=== PATIENT | female | born 1950 | race Caucasian/White ===

== ENCOUNTER 2018-03-04 08:08 | Day surgery (SDC) | payer OTHER ==
[2018-03-04] MEDS ORDERED: Ringers Lactate 1,000 ML IV ONE (09:13)
[2018-03-04] MEDS ORDERED: PROPOFOL 200 MG/20 ML VIAL IV ONE (09:44)
[2018-03-04] MEDS ORDERED: LIDOCAINE 1% MPF 5 ML VIAL ONE (09:44)
--- NOTE | 2018-03-04 11:41 | ENDO RPT ---
[address], [address] EGD PROCEDURE REPORT EXAM DATE: 03/04/2018 PATIENT NAME: Sunni Tripathi MR#: [id number] BIRTHDATE: 1950 ATTENDING: Raúl Wharton Dr STATUS: outpatient LEGAL RESEARCHER: Malini Vieyra, Monae Obrien RN, and Celia Sánchez RN INDICATIONS: The patient is a 67 yr old Female here for an EGD due to right upper quadrant abdominal pain, mid epigastric abdominal pain, nausea and vomiting, bloating, belching, dyspepsia, and GERD PROCEDURE PERFORMED: EGD with biopsy MEDICATIONS: Per Anesthesia. TOPICAL ANESTHETIC: none CONSENT: The patient understands the risks and benefits of the procedure and understands that these risks include, but are not limited to: sedation, allergic reaction, infection, perforation and/or bleeding. Alternative means of evaluation and treatment include, among others: physical exam, x-rays, and/or surgical intervention. The patient elects to proceed with this endoscopic procedure. DESCRIPTION OF PROCEDURE: During intra-op preparation period all mechanical medical equipment was checked for proper function. Hand hygiene and appropriate measures for infection prevention was taken. Procedure, possible complications, and alternatives including but not limited to the possibility of bleeding, perforation, tear, infection, sepsis, need for surgery, need for blood transfusion, and anesthesia related complications were explained to the patient. After the risks, benefits and alternatives of the procedure were thoroughly explained, Informed consent was verified, confirmed and timeout was successfully executed by the treatment team. The patient was placed in the left lateral position. The patient was anesthetized with topical anesthesia. Through the anesthetized oropharyngeal area, the scope was passed without any difficulty. The EG-[id number] ([id number]) endoscope was introduced through the mouth and advanced to the second portion of the duodenum. Retroflexed views revealed a small hiatal hernia. The gastroscope was then slowly withdrawn and removed. LA Class A esophagitis was found in the lower esophagus. A small hiatal hernia was found Mild gastritis was found in the antrum. Multiple biopsies were obtained and sent to pathology. Mild duodenitis was found in the bulb and descending duodenum. ADVERSE EVENTS: There were no complications. IMPRESSIONS: 1. LA class A esophagitis in the lower esophagus 2. Small hiatal hernia 3. Mild gastritis in the antrum, s/p biopsies 4. Mild duodenitis in the bulb and descending duodenum RECOMMENDATIONS: 1. await biopsy results 2. acid suppression therapy REPEAT EXAM: Raúl Wharton Dr eSigned: Raúl Wharton Dr 03/04/2018 10:06 AM cc: Darrell Andrade CPT CODES: ICD9 CODES: PATIENT NAME: Sunni Tripathi MR#: [id number]
--- NOTE | 2018-03-04 12:16 | RAD REPORT ---
EXAM DESCRIPTION: CTAbdomen Pelvis W Contrast - 03/04/2018 12:02 pm CLINICAL HISTORY: Abdominal pain. RT UPPER AND LEFT UPPER ABD PAIN STATUS [facility] COMPARISON: Abdomen Pelvis W Contrast dated 10/02/2016; Abdomen Pelvis W Contrast dated 07/11/2016 ; CT ABD PELVIS W CONTRAST dated 03/30/2014; CT ABD PELVIS W CONTRAST dated 03/26/2012 TECHNIQUE: Biphasic CT imaging of the abdomen and pelvis was performed with 100 ml non-ionic IV cont rast. All CT scans are performed using dose optimization technique as appropriate and may include automated exposure control or mA/KV adjustment according to patient size. FINDINGS: The lung bases are clear. The liver demonstrates fatty infiltration. There is nodularity along the left lobe the anterior brian n. Cholecystectomy clips. The spleen, pancreas, adrenal glands and kidneys are within normal limits. No bowel obstruction, free air, free fluid or abscess. Sigmoid diverticulosis without diverticulitis. Appendectomy. No evidence of significant lymphadenopathy. No suspicious bony findings. IMPRESSION: Fatty liver is seen with nodularity along the anterior margin of the left lobe of the li lachelle suspicious for early cirrhosis. Sigmoid diverticulosis without diverticulitis.
== END 2018-03-04 12:45 | disposition home or self-care (01) ==
LOC: OR 08:08
PROVIDERS: ATTEND Internal Medicine Gastroenterology
PROC: 0DB68ZX Excision of Stomach, Via Natural or Artificial Opening Endoscopic, Diagnostic (ICD-10-PCS; principal; 2018-03-04 10:45)
DX: K29.50 Unspecified chronic gastritis without bleeding (principal); K21.0 Gastro-esophageal reflux disease with esophagitis; K29.80 Duodenitis without bleeding; K44.9 Diaphragmatic hernia without obstruction or gangrene; E11.9 Type 2 diabetes mellitus without complications; J44.9 Chronic obstructive pulmonary disease, unspecified; G35 Multiple sclerosis; Z88.4 Allergy status to anesthetic agent; Z88.6 Allergy status to analgesic agent; Z87.891 Personal history of nicotine dependence; Z86.73 Personal history of transient ischemic attack (TIA), and cerebral infarction without residual deficits; Z90.710 Acquired absence of both cervix and uterus
CPT/HCPCS: 36415; 43239; 74177; 82565; 88305; 88312; J2704; Q9967

== ENCOUNTER 2018-05-06 06:30 | Day surgery (SDC) | payer OTHER ==
[2018-05-06] MEDS ORDERED: Ringers Lactate 1,000 ML IV ONE (07:12)
[2018-05-06] MEDS ORDERED: LIDOCAINE 1% MPF 5 ML VIAL ONE (09:31)
[2018-05-06] MEDS ORDERED: PROPOFOL 200 MG/20 ML VIAL IV ONE ×2 (09:31→09:32)
--- NOTE | 2018-05-06 16:02 | ENDO RPT ---
[address], [address] COLONOSCOPY PROCEDURE REPORT EXAM DATE: 05/06/2018 PATIENT NAME: Sunni Tripathi MR #: [id number] BIRTHDATE: 1950 ATTENDING: Raúl Wharton Dr STATUS: outpatient TOOL TENDER: Donna Benitez RN and Malini Rogers [facility] INDICATIONS: The patient is a 67 yr old Female here for a colonoscopy due to personal history of colon polyps PROCEDURE PERFORMED: Colonoscopy with snare polypectomy, Colonoscopy for control of bleeding, and Colon w/ endoclip MEDICATIONS: Per Anesthesia. ESTIMATED BLOOD LOSS: None CONSENT: The patient understands the risks and benefits of the procedure and understands that these risks include, but are not limited to: sedation, allergic reaction, infection, perforation and/or bleeding. Alternative means of evaluation and treatment include, among others: physical exam, x-rays, and/or surgical intervention. The patient elects to proceed with this endoscopic procedure. DESCRIPTION OF PROCEDURE: During intra-op preparation period all mechanical medical equipment was checked for proper function. Hand hygiene and appropriate measures for infection prevention was taken. Procedure, possible complications, alternatives including, but not limited to possibility of bleeding, perforation, tear, infection, sepsis, need for surgery, need for blood transfusion, were explained to the patient. After the risks, benefits and alternatives of the procedure were thoroughly explained, Informed consent was verified, confirmed and timeout was successfully executed by the treatment team. The patient was placed in the left lateral position. A digital rectal exam was performed and revealed external hemorrhoids. After appropriate level of anesthesia, the scope was passed. The EC-[id number] ([id number]) endoscope was introduced through the anus and advanced to the terminal ileum which was intubated for a short distance. The quality of the prep was fair. The instrument was then slowly withdrawn as the colon was fully examined. Scope withdrawal time was 9 minutes. COLON FINDINGS: A smooth flat polyp measuring 2.2 cm in size was found in the ascending colon. A polypectomy was performed using snare cautery and with a cold snare. The resection was complete, the polyp tissue was completely retrieved and sent to histology. Bleeding at the site was controlled using hemoclips. One (1) placement was made. Mild diverticulosis was noted in the sigmoid colon. No bleeding was noted from the diverticulosis. Moderate sized internal and external hemorrhoids were found. Retroflexed views revealed medium hemorrhoids. The scope was then completely withdrawn from the patient and the procedure terminated. ADVERSE EVENTS: There were no complications. IMPRESSIONS: 1. Flat polyp measuring 2.2 X 0.9 cm in size was found in the ascending colon; polypectomy was performed in a piecemeal fashion using snare cautery and with a cold snare; bleeding at the site was controlled using hemoclips 2. Mild diverticulosis was noted in the sigmoid colon 3. Moderate sized internal and external hemorrhoids 4. Intubation to terminal ileum 5. Personal history of colon polyps RECOMMENDATIONS: 1. await biopsy results 2. avoid NSAIDS for 2 weeks RECALL: Return in 3 month(s) for Colonoscopy. Raúl Wharton Dr eSigned: Raúl Wharton Dr 05/06/2018 10:18 AM cc: Darrell Andrade CPT CODES: ICD9 CODES: 1. 455.5 External hemorrhoids with other complication 2. 211.3 Benign neoplasm of colon PATIENT NAME: Sunni Tripathi MR#: [id number]
== END 2018-05-06 10:29 | disposition home or self-care (01) ==
LOC: OR 06:30
PROVIDERS: ATTEND Internal Medicine Gastroenterology
PROC: 0DBK8ZX Excision of Ascending Colon, Via Natural or Artificial Opening Endoscopic, Diagnostic (ICD-10-PCS; principal; 2018-05-06 09:30)
DX: Z12.11 Encounter for screening for malignant neoplasm of colon (principal); D12.2 Benign neoplasm of ascending colon; K57.30 Diverticulosis of large intestine without perforation or abscess without bleeding; K64.4 Residual hemorrhoidal skin tags; K64.8 Other hemorrhoids; E07.9 Disorder of thyroid, unspecified; E11.9 Type 2 diabetes mellitus without complications; J44.9 Chronic obstructive pulmonary disease, unspecified; K21.9 Gastro-esophageal reflux disease without esophagitis; K76.0 Fatty (change of) liver, not elsewhere classified; Z79.51 Long term (current) use of inhaled steroids; Z79.899 Other long term (current) drug therapy; Z86.73 Personal history of transient ischemic attack (TIA), and cerebral infarction without residual deficits
CPT/HCPCS: 45385; 88305; J2704 ×2

== ENCOUNTER 2018-11-04 06:49 | Day surgery (SDC) | payer OTHER ==
[2018-11-04] MEDS ORDERED: Ringers Lactate 1,000 ML IV ONE (07:16)
[2018-11-04] MEDS ORDERED: LIDOCAINE 1% MPF 5 ML VIAL ONE (08:23)
[2018-11-04] MEDS ORDERED: PROPOFOL 200 MG/20 ML VIAL IV ONE (08:23)
[2018-11-04] MEDS ORDERED: NS 0.9% VIAL 10 ML ONE (09:00)
[2018-11-04] MEDS ORDERED: Phenylephrine HCl 10 MG/ML 1 ML VIAL ONE (09:00)
--- NOTE | 2018-11-04 09:00 | ENDO RPT ---
[address], [address] COLONOSCOPY PROCEDURE REPORT EXAM DATE: 11/04/2018 PATIENT NAME: Sunni Tripathi MR #: [id number] BIRTHDATE: 1950 ATTENDING: Raúl Wharton Dr STATUS: outpatient RESTAURANT GREETER: Luis Rossi RN, Malini Vieyra, and Angela Newby RN INDICATIONS: The patient is a 67 yr old Female here for a colonoscopy due to personal history of colon polyps and abdominal pain PROCEDURE PERFORMED: Colonoscopy with snare polypectomy MEDICATIONS: Per Anesthesia. ESTIMATED BLOOD LOSS: None CONSENT: The patient understands the risks and benefits of the procedure and understands that these risks include, but are not limited to: sedation, allergic reaction, infection, perforation and/or bleeding. Alternative means of evaluation and treatment include, among others: physical exam, x-rays, and/or surgical intervention. The patient elects to proceed with this endoscopic procedure. DESCRIPTION OF PROCEDURE: During intra-op preparation period all mechanical medical equipment was checked for proper function. Hand hygiene and appropriate measures for infection prevention was taken. Procedure, possible complications, alternatives including, but not limited to possibility of bleeding, perforation, tear, infection, sepsis, need for surgery, need for blood transfusion, were explained to the patient. After the risks, benefits and alternatives of the procedure were thoroughly explained, Informed consent was verified, confirmed and timeout was successfully executed by the treatment team. The patient was placed in the left lateral position. A digital rectal exam was performed and revealed external hemorrhoids. After appropriate level of anesthesia, the scope was passed. The EC-[id number] ([id number]) endoscope was introduced through the anus and advanced to the terminal ileum which was intubated for a short distance. The quality of the prep was fair. The instrument was then slowly withdrawn as the colon was fully examined. Scope withdrawal time was 8 minutes. COLON FINDINGS: A smooth flat polyp measuring 4 mm in size was found in the ascending colon. A polypectomy was performed with a cold snare. Mild diverticulosis was noted in the descending colon and sigmoid colon. No bleeding was noted from the diverticulosis. Small internal and external hemorrhoids were found. Retroflexed views revealed small hemorrhoids. The scope was then completely withdrawn from the patient and the procedure terminated. ADVERSE EVENTS: There were no complications. IMPRESSIONS: 1. 4 mm flat polyp in the distal ascending colon; polypectomy was performed with a cold snare 2. Mild diverticulosis in the descending colon < sigmoid colon 3. Small internal and external hemorrhoids 4. Intubation to terminal ileum RECOMMENDATIONS: 1. await biopsy results 2. avoid NSAIDS for 2 weeks RECALL: Return in 3-5 year(s) for Colonoscopy. Raúl Wharton Dr eSigned: Raúl Wharton Dr 11/04/2018 9:00 AM cc: Darrell Andrade CPT CODES: ICD9 CODES: PATIENT NAME: Sunni Tripathi MR#: [id number]
[2018-11-04 11:09] VITALS: TEMP 97
[2018-11-04 11:10] VITALS: BP 112/59; O2SAT 95
== END 2018-11-04 09:25 | disposition home or self-care (01) ==
LOC: OR 06:49
PROVIDERS: ATTEND Internal Medicine Gastroenterology
PROC: 0DBK8ZX Excision of Ascending Colon, Via Natural or Artificial Opening Endoscopic, Diagnostic (ICD-10-PCS; principal; 2018-11-04 08:45)
DX: D12.2 Benign neoplasm of ascending colon (principal); K57.30 Diverticulosis of large intestine without perforation or abscess without bleeding; K64.8 Other hemorrhoids; K64.4 Residual hemorrhoidal skin tags; K27.9 Peptic ulcer, site unspecified, unspecified as acute or chronic, without hemorrhage or perforation; E11.9 Type 2 diabetes mellitus without complications; I10 Essential (primary) hypertension; J44.9 Chronic obstructive pulmonary disease, unspecified; G35 Multiple sclerosis; K21.9 Gastro-esophageal reflux disease without esophagitis; Z86.010 Personal history of colon polyps; Z86.73 Personal history of transient ischemic attack (TIA), and cerebral infarction without residual deficits; Z88.6 Allergy status to analgesic agent
CPT/HCPCS: 88305; 45385; J2704; J2370

== ENCOUNTER 2020-11-14 15:49 | Observation (INO) | payer OTHER ==
[2020-11-14 16:45] LABS: Absolute Lymphocytes (CBC) 0.7 K/uL (0.7-4.9); Basophils % 0.4 % (0-1.3); Hematocrit 34.9 % (36.0-45.0); Lymphocytes % 10.4 % (15.3-44.8); MPV 8.4 fL (7.6-11.3); RBC Red Blood Cell Count 3.41 M/uL (3.86-4.86)
[2020-11-14 16:51] LABS: Protime INR 1.15
[2020-11-14] MEDS ORDERED: CEFTRIAXONE 1 GM/NS 50 ML 1 GM/50 ML BAG IV ONE (17:00)
[2020-11-14 17:11] LABS: ALT/SGPT 22 U/L (12-78); AST/SGOT 16 U/L (15-37); Albumin 3.9 g/dL (3.4-5.0); Alkaline Phosphatase 79 U/L (45-117); BUN Blood Urea Nitrogen 19 mg/dL (7-18); Bicarbonate 29 mmol/L (21-32); Bilirubin Direct 0.3 mg/dL (0-0.2); Bilirubin Total 0.8 mg/dL (0.2-1.0); Glucose Level 118 mg/dL (74-106); Magnesium 2.1 mg/dL (1.8-2.4); NT PRO-BNP 324 pg/mL (<125); Potassium 3.8 mmol/L (3.5-5.1); Protein, Total 7.8 g/dL (6.4-8.2); Sodium Level 136 mmol/L (136-145); Troponin (Emerg Dept Use Only) < 0.02 ng/mL (0.0-0.045)
--- NOTE | 2020-11-14 17:22 | RAD REPORT ---
EXAM DESCRIPTION: RAD - Chest Single View - 11/14/2020 5:10 pm CLINICAL HISTORY: chest pain, fever Chest pain. COMPARISON: Chest Single View dated 04/16/2016; Chest Single View dated 05/20/2015; CHEST PA AND LAT 2 VIEW dated 08/05/2013; CHEST SINGLE VIEW dated 01/15/2013 FINDINGS: Portable technique limits examination quality. Mild bilateral pulmonary opacities are present, greater on the right. Right-sided opacity probably re presents a developing pneumonia. The heart is normal in size. No displaced fractures. IMPRESSION: Developing right-sided pneumonia.
[2020-11-14] MEDS ORDERED: NA CHLORIDE 0.9% 1,000 ML ONE (17:54)
--- NOTE | 2020-11-14 18:07 | EDPHYS ---
Physician Documentation [facility] Name: Sunni Tripathi Age: 69 yrs Sex: Female : 1950 Arrival Date: 11/14/2020 Time: 15:50 Bed 25 Private MD: Darrell Andrade T ED Physician Geovani Tolbert HPI: 11/14 16:11 This 69 yrs old Female presents to ER via Wheelchair with complaints of Chest jmm Pain. 16:11 The patient has shortness of breath at rest. Onset: The symptoms/episode began/occurred jmm gradually, 2 day(s) ago. Duration: The symptoms are continuous, and are steadily getting worse. The patient's shortness of breath is aggravated by nothing, is alleviated by nothing. Associated signs and symptoms: Pertinent positives: chest pain, non-productive cough, fever. It is unknown whether or not the patient has had similar symptoms in the past. This is a 69-year-old female with history of multiple myeloma that presents emerged part with complaints of right-sided chest pain beginning today. Patient has had a cough with low-grade fever for the past 2 days. Tested negative for coronavirus letter at home test. Patient complains of increasing shortness of breath as well. Patient is currently taking oral chemotherapy. Historical: - Allergies: 15:57 anesthesia gases; aa5 - PMHx: 15:57 Cataracts; chronic back pain; Multiple Sclerosis; Rheumatoid Arthritis; spinal aa5 meningitis (age 25 from bee sting); Atrial fibrillation; Hypothyroidism; Multiple Myeloma; Chemotherapy; - PSHx: 15:57 Stem cell transplant; aa5 - Immunization history:: Client reports receiving the 2nd dose of the Covid vaccine. - Social history:: Smoking status: Patient denies any tobacco usage or history of. ROS: 16:11 Constitutional: Positive for fever. jmm 16:11 Respiratory: Positive for cough. 16:11 All other systems are negative. Exam: 16:11 Constitutional: This is a well developed, well nourished patient who is awake, alert, jmm and in no acute distress. Head/Face: atraumatic. Eyes: EOMI, no conjunctival erythema appreciated ENT: Moist Mucus Membranes Neck: Trachea midline, Supple Chest/axilla: Normal chest wall appearance and motion. Cardiovascular: Regular rate and rhythm. No edema appreciated 16:11 Back: Normal ROM Skin: General appearance color normal MS/ Extremity: Moves all extremities, no obvious deformities appreciated, no edema noted to the lower extremities Neuro: Awake and alert, normal gait Psych: Behavior is normal, Mood is normal, Patient is cooperative and pleasant 16:11 Respiratory: the patient does not display signs of respiratory distress, Respirations: Breath sounds: decreased breath sounds, that are moderate, are heard in the right middle lobe and right lower lobe. Vital Signs: 16:00 BP 137 / 69; Pulse 104; Resp 18 S; Temp 101.0(O); Pulse Ox 94% on R/A; Weight 80.74 kg aa5 (R); Height 5 ft. 7 in. (170.18 cm) (R); 19:13 BP 118 / 63; Pulse 78; Resp 20; Temp 100; Pulse Ox 100% ; aj2 16:00 Body Mass Index 27.88 (80.74 kg, 170.18 cm) aa5 MDM: 16:04 Patient medically screened. [facility] 18:06 Data reviewed: vital signs, nurses notes. Counseling: I had a detailed discussion with john the patient and/or guardian regarding: the historical points, exam findings, and any diagnostic results supporting the discharge/admit diagnosis, lab results, the need for further work-up and treatment in the hospital. ED course: I discussed the patient with Colt Bauman whom accepted the patient to Dr. Knapp service. . 11/14 16:07 Order name: Basic Metabolic Panel; Complete Time: 17:11 [facility] 11/14 16:07 Order name: CBC with Diff; Complete Time: 16:50 [facility] 11/14 16:07 Order name: LFT's; Complete Time: 17:11 [facility] 11/14 16:07 Order name: Magnesium; Complete Time: 17:11 [facility] 11/14 16:07 Order name: NT PRO-BNP; Complete Time: 17:11 [facility] 11/14 16:07 Order name: PT-INR; Complete Time: 16:57 [facility] 11/14 16:07 Order name: Troponin (emerg Dept Use Only); Complete Time: 17:11 [facility] 11/14 16:07 Order name: XRAY Chest (1 view); Complete Time: 17:27 [facility] 11/14 16:07 Order name: Procalcitonin; Complete Time: 17:36 [facility] 11/14 16:07 Order name: Lactate; Complete Time: 17:09 [facility] 11/14 16:07 Order name: Blood Culture Adult (2) [facility] 11/14 16:08 Order name: Flu [facility] 11/14 19:22 Order name: COVID-19/FLU A+B; Complete Time: 19:28 [facility] 11/14 16:07 Order name: EKG; Complete Time: 16:09 [facility] 11/14 16:07 Order name: Cardiac monitoring; Complete Time: 17:28 [facility] 11/14 16:07 Order name: EKG - Nurse/Tech; Complete Time: 17:49 [facility] 11/14 16:07 Order name: IV Saline Lock; Complete Time: 16:28 [facility] 11/14 16:07 Order name: Labs collected and sent; Complete Time: 16:28 [facility] 11/14 16:07 Order name: O2 Per Protocol; Complete Time: 16:49 [facility] 11/14 16:07 Order name: O2 Sat Monitoring; Complete Time: 16:49 [facility] 11/14 16:08 Order name: Urine Dipstick-Ancillary (obtain specimen) [facility] Administered Medications: 17:28 Drug: Rocephin (cefTRIAXone) 1 grams Route: IV; Rate: calculated rate; Site: left hand; aj2 Disposition: 11/15 05:54 Co-signature as Attending Physician, Geovani Tolbert MD I agree with the assessment and pablo plan of care. Disposition Summary: 11/14/20 18:07 Hospitalization Ordered Hospitalization Status: Observation [facility] Provider: Rodger Knapp [facility] Condition: Stable [facility] Problem: new [facility] Symptoms: are unchanged [facility] Bed/Room Type: Standard [facility] Room Assignment: 219(11/14/20 20:02) Diagnosis - Pneumonia [facility] Forms: - Medication Reconciliation Form [facility] - SBAR form [facility] Signatures: Dispatcher [employer] EDMS Sumaya Caballero RN RN mw Anderson, Corey, MD MD cha Mickail, Joel, PA PA jmm Calderon, Audri RN RN [facility] aj2 Corrections: (The following items were deleted from the chart) 11/14 18:41 16:09 CORONAVIRUS+MR.LAB.BRZ ordered. EDMS EDMS 20:02 18:07 [facility]
--- NOTE | 2020-11-14 18:07 | ER ---
Nurse's Notes [facility] Name: Sunni Tripathi Age: 69 yrs Sex: Female : 1950 Arrival Date: 11/14/2020 Time: 15:50 Bed 25 Private MD: Darrell Andrade T Diagnosis: Pneumonia Presentation: 11/14 16:00 Chief complaint: Patient states: "I've been having right sided chest pain over the aa5 weekend and Dr. Andrade sent me here to be checked for Pneumonia". Pt also reports fever up to 101.8* F at home, pt reports cough. Coronavirus screen: fever. Ebola Screen: Patient denies exposure to infectious person. Initial Sepsis Screen: Does the patient meet any 2 criteria? Temp <36.0*C (96.8*F)) or > 38.3*C (100.9*F). HR > 90 bpm. Does the patient have a suspected source of infection? Yes:. Risk Assessment: Do you want to hurt yourself or someone else? Patient reports no desire to harm self or others. Onset of symptoms was October 2020. 16:00 Method Of Arrival: Wheelchair aa5 16:00 Acuity: SIM 2 aa5 Triage Assessment: 20:23 General: Appears in no apparent distress. uncomfortable, slender. Pain: Pain does not dc2 radiate. Pain currently is 5 out of 10 on a pain scale. 20:24 General: Behavior is calm, cooperative. dc2 Historical: - Allergies: 15:57 anesthesia gases; aa5 - PMHx: 15:57 Cataracts; chronic back pain; Multiple Sclerosis; Rheumatoid Arthritis; spinal aa5 meningitis (age 25 from bee sting); Atrial fibrillation; Hypothyroidism; Multiple Myeloma; Chemotherapy; - PSHx: 15:57 Stem cell transplant; aa5 - Immunization history:: Client reports receiving the 2nd dose of the Covid vaccine. - Social history:: Smoking status: Patient denies any tobacco usage or history of. Screenin:13 Abuse screen: Denies threats or abuse. Denies injuries from another. Nutritional aj2 screening: No deficits noted. Tuberculosis screening: No symptoms or risk factors identified. Fall Risk None identified. Assessment: 19:13 Pain: Denies pain. Cardiovascular: Rhythm is sinus rhythm. aj2 Vital Signs: 16:00 BP 137 / 69; Pulse 104; Resp 18 S; Temp 101.0(O); Pulse Ox 94% on R/A; Weight 80.74 kg aa5 (R); Height 5 ft. 7 in. (170.18 cm) (R); 19:13 BP 118 / 63; Pulse 78; Resp 20; Temp 100; Pulse Ox 100% ; aj2 16:00 Body Mass Index 27.88 (80.74 kg, 170.18 cm) [facility] ED Course: 15:50 Patient arrived in ED. as 15:50 Darrell Andrade MD is Private Physician. as 15:55 [facility] Harvey [facility] jm 15:55 Geovani Tolbert MD is Attending Physician. [facility] 15:57 Arm band placed on. aa5 16:01 Triage completed. aa5 16:15 Suman Galvez is Primary Nurse. aj2 16:26 Initial lab(s) drawn, by nv, sent to lab. First set of blood cultures drawn. Inserted em1 saline lock: 20 gauge in left wrist, using aseptic technique. Blood collected. 16:49 Blood Culture Adult (2) Sent. aj2 16:49 Lactate Sent. aj2 16:49 Procalcitonin Sent. aj2 16:49 Basic Metabolic Panel Sent. aj2 16:49 CBC with Diff Sent. aj2 16:49 LFT's Sent. aj2 16:49 Magnesium Sent. aj2 16:49 NT PRO-BNP Sent. aj2 16:49 PT-INR Sent. aj2 17:10 XRAY Chest (1 view) In Process Unspecified. EDMS 17:12 Flu Sent. aj2 18:07 Rodger Knapp DO is Hospitalizing Provider. [facility] 19:13 No apparent distress. Resting quietly. aj2 19:13 Patient has correct armband on for positive identification. monitoring manager on. Pulse aj2 ox on. NIBP on. 19:13 No provider procedures requiring assistance completed. IV is patent, is intact. Patient aj2 maintains SpO2 saturation greater than 95% on room air. 20:30 Report given to CHANI Brand - accepting floor nurse. Notified primary nurse of that dc2 patient has not eaten, daughter has taken dentures home and can only eat a soft diet. 20:32 Patient admitted, IV remains in place. intact, No redness/swelling at site. dc2 Administered Medications: 17:28 Drug: Rocephin (cefTRIAXone) 1 grams Route: IV; Rate: calculated rate; Site: left hand; [facility] Outcome: 18:07 Decision to Hospitalize by Provider. john 20:32 Admitted to Med/surg accompanied by tech, via stretcher, room 219, Report called to dc2 CHANI Brand 20:32 Condition: stable 20:34 Patient left the ED. dc2 Signatures: Dispatcher [employer] EDMS Michelet Harvey PA PA jmm Martinez, Amelia as Martinez, Eric em1 Britt Campa, RN RN [facility] aj2 Rosario Omalley RN RN dc2 Corrections: (The following items were deleted from the chart) 18:41 17:12 CORONAVIRUS+ drawn and sent. [facility] EDMS
[2020-11-14 19:21] LABS: SARS-COV-2 RT PCR NEGATIVE (NEGATIVE)
--- NOTE | 2020-11-14 19:52 | P.HP ---
Certification for Inpatient Patient admitted to: Inpatient With expected LOS: >2 Midnights Patient will require the following post-hospital care: None Practitioner: I am a practitioner with admitting privileges, knowledge of patient current condition, hospital course, and medical plan of care. Services: Services provided to patient in accordance with Admission requirements found in Title 42 Section 412.3 of the Code of Federal Regulations Patient History Date of Service: 11/14/20 Primary Care Provider: Dr. Andrade Reason for admission: Pneumonia History of Present Illness: 69-year-old female with history of multiple sclerosis, rheumatoid arthritis, atrial fibrillation, multiple myeloma presents emergency [facility] for shortness of breath, fever. Patient reports not feeling well over the course last 1 week developed fever to 101.8 and was advised by her primary care doctor to come to the emergency department for evaluation. Patient was evaluated in the emergency room and labs are significant for white blood cell count 6.8 hemoglobin 9.9 hematocrit 34.9 MCV 102.3 platelets 119 procalcitonin 0.16 Covid/flu negative chest x-ray demonstrates developing right pneumonia. Patient on daily oral chemotherapy status post stem cell transplant for multimyeloma ED progress to admit for further evaluation and management. Allergies morphine Allergy (Verified 03/04/18 09:16) Shortness of breath ether Adverse Reaction (Verified 11/04/18 07:33) Anaphylaxis Home Medications: Budesonide/Formoterol Fumarate [Symbicort 160-4.5 Mcg Inhaler] 2 puff PO BID 05/20/15 Dimethyl Fumarate [Tecfidera] 1 cap PO BID 05/20/15 Gabapentin 1 tab PO TID 05/20/15 Levothyroxine Sodium [Synthroid] 1 tab PO DAILY 05/20/15 Tiotropium [place] [Spiriva] 1 puff PO DAILY 05/20/15 clonazePAM [Clonazepam] 1 tab PO BID PRN 03/04/18 Hydrocodone Bit/Acetaminophen [Hydrocodon-Acetaminophn 10-325] 1 each PO 05/06/18 Omeprazole 20 mg PO DAILY 05/06/18 carvediloL [Coreg] 25 mg PO DAILY 05/06/18 - Past Medical/Surgical History Diabetic: No -: MS -: Rheumatoid Arthritis -: spinal meningitis -: Multiple myeloma status post stem cell transplant on chemo -: Atrial fibrillation not on chronic anticoagulation -: 3 major spine surgeries (steel plates in neck area) -: complete hysterectomy -: cholecystectomy -: appendectomy -: Autologous stem cell transplant Psychosocial/ Personal History: Retired, lives alone - Family History Mother -: Diabetes, Stroke, Other (see notes) Notes: MS Father -: Heart disease, Diabetes, Cancer - Social History Smoking Status: Former smoker Alcohol use: Yes CD- Drugs: No Caffeine use: Yes Place of Residence: Home Review of Systems 10-point ROS is otherwise unremarkable General: Fever, Chills, Weakness, Malaise Respiratory: Cough, Shortness of Breath Physical Examination - Physical Exam General: Alert, In no apparent distress, Oriented x3 HEENT: Atraumatic, PERRLA, Mucous membr. moist/pink, EOMI, Sclerae nonicteric Neck: Supple, 2+ carotid pulse no bruit, No LAD, Without JVD or thyroid abnormality Respiratory: Clear to auscultation bilaterally, Normal air movement Cardiovascular: Regular rate/rhythm, Normal S1 S2 Gastrointestinal: Normal bowel sounds, No tenderness Musculoskeletal: No tenderness Integumentary: No rashes Neurological: Normal speech, Normal strength at 5/5 x4 extr, Normal tone, Normal affect - Studies Laboratory Data (last 24 hrs) 11/14/20 16:26: PT 13.3 H, INR 1.15 11/14/20 16:26: WBC 6.80, Hgb 11.9 L, Hct 34.9 L, Plt Count 119 L 11/14/20 16:26: Sodium 136, Potassium 3.8, BUN 19 H, Creatinine 0.85, Glucose 118 H, Magnesium 2.1, Total Bilirubin 0.8, AST 16, ALT 22, Alkaline Phosphatase 79 Assessment and Plan - Plan Assessment: Dyspnea, fever secondary to right-sided pneumoniaimmune compromised History of multimyeloma status post stem cell transplanton oral chemotherapy Multiple sclerosis Atrial fibrillation not on chronic anticoagulation therapy Plan: Dyspnea, fever secondary to right-sided pneumoniaimmune compromised: Blood and sputum cultures obtained, will continue with IV antibiotics Rocephin/to the max, no oxygen requirement at this time continue with incentive spirometry. Despite clinical improvement over the course next 24 to 48 hours. History of multimyeloma status post stem cell transplanton oral chemotherapy: Continue medications, monitor daily labs Multiple sclerosis: Continue home meds Atrial fibrillation not on chronic anticoagulation therapy: Patient's Eliquis was discontinued last year, will obtain review of other medications, restart as appropriate. DVT PPX: Lovenox Code status: DNR Discharge Plan: Home Plan to discharge in: 48 Hours - Advance Directives Does patient have a Living Will: Yes Does patient have a Durable POA for Healthcare: Yes - Code Status/Comfort Care Code Status Assessed: Yes (DNR) Critical Care: No Time Spent Managing Pts Care (In Minutes): 55
[2020-11-14] MEDS ORDERED: ONDANSETRON 4 MG/2 ML VIAL IV PRN (20:24)
[2020-11-14] MEDS ORDERED: BENZONATATE 100 MG CAP PO PRN (20:24)
[2020-11-14] MEDS ORDERED: HYDROCODONE/APAP 10/325 TAB PO PRN (20:24)
[2020-11-14 21:21] VITALS: BMI 27.6
[2020-11-14] MEDS: OXYCODONE HCL 5 MG TAB PO SCH (22:05)
[2020-11-14 22:22] LABS: Urine Appearance CLEAR (Clear); Urine Bilirubin NEGATIVE (Negative); Urine Blood 3+ (Negative); Urine Color YELLOW (Yellow); Urine Glucose NEGATIVE (Negative); Urine Protein 2+ (Negative); Urine pH 6.5 (5.0-7.0)
[2020-11-14 22:28] LABS: Urine Microscopic Reflex ORDER UMIC
[2020-11-15 00:12] LABS: Urine Bacteria <20 /HPF (<20); Urine Urothelial Cells <5 /HPF (NONE SEEN)
[2020-11-15] MEDS ORDERED: IBUPROFEN 600 MG TAB PO ONE (01:53)
[2020-11-15] MEDS: OXYCODONE HCL 5 MG TAB PO SCH (04:52)
[2020-11-15 05:13] VITALS: O2SAT 97
[2020-11-15 05:25] LABS: Absolute Lymphocytes (CBC) 0.4 K/uL (0.7-4.9); Basophils % 0.2 % (0-1.3); Hematocrit 28.9 % (36.0-45.0); MPV 7.8 fL (7.6-11.3); RBC Red Blood Cell Count 2.85 M/uL (3.86-4.86)
[2020-11-15 05:59] LABS: Albumin 3.4 g/dL (3.4-5.0); Bilirubin Total 0.7 mg/dL (0.2-1.0); Potassium 3.3 mmol/L (3.5-5.1); Protein, Total 6.9 g/dL (6.4-8.2); Thyroid Stimulating Hormone 1.52 uIU/mL (0.360-3.740)
--- NOTE | 2020-11-15 06:11 | P.PN ---
Subjective Date of Service: 11/15/20 Primary Care Provider: Dr. Andrade Chief Complaint: Pneumonia Subjective: Improving, Doing well Physical Examination - Vital Signs Temperature: 97.6 F Blood Pressure: 115/59 Pulse: 88 Respirations: 19 Pulse Ox (%): 96 - Studies Laboratory Data (last 24 hrs) 11/14/20 16:26: PT 13.3 H, INR 1.15 11/14/20 16:26: WBC 6.80, Hgb 11.9 L, Hct 34.9 L, Plt Count 119 L 11/14/20 16:26: Sodium 136, Potassium 3.8, BUN 19 H, Creatinine 0.85, Glucose 118 H, Magnesium 2.1, Total Bilirubin 0.8, AST 16, ALT 22, Alkaline Phosphatase 79 Assessment & Plan Discharge Plan: Home Plan to discharge in: 24 Hours Physician Review Additional Text: COVID: negative CXR: COMPARISON: Chest Single View dated 04/16/2016; Chest Single View dated 05/20/2015; CHEST PA AND LAT 2 VIEW dated 08/05/2013; CHEST SINGLE VIEW dated 01/15/2013 FINDINGS: Portable technique limits examination quality. Mild bilateral pulmonary opacities are present, greater on the right. Right- sided opacity probably represents a developing pneumonia. The heart is normal in size. No displaced fractures. IMPRESSION: Developing right-sided pneumonia. Physical exam: General: Alert, In no apparent distress, Oriented x3 HEENT: Atraumatic, PERRLA, Mucous membr. moist/pink, EOMI, Sclerae nonicteric Neck: Supple, 2+ carotid pulse no bruit, No LAD, Without JVD or thyroid abnormality Respiratory: Clear to auscultation bilaterally, Normal air movement patient on room air. Cardiovascular: Regular rate/rhythm, Normal S1 S2 Gastrointestinal: Normal bowel sounds, No tenderness Musculoskeletal: No tenderness Integumentary: No rashes Neurological: Normal speech, Normal strength at 5/5 x4 extr, Normal tone, Normal affect Impression: Dyspnea, fever secondary to right-sided pneumoniaimmune compromised History of multimyeloma status post stem cell transplanton oral chemotherapy Multiple sclerosis Atrial fibrillation not on chronic anticoagulation therapy Plan: Dyspnea, fever secondary to right-sided pneumoniaimmune compromised: Patient doing well at this time. Patient on room air. Blood cultures obtained. Patient desires to go home. Patient doing well at this time. We will plan for discharge today. History of multimyeloma status post stem cell transplanton oral chemotherapy: Continue medications, monitor daily labs Multiple sclerosis: Continue home meds Atrial fibrillation not on chronic anticoagulation therapy: Patient's Eliquis was discontinued last year, will obtain review of other medications, restart as appropriate. DVT PPX: Lovenox Code status: DNR Discharge Plan: Home Time Spent Managing Pts Care (In Minutes): 55
[2020-11-15] MEDS ORDERED: POTASSIUM CL SA 10 MEQ TAB PO ONE (07:30)
[2020-11-15 08:44] LABS: Blood Morphology Comment NOT SEEN (NOT SEEN); Platelet Estimate DECR
[2020-11-15] MEDS ORDERED: ENOXAPARIN 40 MG/0.4 ML SQ SCH (09:00)
[2020-11-15] MEDS ORDERED: AZITHROMYCIN IV 500 MG in NA CHLORIDE 0.9% 250 ML IVPB SCH (09:00)
[2020-11-15] MEDS ORDERED: CEFTRIAXONE 1 GM/NS 50 ML 1 GM/50 ML BAG IV SCH (09:00)
[2020-11-15] MEDS ORDERED: NA CHLORIDE 0.9% 250 ML ONE (09:22)
--- NOTE | 2020-11-15 10:53 | P.DS ---
Admission Date: 11/14/20 Discharge Date: 11/15/20 Primary Care Provider: Dr. Andrade Discharge Condition: GOOD Reason for Admission: Pneumonia Consultations: none Procedures: COVID: negative CXR: COMPARISON: Chest Single View dated 04/16/2016; Chest Single View dated 05/20/2015; CHEST PA AND LAT 2 VIEW dated 08/05/2013; CHEST SINGLE VIEW dated 01/15/2013 FINDINGS: Portable technique limits examination quality. Mild bilateral pulmonary opacities are present, greater on the right. Right- sided opacity probably represents a developing pneumonia. The heart is normal in size. No displaced fractures. IMPRESSION: Developing right-sided pneumonia. Medical Problem List: Dyspnea, fever secondary to right-sided pneumoniaimmune compromised History of multimyeloma status post stem cell transplanton oral chemotherapy Multiple sclerosis Hypertension Chronic pain Hypothyroidism GERD Brief History of Present Illness: 69-year-old female with history of multiple sclerosis, rheumatoid arthritis, atrial fibrillation, multiple myeloma presents to the ER with shortness of breath and fever. She has not been feeling well over the past week. Her primary care doctor sent her to the ER for further evaluation. Patient found to have pneumonia. Patient admitted for observation. Hospital Course: Patient presented with dyspnea, fever secondary to right-sided pneumonia. Patient was admitted for observation. White count was normal. Procalcitonin was slightly elevated. Patient given IV fluid and antibiotic therapy. Patient has improved. Patient desires to go home. Patient on room air. At discharge patient will continue with Augmentin 500 mg 1 pill twice daily for 7 days and Zithromax 250 mg 1 pill daily for the next 4 days. Patient encouraged to use incentive spirometer. Recommend follow-up with PCP within 1 week to follow-up his hospitalization. Recommend to recheck chest x-ray in 2 to 4 weeks to monitor resolution. Patient with history of multiple myeloma with prior stem cell transplant on chemotherapy, multiple sclerosis, hypertension, hypothyroidism, and chronic pain. At discharge she will continue with her current medications. Medications include baclofen 10 mg 1 pill twice daily hold with increase sedation, calcium supplementation daily, Coreg CR 20 mg daily, gabapentin 200 mg 1 pill twice daily, Revlimid 5 mg 1 pill daily, levothyroxine 50 mcg daily, Claritin 10 mg daily, multivitamin 1 pill daily, Nuedexta 1 pill daily, oxycodone 5 mg 4 times a day as needed for pain, Protonix 40 mg daily, Topamax 50 mg at bedtime, and Valtrex 500 mg daily. Patient will follow up with her specialist as directed. Vital Signs/Physical Exam: Temp Pulse Resp BP Pulse Ox 97.6 F 88 19 115/59 L 96 11/15/20 10:52 11/15/20 10:52 11/15/20 10:52 11/15/20 10:52 11/15/20 10:52 General: Alert, In no apparent distress, Oriented x3, Cooperative HEENT: Atraumatic Neck: Supple Respiratory: Clear to auscultation bilaterally, Normal air movement Cardiovascular: Normal pulses, Regular rate/rhythm Gastrointestinal: Normal bowel sounds Musculoskeletal: No erythema, No tenderness, No warmth Integumentary: No tenderness/swelling Neurological: Normal speech, Normal strength at 5/5 x4 extr, Normal tone Laboratory Data at Discharge: WBC 5.90 K/uL (4.3-10.9) 11/15/20 04:55 Hgb 10.3 g/dL (12.0-15.0) L 11/15/20 04:55 Hct 28.9 % (36.0-45.0) L D 11/15/20 04:55 Plt Count 98 K/uL (152-406) L 11/15/20 04:55 PT 13.3 SECONDS (9.5-12.5) H 11/14/20 16:26 INR 1.15 11/14/20 16:26 Sodium 137 mmol/L (136-145) 11/15/20 04:55 Potassium 3.3 mmol/L (3.5-5.1) L 11/15/20 04:55 BUN 15 mg/dL (7-18) 11/15/20 04:55 Creatinine 0.69 mg/dL (0.55-1.3) 11/15/20 04:55 Glucose 136 mg/dL (74-106) H 11/15/20 04:55 Magnesium 2.1 mg/dL (1.8-2.4) 11/14/20 16:26 Total Bilirubin 0.7 mg/dL (0.2-1.0) 11/15/20 04:55 AST 20 U/L (15-37) 11/15/20 04:55 ALT 24 U/L (12-78) 11/15/20 04:55 Alkaline Phosphatase 72 U/L (45-117) 11/15/20 04:55 Home Medications: Albuterol Inhaler [Ventolin Inhaler*] 2 puff IH Q6HP PRN 11/14/20 Baclofen 10 mg PO BID 11/14/20 Carvedilol Phosphate [Coreg Cr] 20 mg PO DAILY 11/14/20 Dimethyl Fumarate 240 mg PO BID 11/14/20 Ergocalciferol (Vitamin D2) [Vitamin D2] 50,000 unit PO EVERY 7TH DAY 11/14/20 Gabapentin 600 mg PO BID 11/14/20 Lenalidomide [Revlimid] 5 mg PO DAILY 11/14/20 Levothyroxine [Synthroid*] 0.05 mg PO DAILY 11/14/20 Oxycodone HCl 5 mg PO QID 11/14/20 Pantoprazole [Protonix Tab*] 40 mg PO DAILY 11/14/20 Topiramate 50 mg PO BEDTIME 11/14/20 Valacyclovir [Valtrex*] 500 mg PO DAILY 11/14/20 Amox/Clavulanate [Augmentin 500-125 mg Tab] 500 mg PO BID #14 tab 11/15/20 Azithromycin Tab [Zithromax*] 250 mg PO DAILY #4 tab 11/15/20 Calcium Carbonate/Vitamin D3 [Calcium 600-Vit D3 400 Caplet] 1 tab PO DAILY 0 11/15/20 Carboxymethyl/Gly/Poly80/Pf [Refresh Optive Clay-3 Drops] 1 gtt EACH EYE DAILY 11/15/20 Loratadine [Claritin*] 10 mg PO DAILYPRN PRN 11/15/20 Multivitamin 1 tab PO DAILY 11/15/20 Nuedexta 1 cap PO DAILY 11/15/20 New Medications: Amox/Clavulanate [Augmentin 500-125 mg Tab] 500 mg PO BID #14 tab Azithromycin Tab [Zithromax*] 250 mg PO DAILY #4 tab Physician Discharge Instructions: Patient presented with dyspnea, fever secondary to right-sided pneumonia. Patient was admitted for observation. White count was normal. Procalcitonin was slightly elevated. Patient given IV fluid and antibiotic therapy. Patient has improved. Patient desires to go home. Patient on room air. At discharge patient will continue with Augmentin 500 mg 1 pill twice daily for 7 days and Zithromax 250 mg 1 pill daily for the next 4 days. Patient encouraged to use incentive spirometer. Recommend follow-up with PCP within 1 week to follow-up his hospitalization. Recommend to recheck chest x-ray in 2 to 4 weeks to monitor resolution. Patient with history of multiple myeloma with prior stem cell transplant on chemotherapy, multiple sclerosis, hypertension, hypothyroidism, and chronic pain. At discharge she will continue with her current medications. Medications include baclofen 10 mg 1 pill twice daily hold with increase sedation, calcium supplementation daily, Coreg CR 20 mg daily, gabapentin 200 mg 1 pill twice daily, Revlimid 5 mg 1 pill daily, levothyroxine 50 mcg daily, Claritin 10 mg daily, multivitamin 1 pill daily, Nuedexta 1 pill daily, oxycodone 5 mg 4 times a day as needed for pain, Protonix 40 mg daily, Topamax 50 mg at bedtime, and Valtrex 500 mg daily. Patient will follow up with her specialist as directed. Diet: AHA Activity: Ad morenita Followup: Darrell Andrade MD [Primary Care Provider] - Time spent managing pt's care (in minutes): 55
[2020-11-15 13:00] VITALS: BP 102/57; TEMP 98.4
--- NOTE | 2020-11-15 16:42 | EKG ---
Test Date: 2020-11-14 Test Time: 17:27:46 Clinical Application Consultant: ROSA MEASUREMENT RESULTS: Intervals: Rate: 101 WA: 206 QRSD: 80 QT: 314 QTc: 407 Dresher: P: 69 WA: 206 QRS: 71 T: 72 INTERPRETIVE STATEMENTS: Sinus tachycardia Nonspecific T wave abnormality Abnormal ECG Compared to ECG 01/27/2018 15:56:34 T-wave abnormality now present Electronically Signed On 11-15-20 16:39:06 CDT by Frederic Santiago
== END 2020-11-15 13:00 | disposition home or self-care (01) ==
LOC: ER 15:49 → ERHOLD 19:43 → INTOOBSV 19:43 → 2ND 20:22
PROVIDERS: ADMIT Family Medicine; ATTEND Family Medicine
DX: J18.9 Pneumonia, unspecified organism (principal); I48.91 Unspecified atrial fibrillation; I10 Essential (primary) hypertension; G35 Multiple sclerosis; E03.9 Hypothyroidism, unspecified; G89.29 Other chronic pain; K21.9 Gastro-esophageal reflux disease without esophagitis; M06.9 Rheumatoid arthritis, unspecified; D84.81 Immunodeficiency due to conditions classified elsewhere; Z85.79 Personal history of other malignant neoplasms of lymphoid, hematopoietic and related tissues; Z94.84 Stem cells transplant status; Z79.899 Other long term (current) drug therapy; Z66 Do not resuscitate; Z88.6 Allergy status to analgesic agent; Z88.8 Allergy status to other drugs, medicaments and biological substances; Z86.61 Personal history of infections of the central nervous system; Z87.891 Personal history of nicotine dependence; Z90.49 Acquired absence of other specified parts of digestive tract; Z90.710 Acquired absence of both cervix and uterus; Z20.822 Contact with and (suspected) exposure to COVID-19; Z82.49 Family history of ischemic heart disease and other diseases of the circulatory system; Z82.3 Family history of stroke; Z83.3 Family history of diabetes mellitus; Z80.9 Family history of malignant neoplasm, unspecified
CPT/HCPCS: 93005; 87040 ×2; 87088; 85025 ×2; 87086; 80048; 36415; 83735; 85610; 80076; 83605; 84443; 84484; 84439; 80053; 84145 ×2; 83880; 0240U; 71045; 94010; 96374; 99285; J1650; J7050; J7030; J0696 ×2; 81003; 81015; J0456

== ENCOUNTER 2021-05-31 07:46 | Day surgery (SDC) | payer OTHER ==
[2021-05-31] MEDS ORDERED: Ringers Lactate 1,000 ML IV ONE (08:10)
[2021-05-31 08:37] VITALS: O2SAT 100
[2021-05-31] MEDS ORDERED: LIDOCAINE 1% MPF 5 ML VIAL ONE (09:45)
[2021-05-31] MEDS ORDERED: propofoL 200 MG/20 ML VIAL IV ONE ×2 (09:45→10:24)
[2021-05-31] MEDS ORDERED: FENTANYL CITR 100 MCG/2 ML ONE (10:28)
--- NOTE | 2021-05-31 10:28 | ENDO RPT ---
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 TOPICAL ANESTHETIC: none CONSENT: The patient understands the risks and benefits of the procedure and understands that these risks include, but are not limited to: sedation, allergic reaction, infection, perforation and/or bleeding. Alternative means of evaluation and treatment include, among others: physical exam, x-rays, and/or surgical intervention. The patient elects to proceed with this endoscopic procedure. DESCRIPTION OF PROCEDURE: During intra-op preparation period all mechanical medical equipment was checked for proper function. Hand hygiene and appropriate measures for infection prevention was taken. After the risks, benefits and alternatives of the procedure were thoroughly explained, Informed consent was verified, confirmed and timeout was successfully executed by the treatment team. The patient was anesthetized with topical anesthesia and the Pentax EG-[id number] ([id number]) endoscope was introduced through the mouth and advanced to the second portion of the duodenum. The instrument was slowly withdrawn as the mucosa was fully examined. A small hiatal hernia was found Mild gastritis was found in the antrum. Multiple biopsies were obtained and sent to pathology. Dilation was performed at lower esophagus. DILATOR: SIZE(S): RESISTANCE: HEME: APPEARANCE: Dilator: Savary over guidewire Size(s): 14, 15 mm Resistance: minimal Heme: none Appearance: satisfactory Retroflexed views revealed a small hiatal hernia. ADVERSE EVENTS: There were no complications. IMPRESSIONS: 1. Non-obstructive dysphagia, s/p 14/15 mm Savary dilations subsequent biopsies to rule out eosinophilic esophagitis 2. Small hiatal hernia 3. Mild gastritis in the antrum, s/p biopsies RECOMMENDATIONS: 1. await biopsy results 2. acid suppression therapy 3. anti-reflux regimen REPEAT EXAM: Raúl Wharton Dr eSigned: Raúl Wharton Dr 05/31/2021 10:28 AM cc: Darrell Andrade CPT CODES: ICD9 CODES: PATIENT NAME: Sunni Tripathi MR#: [id number]
--- NOTE | 2021-05-31 11:05 | ENDO RPT ---
[address], [address] COLONOSCOPY PROCEDURE REPORT EXAM DATE: 05/31/2021 PATIENT NAME: Sunni Tripathi MR #: [id number] BIRTHDATE: 1950 ATTENDING: Raúl Wharton Dr STATUS: outpatient CORE FINISHER: Iraida Kim RN INDICATIONS: The patient is a 70 yr old Female here for a colonoscopy due to RLQ/LLQ abdominal pain and personal history of colon polyps PROCEDURE PERFORMED: Colonoscopy with snare polypectomy MEDICATIONS: Per Anesthesia. ESTIMATED BLOOD LOSS: None CONSENT: The patient understands the risks and benefits of the procedure and understands that these risks include, but are not limited to: sedation, allergic reaction, infection, perforation and/or bleeding. Alternative means of evaluation and treatment include, among others: physical exam, x-rays, and/or surgical intervention. The patient elects to proceed with this endoscopic procedure. DESCRIPTION OF PROCEDURE: During intra-op preparation period all mechanical medical equipment was checked for proper function. Hand hygiene and appropriate measures for infection prevention was taken. Procedure, possible complications, alternatives including, but not limited to possibility of bleeding, perforation, tear, infection, sepsis, need for surgery, need for blood transfusion, were explained to the patient. After the risks, benefits and alternatives of the procedure were thoroughly explained, Informed consent was verified, confirmed and timeout was successfully executed by the treatment team. The patient was placed in the left lateral position. A digital rectal exam was performed and revealed no abnormalities of the rectum. After appropriate level of anesthesia, the scope was passed. The EG-[id number] ([id number]) and [id number] ([id number]) endoscope was introduced through the anus and advanced to the terminal ileum which was intubated for a short distance. The quality of the prep was good. The instrument was then slowly withdrawn as the colon was fully examined. Scope withdrawal time was 8 minutes. COLON FINDINGS: A smooth sessile polyp measuring 6 mm in size was found in the descending colon. A polypectomy was performed with a cold snare. The resection was complete, the polyp tissue was completely retrieved and sent to histology. A polypectomy was performed with a cold snare. Mild diverticulosis was noted throughout the entire examined colon. No bleeding was noted from the diverticulosis. Retroflexed views revealed small hemorrhoids. The scope was then completely withdrawn from the patient and the procedure terminated. ADVERSE EVENTS: There were no complications. IMPRESSIONS: 1. 6 mm sessile polyp in the descending colon; polypectomy was performed with a cold snare; polypectomy was performed with a cold snare 2. Mild diverticulosis throughout the entire examined colon 3. Internal hemorrhoids 4. Intubation to terminal ileum RECOMMENDATIONS: 1. await biopsy results 2. avoid NSAIDS for 2 weeks RECALL: Return in 3 year(s) for Colonoscopy. Raúl Wharton Dr eSigned: Raúl Wharton Dr 05/31/2021 11:04 AM cc: Darrell Andrade CPT CODES: ICD9 CODES: 211.3 Benign neoplasm of colon PATIENT NAME: Sunni Tripathi MR#: [id number]
[2021-05-31 11:41] VITALS: BP 118/61; TEMP 97.9
== END 2021-05-31 11:35 | disposition home or self-care (01) ==
LOC: OR 07:46
PROVIDERS: ATTEND Internal Medicine Gastroenterology
PROC: 0DBM8ZX Excision of Descending Colon, Via Natural or Artificial Opening Endoscopic, Diagnostic (ICD-10-PCS; 2021-05-31)
PROC: 0D738ZZ Dilation of Lower Esophagus, Via Natural or Artificial Opening Endoscopic (ICD-10-PCS; principal; 2021-05-31 09:00)
PROC: 0DB68ZX Excision of Stomach, Via Natural or Artificial Opening Endoscopic, Diagnostic (ICD-10-PCS; 2021-05-31 09:00)
DX: R10.13 Epigastric pain (principal); R13.10 Dysphagia, unspecified; K21.9 Gastro-esophageal reflux disease without esophagitis; R10.32 Left lower quadrant pain; R10.31 Right lower quadrant pain; J44.9 Chronic obstructive pulmonary disease, unspecified; E11.9 Type 2 diabetes mellitus without complications; K64.8 Other hemorrhoids; K57.30 Diverticulosis of large intestine without perforation or abscess without bleeding; K29.50 Unspecified chronic gastritis without bleeding; Z86.010 Personal history of colon polyps; Z20.822 Contact with and (suspected) exposure to COVID-19
CPT/HCPCS: 43248; 43239; 88312; 88305; 45385; U0003; J2704 ×2; J3010; J7120

== ENCOUNTER 2022-04-17 12:09 | Inpatient (IN) | payer OTHER ==
--- OUTSIDE RECORDS SUMMARY | 2022-04-20 09:21 | XMS REPORT | Clinical Summary ---
:1950 Author Organization [facility] MD [facility] Address [address] [place] [address] Care Team Providers Name Role Phone Grover Fernandes MD Unavailable David Forbes MD Primary Care Provider Norberto Gregory MD Primary Care Provider Darrell Andrade MD Unavailable Allergies Active Allergy Reactions Severity Noted Date Comments Ether Other (See Comments) Medium 10/27/2015 Pt stat es she cannot have any gas anesthesia at all. States they were unabl e to wake her up for 4 days a fter her last surgery that sh e received gas anesthesia. States they wer e unable to wake her up for 4 days after her last surger y that she received gas an esthesia. Gammagard Other (See Comments) High 04/03/2022 Chest p ain and SOB Morphine Other (See Comments) 08/29/2017 Puts he r in an MS episode Puts her in an MS episode But takes Lucernemines codone without any issues Medications Medication Sig Dispensed Refills Start Date End Date Status albuterol Inhale 2 puffs 0 Activ e (VENTOLIN by mouth every HFA,PROAIR HFA) 90 6 (six) hours mcg/puff inhaler as needed for wheezing or shortness of breath. carvedilol (COREG TK 1 C PO QAM 0 05/04/2019 Active CR) 20 mg 24 hr capsule TECFIDERA 240 mg Take 1 capsule 0 05/05/2019 Active cpDR by mouth twice daily. topiramate TK 1 T PO HS 0 04/30/2019 Activ e (TOPAMAX) 50 mg tablet tiotropium-olodate Inhale 2 puffs 0 Active roL 2.5-2.5 by mouth daily mcg/actuation mist as needed. gabapentin Take 2 tablets 120 tablet 0 05/11/2020 Ac tive (NEURONTIN) 600 mg (1,200 mg) by tabletIndications: mouth every 12 Pain in left hip (twelve) hours. polyethylene Take 17 g by 0 05/11/2020 Act jasmin glycol (MIRALAX) mouth daily as 17 g needed packetIndications: (constipation) Pain in left hip . senna-docusate Take 1-2 0 05/11/2020 Acti ve (SENOKOT-S) 8.6 tablets by mg-50 mg mouth 2 (two) tabletIndications: times a day as Pain in left hip needed for constipation. pantoprazole Take 1 tablet 90 tablet 3 08/24/2020 Ac tive (Protonix) 40 mg (40 mg) by EC mouth daily tabletIndications: with Plasma cell breakfast. neoplasm diclofenac sodium Apply 4 g 100 g 0 06/07/2021 A ctive (Voltaren) 1 % topically to gelIndications: affected Multiple myeloma, area(s) 4 Trochanteric (four) times a bursitis of left day. hip, Multiple sclerosis benzonatate Take 1 capsule 0 Act jasmin (TESSALON) 100 mg (100 mg) by capsuleIndications mouth every 8 : cough (eight) hours as needed for cough. levothyroxine TAKE 1 TABLET 0 03/12/2022 A ctive (SYNTHROID, BY MOUTH EVERY LEVOTHROID) 150 MORNING mcg tablet potassium chloride Take 1 tablet 0 03/29/2022 Active (K-DUR,KLOR-CON M) (10 mEq) by 10 mEq tablet mouth daily. enoxaparin Inject 0.4 mL 1 each 0 04/20/2022 05/05/19 Acti ve (LOVENOX) 40 (40 mg) under 23 mg/0.4 mL the skin daily prefilled for 14 days. syringeIndications : Fracture of proximal end of femur <Left side; Closed; Initial> methocarbamol Take 1 tablet 1 tablet 0 04/19/2022 A ctive (ROBAXIN) 500 mg (500 mg) by tabletIndications: mouth every 8 Fracture of (eight) hours. proximal end of femur <Left side; Closed; Initial> oxyCODONE Take 1 tablet 1 tablet 0 04/19/2022 Activ e (ROXICODONE) 5 mg (5 mg) by immediate release mouth every 6 tabletIndications: (six) hours as Fracture of needed for proximal end of moderate pain. femur <Left side; Closed; Initial> tamsulosin Take 1 capsule 1 capsule 0 04/20/2022 05/05/19 Act jasmin (FLOMAX) 0.4 mg 24 (0.4 mg) by 23 hr mouth daily capsuleIndications for 14 days. : Fracture of proximal end of femur <Left side; Closed; Initial> CHOLECALCIFEROL, Take 50,000 0 06/08/19 D iscontinued VITAMIN D3, ORAL Units by mouth 22 (Not Applicable) once a week. valACYclovir Take 1 tablet 90 tablet 3 07/05/2019 02/20/19 Di scontinued (Valtrex) 500 mg (500 mg) by 23 tabletIndications: mouth daily. Plasma cell neoplasm levothyroxine Take 1 tablet 0 04/06/19 Di scontinued (SYNTHROID, (125 mcg) by 23 LEVOTHROID) 125 mouth daily. mcg tablet baclofen TAKE 1 60 tablet 2 07/11/2020 04/04/19 Discontin ued (LIORESAL) 10 mg TABLET(10 MG) 23 tabletIndications: BY MOUTH EVERY Pain in left hip 12 HOURS lenalidomide Take 1 capsule 28 capsule 0 04/18/2021 06/15/19 Discontinued (REVLIMID) capsule (5 mg) by 22 ( Not Applicable) 5 mgIndications: mouth daily. Plasma cell Days 1 to 21 neoplasm of each 28- day cycle. lenalidomide Take 1 capsule 21 capsule 0 05/16/2021 06/15/19 Discontinued (REVLIMID) capsule (5 mg) by 22 ( Not Applicable) 5 mgIndications: mouth daily. Plasma cell Days 1 to 21 neoplasm of each 28- day cycle. lenalidomide Take 1 capsule 21 capsule 0 06/13/2021 08/11/19 Discontinued (REVLIMID) capsule (5 mg) by 22 ( Therapy 5 mgIndications: mouth daily. completed) Plasma cell Days 1 to 21 neoplasm of each 28- day cycle. lenalidomide Take 1 capsule 21 capsule 0 07/25/2021 01/02/20 Discontinued (REVLIMID) capsule (5 mg) by 22 5 mgIndications: mouth daily. Plasma cell Days 1 to 21 neoplasm of each 28- day cycle. lenalidomide Take 1 capsule 21 capsule 0 09/12/2021 11/09/19 Discontinued (REVLIMID) capsule (5 mg) by 22 ( Duplicate 5 mgIndications: mouth daily. order) Plasma cell Days 1 to 21 neoplasm of each 28- day cycle. lenalidomide Take 1 capsule 21 capsule 0 10/10/2021 11/09/19 Discontinued (REVLIMID) capsule (5 mg) by 22 ( Duplicate 5 mgIndications: mouth daily. order) Plasma cell Days 1 to 21 neoplasm of each 28- day cycle. lenalidomide Take 1 capsule 21 capsule 0 11/07/2021 11/09/19 Discontinued (REVLIMID) capsule (5 mg) by 22 ( Duplicate 5 mgIndications: mouth daily. order) Plasma cell Days 1 to 21 neoplasm of each 28- day cycle. lenalidomide Take 1 capsule 21 capsule 0 11/21/2021 12/13/19 (REVLIMID) capsule (2.5 mg) by 22 2.5 mgIndications: mouth daily Plasma cell for 21 days. neoplasm Days 1 to 21 of each 28- day cycle. azithromycin Take 1 tablet 0 04/04/19 Dis continued (ZITHROMAX) 250 mg (250 mg) by 23 tabletIndications: mouth. pneumococcal pneumonia oxyCODONE-acetamin 1 tablet every 0 02/14/202204/20 Discontinued ophen (PERCOCET) 8 (eight) 23 (St op Taking at 7.5-325 mg per hours as Disch arge) tablet needed (pain). amoxicillin-clavul Take 1 tablet 20 tablet 0 02/20/2022 Discontinued anate (Augmentin) (875 mg) by 23 (Therapy 875 mg-125 mg per mouth twice completed) tabletIndications: daily. Pneumonia, not otherwise specified HYDROmorphone 0.25 mL (0.5 0.5 mL 0 04/03/2022 04/04/19 Di scontinued (DILAUDID) 2 mg/mL mg) by IV push 23 injectionIndicatio route every 2 ns: Chest pain, (two) minutes not otherwise as needed specified (chest pain) for up to 2 days. Active Problems Patient Care Coordination Note Formatting of this note might be differe nt from the original. The following people are approved to obt ain medical information about the patient via phone: Contact #1: Name: Shalini Montes (Daughter) Contact #2: Name: Phone Number: Contact #3: Name: Phone Number: Contact #4: Name: Phone Number: Pt is handicapped and needs assistance i n using the restroom, please allow daughter to go with patient. 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 Hypertension Peripheral nerve disease Neoplasm related pain (acute) (chronic) Encounters Date Type Specialty Care Team Description Anesthesia Event Abiola, MD Eboni Lomas Shea N, MARINATOR Surgery Andrei, LEFT HEMIARTHRO PLASTY OF 3 MD David HIP, PARTIAL Hospital Encounter Uro/Ortho/GI Andrei, Multiple myeloma; 3 - MD David Fracture of pro ximal end of femur <Left side; Closed; Initial>; Pain in left hi p 3 Travel 3 Hospital Encounter Infusion Services Bethany Henderson iple myeloma (Primary 3 Shelli Gore, Dx) Varghese Joshua V, RN Clinical Support Radha Donaldson, Suspected C OVID-19 (Primary Dx); 3 MELINA Mcguire Multiple myeloma; Torres, Fracture of pro ximal end of femur <Left side; Closed; Initial>; Luiza Gay, RN Pain in left hip Hospital Encounter Lab [place], Multiple myeloma; 3 MELINA Mcguire Pain in left hi p; Fracture of pro ximal end of femur <Left side; Closed; Initial> Travel 3 Anesthesia Event Anesthesiology Cadence Berry 3 JIMMIE Dickey Documentation Internal Medicine Terrence Arce, 3 Orders Only Lymphoma and [place], Multiple myelom a (Primary 3 Myeloma Shelli L, Dx) CHIP CRUSHER OPERATOR Ancillary Radiology Betty Reddy, Encounter for other 3 Procedure CHIP CRUSHER OPERATOR preprocedural e xamination POEM Appointments Anesthesiology Armando Forbes for other 3 MD David preprocedural e xamination (Primary Dx) Consult Internal Medicine [place], Encounter for preprocedural cardiovascular examination (Primary Dx); 3 MELINA Mcguire Hypertension; Terrence Arce, Hypothyroidism, not otherwise specified; Chronic obstruc tive pulmonary disease, not otherwise specified; Multiple sclero sis; Thrombocytopeni a, not otherwise specified; Multiple myelom a; Pain in left hi p; Fracture of pro ximal end of femur <Left side; Closed; Initial> Travel 3 Travel 3 Emergency Emergency Medicine Márquez, Multiple myeloma (Primary Dx); 3 - Alin Strong MD Chest pain, not otherwise specified; Norberto Gregory, Other infusion reaction; 3 MD Honeycutt sclero sis; Hypogammaglobul inemia Infusion Infusion Services [place], Hypogammag lobulinemia (Primary Dx); 3 MELINA Mendez Multiple myeloma; Macho Pacheco III Chest pain, no t otherwise specified; P, RN Pain in left hi p; Shortness of br eath; Headache, not o therwise specified Follow-Up Lymphoma and Norberto Gregory, Multiple myelo ma (Primary Dx); 3 Myeloma Subacute cough; [place], Plasma cell mal plasm Shelli L, CHIP CRUSHER OPERATOR Hospital Encounter Cardiology [place], Multiple myeloma; 3 Francy A, PA Pain in left hi p; Fracture of pro ximal end of femur <Left side; Closed; Initial> Hospital Encounter Lab [place], Subacute cough 3 MELINA Mendez Hospital Encounter Lab [place], Subacute cough 3 MELINA Mendez Orders Only Radiology [place], 3 MD Kacey Orders Only Anesthesiology Mark Chakraborty, Chest pain, not otherwise 3 MD specified (Prim yesenia Dx) Documentation Anesthesiology Mark Chakraborty, Cardiac Arr est (Code 3 blue/IV gammagl obulin reaction/Severe back pain with chest pres sure/Awake tachycardia, st able BP, SpO2 in oxygen 100%, complaining of occipital headache./Aspir in, nitrate and oxy gen given. Pain 11/27 dila udid 0.5mg x2 given IV./Am bulance to [facility]) Telephone Naila, Cindy Salazar RN Orders Only Orthopaedics [place], Multiple myelom a (Primary Dx); 3 Francy A, PA Pain in left hi p; Fracture of pro ximal end of femur <Left side; Closed; Initial> Travel 3 Orders Only Lymphoma and [place], 3 Myeloma Betty Gore RN Orders Only Orthopaedics [place], Multiple myelom a (Primary Dx); 3 Francy A, PA Pain in left hi p; Fracture of pro ximal end of femur <Left side; Closed; Initial> Prep for Surgery Orthopaedics [place], Multiple my eloma (Primary Dx); 3 Francy A, PA Fracture of pro ximal end of femur <Left side; Closed; Initial>; Pain in left hi p Follow-Up Orthopaedics Andrei, Multiple myelom a; 3 MD David Pain in left hi p; Fracture of pro ximal end of femur <Left side; Closed; Initial> Ancillary Radiology Andrei, Multiple myelom a; 3 Procedure MD David Pain in left hi p; Fracture of pro ximal end of femur <Left side; Closed; Initial> Ancillary Radiology Andrei, Multiple myelom a; 3 Procedure MD David Pain in left hi p; Fracture of pro ximal end of femur <Left side; Closed; Initial> Travel 3 Telephone Orthopaedics [place], 3 MELINA Mcguire Orders Only Lymphoma and Norberto Gregory, 3 Myeloma Ancillary Radiology [place], Subacute cough 3 Procedure MELINA Mendez Follow-Up Lymphoma and Norberto Gregory, Plasma cell ne oplasm (Primary Dx); 3 Myeloma MD Subacute cough; Exposure to cor onavirus infection; Pneumonia, not otherwise specified; Hypogammaglobul inemia; Multiple myelom a Hospital Encounter Lab [place], Plasma ce ll neoplasm 3 Shelli L, CHIP CRUSHER OPERATOR Hospital Encounter Lab [place], Plasma ce ll neoplasm 3 Shelli L, CHIP CRUSHER OPERATOR Travel 3 Hospital Encounter Radiology [place], Multiple myeloma; 2 MAGALY Cunningham Fracture of pro ximal end of femur <Left side; Closed; Initial> Travel 2 Follow-Up Orthopaedics Andrei, Fracture of pro ximal end of femur <Left side; Closed; Initial> (Primary Dx); 2 MD David Multiple myelom a; Pain in left hi p Ancillary Radiology [place], Multiple myelom a; 2 Procedure Francy A, PA Pain in left hi p Office Visit Lymphoma Norberto Gregory, Pain in left h ip (Primary Dx); 2 Plasma cell neoplasm; Britney Trujillo Anemia due to antineoplastic chemotherapy; C, MEMBER CERTIFICATION MANAGER Neoplasm relate d pain (acute) (chronic) Ancillary Radiology [place], Multiple myelom a; 2 Procedure Francy A, PA Pain in left hi p Hospital Encounter Infusion Services Norberto Gregory, Cory sma cell neoplasm 2 Hospital Encounter Lab Norberto Gregory, Plasma c ell neoplasm 2 Documentation Lymphoma and [place], 2 Myeloma Betty Gore RN Orders Only Lymphoma and [place], Plasma cell mal plasm 2 Myeloma Shelli L, (Primary Dx) CHIP CRUSHER OPERATOR Travel 2 Orders Only Lymphoma and [place], 2 [place] Betty Gore RN Ancillary Radiology Britney Trujillo Plasma cell ne oplasm 2 Procedure C, MEMBER CERTIFICATION MANAGER Office Visit Lymphoma Norberto Gregory, Plasma cell ne oplasm (Primary Dx); 2 Anemia due to antineoplastic chemotherap y; Britney Trujillo Secondary thro mbocytopenia; C, MEMBER CERTIFICATION MANAGER Cough, not othe rwise specified Hospital Encounter Lab Norberto Gregory, Plasma c ell neoplasm 2 Hospital Encounter Lab Norberto Gregory, Plasma c ell neoplasm 2 Orders Only Lymphoma and [place], Plasma cell mal plasm 2 Myeloma Betty Gore RN (Primary Dx) Travel 2 Orders Only Lymphoma and [place], 2 Myeloma Shelli Gore CHIP CRUSHER OPERATOR Orders Only Lymphoma and [place], 2 [place] Betty Gore RN Orders Only Orthopaedics [place], Multiple myelom a (Primary Dx); 2 MELINA Mcguire Pain in left hi p Office Visit Lymphoma and Norberto Gregory, Plasma cell ne oplasm 2 [place] Hospital Encounter Infusion Services Norberto Gregory, Cory sma cell neoplasm 2 Documentation Lymphoma and [place], 2 [place] Betty Gore RN Orders Only Lymphoma and [place], 2 My[place] Shelli Gore CHIP CRUSHER OPERATOR Orders Only Lymphoma and [place], Plasma cell mal plasm 2 My[place] Betty Gore RN (Primary Dx) Travel 2 Orders Only Lymphoma and [place], 2 [place] Betty Gore RN Ancillary Radiology Andrei, Multiple myelom a 2 Procedure MD David Travel 2 Office Visit Lymphoma and Norberto Gregory, Plasma cell ne oplasm 2 My[place] Shelli Swartz APN Hospital Encounter Infusion Services Andrei, Hypo gammaglobulinemia (Primary Dx); 2 MD David Multiple myeloma Frieda Medrano RN Hospital Encounter Lab Norberto Gregory, Plasma c ell neoplasm 2 Hospital Encounter Lab Norberto Gregory, Plasma c ell neoplasm 2 Documentation Lymphoma and [place], 2 [place] Betty Gore RN Orders Only Lymphoma and [place], Plasma cell mal plasm 2 [place] Betty Gore, RN (Primary Dx) Travel 2 Hospital Encounter [place] 2 g, Vanessa Goodrich MD Orders Only Lymphoma and [place], 2 [place] Betty Gore, RN Telephone Orthopaedics Andrei, 2 MD David Telephone Lymphoma and [place], 2 [place] Betty Gore, RN Orders Only Lymphoma and [place], Plasma cell mal plasm 2 My[place] Betty Gore, RN (Primary Dx) Orders Only Lymphoma and Beatris Beatty 2 Myeloma C, CHIP CRUSHER OPERATOR Ancillary Radiology [place], Multiple myelom a; 2 Procedure Francy A, PA Pain in left hi p Office Visit Lymphoma and Norberto Gregory, Multiple myelo ma (Primary Dx); 2 Myeloma Plasma cell mal plasm; Chest pain, not otherwise specified; Hypogammaglobul inemia Orders Only Lymphoma and Norberto Gregory, Plasma cell ne oplasm 2 Myeloma (Primary Dx) Documentation Lymphoma and [place], 2 [place] Betty Gore, RN Orders Only Lymphoma and [place], 2 [place] Betty Gore, RN Travel 2 Orders Only Orthopaedics [place], Multiple myelom a (Primary Dx); 2 Francy A, PA Pain in left hi p Office Visit Lymphoma and Norberto Gregory, Plasma cell ne oplasm 2 [place] Hospital Encounter Lab Norberto Gregory, Plasma c ell neoplasm 2 Documentation Lymphoma and [place], 2 [place] Betty Gore, RN Documentation Lymphoma and [place], 2 [place] Betty Gore, RN Orders Only Lymphoma and [place], Plasma cell mal plasm 2 [place] Betty L, RN (Primary Dx) Travel 2 Orders Only Lymphoma and [place], Plasma cell mal plasm 2 [place] Betty L, RN (Primary Dx) Orders Only Lymphoma and Glo, Jazmine 2 Myeloma MD Yolande Orders Only Lymphoma and [place], 2 [place] Betty Gore, RN Orders Only Lymphoma and [place], 2 My[place] MELINA Mendez Orders Only Lymphoma and [place], 2 [place] Betty Bao, RN Telephone Lymphoma and [place], 2 [place] Betty Gore, RN Orders Only Lymphoma and [place], 2 [place] Betty L, RN Infusion Infusion Services [place], Plasma stone l neoplasm 2 MELINA Mills (Primary Dx) Ivan Clemons III, RN Office Visit Lymphoma and Norberto Gregory, Plasma cell ne oplasm 2 [place] Vanessa Nieto PA Orders Only Lymphoma and [place], 2 [place] Betty Gore, RN Documentation Lymphoma and [place], 2 [place] Betty L, RN Travel 2 Orders Only Lymphoma and [place], Plasma cell mal plasm 2 My[place] MELINA Mendez (Primary Dx) Orders Only Lymphoma and Norberto Gregory, 2 [place] Orders Only Lymphoma and [place], 2 [place] Betty Gore, RN Office Visit Lymphoma and [place], Plasma cell mal plasm 2 My[place] MELINA [place] (Primary Dx) Hospital Encounter Lab Norberto Gregory Plasma c ell neoplasm 2 Hospital Encounter Infusion Services Norberto Gregory, Cory sma cell neoplasm 2 Documentation Lymphoma and [place], 2 [place] Betty Gore, RN Orders Only Lymphoma and Norberto Gregory, Plasma cell ne oplasm 2 Myel[place] (Primary Dx) Orders Only Lymphoma and [place], 2 [place] Betty Gore, RN Travel 2 Refill Lymphoma and [place], Plasma cell mal plasm 2 [place] Shelli L, CHIP CRUSHER OPERATOR Refill Lymphoma and [place], Plasma cell mal plasm 2 [place] Shelli L, CHIP CRUSHER OPERATOR Orders Only Lymphoma and [place], 2 Myeloma CHANI Adame Orders Only Lymphoma and [place], 2 [place] Betty Gore, RN Ancillary Radiology RoMauricio figueroa Pain in left h ip 2 Procedure S, PA Ancillary Radiology Norberto Gregory, Plasma cell ne oplasm 2 Procedure Hospital Encounter Infusion Services Norberto Gregory, Cory sma cell neoplasm 2 Office Visit Lymphoma and Norberto Gregory, Plasma cell ne oplasm 2 [place] Hospital Encounter Lab Norberto Gregory, Plasma c ell neoplasm 2 Documentation Lymphoma and [place], 2 [place] Betty Gore, RN Travel 2 Orders Only Lymphoma and [place], 2 [place] Betty Gore, RN Orders Only Lymphoma and [place], 2 [place] Betty L, RN Office Visit Orthopaedics Andrei, Trochanteric bu rsitis of left hip (Primary Dx); 2 MD David Multiple myelom a; Closed fracture of left pubis <Delayed; Subsequent>; Pain in left hi p Ancillary Radiology [place], 2 Procedure MAGALY Cunningham Ancillary Radiology [place], Trochanteric bu rsitis of left hip; 2 Procedure MAGALY Cunningham Closed fracture of left pubis <Delayed; Subsequent> Travel 2 Orders Only Lymphoma and [place], 2 [place] Betty Gore, RN Office Visit Lymphoma and Norberto Gregory, Plasma cell ne oplasm 2 My[place] (Primary Dx) Hospital Encounter Lab Norberto Gregory, Plasma c ell neoplasm 2 Travel 2 Documentation Lymphoma and [place], 2 [place] Betty L, RN Orders Only Lymphoma and [place], 2 [place] Betty Gore RN Orders Only Lymphoma and Marquez, Malinda 2 Myel[place] BHARGAV Scherer Orders Only Lymphoma and [place], Plasma cell mal plasm 2 [place] Betty Gore RN (Primary Dx) Infusion Infusion Services [place], Plasma stone l neoplasm 2 MELINA Bedoya (Primary Dx) Raymundo Christopher RN Documentation Lymphoma and [place], 2 [place] Betty Gore RN Orders Only Lymphoma and [place], 2 [place] MELINA Bedoya Orders Only Lymphoma and [place], 2 [place] MELINA Bedoya Orders Only Lymphoma and Norberto Gregory, 2 [place] Travel 2 Orders Only Lymphoma and Norberto Gregory, 2 [place] Office Visit Lymphoma and [place], Plasma cell mal plasm 2 My[place] MELINA Bedoya (Primary Dx) Hospital Encounter Lab Norberto Gregory Plasma c ell neoplasm 2 Orders Only Lymphoma and [place], Plasma cell mal plasm 2 [place] Betty Gore RN (Primary Dx) Documentation Lymphoma and [place], 2 [place] Betty Gore RN Travel 2 Orders Only Lymphoma and [place], Plasma cell mal plasm 2 [place] Betty Gore RN (Primary Dx) Office Visit Lymphoma and Norberto Gregory, Plasma cell ne oplasm 2 [place] (Primary Dx) Joann John PA Hospital Encounter Bone Marrow Norberto Gregory, Multiple myeloma 2 Chani Barrera PA Hospital Encounter Lab Norberto Gregory, Plasma c ell neoplasm 2 Ancillary Radiology [place], Multiple myelom a 2 Procedure Shelli Gore CHIP CRUSHER OPERATOR Documentation Lymphoma and [place], 2 [place] Betty Gore RN Documentation Lymphoma and [place], 2 [place] Betty Gore RN Orders Only Lymphoma and Norberto Gregory, 2 [place] Orders Only Lymphoma and [place], 2 [place] Betty Gore RN Travel 2 Orders Only Lymphoma and [place], 2 [place] Joann A, PA Office Visit Orthopaedics Andrei, Closed fracture of left pubis <Delayed; Subsequent> (Primary Dx); 2 MD David Multiple myelom a; Plasma cell mal plasm; Trochanteric bu rsitis of left hip; Multiple sclero sis Ancillary Radiology [place], Multiple myelom a; 2 Procedure Francy A, PA Plasma cell mal plasm Ancillary Radiology [place], Multiple myelom a; 2 Procedure Francy A, PA Plasma cell mal plasm Orders Only Lymphoma and [place], Multiple myelom a (Primary 2 [place] Betty Gore, RN Dx) Documentation Physical Therapy Manohar Cruz, 2 PT Travel 2 Orders Only Lymphoma and [place], 2 [place] Betty Gore RN Office Visit Lymphoma and Norberto Gregory, Multiple myelo ma (Primary Dx); 2 My[place] Plasma cell mal plasm Hospital Encounter Infusion Services Norberto Gregory, Cory sma cell neoplasm 2 Hospital Encounter Lab Norberto Gregory, Plasma c ell neoplasm 2 Documentation Lymphoma and [place], 2 [place] Betty Gore RN Orders Only Lymphoma and [place], 2 [place] Betty Gore RN Travel 2 Telephone Lymphoma Nady[place], 2 CHANI Deng Orders Only Lymphoma and [place], Plasma cell mal plasm 2 [place] Betty Gore RN (Primary Dx) after 04/20/2021 Immunizations Name Administration Dates Next Due Pfizer SARS-CoV-2 Vaccination 12/13/2021, 01/19/2021, 05/15, (Purple Cap) 04/23/2020 Influenza Quadrivalent High Dose 12/13/2021 Surgical History Surgery Date Site/Laterality Comments APPENDECTOMY 1966 appendix removal BACK SURGERY 3 steel plate in spine in neck area BRAIN SURGERY Spinal miningeious 1971 2 spinal taps for brain HYSTERECTOMY complete removal Medical History Medical History Date Comments Irregular heart beat 2016 pt reports that she was told that she had an "irregula r heart beat" with rapid heart honey t that would "drop really fast". pt denies dx such as afib. pt is on carvedilol Multiple sclerosis 1994 has been stable. has had 2 flares - last about 9 yrs a go. 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 pt reports that she has never used on daily basis and o nly uses these as needed - us ually triggered by ragwed and chemicals. last used in 11/2021 Pneumonia had twice Dependence on supplemental pt denies sle ep apnea (did have oxygen sleep study 4 yrs ag o). however, she was noted to hav e low oxygen and HR drops when sh e is sleeping. she was p rescribed 2 L of O2 when she sleep s (has been using this for the p ast 4 yrs) Gastric reflux Gastric ulcer also hyiniaherriania Hypothyroidism Herpes zoster Sep. 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 pt was randomized to Re vlimid monotherapy arm (cur rently 2.5 mg / days due to cy topenias). 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 Barr COD at 60 Skin cancer Paternal Grandfather Mr. Barr noise remov ed grandmothers fat her Hypertension Neg Hx VTE Neg Hx Relation Name Status Comments Brother Garfield Tripathi Maternal Aunt Marcus Tripathi Garrett Maternal Grandmother Mother Paternal Grandfather Mr. Barr Social History Tobacco Use Types Packs/Day Years Used Date Smoking Tobacco: Former Cigarettes 1 0 07/19 - 09/14/1994 Smokeless Tobacco: Never Tobacco Cessation: Counseling Given: Not Answered Alcohol Use Standard Drinks/Week Comments Not Currently 1 (1 standard drink = 0.6 oz pure only 1 glass on special holidays alcohol) Lan, New Years Sex Assigned at Date Recorded Not on file Job Start Date Occupation Industry Not on file Not on file Not on file COVID-19 Exposure Response Date Recorded In the last 10 days, have you been in contact with No / Unsu re 04/09/2022 4:40 PM COMMODITY INDUSTRY ANALYST someone who was confirmed or suspected to have Coronavirus/COVID-19? Obstetrics History Last Filed Vital Signs Vital Sign Reading Time Taken Comments Blood Pressure 104/65 04/20/2022 7:16 AM COMMODITY INDUSTRY ANALYST Pulse 94 04/20/2022 7:16 AM COMMODITY INDUSTRY ANALYST Temperature 36.8 C (98.2 F) 04/20/2022 7:16 AM COMMODITY INDUSTRY ANALYST Respiratory Rate 19 04/20/2022 7:16 AM COMMODITY INDUSTRY ANALYST Oxygen Saturation 93% 04/20/2022 7:16 AM COMMODITY INDUSTRY ANALYST Inhaled Oxygen Concentration - - Weight 84 kg (185 lb 3 oz) 04/20/2022 3:52 AM COMMODITY INDUSTRY ANALYST Height 170.2 cm (5' 7.01") 04/13/2022 7:25 PM COMMODITY INDUSTRY ANALYST Body Mass Index 29 04/13/2022 7:25 PM COMMODITY INDUSTRY ANALYST Plan of Treatment Date Type Specialty Care Team Description 04/24/2022 Appointment Lab [facility] [address] [place], [place] [address] (Wo rk) 04/24/2022 Appointment Lab [facility] [address] [place], [place] [address] (Wo rk) 04/24/2022 Follow-Up Lymphoma and Myeloma Norberto Gregory MD [address] [place], [place] [address] (Wo rk) Health Maintenance Due Date Last Done Comments COVID-19 Vaccination (5 - Booster 02/07/2022 12/13/2021, , for Pfizer series) 05/15/2020, Additional histor y exists Medical Devices Implanted Type Area Property Disposal Manager Device Shelf Model / Identifier Expiration Serial / Date Lot Fabiana Unv Distal Cment Spacer 13mm Implant Left: Hip FABIANA ELLI 04/28/2023 [id number] / Implanted: Qty: 1 on 04/09/2022 by David Forbes MD at [facility] / [id number] Restrictor 22mm - [id number] Metalware Left: Hip [employer] 07/07/2026 [id number] / Implanted: Qty: 1 on 04/09/2022 by David Forbes MD at [facility] / [id number] Metal N/A: Neck Procedures Procedure Name Priority Date/Time Associated Comments Diagnosis MANUAL DIFFERENTIAL STAT 04/13/2022 2:46 Resul ts for AM COMMODITY INDUSTRY ANALYST this procedure are in the results section. Results CBC STAT 04/13/2022 2:46 Results for AM COMMODITY INDUSTRY ANALYST this procedure are in the results section. COMPLETE BLOOD COUNT W/ STAT 04/13/2022 2:46 DIFFERENTIAL AM COMMODITY INDUSTRY ANALYST BLOODCULTURE STAT 04/13/2022 2:46 Results for AM COMMODITY INDUSTRY ANALYST this procedure are in the results section. XR CHEST 1 VW PORTABLE Routine 04/13/2022 2:27 Re sults for AM COMMODITY INDUSTRY ANALYST this procedure are in the results section. URINALYSIS MICROSCOPIC Routine 04/13/2022 2:11 Re sults for EXAM AM COMMODITY INDUSTRY ANALYST this procedure are in the results section. URINALYSIS WITH Routine 04/13/2022 2:11 Results f or MICROSCOPIC IF AM COMMODITY INDUSTRY ANALYST this procedur e INDICATED are in the results section. URINE CULTURE Routine 04/13/2022 2:11 Results for AM COMMODITY INDUSTRY ANALYST this procedure are in the results section. ANION GAP AM 04/12/2022 3:15 Results for AM COMMODITY INDUSTRY ANALYST this procedure are in the results section. MANUAL DIFFERENTIAL AM 04/12/2022 3:15 Resul ts for AM COMMODITY INDUSTRY ANALYST this procedure are in the results section. Results CBC AM 04/12/2022 3:15 Results for AM COMMODITY INDUSTRY ANALYST this procedure are in the results section. .GLOMERULAR FILTRATION AM 04/12/2022 3:15 Re sults for RATE AM COMMODITY INDUSTRY ANALYST this procedure are in the results section. SERUM CREATININE AM 04/12/2022 3:15 Results for AM COMMODITY INDUSTRY ANALYST this procedure are in the results section. COMPLETE BLOOD COUNT W/ AM 04/12/2022 3:15 DIFFERENTIAL AM COMMODITY INDUSTRY ANALYST CALCIUM IONIZED, VENOUS AM 04/12/2022 3:15 R esults for AM COMMODITY INDUSTRY ANALYST this procedure are in the results section. MAGNESIUM LEVEL AM 04/12/2022 3:15 Results f or AM COMMODITY INDUSTRY ANALYST this procedure are in the results section. GLUCOSE, RANDOM AM 04/12/2022 3:15 Results f or AM COMMODITY INDUSTRY ANALYST this procedure are in the results section. SERUM CREATININE AM 04/12/2022 3:15 AM COMMODITY INDUSTRY ANALYST BLOOD UREA NITROGEN AM 04/12/2022 3:15 Resul ts for AM COMMODITY INDUSTRY ANALYST this procedure are in the results section. CARBON DIOXIDE LEVEL AM 04/12/2022 3:15 Resu lts for AM COMMODITY INDUSTRY ANALYST this procedure are in the results section. CHLORIDE LEVEL AM 04/12/2022 3:15 Results fo r AM COMMODITY INDUSTRY ANALYST this procedure are in the results section. POTASSIUM LEVEL AM 04/12/2022 3:15 Results f or AM COMMODITY INDUSTRY ANALYST this procedure are in the results section. SODIUM LEVEL AM 04/12/2022 3:15 Results for AM COMMODITY INDUSTRY ANALYST this procedure are in the results section. ANION GAP AM 04/11/2022 2:29 Results for AM COMMODITY INDUSTRY ANALYST this procedure are in the results section. MANUAL DIFFERENTIAL AM 04/11/2022 2:29 Resul ts for AM COMMODITY INDUSTRY ANALYST this procedure are in the results section. Results CBC AM 04/11/2022 2:29 Results for AM COMMODITY INDUSTRY ANALYST this procedure are in the results section. .GLOMERULAR FILTRATION AM 04/11/2022 2:29 Re sults for RATE AM COMMODITY INDUSTRY ANALYST this procedure are in the results section. SERUM CREATININE AM 04/11/2022 2:29 Results for AM COMMODITY INDUSTRY ANALYST this procedure are in the results section. COMPLETE BLOOD COUNT W/ AM 04/11/2022 2:29 DIFFERENTIAL AM COMMODITY INDUSTRY ANALYST CALCIUM IONIZED, VENOUS AM 04/11/2022 2:29 R esults for AM COMMODITY INDUSTRY ANALYST this procedure are in the results section. MAGNESIUM LEVEL AM 04/11/2022 2:29 Results f or AM COMMODITY INDUSTRY ANALYST this procedure are in the results section. GLUCOSE, RANDOM AM 04/11/2022 2:29 Results f or AM COMMODITY INDUSTRY ANALYST this procedure are in the results section. SERUM CREATININE AM 04/11/2022 2:29 AM COMMODITY INDUSTRY ANALYST BLOOD UREA NITROGEN AM 04/11/2022 2:29 Resul ts for AM COMMODITY INDUSTRY ANALYST this procedure are in the results section. CARBON DIOXIDE LEVEL AM 04/11/2022 2:29 Resu lts for AM COMMODITY INDUSTRY ANALYST this procedure are in the results section. CHLORIDE LEVEL AM 04/11/2022 2:29 Results fo r AM COMMODITY INDUSTRY ANALYST this procedure are in the results section. POTASSIUM LEVEL AM 04/11/2022 2:29 Results f or AM COMMODITY INDUSTRY ANALYST this procedure are in the results section. SODIUM LEVEL AM 04/11/2022 2:29 Results for AM COMMODITY INDUSTRY ANALYST this procedure are in the results section. TRANSFUSE RED BLOOD Routine 04/10/2022 3:56 CELLS PM COMMODITY INDUSTRY ANALYST TRANSFUSE RED BLOOD Routine 04/10/2022 12:00 CELLS PM COMMODITY INDUSTRY ANALYST PRBC PRODUCT READY FOR Routine 04/10/2022 7:16 Re sults for SENIOR DIRECTOR FINANCE AM COMMODITY INDUSTRY ANALYST this procedure are in the results section. PREPARE RBC Routine 04/10/2022 7:16 Results for AM COMMODITY INDUSTRY ANALYST this procedure are in the results section. ANION GAP AM 04/10/2022 1:16 Results for AM COMMODITY INDUSTRY ANALYST this procedure are in the results section. .GLOMERULAR FILTRATION AM 04/10/2022 1:16 Re sults for RATE AM COMMODITY INDUSTRY ANALYST this procedure are in the results section. SERUM CREATININE AM 04/10/2022 1:16 Results for AM COMMODITY INDUSTRY ANALYST this procedure are in the results section. MANUAL DIFFERENTIAL Routine 04/10/2022 1:16 Resul ts for AM COMMODITY INDUSTRY ANALYST this procedure are in the results section. Results CBC Routine 04/10/2022 1:16 Results for AM COMMODITY INDUSTRY ANALYST this procedure are in the results section. COMPLETE BLOOD COUNT W/ Routine 04/10/2022 1:16 DIFFERENTIAL AM COMMODITY INDUSTRY ANALYST CALCIUM IONIZED, VENOUS AM 04/10/2022 1:16 R esults for AM COMMODITY INDUSTRY ANALYST this procedure are in the results section. MAGNESIUM LEVEL AM 04/10/2022 1:16 Results f or AM COMMODITY INDUSTRY ANALYST this procedure are in the results section. GLUCOSE, RANDOM AM 04/10/2022 1:16 Results f or AM COMMODITY INDUSTRY ANALYST this procedure are in the results section. SERUM CREATININE AM 04/10/2022 1:16 AM COMMODITY INDUSTRY ANALYST BLOOD UREA NITROGEN AM 04/10/2022 1:16 Resul ts for AM COMMODITY INDUSTRY ANALYST this procedure are in the results section. CARBON DIOXIDE LEVEL AM 04/10/2022 1:16 Resu lts for AM COMMODITY INDUSTRY ANALYST this procedure are in the results section. CHLORIDE LEVEL AM 04/10/2022 1:16 Results fo r AM COMMODITY INDUSTRY ANALYST this procedure are in the results section. POTASSIUM LEVEL AM 04/10/2022 1:16 Results f or AM COMMODITY INDUSTRY ANALYST this procedure are in the results section. SODIUM LEVEL AM 04/10/2022 1:16 Results for AM COMMODITY INDUSTRY ANALYST this procedure are in the results section. Results CBC AM 04/10/2022 1:11 Results for AM COMMODITY INDUSTRY ANALYST this procedure are in the results section. COMPLETE BLOOD COUNT W/ AM 04/10/2022 1:11 DIFFERENTIAL AM COMMODITY INDUSTRY ANALYST TRANSFUSE PLATELETS Routine 04/09/2022 9:21 PM COMMODITY INDUSTRY ANALYST PLT PRODUCT READY FOR Routine 04/09/2022 5:09 Res ults for SENIOR DIRECTOR FINANCE PM COMMODITY INDUSTRY ANALYST this procedure are in the results section. PREPARE PLATELETS Routine 04/09/2022 5:09 Results for PM COMMODITY INDUSTRY ANALYST this procedure are in the results section. XR PELVIS 1 OR 2 VW Routine 04/09/2022 1:06 Resul ts for PM COMMODITY INDUSTRY ANALYST this procedure are in the results section. MANUAL DIFFERENTIAL Routine 04/09/2022 12:24 Resu lts for PM COMMODITY INDUSTRY ANALYST this procedure are in the results section. Results CBC Routine 04/09/2022 12:24 Results for PM COMMODITY INDUSTRY ANALYST this procedure are in the results section. COMPLETE BLOOD COUNT W/ Routine 04/09/2022 12:24 DIFFERENTIAL PM COMMODITY INDUSTRY ANALYST PATHOLOGY SURGICAL Routine 04/09/2022 10:25 Multiple mye elle Results for INTERPRETATION AM COMMODITY INDUSTRY ANALYST Fracture of this procedur e proximal end of are in the femur <Left side; results Closed; Initial> section. Pain in left hip OR ARTERIAL BLOOD GAS STAT 04/09/2022 10:03 Re sults for PLUS AM COMMODITY INDUSTRY ANALYST this procedure are in the results section. MANUAL DIFFERENTIAL STAT 04/09/2022 7:45 Resul ts for AM COMMODITY INDUSTRY ANALYST this procedure are in the results section. Results CBC STAT 04/09/2022 7:45 Results for AM COMMODITY INDUSTRY ANALYST this procedure are in the results section. COMPLETE BLOOD COUNT W/ Routine 04/09/2022 7:45 DIFFERENTIAL AM COMMODITY INDUSTRY ANALYST TMP CROSSMATCH Routine 04/09/2022 6:06 Results fo r INTERPRETATION AM COMMODITY INDUSTRY ANALYST this procedur e are in the results section. TMP INTERPRETATION Routine 04/09/2022 6:06 Result s for ANTIBODY SCREEN AM COMMODITY INDUSTRY ANALYST this procedu re NEGATIVE are in the results section. CLOT EXPIRATION DATE Routine 04/09/2022 6:06 Resu lts for AM COMMODITY INDUSTRY ANALYST this procedure are in the results section. MANUAL DIFFERENTIAL STAT 04/09/2022 6:06 Resul ts for AM COMMODITY INDUSTRY ANALYST this procedure are in the results section. Results CBC STAT 04/09/2022 6:06 Results for AM COMMODITY INDUSTRY ANALYST this procedure are in the results section. ANTIBODY SCREEN Routine 04/09/2022 6:06 Results f or AM COMMODITY INDUSTRY ANALYST this procedure are in the results section. ABORH Routine 04/09/2022 6:06 Results for AM COMMODITY INDUSTRY ANALYST this procedure are in the results section. TYPE AND SCREEN Routine 04/09/2022 6:06 AM COMMODITY INDUSTRY ANALYST COMPLETE BLOOD COUNT W/ STAT 04/09/2022 6:06 DIFFERENTIAL AM COMMODITY INDUSTRY ANALYST TMP CROSSMATCH Routine 04/08/2022 10:16 Results f or INTERPRETATION AM COMMODITY INDUSTRY ANALYST this procedur e are in the results section. CLOT EXPIRATION DATE Routine 04/08/2022 10:16 Res ults for AM COMMODITY INDUSTRY ANALYST this procedure are in the results section. TMP INTERPRETATION Routine 04/08/2022 10:16 Resul ts for ANTIBODY SCREEN AM COMMODITY INDUSTRY ANALYST this procedu re NEGATIVE are in the results section. ANTIBODY SCREEN Routine 04/08/2022 10:16 Multiple myelom a Results for AM COMMODITY INDUSTRY ANALYST Pain in left hip this procedure Fracture of are in the proximal end of results femur <Left side; section. Closed; Initial> ABORH Routine 04/08/2022 10:16 Multiple myelom a Results for AM COMMODITY INDUSTRY ANALYST Pain in left hip this procedure Fracture of are in the proximal end of results femur <Left side; section. Closed; Initial> TYPE AND SCREEN Routine 04/08/2022 10:16 Multiple myelom a AM COMMODITY INDUSTRY ANALYST Pain in left hip Fracture of proximal end of femur <Left side; Closed; Initial> COVID-19 (SARS-COV-2) Routine 04/08/2022 9:48 Suspected COVID- 19 Results for PCR-ASYMPTOMATIC MC AM COMMODITY INDUSTRY ANALYST this pro cedure are in the results section. XR SPINE CERVICAL Routine 04/05/2022 11:41 Encounter for other Results for COMPLETE 4 OR 5 VW AM COMMODITY INDUSTRY ANALYST preprocedural this pro cedure examination are in the results section. CALCIUM LEVEL TOTAL AM 04/04/2022 2:42 Resul ts for AM COMMODITY INDUSTRY ANALYST this procedure are in the results section. .GLOMERULAR FILTRATION AM 04/04/2022 2:42 Re sults for RATE AM COMMODITY INDUSTRY ANALYST this procedure are in the results section. SERUM CREATININE AM 04/04/2022 2:42 Results for AM COMMODITY INDUSTRY ANALYST this procedure are in the results section. ELECTROLYTE PANEL AM 04/04/2022 2:42 Results for AM COMMODITY INDUSTRY ANALYST this procedure are in the results section. BLOOD UREA NITROGEN AM 04/04/2022 2:42 Resul ts for AM COMMODITY INDUSTRY ANALYST this procedure are in the results section. GLUCOSE LEVEL AM 04/04/2022 2:42 Results for AM COMMODITY INDUSTRY ANALYST this procedure are in the results section. MANUAL DIFFERENTIAL STAT 04/04/2022 2:42 Resul ts for AM COMMODITY INDUSTRY ANALYST this procedure are in the results section. Results CBC STAT 04/04/2022 2:42 Results for AM COMMODITY INDUSTRY ANALYST this procedure are in the results section. TROPONIN T Timed Study 04/04/2022 2:42 Results for AM COMMODITY INDUSTRY ANALYST this procedure are in the results section. PHOSPHORUS LEVEL AM 04/04/2022 2:42 Results for AM COMMODITY INDUSTRY ANALYST this procedure are in the results section. MAGNESIUM LEVEL AM 04/04/2022 2:42 Results f or AM COMMODITY INDUSTRY ANALYST this procedure are in the results section. BASIC METABOLIC PANEL, AM 04/04/2022 2:42 CALCIUM TOTAL AM COMMODITY INDUSTRY ANALYST COMPLETE BLOOD COUNT W/ AM 04/04/2022 2:42 DIFFERENTIAL AM COMMODITY INDUSTRY ANALYST EKG, 12-LEAD (PORTABLE) Routine 04/04/2022 EKG, 12-LEAD (PORTABLE) STAT 04/04/2022 CT CHEST PULMONARY Routine 04/03/2022 9:40 Result s for EMBOLISM W CONTRAST PM COMMODITY INDUSTRY ANALYST this pro cedure are in the results section. TROPONIN T Routine 04/03/2022 9:17 Results for PM COMMODITY INDUSTRY ANALYST this procedure are in the results section. COVID-19 (SARS-COV-2) Routine 04/03/2022 9:17 Res ults for ASYMPTOMATIC-LT PM COMMODITY INDUSTRY ANALYST this procedu re are in the results section. XR CHEST 1 VW Routine 04/03/2022 7:44 Results for PM COMMODITY INDUSTRY ANALYST this procedure are in the results section. D DIMER Routine 04/03/2022 5:05 Results for PM COMMODITY INDUSTRY ANALYST this procedure are in the results section. APTT Routine 04/03/2022 5:05 Results for PM COMMODITY INDUSTRY ANALYST this procedure are in the results section. PROTHROMBIN TIME Routine 04/03/2022 5:05 Results for PM COMMODITY INDUSTRY ANALYST this procedure are in the results section. NT PRO BNP Routine 04/03/2022 5:05 Results for PM COMMODITY INDUSTRY ANALYST this procedure are in the results section. CARDIAC PANEL Timed Study 04/03/2022 5:05 Results for PM COMMODITY INDUSTRY ANALYST this procedure are in the results section. .DR. LINK JUAN PATH Routine 04/03/2022 7:24 Resul ts for REVIEW AM COMMODITY INDUSTRY ANALYST this procedure are in the results section. .DR. LINK PROT ELEC Routine 04/03/2022 7:24 Resu lts for PATH REVIEW AM COMMODITY INDUSTRY ANALYST this procedure are in the results section. FREE KAPPA/FREE LAMBDA Routine 04/03/2022 7:24 Re sults for RATIO AM COMMODITY INDUSTRY ANALYST this procedure are in the results section. FRACTIONATED BILIRUBIN Routine 04/03/2022 7:24 Subacute cough Results for AM COMMODITY INDUSTRY ANALYST this procedure are in the results section. TOTAL PROTEIN Routine 04/03/2022 7:24 Subacute cough Results f or AM COMMODITY INDUSTRY ANALYST this procedure are in the results section. ASPARTATE Routine 04/03/2022 7:24 Subacute cough Results fo r AMINOTRANSFERASE AM COMMODITY INDUSTRY ANALYST this proced ure are in the results section. ALANINE Routine 04/03/2022 7:24 Subacute cough Results fo r AMINOTRANSFERASE AM COMMODITY INDUSTRY ANALYST this proced ure are in the results section. ALKALINE PHOSPHATASE Routine 04/03/2022 7:24 Subacute cough Re sults for AM COMMODITY INDUSTRY ANALYST this procedure are in the results section. ALBUMIN LEVEL Routine 04/03/2022 7:24 Subacute cough Results f or AM COMMODITY INDUSTRY ANALYST this procedure are in the results section. CALCIUM LEVEL TOTAL Routine 04/03/2022 7:24 Subacute cough Res ults for AM COMMODITY INDUSTRY ANALYST this procedure are in the results section. .GLOMERULAR FILTRATION Routine 04/03/2022 7:24 Subacute cough Results for RATE AM COMMODITY INDUSTRY ANALYST this procedure are in the results section. SERUM CREATININE Routine 04/03/2022 7:24 Subacute cough Result s for AM COMMODITY INDUSTRY ANALYST this procedure are in the results section. ELECTROLYTE PANEL Routine 04/03/2022 7:24 Subacute cough Resul ts for AM COMMODITY INDUSTRY ANALYST this procedure are in the results section. BLOOD UREA NITROGEN Routine 04/03/2022 7:24 Subacute cough Res ults for AM COMMODITY INDUSTRY ANALYST this procedure are in the results section. GLUCOSE LEVEL Routine 04/03/2022 7:24 Subacute cough Results f or AM COMMODITY INDUSTRY ANALYST this procedure are in the results section. MANUAL DIFFERENTIAL Routine 04/03/2022 7:24 Subacute cough Res ults for AM COMMODITY INDUSTRY ANALYST this procedure are in the results section. Results CBC Routine 04/03/2022 7:24 Subacute cough Results fo r AM COMMODITY INDUSTRY ANALYST this procedure are in the results section. LACTATE DEHYDROGENASE Routine 04/03/2022 7:24 Subacute cough R esults for AM COMMODITY INDUSTRY ANALYST this procedure are in the results section. BETA 2 MICROGLOBULIN Routine 04/03/2022 7:24 Subacute cough Re sults for AM COMMODITY INDUSTRY ANALYST this procedure are in the results section. IMMUNOFIXATION Routine 04/03/2022 7:24 Subacute cough Results for ELECTROPHORESIS AM COMMODITY INDUSTRY ANALYST this procedu re are in the results section. PROTEIN Routine 04/03/2022 7:24 Subacute cough Results fo r ELECTROPHORESIS, SERUM AM COMMODITY INDUSTRY ANALYST this procedure are in the results section. FREE LAMBDA LIGHT CHAIN Routine 04/03/2022 7:24 Subacute cough Results for AM COMMODITY INDUSTRY ANALYST this procedure are in the results section. FREE KAPPA LIGHT CHAIN Routine 04/03/2022 7:24 Subacute cough Results for AM COMMODITY INDUSTRY ANALYST this procedure are in the results section. IMMUNOGLOBULIN M SERUM Routine 04/03/2022 7:24 Subacute cough Results for AM COMMODITY INDUSTRY ANALYST this procedure are in the results section. IMMUNOGLOBULIN G SERUM Routine 04/03/2022 7:24 Subacute cough Results for AM COMMODITY INDUSTRY ANALYST this procedure are in the results section. IMMUNOGLOBULIN A SERUM Routine 04/03/2022 7:24 Subacute cough Results for AM COMMODITY INDUSTRY ANALYST this procedure are in the results section. URIC ACID Routine 04/03/2022 7:24 Subacute cough Results fo r AM COMMODITY INDUSTRY ANALYST this procedure are in the results section. PHOSPHORUS LEVEL Routine 04/03/2022 7:24 Subacute cough Result s for AM COMMODITY INDUSTRY ANALYST this procedure are in the results section. MAGNESIUM LEVEL Routine 04/03/2022 7:24 Subacute cough Results for AM COMMODITY INDUSTRY ANALYST this procedure are in the results section. COMPREHENSIVE METABOLIC Routine 04/03/2022 7:24 Subacute cough PANEL AM COMMODITY INDUSTRY ANALYST COMPLETE BLOOD COUNT W/ Routine 04/03/2022 7:24 Subacute cough DIFFERENTIAL AM COMMODITY INDUSTRY ANALYST .DR. SUTTON UIFE PATH Routine 04/03/2022 5:00 R esults for REVIEW AM COMMODITY INDUSTRY ANALYST this procedure are in the results section. .DR. SUTTON U PROT Routine 04/03/2022 5:00 Resu lts for ELEC PATH REVIEW AM COMMODITY INDUSTRY ANALYST this proced ure are in the results section. .TOTAL VOLUME Routine 04/03/2022 5:00 Results for AM COMMODITY INDUSTRY ANALYST this procedure are in the results section. URINE TOTAL PROTEIN Routine 04/03/2022 5:00 Resul ts for AM COMMODITY INDUSTRY ANALYST this procedure are in the results section. IMMUNOFIXATION Routine 04/03/2022 5:00 Subacute cough Results for ELECTROPHORESIS URINE AM COMMODITY INDUSTRY ANALYST this p rocedure are in the results section. PROTEIN ELECTROPHORESIS Routine 04/03/2022 5:00 Subacute cough Results for URINE AM COMMODITY INDUSTRY ANALYST this procedure are in the results section. EKG, 12-LEAD (PORTABLE) STAT 04/03/2022 EKG, 12-LEAD Routine 04/03/2022 Multiple myeloma (SCHEDULED) Pain in left hip Fracture of proximal end of femur <Left side; Closed; Initial> XR HIP 2 OR 3 VW W Routine 03/14/2022 1:40 Multiple myel randall Results for PELVIS LEFT PM COMMODITY INDUSTRY ANALYST Pain in left hip this procedure Fracture of are in the proximal end of results femur <Left side; section. Closed; Initial> RESPIRATORY VIRAL Routine 02/20/2022 12:16 Exposure to Result s for MULTIPLEX PCR PANEL, PM COMMODITY INDUSTRY ANALYST coronavirus this pr ocedure NASOPHARYNGEAL SWAB infection are in t he results section. XR CHEST 2 VW Routine 02/20/2022 11:06 Subacute cough Results for AM COMMODITY INDUSTRY ANALYST this procedure are in the results section. DR. BEATTY JUAN PATH Routine 02/20/2022 7:45 Results for REVIEW AM COMMODITY INDUSTRY ANALYST this procedure are in the results section. DR.CHEN KELLY ELEC PATH Routine 02/20/2022 7:45 Re sults for REVIEW AM COMMODITY INDUSTRY ANALYST this procedure are in the results section. FREE KAPPA/FREE LAMBDA Routine 02/20/2022 7:45 Re sults for RATIO AM COMMODITY INDUSTRY ANALYST this procedure are in the results section. FRACTIONATED BILIRUBIN Routine 02/20/2022 7:45 Plasma cell Re sults for AM COMMODITY INDUSTRY ANALYST neoplasm this procedure are in the results section. TOTAL PROTEIN Routine 02/20/2022 7:45 Plasma cell Results for AM COMMODITY INDUSTRY ANALYST neoplasm this procedure are in the results section. ASPARTATE Routine 02/20/2022 7:45 Plasma cell Results for AMINOTRANSFERASE AM COMM[employer]ITY [employer]Y [employer]NALYST neoplasm this proced ure are in the results section. ALANINE Routine 02/20/2022 7:45 Plasma cell Results for AMINOTRANSFERASE AM [employer]ITY [employer] ANALYST neoplasm this proced ure are in the results section. ALKALINE PHOSPHATASE Routine 02/20/2022 7:45 Plasma cell Resu lts for AM COMM[employer]ITY [employer]Y ANALYST neoplasm this procedure are in the results section. ALBUMIN LEVEL Routine 02/20/2022 7:45 Plasma cell Results for AM [employer] ANALYST neoplasm this procedure are in the results section. CALCIUM LEVEL TOTAL Routine 02/20/2022 7:45 Plasma cell Resul ts for AM [employer]ITY [employer]Y ANALYST neoplasm this procedure are in the results section. .GLOMERULAR FILTRATION Routine 02/20/2022 7:45 Plasma cell Re sults for RATE AM [employer]ITY [employer] ANALYST neoplasm this procedure are in the results section. SERUM CREATININE Routine 02/20/2022 7:45 Plasma cell Results for AM [employer]ITY [employer]Y ANALYST neoplasm this procedure are in the results section. ELECTROLYTE PANEL Routine 02/20/2022 7:45 Plasma cell Results for AM [employer] ANALYST neoplasm this procedure are in the results section. BLOOD UREA NITROGEN Routine 02/20/2022 7:45 Plasma cell Resul ts for AM [employer]Y ANALYST neoplasm this procedure are in the results section. GLUCOSE LEVEL Routine 02/20/2022 7:45 Plasma cell Results for AM [employer] A[employer]LYST neoplasm this procedure are in the results section. MANUAL DIFFERENTIAL Routine 02/20/2022 7:45 Plasma cell Resul ts for AM COMM[employer] ANALYST neoplasm this procedure are in the results section. Results CBC Routine 02/20/2022 7:45 Plasma cell Results for AM COMM[employer] ANALYST neoplasm this procedure are in the results section. LACTATE DEHYDROGENASE Routine 02/20/2022 7:45 Plasma cell Res ults for AM [employer] ANALYST neoplasm this procedure are in the results section. BETA 2 MICROGLOBULIN Routine 02/20/2022 7:45 Plasma cell Resu lts for AM COMM[employer]Y ANALYST neoplasm this procedure are in the results section. IMMUNOFIXATION Routine 02/20/2022 7:45 Plasma cell Results fo r ELECTROPHORESIS AM [employer] ANALYST neoplasm this procedu re are in the results section. PROTEIN Routine 02/20/2022 7:45 Plasma cell Results for ELECTROPHORESIS, SERUM AM [employer] A[employer]LYST neoplasm this procedure are in the results section. FREE LAMBDA LIGHT CHAIN Routine 02/20/2022 7:45 Plasma cell R esults for AM COMM[employer]Y ANALYST neoplasm this procedure are in the results section. FREE KAPPA LIGHT CHAIN Routine 02/20/2022 7:45 Plasma cell Re sults for AM COMM[employer]Y ANALYST neoplasm this procedure are in the results section. IMMUNOGLOBULIN M SERUM Routine 02/20/2022 7:45 Plasma cell Re sults for AM COMM[employer]Y ANALYST neoplasm this procedure are in the results section. IMMUNOGLOBULIN G SERUM Routine 02/20/2022 7:45 Plasma cell Re sults for AM COMM[employer]ITY [employer]Y ANALYST neoplasm this procedure are in the results section. IMMUNOGLOBULIN A SERUM Routine 02/20/2022 7:45 Plasma cell Re sults for AM COMM[employer]Y ANALYST neoplasm this procedure are in the results section. URIC ACID Routine 02/20/2022 7:45 Plasma cell Results for AM [employer] A[employer]LYST neoplasm this procedure are in the results section. PHOSPHORUS LEVEL Routine 02/20/2022 7:45 Plasma cell Results for AM [employer]LYST neoplasm this procedure are in the results section. MAGNESIUM LEVEL Routine 02/20/2022 7:45 Plasma cell Results f or AM [employer] A[employer]LYST neoplasm this procedure are in the results section. COMPREHENSIVE METABOLIC Routine 02/20/2022 7:45 Plasma cell PANEL AM [employer]LYST neoplasm COMPLETE BLOOD COUNT W/ Routine 02/20/2022 7:45 Plasma cell DIFFERENTIAL AM [employer]LYST neoplasm .DR. SUTTON UIFE PATH Routine 02/20/2022 4:07 R esults for REVIEW AM [employer]LYST this procedure are in the results section. .DR. SUTTON U PROT Routine 02/20/2022 4:07 Res ults for ELEC PATH REVIEW AM [employer] A[employer]LYST this proced ure are in the results section. .TOTAL VOLUME Routine 02/20/2022 4:07 Results for AM [employer] A[employer]LYST this procedure are in the results section. URINE TOTAL PROTEIN Routine 02/20/2022 4:07 Resul ts for AM COMM[employer] ANALYST this procedure are in the results section. IMMUNOFIXATION Routine 02/20/2022 4:07 Plasma cell Results fo r ELECTROPHORESIS URINE AM [employer] A[employer]LYST neoplasm this p rocedure are in the results section. PROTEIN ELECTROPHORESIS Routine 02/20/2022 4:07 Plasma cell R esults for URINE AM [employer]LYST neoplasm this procedure are in the results section. CT HIP LEFT WO CONTRAST Routine 02/06/2022 7:06 Multiple myeloma Results for AM [employer]LYST Fracture of this procedure proximal end of are in the femur <Left side; results Closed; Initial> section. XR PELVIS 1 OR 2 VW Routine 01/24/2022 2:34 Multiple mye elle Results for PM [employer]Y ANALYST Pain in left hip this proced ure are in the results section. MRI PELVIS W WO Routine 01/24/2022 10:10 Multiple myelom a Results for CONTRAST - AM [employer] ANALYST Pain in left hip this proced ure MUSCULOSKELETAL are in the results section. POC CREATININE Routine 01/24/2022 8:57 Results fo r AM [employer]LYST this procedure are in the results section. TMP INTERPRETATION Now 01/24/2022 7:42 Result s for ANTIBODY SCREEN AM [employer]LYST this procedu re NEGATIVE are in the results section. CLOT EXPIRATION DATE Now 01/24/2022 7:42 Resu lts for AM [employer] ANALYST this procedure are in the results section. ANTIBODY SCREEN Now 01/24/2022 7:42 Plasma cell Results f or AM [employer]LYST neoplasm this procedure are in the results section. ABORH Now 01/24/2022 7:42 Plasma cell Results for AM [employer] ANALYST neoplasm this procedure are in the results section. TYPE AND SCREEN Now 01/24/2022 7:42 Plasma cell AM [employer]LYST neoplasm MANUAL DIFFERENTIAL Routine 01/24/2022 7:25 Plasma cell Resul ts for AM [employer] A[employer]LYST neoplasm this procedure are in the results section. Results CBC Routine 01/24/2022 7:25 Plasma cell Results for AM COMM[employer] A[employer]LYST neoplasm this procedure are in the results section. COMPLETE BLOOD COUNT W/ Routine 01/24/2022 7:25 Plasma cell DIFFERENTIAL AM [employer]LYST neoplasm DR. BEATTY JUAN PATH Now 01/24/2022 7:15 Results for REVIEW AM [employer]LYST this procedure are in the results section. PROT ELEC PATH Now 01/24/2022 7:15 Re sults for REVIEW AM [employer] A[employer]LYST this procedure are in the results section. FREE KAPPA/FREE LAMBDA Now 01/24/2022 7:15 Re sults for RATIO AM COMM[employer]ITY [employer]Y ANALYST this procedure are in the results section. MANUAL DIFFERENTIAL Now 01/24/2022 7:15 Plasma cell Resul ts for AM [employer] ANALYST neoplasm this procedure are in the results section. Results CBC Now 01/24/2022 7:15 Plasma cell Results for AM COMM[employer] ANALYST neoplasm this procedure are in the results section. FRACTIONATED BILIRUBIN Now 01/24/2022 7:15 Plasma cell Re sults for AM COMM[employer]Y ANALYST neoplasm this procedure are in the results section. TOTAL PROTEIN Now 01/24/2022 7:15 Plasma cell Results for AM [employer] A[employer]LYST neoplasm this procedure are in the results section. ASPARTATE Now 01/24/2022 7:15 Plasma cell Results for AMINOTRANSFERASE AM [employer]LYST neoplasm this proced ure are in the results section. ALANINE Now 01/24/2022 7:15 Plasma cell Results for AMINOTRANSFERASE AM [employer] A[employer]LYST neoplasm this proced ure are in the results section. ALKALINE PHOSPHATASE Now 01/24/2022 7:15 Plasma cell Resu lts for AM COMM[employer] ANALYST neoplasm this procedure are in the results section. ALBUMIN LEVEL Now 01/24/2022 7:15 Plasma cell Results for AM COMM[employer] A[employer]LYST neoplasm this procedure are in the results section. CALCIUM LEVEL TOTAL Now 01/24/2022 7:15 Plasma cell Resul ts for AM COMM[employer]ITY [employer] ANALYST neoplasm this procedure are in the results section. .GLOMERULAR FILTRATION Now 01/24/2022 7:15 Plasma cell Re sults for RATE AM [employer] ANALYST neoplasm this procedure are in the results section. SERUM CREATININE Now 01/24/2022 7:15 Plasma cell Results for AM COMM[employer] ANALYST neoplasm this procedure are in the results section. ELECTROLYTE PANEL Now 01/24/2022 7:15 Plasma cell Results for AM COMM[employer] ANALYST neoplasm this procedure are in the results section. BLOOD UREA NITROGEN Now 01/24/2022 7:15 Plasma cell Resul ts for AM COMM[employer]Y ANALYST neoplasm this procedure are in the results section. GLUCOSE, RANDOM Now 01/24/2022 7:15 Plasma cell Results f or AM [employer] A[employer]LYST neoplasm this procedure are in the results section. MAGNESIUM LEVEL Now 01/24/2022 7:15 Plasma cell Results f or AM [employer] A[employer]LYST neoplasm this procedure are in the results section. HBV DNA QUANT Now 01/24/2022 7:15 Plasma cell Results for AM COMM[employer] ANALYST neoplasm this procedure are in the results section. COMPLETE BLOOD COUNT W/ Now 01/24/2022 7:15 Plasma cell DIFFERENTIAL AM [employer] ANALYST neoplasm COMPREHENSIVE METABOLIC Now 01/24/2022 7:15 Plasma cell PANEL AM COMM[employer] ANALYST neoplasm PROTEIN Now 01/24/2022 7:15 Plasma cell Results for ELECTROPHORESIS, SERUM AM COMM[employer]ITY [employer] ANALYST neoplasm this procedure are in the results section. IMMUNOFIXATION Now 01/24/2022 7:15 Plasma cell Results fo r ELECTROPHORESIS AM COMM[employer] ANALYST neoplasm this procedu re are in the results section. FREE LAMBDA LIGHT CHAIN Now 01/24/2022 7:15 Plasma cell R esults for AM COMM[employer]ITY [employer]DU[employer]Y ANALYST neoplasm this procedure are in the results section. FREE KAPPA LIGHT CHAIN Now 01/24/2022 7:15 Plasma cell Re sults for AM COMM[employer]ITY [employer]DU[employer]Y ANALYST neoplasm this procedure are in the results section. IMMUNOGLOBULIN M SERUM Now 01/24/2022 7:15 Plasma cell Re sults for AM COMM[employer]ITY [employer]DU[employer]Y ANALYST neoplasm this procedure are in the results section. IMMUNOGLOBULIN A SERUM Now 01/24/2022 7:15 Plasma cell Re sults for AM COMM[employer]Y ANALYST neoplasm this procedure are in the results section. IMMUNOGLOBULIN G SERUM Now 01/24/2022 7:15 Plasma cell Re sults for AM COMM[employer]ITY INDU[employer]Y ANALYST neoplasm this procedure are in the results section. .DR. SUTTON UIFE PATH Now 01/24/2022 4:30 R esults for REVIEW AM COMM[employer]ITY [employer]Y ANALYST this procedure are in the results section. .DR. SUTTON U PROT Now 01/24/2022 4:30 Resu lts for ELEC PATH REVIEW AM COMM[employer]Y ANALYST this proced ure are in the results section. .TOTAL VOLUME Now 01/24/2022 4:30 Results for AM COMM[employer]ITY [employer]DU[employer]Y ANALYST this procedure are in the results section. URINE TOTAL PROTEIN Now 01/24/2022 4:30 Plasma cell Resul ts for AM COMM[employer]ITY [employer]Y ANALYST neoplasm this procedure are in the results section. PROTEIN ELECTROPHORESIS Now 01/24/2022 4:30 Plasma cell R esults for URINE AM COMM[employer]ITY [employer]Y ANALYST neoplasm this procedure are in the results section. IMMUNOFIXATION Now 01/24/2022 4:30 Plasma cell Results fo r ELECTROPHORESIS URINE AM COMM[employer] ANALYST neoplasm this p rocedure are in the results section. XR CHEST 2 VW Routine 01/16/2022 10:40 Plasma cell Results fo r AM [employer] A[employer]LYST neoplasm this procedure are in the results section. RESPIRATORY VIRAL Routine 01/16/2022 9:54 Results for MULTIPLEX PCR PANEL, AM COMM[employer]Y ANALYST this pr ocedure NASOPHARYNGEAL SWAB are in t he results section. DR. BEATTY JUAN PATH Routine 01/16/2022 7:51 Results for REVIEW AM [employer] A[employer]LYST this procedure are in the results section. PROT ELEC PATH Routine 01/16/2022 7:51 Re sults for REVIEW AM [employer]Y ANALYST this procedure are in the results section. FREE KAPPA/FREE LAMBDA Routine 01/16/2022 7:51 Re sults for RATIO AM COMM[employer]ITY [employer]DU[employer]Y ANALYST this procedure are in the results section. MANUAL DIFFERENTIAL Routine 01/16/2022 7:51 Plasma cell Resul ts for AM COMM[employer]DU[employer]Y ANALYST neoplasm this procedure are in the results section. Results CBC Routine 01/16/2022 7:51 Plasma cell Results for AM COMM[employer] ANALYST neoplasm this procedure are in the results section. FRACTIONATED BILIRUBIN Routine 01/16/2022 7:51 Plasma cell Re sults for AM COMM[employer]Y ANALYST neoplasm this procedure are in the results section. TOTAL PROTEIN Routine 01/16/2022 7:51 Plasma cell Results for AM COMM[employer] ANALYST neoplasm this procedure are in the results section. ASPARTATE Routine 01/16/2022 7:51 Plasma cell Results for AMINOTRANSFERASE AM [employer] ANALYST neoplasm this proced ure are in the results section. ALANINE Routine 01/16/2022 7:51 Plasma cell Results for AMINOTRANSFERASE AM [employer] ANALYST neoplasm this proced ure are in the results section. ALKALINE PHOSPHATASE Routine 01/16/2022 7:51 Plasma cell Resu lts for AM COMM[employer]Y ANALYST neoplasm this procedure are in the results section. ALBUMIN LEVEL Routine 01/16/2022 7:51 Plasma cell Results for AM COMM[employer]Y ANALYST neoplasm this procedure are in the results section. CALCIUM LEVEL TOTAL Routine 01/16/2022 7:51 Plasma cell Resul ts for AM COMM[employer]Y ANALYST neoplasm this procedure are in the results section. .GLOMERULAR FILTRATION Routine 01/16/2022 7:51 Plasma cell Re sults for RATE AM [employer] ANALYST neoplasm this procedure are in the results section. SERUM CREATININE Routine 01/16/2022 7:51 Plasma cell Results for AM COMM[employer] ANALYST neoplasm this procedure are in the results section. ELECTROLYTE PANEL Routine 01/16/2022 7:51 Plasma cell Results for AM COMM[employer] ANALYST neoplasm this procedure are in the results section. BLOOD UREA NITROGEN Routine 01/16/2022 7:51 Plasma cell Resul ts for AM COMM[employer]Y ANALYST neoplasm this procedure are in the results section. GLUCOSE LEVEL Routine 01/16/2022 7:51 Plasma cell Results for AM COMM[employer] ANALYST neoplasm this procedure are in the results section. HBV DNA QUANT Routine 01/16/2022 7:51 Plasma cell Results for AM COMM[employer] ANALYST neoplasm this procedure are in the results section. COMPLETE BLOOD COUNT W/ Routine 01/16/2022 7:51 Plasma cell DIFFERENTIAL AM [employer] ANALYST neoplasm COMPREHENSIVE METABOLIC Routine 01/16/2022 7:51 Plasma cell PANEL AM [employer] ANALYST neoplasm PROTEIN Routine 01/16/2022 7:51 Plasma cell Results for ELECTROPHORESIS, SERUM AM [employer] ANALYST neoplasm this procedure are in the results section. IMMUNOFIXATION Routine 01/16/2022 7:51 Plasma cell Results fo r ELECTROPHORESIS AM [employer] ANALYST neoplasm this procedu re are in the results section. FREE LAMBDA LIGHT CHAIN Routine 01/16/2022 7:51 Plasma cell R esults for AM COMM[employer]Y ANALYST neoplasm this procedure are in the results section. FREE KAPPA LIGHT CHAIN Routine 01/16/2022 7:51 Plasma cell Re sults for AM COMM[employer]Y ANALYST neoplasm this procedure are in the results section. IMMUNOGLOBULIN M SERUM Routine 01/16/2022 7:51 Plasma cell Re sults for AM COMM[employer]ITY [employer]Y ANALYST neoplasm this procedure are in the results section. IMMUNOGLOBULIN A SERUM Routine 01/16/2022 7:51 Plasma cell Re sults for AM COMM[employer]ITY [employer]Y ANALYST neoplasm this procedure are in the results section. IMMUNOGLOBULIN G SERUM Routine 01/16/2022 7:51 Plasma cell Re sults for AM COMM[employer]ITY [employer]DU[employer]Y ANALYST neoplasm this procedure are in the results section. .DR. LINK UIFE PATH Routine 01/16/2022 5:10 Resu lts for REVIEW AM [employer]ITY [employer]DU[employer]Y ANALYST this procedure are in the results section. .DR. LINK U PROT ELEC Routine 01/16/2022 5:10 Re sults for PATH REVIEW AM [employer]Y ANALYST this procedure are in the results section. .TOTAL VOLUME Routine 01/16/2022 5:10 Results for AM [employer]Y ANALYST this procedure are in the results section. URINE TOTAL PROTEIN Routine 01/16/2022 5:10 Plasma cell Resul ts for AM COMM[employer]DU[employer]Y ANALYST neoplasm this procedure are in the results section. PROTEIN ELECTROPHORESIS Routine 01/16/2022 5:10 Plasma cell R esults for URINE AM COMM[employer]ITY [employer]Y ANALYST neoplasm this procedure are in the results section. IMMUNOFIXATION Routine 01/16/2022 5:10 Plasma cell Results fo r ELECTROPHORESIS URINE AM COMM[employer]ITY [employer]DU[employer] ANALYST neoplasm this p rocedure are in the results section. .DR. GIMENEZ JUAN PATH Now 12/26/2021 9:14 Resul ts for REVIEW AM [employer]ITY [employer]DU[employer]Y ANALYST this procedure are in the results section. .DR. GIMENEZ PROT ELEC Now 12/26/2021 9:14 Resu lts for PATH REVIEW AM [employer]DU[employer]Y ANALYST this procedure are in the results section. FREE KAPPA/FREE LAMBDA Now 12/26/2021 9:14 Re sults for RATIO AM COMM[employer]ITY [employer]DU[employer]Y ANALYST this procedure are in the results section. FRACTIONATED BILIRUBIN Now 12/26/2021 9:14 Plasma cell Re sults for AM COMM[employer]DU[employer]Y ANALYST neoplasm this procedure are in the results section. TOTAL PROTEIN Now 12/26/2021 9:14 Plasma cell Results for AM COMM[employer]Y ANALYST neoplasm this procedure are in the results section. ASPARTATE Now 12/26/2021 9:14 Plasma cell Results for AMINOTRANSFERASE AM [employer]Y ANALYST neoplasm this proced ure are in the results section. ALANINE Now 12/26/2021 9:14 Plasma cell Results for AMINOTRANSFERASE AM COMM[employer]ITY [employer]Y ANALYST neoplasm this proced ure are in the results section. ALKALINE PHOSPHATASE Now 12/26/2021 9:14 Plasma cell Resu lts for AM COMM[employer]ITY [employer]DU[employer]Y ANALYST neoplasm this procedure are in the results section. ALBUMIN LEVEL Now 12/26/2021 9:14 Plasma cell Results for AM COMM[employer] ANALYST neoplasm this procedure are in the results section. CALCIUM LEVEL TOTAL Now 12/26/2021 9:14 Plasma cell Resul ts for AM COMM[employer]ITY [employer]DU[employer]Y ANALYST neoplasm this procedure are in the results section. .GLOMERULAR FILTRATION Now 12/26/2021 9:14 Plasma cell Re sults for RATE AM [employer]DU[employer]Y ANALYST neoplasm this procedure are in the results section. SERUM CREATININE Now 12/26/2021 9:14 Plasma cell Results for AM COMM[employer]ITY [employer]Y ANALYST neoplasm this procedure are in the results section. ELECTROLYTE PANEL Now 12/26/2021 9:14 Plasma cell Results for AM COMM[employer]ITY [employer]DU[employer]Y ANALYST neoplasm this procedure are in the results section. BLOOD UREA NITROGEN Now 12/26/2021 9:14 Plasma cell Resul ts for AM COMM[employer]ITY [employer]DU[employer]Y ANALYST neoplasm this procedure are in the results section. GLUCOSE LEVEL Now 12/26/2021 9:14 Plasma cell Results for AM COMM[employer]DU[employer] ANALYST neoplasm this procedure are in the results section. MANUAL DIFFERENTIAL Now 12/26/2021 9:14 Plasma cell Resul ts for AM COMM[employer]ITY [employer]DU[employer]Y ANALYST neoplasm this procedure are in the results section. Results CBC Now 12/26/2021 9:14 Plasma cell Results for AM COMM[employer]ITY [employer]DU[employer]Y ANALYST neoplasm this procedure are in the results section. HBV DNA QUANT Now 12/26/2021 9:14 Plasma cell Results for AM COMM[employer]ITY [employer]DU[employer]Y ANALYST neoplasm this procedure are in the results section. COMPLETE BLOOD COUNT W/ Now 12/26/2021 9:14 Plasma cell DIFFERENTIAL AM [employer] ANALYST neoplasm COMPREHENSIVE METABOLIC Now 12/26/2021 9:14 Plasma cell PANEL AM COMM[employer]Y ANALYST neoplasm PROTEIN Now 12/26/2021 9:14 Plasma cell Results for ELECTROPHORESIS, SERUM AM [employer] ANALYST neoplasm this procedure are in the results section. IMMUNOFIXATION Now 12/26/2021 9:14 Plasma cell Results fo r ELECTROPHORESIS AM COMM[employer]ITY [employer]Y ANALYST neoplasm this procedu re are in the results section. FREE LAMBDA LIGHT CHAIN Now 12/26/2021 9:14 Plasma cell R esults for AM COMM[employer]ITY INDU[employer]Y ANALYST neoplasm this procedure are in the results section. FREE KAPPA LIGHT CHAIN Now 12/26/2021 9:14 Plasma cell Re sults for AM COMM[employer]ITY [employer]DU[employer]Y ANALYST neoplasm this procedure are in the results section. IMMUNOGLOBULIN M SERUM Now 12/26/2021 9:14 Plasma cell Re sults for AM COMM[employer]ITY [employer]DU[employer]Y ANALYST neoplasm this procedure are in the results section. IMMUNOGLOBULIN A SERUM Now 12/26/2021 9:14 Plasma cell Re sults for AM COMM[employer]ITY INDU[employer]Y ANALYST neoplasm this procedure are in the results section. IMMUNOGLOBULIN G SERUM Now 12/26/2021 9:14 Plasma cell Re sults for AM COMM[employer]ITY INDU[employer]Y ANALYST neoplasm this procedure are in the results section. .DR LUDY ATKINSONFE PATH Now 12/26/2021 6:05 Resu lts for REVIEW AM COMMODITY [employer]DU[employer]Y ANALYST this procedure are in the results section. .DR. GIMENEZ U PROT ELEC Now 12/26/2021 6:05 Re sults for PATH REVIEW AM [employer]ITY [employer]DU[employer]Y ANALYST this procedure are in the results section. .TOTAL VOLUME Now 12/26/2021 6:05 Results for AM COMM[employer]ITY INDU[employer]Y ANALYST this procedure are in the results section. URINE TOTAL PROTEIN Now 12/26/2021 6:05 Plasma cell Resul ts for AM COMM[employer]ITY [employer]DU[employer]Y ANALYST neoplasm this procedure are in the results section. PROTEIN ELECTROPHORESIS Now 12/26/2021 6:05 Plasma cell R esults for URINE AM COMM[employer]ITY [employer]DU[employer]Y ANALYST neoplasm this procedure are in the results section. IMMUNOFIXATION Now 12/26/2021 6:05 Plasma cell Results fo r ELECTROPHORESIS URINE AM COMM[employer]ITY [employer]DU[employer]Y ANALYST neoplasm this p rocedure are in the results section. PETCT WB SUBSEQUENT Routine 12/20/2021 7:56 Multiple myeloma R esults for TREATMENT STRATEGY AM CDT this proc edure are in the results section. .DR. NIKOLAY MARTINEZ PATH Routine 12/19/2021 6:27 Resul ts for REVIEW AM CDT this procedure are in the results section. .DR. LINK PROT ELEC Routine 12/19/2021 6:27 Resu lts for PATH REVIEW AM CDT this procedure are in the results section. PROTEIN Routine 12/19/2021 6:27 Plasma cell Results for ELECTROPHORESIS, SERUM AM CDT neoplasm this procedure are in the results section. IMMUNOFIXATION Routine 12/19/2021 6:27 Plasma cell Results fo r ELECTROPHORESIS AM CDT neoplasm this procedu re are in the results section. FREE KAPPA/FREE LAMBDA Routine 12/19/2021 6:24 Re sults for RATIO AM CDT this procedure are in the results section. MANUAL DIFFERENTIAL Routine 12/19/2021 6:24 Plasma cell Resul ts for AM CDT neoplasm this procedure are in the results section. Results CBC Routine 12/19/2021 6:24 Plasma cell Results for AM CDT neoplasm this procedure are in the results section. FRACTIONATED BILIRUBIN Routine 12/19/2021 6:24 Plasma cell Re sults for AM CDT neoplasm this procedure are in the results section. TOTAL PROTEIN Routine 12/19/2021 6:24 Plasma cell Results for AM CDT neoplasm this procedure are in the results section. ASPARTATE Routine 12/19/2021 6:24 Plasma cell Results for AMINOTRANSFERASE AM CDT neoplasm this proced ure are in the results section. ALANINE Routine 12/19/2021 6:24 Plasma cell Results for AMINOTRANSFERASE AM CDT neoplasm this proced ure are in the results section. ALKALINE PHOSPHATASE Routine 12/19/2021 6:24 Plasma cell Resu lts for AM CDT neoplasm this procedure are in the results section. ALBUMIN LEVEL Routine 12/19/2021 6:24 Plasma cell Results for AM CDT neoplasm this procedure are in the results section. CALCIUM LEVEL TOTAL Routine 12/19/2021 6:24 Plasma cell Resul ts for AM CDT neoplasm this procedure are in the results section. .GLOMERULAR FILTRATION Routine 12/19/2021 6:24 Plasma cell Re sults for RATE AM CDT neoplasm this procedure are in the results section. SERUM CREATININE Routine 12/19/2021 6:24 Plasma cell Results for AM CDT neoplasm this procedure are in the results section. ELECTROLYTE PANEL Routine 12/19/2021 6:24 Plasma cell Results for AM CDT neoplasm this procedure are in the results section. BLOOD UREA NITROGEN Routine 12/19/2021 6:24 Plasma cell Resul ts for AM CDT neoplasm this procedure are in the results section. GLUCOSE LEVEL Routine 12/19/2021 6:24 Plasma cell Results for AM CDT neoplasm this procedure are in the results section. HBV DNA QUANT Routine 12/19/2021 6:24 Plasma cell Results for AM CDT neoplasm this procedure are in the results section. COMPLETE BLOOD COUNT W/ Routine 12/19/2021 6:24 Plasma cell DIFFERENTIAL AM CDT neoplasm COMPREHENSIVE METABOLIC Routine 12/19/2021 6:24 Plasma cell PANEL AM CDT neoplasm FREE LAMBDA LIGHT CHAIN Routine 12/19/2021 6:24 Plasma cell R esults for AM CDT neoplasm this procedure are in the results section. FREE KAPPA LIGHT CHAIN Routine 12/19/2021 6:24 Plasma cell Re sults for AM CDT neoplasm this procedure are in the results section. IMMUNOGLOBULIN M SERUM Routine 12/19/2021 6:24 Plasma cell Re sults for AM CDT neoplasm this procedure are in the results section. IMMUNOGLOBULIN A SERUM Routine 12/19/2021 6:24 Plasma cell Re sults for AM CDT neoplasm this procedure are in the results section. IMMUNOGLOBULIN G SERUM Routine 12/19/2021 6:24 Plasma cell Re sults for AM CDT neoplasm this procedure are in the results section. .DR BOSTON UIFE PATH Routine 12/18/2021 4:00 Resu lts for REVIEW AM CDT this procedure are in the results section. .DR. GIMENEZ U PROT ELEC Routine 12/18/2021 4:00 Re sults for PATH REVIEW AM CDT this procedure are in the results section. .TOTAL VOLUME Routine 12/18/2021 4:00 Results for AM CDT this procedure are in the results section. URINE TOTAL PROTEIN Routine 12/18/2021 4:00 Plasma cell Resu lts for AM CDT neoplasm this procedure are in the results section. PROTEIN ELECTROPHORESIS Routine 12/18/2021 4:00 Plasma cell R esults for URINE AM CDT neoplasm this procedure are in the results section. IMMUNOFIXATION Routine 12/18/2021 4:00 Plasma cell Results fo r ELECTROPHORESIS URINE AM CDT neoplasm this p rocedure are in the results section. XR PELVIS 1 OR 2 VW Routine 11/21/2021 11:49 Multiple my eloma Results for AM CDT Pain in left hip this proced ure are in the results section. .DR. NIKOLAY MARITNEZ PATH Routine 11/21/2021 8:56 Resul ts for REVIEW AM CDT this procedure are in the results section. .DR. LINK PROT ELEC Routine 11/21/2021 8:56 Resu lts for PATH REVIEW AM CDT this procedure are in the results section. FREE KAPPA/FREE LAMBDA Routine 11/21/2021 8:56 Re sults for RATIO AM CDT this procedure are in the results section. MANUAL DIFFERENTIAL Routine 11/21/2021 8:56 Plasma cell Resul ts for AM CDT neoplasm this procedure are in the results section. Results CBC Routine 11/21/2021 8:56 Plasma cell Results for AM CDT neoplasm this procedure are in the results section. FRACTIONATED BILIRUBIN Routine 11/21/2021 8:56 Plasma cell Re sults for AM CDT neoplasm this procedure are in the results section. TOTAL PROTEIN Routine 11/21/2021 8:56 Plasma cell Results for AM CDT neoplasm this procedure are in the results section. ASPARTATE Routine 11/21/2021 8:56 Plasma cell Results for AMINOTRANSFERASE AM CDT neoplasm this proced ure are in the results section. ALANINE Routine 11/21/2021 8:56 Plasma cell Results for AMINOTRANSFERASE AM CDT neoplasm this proced ure are in the results section. ALKALINE PHOSPHATASE Routine 11/21/2021 8:56 Plasma cell Resu lts for AM CDT neoplasm this procedure are in the results section. ALBUMIN LEVEL Routine 11/21/2021 8:56 Plasma cell Results for AM CDT neoplasm this procedure are in the results section. CALCIUM LEVEL TOTAL Routine 11/21/2021 8:56 Plasma cell Resul ts for AM CDT neoplasm this procedure are in the results section. .GLOMERULAR FILTRATION Routine 11/21/2021 8:56 Plasma cell Re sults for RATE AM CDT neoplasm this procedure are in the results section. SERUM CREATININE Routine 11/21/2021 8:56 Plasma cell Results for AM CDT neoplasm this procedure are in the results section. ELECTROLYTE PANEL Routine 11/21/2021 8:56 Plasma cell Results for AM CDT neoplasm this procedure are in the results section. BLOOD UREA NITROGEN Routine 11/21/2021 8:56 Plasma cell Resul ts for AM CDT neoplasm this procedure are in the results section. GLUCOSE LEVEL Routine 11/21/2021 8:56 Plasma cell Results for AM CDT neoplasm this procedure are in the results section. COMPLETE BLOOD COUNT W/ Routine 11/21/2021 8:56 Plasma cell DIFFERENTIAL AM CDT neoplasm COMPREHENSIVE METABOLIC Routine 11/21/2021 8:56 Plasma cell PANEL AM CDT neoplasm PROTEIN Routine 11/21/2021 8:56 Plasma cell Results for ELECTROPHORESIS, SERUM AM CDT neoplasm this procedure are in the results section. IMMUNOFIXATION Routine 11/21/2021 8:56 Plasma cell Results fo r ELECTROPHORESIS AM CDT neoplasm this procedu re are in the results section. FREE LAMBDA LIGHT CHAIN Routine 11/21/2021 8:56 Plasma cell R esults for AM CDT neoplasm this procedure are in the results section. FREE KAPPA LIGHT CHAIN Routine 11/21/2021 8:56 Plasma cell Re sults for AM CDT neoplasm this procedure are in the results section. IMMUNOGLOBULIN M SERUM Routine 11/21/2021 8:56 Plasma cell Re sults for AM CDT neoplasm this procedure are in the results section. IMMUNOGLOBULIN A SERUM Routine 11/21/2021 8:56 Plasma cell Re sults for AM CDT neoplasm this procedure are in the results section. IMMUNOGLOBULIN G SERUM Routine 11/21/2021 8:56 Plasma cell Re sults for AM CDT neoplasm this procedure are in the results section. .DR. GIMENEZ JUAN PATH Routine 11/07/2021 9:16 Resul ts for REVIEW AM CDT this procedure are in the results section. .DR. GIMENEZ PROT ELEC Routine 11/07/2021 9:16 Resu lts for PATH REVIEW AM CDT this procedure are in the results section. FREE KAPPA/FREE LAMBDA Routine 11/07/2021 9:16 Re sults for RATIO AM CDT this procedure are in the results section. MANUAL DIFFERENTIAL Routine 11/07/2021 9:16 Plasma cell Resul ts for AM CDT neoplasm this procedure are in the results section. Results CBC Routine 11/07/2021 9:16 Plasma cell Results for AM CDT neoplasm this procedure are in the results section. FRACTIONATED BILIRUBIN Routine 11/07/2021 9:16 Plasma cell Re sults for AM CDT neoplasm this procedure are in the results section. TOTAL PROTEIN Routine 11/07/2021 9:16 Plasma cell Results for AM CDT neoplasm this procedure are in the results section. ASPARTATE Routine 11/07/2021 9:16 Plasma cell Results for AMINOTRANSFERASE AM CDT neoplasm this proced ure are in the results section. ALANINE Routine 11/07/2021 9:16 Plasma cell Results for AMINOTRANSFERASE AM CDT neoplasm this proced ure are in the results section. ALKALINE PHOSPHATASE Routine 11/07/2021 9:16 Plasma cell Resu lts for AM CDT neoplasm this procedure are in the results section. ALBUMIN LEVEL Routine 11/07/2021 9:16 Plasma cell Results for AM CDT neoplasm this procedure are in the results section. CALCIUM LEVEL TOTAL Routine 11/07/2021 9:16 Plasma cell Resul ts for AM CDT neoplasm this procedure are in the results section. .GLOMERULAR FILTRATION Routine 11/07/2021 9:16 Plasma cell Re sults for RATE AM CDT neoplasm this procedure are in the results section. SERUM CREATININE Routine 11/07/2021 9:16 Plasma cell Results for AM CDT neoplasm this procedure are in the results section. ELECTROLYTE PANEL Routine 11/07/2021 9:16 Plasma cell Results for AM CDT neoplasm this procedure are in the results section. BLOOD UREA NITROGEN Routine 11/07/2021 9:16 Plasma cell Resul ts for AM CDT neoplasm this procedure are in the results section. GLUCOSE LEVEL Routine 11/07/2021 9:16 Plasma cell Results for AM CDT neoplasm this procedure are in the results section. COMPLETE BLOOD COUNT W/ Routine 11/07/2021 9:16 Plasma cell DIFFERENTIAL AM CDT neoplasm COMPREHENSIVE METABOLIC Routine 11/07/2021 9:16 Plasma cell PANEL AM CDT neoplasm PROTEIN Routine 11/07/2021 9:16 Plasma cell Results for ELECTROPHORESIS, SERUM AM CDT neoplasm this procedure are in the results section. IMMUNOFIXATION Routine 11/07/2021 9:16 Plasma cell Results fo r ELECTROPHORESIS AM CDT neoplasm this procedu re are in the results section. FREE LAMBDA LIGHT CHAIN Routine 11/07/2021 9:16 Plasma cell R esults for AM CDT neoplasm this procedure are in the results section. FREE KAPPA LIGHT CHAIN Routine 11/07/2021 9:16 Plasma cell Re sults for AM CDT neoplasm this procedure are in the results section. IMMUNOGLOBULIN M SERUM Routine 11/07/2021 9:16 Plasma cell Re sults for AM CDT neoplasm this procedure are in the results section. IMMUNOGLOBULIN A SERUM Routine 11/07/2021 9:16 Plasma cell Re sults for AM CDT neoplasm this procedure are in the results section. IMMUNOGLOBULIN G SERUM Routine 11/07/2021 9:16 Plasma cell Re sults for AM CDT neoplasm this procedure are in the results section. DR. BEATTY JUAN PATH Routine 10/10/2021 6:31 Results for REVIEW AM CDT this procedure are in the results section. PROT ELEC PATH Routine 10/10/2021 6:31 Re sults for REVIEW AM CDT this procedure are in the results section. FREE KAPPA/FREE LAMBDA Routine 10/10/2021 6:31 Re sults for RATIO AM CDT this procedure are in the results section. MANUAL DIFFERENTIAL Routine 10/10/2021 6:31 Plasma cell Resul ts for AM CDT neoplasm this procedure are in the results section. Results CBC Routine 10/10/2021 6:31 Plasma cell Results for AM CDT neoplasm this procedure are in the results section. FRACTIONATED BILIRUBIN Routine 10/10/2021 6:31 Plasma cell Re sults for AM CDT neoplasm this procedure are in the results section. TOTAL PROTEIN Routine 10/10/2021 6:31 Plasma cell Results for AM CDT neoplasm this procedure are in the results section. ASPARTATE Routine 10/10/2021 6:31 Plasma cell Results for AMINOTRANSFERASE AM CDT neoplasm this proced ure are in the results section. ALANINE Routine 10/10/2021 6:31 Plasma cell Results for AMINOTRANSFERASE AM CDT neoplasm this proced ure are in the results section. ALKALINE PHOSPHATASE Routine 10/10/2021 6:31 Plasma cell Resu lts for AM CDT neoplasm this procedure are in the results section. ALBUMIN LEVEL Routine 10/10/2021 6:31 Plasma cell Results for AM CDT neoplasm this procedure are in the results section. CALCIUM LEVEL TOTAL Routine 10/10/2021 6:31 Plasma cell Resul ts for AM CDT neoplasm this procedure are in the results section. .GLOMERULAR FILTRATION Routine 10/10/2021 6:31 Plasma cell Re sults for RATE AM CDT neoplasm this procedure are in the results section. SERUM CREATININE Routine 10/10/2021 6:31 Plasma cell Results for AM CDT neoplasm this procedure are in the results section. ELECTROLYTE PANEL Routine 10/10/2021 6:31 Plasma cell Results for AM CDT neoplasm this procedure are in the results section. BLOOD UREA NITROGEN Routine 10/10/2021 6:31 Plasma cell Resul ts for AM CDT neoplasm this procedure are in the results section. GLUCOSE LEVEL Routine 10/10/2021 6:31 Plasma cell Results for AM CDT neoplasm this procedure are in the results section. COMPLETE BLOOD COUNT W/ Routine 10/10/2021 6:31 Plasma cell DIFFERENTIAL AM CDT neoplasm COMPREHENSIVE METABOLIC Routine 10/10/2021 6:31 Plasma cell PANEL AM CDT neoplasm PROTEIN Routine 10/10/2021 6:31 Plasma cell Results for ELECTROPHORESIS, SERUM AM CDT neoplasm this procedure are in the results section. IMMUNOFIXATION Routine 10/10/2021 6:31 Plasma cell Results fo r ELECTROPHORESIS AM CDT neoplasm this procedu re are in the results section. FREE LAMBDA LIGHT CHAIN Routine 10/10/2021 6:31 Plasma cell R esults for AM CDT neoplasm this procedure are in the results section. FREE KAPPA LIGHT CHAIN Routine 10/10/2021 6:31 Plasma cell Re sults for AM CDT neoplasm this procedure are in the results section. IMMUNOGLOBULIN M SERUM Routine 10/10/2021 6:31 Plasma cell Re sults for AM CDT neoplasm this procedure are in the results section. IMMUNOGLOBULIN A SERUM Routine 10/10/2021 6:31 Plasma cell Re sults for AM CDT neoplasm this procedure are in the results section. IMMUNOGLOBULIN G SERUM Routine 10/10/2021 6:31 Plasma cell Re sults for AM CDT neoplasm this procedure are in the results section. DR. BEATTY JUAN PATH Routine 09/12/2021 10:06 Result s for REVIEW AM CDT this procedure are in the results section. PROT ELEC PATH Routine 09/12/2021 10:06 R esults for REVIEW AM CDT this procedure are in the results section. FREE KAPPA/FREE LAMBDA Routine 09/12/2021 10:06 R esults for RATIO AM CDT this procedure are in the results section. FRACTIONATED BILIRUBIN Routine 09/12/2021 10:06 Plasma cell R esults for AM CDT neoplasm this procedure are in the results section. TOTAL PROTEIN Routine 09/12/2021 10:06 Plasma cell Results fo r AM CDT neoplasm this procedure are in the results section. ASPARTATE Routine 09/12/2021 10:06 Plasma cell Results for AMINOTRANSFERASE AM CDT neoplasm this proced ure are in the results section. ALANINE Routine 09/12/2021 10:06 Plasma cell Results for AMINOTRANSFERASE AM CDT neoplasm this proced ure are in the results section. ALKALINE PHOSPHATASE Routine 09/12/2021 10:06 Plasma cell Res ults for AM CDT neoplasm this procedure are in the results section. ALBUMIN LEVEL Routine 09/12/2021 10:06 Plasma cell Results fo r AM CDT neoplasm this procedure are in the results section. CALCIUM LEVEL TOTAL Routine 09/12/2021 10:06 Plasma cell Resu lts for AM CDT neoplasm this procedure are in the results section. .GLOMERULAR FILTRATION Routine 09/12/2021 10:06 Plasma cell R esults for RATE AM CDT neoplasm this procedure are in the results section. SERUM CREATININE Routine 09/12/2021 10:06 Plasma cell Results for AM CDT neoplasm this procedure are in the results section. ELECTROLYTE PANEL Routine 09/12/2021 10:06 Plasma cell Result s for AM CDT neoplasm this procedure are in the results section. BLOOD UREA NITROGEN Routine 09/12/2021 10:06 Plasma cell Resu lts for AM CDT neoplasm this procedure are in the results section. GLUCOSE LEVEL Routine 09/12/2021 10:06 Plasma cell Results fo r AM CDT neoplasm this procedure are in the results section. MANUAL DIFFERENTIAL Routine 09/12/2021 10:06 Plasma cell Resu lts for AM CDT neoplasm this procedure are in the results section. Results CBC Routine 09/12/2021 10:06 Plasma cell Results for AM CDT neoplasm this procedure are in the results section. COMPLETE BLOOD COUNT W/ Routine 09/12/2021 10:06 Plasma cell DIFFERENTIAL AM CDT neoplasm COMPREHENSIVE METABOLIC Routine 09/12/2021 10:06 Plasma cell PANEL AM CDT neoplasm PROTEIN Routine 09/12/2021 10:06 Plasma cell Results for ELECTROPHORESIS, SERUM AM CDT neoplasm this procedure are in the results section. IMMUNOFIXATION Routine 09/12/2021 10:06 Plasma cell Results f or ELECTROPHORESIS AM CDT neoplasm this procedu re are in the results section. FREE LAMBDA LIGHT CHAIN Routine 09/12/2021 10:06 Plasma cell Results for AM CDT neoplasm this procedure are in the results section. FREE KAPPA LIGHT CHAIN Routine 09/12/2021 10:06 Plasma cell R esults for AM CDT neoplasm this procedure are in the results section. IMMUNOGLOBULIN M SERUM Routine 09/12/2021 10:06 Plasma cell R esults for AM CDT neoplasm this procedure are in the results section. IMMUNOGLOBULIN A SERUM Routine 09/12/2021 10:06 Plasma cell R esults for AM CDT neoplasm this procedure are in the results section. IMMUNOGLOBULIN G SERUM Routine 09/12/2021 10:06 Plasma cell R esults for AM CDT neoplasm this procedure are in the results section. .DR. LINK UIFE PATH Routine 09/12/2021 7:00 Resu lts for REVIEW AM CDT this procedure are in the results section. .DR. LINK U PROT ELEC Routine 09/12/2021 7:00 Re sults for PATH REVIEW AM CDT this procedure are in the results section. .TOTAL VOLUME Routine 09/12/2021 7:00 Results for AM CDT this procedure are in the results section. URINE TOTAL PROTEIN Routine 09/12/2021 7:00 Plasma cell Resul ts for AM CDT neoplasm this procedure are in the results section. PROTEIN ELECTROPHORESIS Routine 09/12/2021 7:00 Plasma cell R esults for URINE AM CDT neoplasm this procedure are in the results section. IMMUNOFIXATION Routine 09/12/2021 7:00 Plasma cell Results fo r ELECTROPHORESIS URINE AM CDT neoplasm this p rocedure are in the results section. MRI PELVIS W WO Routine 08/22/2021 4:16 Pain in left hip Resul ts for CONTRAST - PM CDT this procedure MUSCULOSKELETAL are in the results section. XR CHEST 2 VW Routine 08/22/2021 10:13 Plasma cell Results fo r AM CDT neoplasm this procedure are in the results section. .DR. LINK JUAN PATH Routine 08/22/2021 6:45 Resul ts for REVIEW AM CDT this procedure are in the results section. .DR. LINK PROT ELEC Routine 08/22/2021 6:45 Resu lts for PATH REVIEW AM CDT this procedure are in the results section. FREE KAPPA/FREE LAMBDA Routine 08/22/2021 6:45 Re sults for RATIO AM CDT this procedure are in the results section. MANUAL DIFFERENTIAL Routine 08/22/2021 6:45 Plasma cell Resul ts for AM CDT neoplasm this procedure are in the results section. Results CBC Routine 08/22/2021 6:45 Plasma cell Results for AM CDT neoplasm this procedure are in the results section. FRACTIONATED BILIRUBIN Routine 08/22/2021 6:45 Plasma cell Re sults for AM CDT neoplasm this procedure are in the results section. TOTAL PROTEIN Routine 08/22/2021 6:45 Plasma cell Results for AM CDT neoplasm this procedure are in the results section. ASPARTATE Routine 08/22/2021 6:45 Plasma cell Results for AMINOTRANSFERASE AM CDT neoplasm this proced ure are in the results section. ALANINE Routine 08/22/2021 6:45 Plasma cell Results for AMINOTRANSFERASE AM CDT neoplasm this proced ure are in the results section. ALKALINE PHOSPHATASE Routine 08/22/2021 6:45 Plasma cell Resu lts for AM CDT neoplasm this procedure are in the results section. ALBUMIN LEVEL Routine 08/22/2021 6:45 Plasma cell Results for AM CDT neoplasm this procedure are in the results section. CALCIUM LEVEL TOTAL Routine 08/22/2021 6:45 Plasma cell Resul ts for AM CDT neoplasm this procedure are in the results section. .GLOMERULAR FILTRATION Routine 08/22/2021 6:45 Plasma cell Re sults for RATE AM CDT neoplasm this procedure are in the results section. SERUM CREATININE Routine 08/22/2021 6:45 Plasma cell Results for AM CDT neoplasm this procedure are in the results section. ELECTROLYTE PANEL Routine 08/22/2021 6:45 Plasma cell Results for AM CDT neoplasm this procedure are in the results section. BLOOD UREA NITROGEN Routine 08/22/2021 6:45 Plasma cell Resul ts for AM CDT neoplasm this procedure are in the results section. GLUCOSE LEVEL Routine 08/22/2021 6:45 Plasma cell Results for AM CDT neoplasm this procedure are in the results section. HBV DNA QUANT Routine 08/22/2021 6:45 Plasma cell Results for AM CDT neoplasm this procedure are in the results section. COMPLETE BLOOD COUNT W/ Routine 08/22/2021 6:45 Plasma cell DIFFERENTIAL AM CDT neoplasm COMPREHENSIVE METABOLIC Routine 08/22/2021 6:45 Plasma cell PANEL AM CDT neoplasm PROTEIN Routine 08/22/2021 6:45 Plasma cell Results for ELECTROPHORESIS, SERUM AM CDT neoplasm this procedure are in the results section. IMMUNOFIXATION Routine 08/22/2021 6:45 Plasma cell Results fo r ELECTROPHORESIS AM CDT neoplasm this procedu re are in the results section. FREE LAMBDA LIGHT CHAIN Routine 08/22/2021 6:45 Plasma cell R esults for AM CDT neoplasm this procedure are in the results section. FREE KAPPA LIGHT CHAIN Routine 08/22/2021 6:45 Plasma cell Re sults for AM CDT neoplasm this procedure are in the results section. IMMUNOGLOBULIN M SERUM Routine 08/22/2021 6:45 Plasma cell Re sults for AM CDT neoplasm this procedure are in the results section. IMMUNOGLOBULIN A SERUM Routine 08/22/2021 6:45 Plasma cell Re sults for AM CDT neoplasm this procedure are in the results section. IMMUNOGLOBULIN G SERUM Routine 08/22/2021 6:45 Plasma cell Re sults for AM CDT neoplasm this procedure are in the results section. .DR. LINK UIFE PATH Routine 08/22/2021 4:01 Resu lts for REVIEW AM CDT this procedure are in the results section. .DR. NIKOLAY Jon PROT ELEC Routine 08/22/2021 4:01 Re sults for PATH REVIEW AM CDT this procedure are in the results section. .TOTAL VOLUME Routine 08/22/2021 4:01 Results for AM CDT this procedure are in the results section. URINE TOTAL PROTEIN Routine 08/22/2021 4:01 Plasma cell Resul ts for AM CDT neoplasm this procedure are in the results section. PROTEIN ELECTROPHORESIS Routine 08/22/2021 4:01 Plasma cell R esults for URINE AM CDT neoplasm this procedure are in the results section. IMMUNOFIXATION Routine 08/22/2021 4:01 Plasma cell Results fo r ELECTROPHORESIS URINE AM CDT neoplasm this p rocedure are in the results section. XR PELVIS 1 OR 2 VW Routine 08/09/2021 1:30 Trochanteric Resul ts for PM CDT bursitis of left this proced ure hip are in the Closed fracture of results left pubis section. <Delayed; Subsequent> .DR. LINK JUAN PATH Routine 07/25/2021 7:56 Resul ts for REVIEW AM CDT this procedure are in the results section. .DR. LINK PROT ELEC Routine 07/25/2021 7:56 Resu lts for PATH REVIEW AM CDT this procedure are in the results section. FREE KAPPA/FREE LAMBDA Routine 07/25/2021 7:56 Re sults for RATIO AM CDT this procedure are in the results section. MANUAL DIFFERENTIAL Routine 07/25/2021 7:56 Plasma cell Resul ts for AM CDT neoplasm this procedure are in the results section. Results CBC Routine 07/25/2021 7:56 Plasma cell Results for AM CDT neoplasm this procedure are in the results section. FRACTIONATED BILIRUBIN Routine 07/25/2021 7:56 Plasma cell Re sults for AM CDT neoplasm this procedure are in the results section. TOTAL PROTEIN Routine 07/25/2021 7:56 Plasma cell Results for AM CDT neoplasm this procedure are in the results section. ASPARTATE Routine 07/25/2021 7:56 Plasma cell Results for AMINOTRANSFERASE AM CDT neoplasm this proced ure are in the results section. ALANINE Routine 07/25/2021 7:56 Plasma cell Results for AMINOTRANSFERASE AM CDT neoplasm this proced ure are in the results section. ALKALINE PHOSPHATASE Routine 07/25/2021 7:56 Plasma cell Resu lts for AM CDT neoplasm this procedure are in the results section. ALBUMIN LEVEL Routine 07/25/2021 7:56 Plasma cell Results for AM CDT neoplasm this procedure are in the results section. CALCIUM LEVEL TOTAL Routine 07/25/2021 7:56 Plasma cell Resul ts for AM CDT neoplasm this procedure are in the results section. .GLOMERULAR FILTRATION Routine 07/25/2021 7:56 Plasma cell Re sults for RATE AM CDT neoplasm this procedure are in the results section. SERUM CREATININE Routine 07/25/2021 7:56 Plasma cell Results for AM CDT neoplasm this procedure are in the results section. ELECTROLYTE PANEL Routine 07/25/2021 7:56 Plasma cell Results for AM CDT neoplasm this procedure are in the results section. BLOOD UREA NITROGEN Routine 07/25/2021 7:56 Plasma cell Resul ts for AM CDT neoplasm this procedure are in the results section. GLUCOSE LEVEL Routine 07/25/2021 7:56 Plasma cell Results for AM CDT neoplasm this procedure are in the results section. THYROID STIMULATING Routine 07/25/2021 7:56 Plasma cell Resul ts for HORMONE AM CDT neoplasm this procedure are in the results section. THYROXINE Routine 07/25/2021 7:56 Plasma cell Results for AM CDT neoplasm this procedure are in the results section. FREE THYROXINE Routine 07/25/2021 7:56 Plasma cell Results fo r AM CDT neoplasm this procedure are in the results section. COMPLETE BLOOD COUNT W/ Routine 07/25/2021 7:56 Plasma cell DIFFERENTIAL AM CDT neoplasm COMPREHENSIVE METABOLIC Routine 07/25/2021 7:56 Plasma cell PANEL AM CDT neoplasm PROTEIN Routine 07/25/2021 7:56 Plasma cell Results for ELECTROPHORESIS, SERUM AM CDT neoplasm this procedure are in the results section. IMMUNOFIXATION Routine 07/25/2021 7:56 Plasma cell Results fo r ELECTROPHORESIS AM CDT neoplasm this procedu re are in the results section. FREE LAMBDA LIGHT CHAIN Routine 07/25/2021 7:56 Plasma cell R esults for AM CDT neoplasm this procedure are in the results section. FREE KAPPA LIGHT CHAIN Routine 07/25/2021 7:56 Plasma cell Re sults for AM CDT neoplasm this procedure are in the results section. IMMUNOGLOBULIN M SERUM Routine 07/25/2021 7:56 Plasma cell Re sults for AM CDT neoplasm this procedure are in the results section. IMMUNOGLOBULIN A SERUM Routine 07/25/2021 7:56 Plasma cell Re sults for AM CDT neoplasm this procedure are in the results section. IMMUNOGLOBULIN G SERUM Routine 07/25/2021 7:56 Plasma cell Re sults for AM CDT neoplasm this procedure are in the results section. .DR. HERMAN JUAN PATH Routine 07/18/2021 10:55 R esults for REVIEW AM CDT this procedure are in the results section. .DR. SUTTON PROT ELEC Routine 07/18/2021 10:55 Results for PATH REVIEW AM CDT this procedure are in the results section. FREE KAPPA/FREE LAMBDA Routine 07/18/2021 10:55 R esults for RATIO AM CDT this procedure are in the results section. MANUAL DIFFERENTIAL Routine 07/18/2021 10:55 Plasma cell Resu lts for AM CDT neoplasm this procedure are in the results section. Results CBC Routine 07/18/2021 10:55 Plasma cell Results for AM CDT neoplasm this procedure are in the results section. FRACTIONATED BILIRUBIN Routine 07/18/2021 10:55 Plasma cell R esults for AM CDT neoplasm this procedure are in the results section. TOTAL PROTEIN Routine 07/18/2021 10:55 Plasma cell Results fo r AM CDT neoplasm this procedure are in the results section. ASPARTATE Routine 07/18/2021 10:55 Plasma cell Results for AMINOTRANSFERASE AM CDT neoplasm this proced ure are in the results section. ALANINE Routine 07/18/2021 10:55 Plasma cell Results for AMINOTRANSFERASE AM CDT neoplasm this proced ure are in the results section. ALKALINE PHOSPHATASE Routine 07/18/2021 10:55 Plasma cell Res ults for AM CDT neoplasm this procedure are in the results section. ALBUMIN LEVEL Routine 07/18/2021 10:55 Plasma cell Results fo r AM CDT neoplasm this procedure are in the results section. CALCIUM LEVEL TOTAL Routine 07/18/2021 10:55 Plasma cell Resu lts for AM CDT neoplasm this procedure are in the results section. .GLOMERULAR FILTRATION Routine 07/18/2021 10:55 Plasma cell R esults for RATE AM CDT neoplasm this procedure are in the results section. SERUM CREATININE Routine 07/18/2021 10:55 Plasma cell Results for AM CDT neoplasm this procedure are in the results section. ELECTROLYTE PANEL Routine 07/18/2021 10:55 Plasma cell Result s for AM CDT neoplasm this procedure are in the results section. BLOOD UREA NITROGEN Routine 07/18/2021 10:55 Plasma cell Resu lts for AM CDT neoplasm this procedure are in the results section. GLUCOSE LEVEL Routine 07/18/2021 10:55 Plasma cell Results fo r AM CDT neoplasm this procedure are in the results section. COMPLETE BLOOD COUNT W/ Routine 07/18/2021 10:55 Plasma cell DIFFERENTIAL AM CDT neoplasm COMPREHENSIVE METABOLIC Routine 07/18/2021 10:55 Plasma cell PANEL AM CDT neoplasm PROTEIN Routine 07/18/2021 10:55 Plasma cell Results for ELECTROPHORESIS, SERUM AM CDT neoplasm this procedure are in the results section. IMMUNOFIXATION Routine 07/18/2021 10:55 Plasma cell Results f or ELECTROPHORESIS AM CDT neoplasm this procedu re are in the results section. FREE LAMBDA LIGHT CHAIN Routine 07/18/2021 10:55 Plasma cell Results for AM CDT neoplasm this procedure are in the results section. FREE KAPPA LIGHT CHAIN Routine 07/18/2021 10:55 Plasma cell R esults for AM CDT neoplasm this procedure are in the results section. IMMUNOGLOBULIN M SERUM Routine 07/18/2021 10:55 Plasma cell R esults for AM CDT neoplasm this procedure are in the results section. IMMUNOGLOBULIN A SERUM Routine 07/18/2021 10:55 Plasma cell R esults for AM CDT neoplasm this procedure are in the results section. IMMUNOGLOBULIN G SERUM Routine 07/18/2021 10:55 Plasma cell R esults for AM CDT neoplasm this procedure are in the results section. FREE THYROXINE Routine 07/18/2021 10:55 Plasma cell Results f or AM CDT neoplasm this procedure are in the results section. THYROID STIMULATING Routine 07/18/2021 10:55 Plasma cell Resu lts for HORMONE AM CDT neoplasm this procedure are in the results section. .DR. SUTTON PROT ELEC Routine 07/11/2021 11:15 Results for PATH REVIEW AM CDT this procedure are in the results section. .DR. SUTTON JUAN PATH Routine 07/11/2021 11:15 R esults for REVIEW AM CDT this procedure are in the results section. FREE KAPPA/FREE LAMBDA Routine 07/11/2021 11:15 R esults for RATIO AM CDT this procedure are in the results section. MANUAL DIFFERENTIAL Routine 07/11/2021 11:15 Plasma cell Resu lts for AM CDT neoplasm this procedure are in the results section. Results CBC Routine 07/11/2021 11:15 Plasma cell Results for AM CDT neoplasm this procedure are in the results section. FRACTIONATED BILIRUBIN Routine 07/11/2021 11:15 Plasma cell R esults for AM CDT neoplasm this procedure are in the results section. TOTAL PROTEIN Routine 07/11/2021 11:15 Plasma cell Results fo r AM CDT neoplasm this procedure are in the results section. ASPARTATE Routine 07/11/2021 11:15 Plasma cell Results for AMINOTRANSFERASE AM CDT neoplasm this proced ure are in the results section. ALANINE Routine 07/11/2021 11:15 Plasma cell Results for AMINOTRANSFERASE AM CDT neoplasm this proced ure are in the results section. ALKALINE PHOSPHATASE Routine 07/11/2021 11:15 Plasma cell Res ults for AM CDT neoplasm this procedure are in the results section. ALBUMIN LEVEL Routine 07/11/2021 11:15 Plasma cell Results fo r AM CDT neoplasm this procedure are in the results section. CALCIUM LEVEL TOTAL Routine 07/11/2021 11:15 Plasma cell Resu lts for AM CDT neoplasm this procedure are in the results section. .GLOMERULAR FILTRATION Routine 07/11/2021 11:15 Plasma cell R esults for RATE AM CDT neoplasm this procedure are in the results section. SERUM CREATININE Routine 07/11/2021 11:15 Plasma cell Results for AM CDT neoplasm this procedure are in the results section. ELECTROLYTE PANEL Routine 07/11/2021 11:15 Plasma cell Result s for AM CDT neoplasm this procedure are in the results section. BLOOD UREA NITROGEN Routine 07/11/2021 11:15 Plasma cell Resu lts for AM CDT neoplasm this procedure are in the results section. GLUCOSE LEVEL Routine 07/11/2021 11:15 Plasma cell Results fo r AM CDT neoplasm this procedure are in the results section. COMPLETE BLOOD COUNT W/ Routine 07/11/2021 11:15 Plasma cell DIFFERENTIAL AM CDT neoplasm COMPREHENSIVE METABOLIC Routine 07/11/2021 11:15 Plasma cell PANEL AM CDT neoplasm PROTEIN Routine 07/11/2021 11:15 Plasma cell Results for ELECTROPHORESIS, SERUM AM CDT neoplasm this procedure are in the results section. IMMUNOFIXATION Routine 07/11/2021 11:15 Plasma cell Results f or ELECTROPHORESIS AM CDT neoplasm this procedu re are in the results section. FREE LAMBDA LIGHT CHAIN Routine 07/11/2021 11:15 Plasma cell Results for AM CDT neoplasm this procedure are in the results section. FREE KAPPA LIGHT CHAIN Routine 07/11/2021 11:15 Plasma cell R esults for AM CDT neoplasm this procedure are in the results section. IMMUNOGLOBULIN M SERUM Routine 07/11/2021 11:15 Plasma cell R esults for AM CDT neoplasm this procedure are in the results section. IMMUNOGLOBULIN A SERUM Routine 07/11/2021 11:15 Plasma cell R esults for AM CDT neoplasm this procedure are in the results section. IMMUNOGLOBULIN G SERUM Routine 07/11/2021 11:15 Plasma cell R esults for AM CDT neoplasm this procedure are in the results section. HEMATOPATHOLOGY BONE Routine 06/13/2021 12:11 Multiple myeloma Results for MARROW DIFFERENTIAL PM CDT this pro cedure are in the results section. HEMATOPATHOLOGY BONE Routine 06/13/2021 12:11 Multiple myeloma Results for MARROW INTERPRETATION PM CDT this p rocedure are in the results section. HP CG CHROMOSOME Routine 06/13/2021 12:05 ANALYSIS INTERPRETATION PM CDT AND REPORT HP FC MRD MYELOMA Routine 06/13/2021 12:05 INTERPRETATION AND PM CDT REPORT HP FC FLOW CYTOMETRY Routine 06/13/2021 12:05 Res ults for BLOOD COLLECTION PM CDT this proced ure are in the results section. HP CG MYELOMA FISH Routine 06/13/2021 12:05 TESTS INTERPRETATION PM CDT AND REPORT HP CG MYELOMA FISH Routine 06/13/2021 12:05 Multiple myeloma R esults for PANEL COLLECTION, PM CDT this proce dure NONBLOOD are in the results section. HP CG CHROMOSOME Routine 06/13/2021 12:05 Multiple myeloma Res ults for ANALYSIS COLLECTION, PM CDT this pr ocedure NONBLOOD are in the results section. HP FC MRD MYELOMA Routine 06/13/2021 12:05 Multiple myeloma Re sults for COLLECTION, NONBLOOD PM CDT this pr ocedure are in the results section. NM DIAGNOSTIC BONE Routine 06/13/2021 11:55 Multiple myeloma R esults for MARROW BIOPSIES & AM CDT this proce dure ASPIRATIONS are in the results section. .DR. LINK JUAN PATH Routine 06/13/2021 10:25 Resu lts for REVIEW AM CDT this procedure are in the results section. .DR. LINK PROT ELEC Routine 06/13/2021 10:25 Res ults for PATH REVIEW AM CDT this procedure are in the results section. FREE KAPPA/FREE LAMBDA Routine 06/13/2021 10:25 R esults for RATIO AM CDT this procedure are in the results section. MANUAL DIFFERENTIAL Routine 06/13/2021 10:25 Plasma cell Resu lts for AM CDT neoplasm this procedure are in the results section. Results CBC Routine 06/13/2021 10:25 Plasma cell Results for AM CDT neoplasm this procedure are in the results section. FRACTIONATED BILIRUBIN Routine 06/13/2021 10:25 Plasma cell R esults for AM CDT neoplasm this procedure are in the results section. TOTAL PROTEIN Routine 06/13/2021 10:25 Plasma cell Results fo r AM CDT neoplasm this procedure are in the results section. ASPARTATE Routine 06/13/2021 10:25 Plasma cell Results for AMINOTRANSFERASE AM CDT neoplasm this proced ure are in the results section. ALANINE Routine 06/13/2021 10:25 Plasma cell Results for AMINOTRANSFERASE AM CDT neoplasm this proced ure are in the results section. ALKALINE PHOSPHATASE Routine 06/13/2021 10:25 Plasma cell Res ults for AM CDT neoplasm this procedure are in the results section. ALBUMIN LEVEL Routine 06/13/2021 10:25 Plasma cell Results fo r AM CDT neoplasm this procedure are in the results section. CALCIUM LEVEL TOTAL Routine 06/13/2021 10:25 Plasma cell Resu lts for AM CDT neoplasm this procedure are in the results section. .GLOMERULAR FILTRATION Routine 06/13/2021 10:25 Plasma cell R esults for RATE AM CDT neoplasm this procedure are in the results section. SERUM CREATININE Routine 06/13/2021 10:25 Plasma cell Results for AM CDT neoplasm this procedure are in the results section. ELECTROLYTE PANEL Routine 06/13/2021 10:25 Plasma cell Result s for AM CDT neoplasm this procedure are in the results section. BLOOD UREA NITROGEN Routine 06/13/2021 10:25 Plasma cell Resu lts for AM CDT neoplasm this procedure are in the results section. GLUCOSE LEVEL Routine 06/13/2021 10:25 Plasma cell Results fo r AM CDT neoplasm this procedure are in the results section. COMPLETE BLOOD COUNT W/ Routine 06/13/2021 10:25 Plasma cell DIFFERENTIAL AM CDT neoplasm COMPREHENSIVE METABOLIC Routine 06/13/2021 10:25 Plasma cell PANEL AM CDT neoplasm PROTEIN Routine 06/13/2021 10:25 Plasma cell Results for ELECTROPHORESIS, SERUM AM CDT neoplasm this procedure are in the results section. IMMUNOFIXATION Routine 06/13/2021 10:25 Plasma cell Results f or ELECTROPHORESIS AM CDT neoplasm this procedu re are in the results section. FREE LAMBDA LIGHT CHAIN Routine 06/13/2021 10:25 Plasma cell Results for AM CDT neoplasm this procedure are in the results section. FREE KAPPA LIGHT CHAIN Routine 06/13/2021 10:25 Plasma cell R esults for AM CDT neoplasm this procedure are in the results section. IMMUNOGLOBULIN M SERUM Routine 06/13/2021 10:25 Plasma cell R esults for AM CDT neoplasm this procedure are in the results section. IMMUNOGLOBULIN A SERUM Routine 06/13/2021 10:25 Plasma cell R esults for AM CDT neoplasm this procedure are in the results section. IMMUNOGLOBULIN G SERUM Routine 06/13/2021 10:25 Plasma cell R esults for AM CDT neoplasm this procedure are in the results section. PETCT WB SUBSEQUENT Routine 06/13/2021 10:10 Multiple myeloma Results for TREATMENT STRATEGY AM CDT this proc edure are in the results section. XR PELVIS 1 OR 2 VW Routine 06/07/2021 11:54 Multiple my eloma Results for AM CDT Plasma cell this procedure neoplasm are in the results section. XR FEMUR 2 VW LEFT Routine 06/07/2021 11:52 Multiple mye elle Results for AM CDT Plasma cell this procedure neoplasm are in the results section. .DR. GIMENEZ JUAN PATH Routine 05/16/2021 7:43 Resul ts for REVIEW AM CDT this procedure are in the results section. .DR. GIMENEZ PROT ELEC Routine 05/16/2021 7:43 Resu lts for PATH REVIEW AM CDT this procedure are in the results section. FREE KAPPA/FREE LAMBDA Routine 05/16/2021 7:43 Re sults for RATIO AM CDT this procedure are in the results section. MANUAL DIFFERENTIAL Routine 05/16/2021 7:43 Plasma cell Resul ts for AM CDT neoplasm this procedure are in the results section. Results CBC Routine 05/16/2021 7:43 Plasma cell Results for AM CDT neoplasm this procedure are in the results section. FRACTIONATED BILIRUBIN Routine 05/16/2021 7:43 Plasma cell Re sults for AM CDT neoplasm this procedure are in the results section. TOTAL PROTEIN Routine 05/16/2021 7:43 Plasma cell Results for AM CDT neoplasm this procedure are in the results section. ASPARTATE Routine 05/16/2021 7:43 Plasma cell Results for AMINOTRANSFERASE AM CDT neoplasm this proced ure are in the results section. ALANINE Routine 05/16/2021 7:43 Plasma cell Results for AMINOTRANSFERASE AM CDT neoplasm this proced ure are in the results section. ALKALINE PHOSPHATASE Routine 05/16/2021 7:43 Plasma cell Resu lts for AM CDT neoplasm this procedure are in the results section. ALBUMIN LEVEL Routine 05/16/2021 7:43 Plasma cell Results for AM CDT neoplasm this procedure are in the results section. CALCIUM LEVEL TOTAL Routine 05/16/2021 7:43 Plasma cell Resul ts for AM CDT neoplasm this procedure are in the results section. .GLOMERULAR FILTRATION Routine 05/16/2021 7:43 Plasma cell Re sults for RATE AM CDT neoplasm this procedure are in the results section. SERUM CREATININE Routine 05/16/2021 7:43 Plasma cell Results for AM CDT neoplasm this procedure are in the results section. ELECTROLYTE PANEL Routine 05/16/2021 7:43 Plasma cell Results for AM CDT neoplasm this procedure are in the results section. BLOOD UREA NITROGEN Routine 05/16/2021 7:43 Plasma cell Resul ts for AM CDT neoplasm this procedure are in the results section. GLUCOSE LEVEL Routine 05/16/2021 7:43 Plasma cell Results for AM CDT neoplasm this procedure are in the results section. HBV DNA QUANT Routine 05/16/2021 7:43 Plasma cell Results for AM CDT neoplasm this procedure are in the results section. COMPLETE BLOOD COUNT W/ Routine 05/16/2021 7:43 Plasma cell DIFFERENTIAL AM CDT neoplasm COMPREHENSIVE METABOLIC Routine 05/16/2021 7:43 Plasma cell PANEL AM CDT neoplasm PROTEIN Routine 05/16/2021 7:43 Plasma cell Results for ELECTROPHORESIS, SERUM AM CDT neoplasm this procedure are in the results section. IMMUNOFIXATION Routine 05/16/2021 7:43 Plasma cell Results fo r ELECTROPHORESIS AM CDT neoplasm this procedu re are in the results section. FREE LAMBDA LIGHT CHAIN Routine 05/16/2021 7:43 Plasma cell R esults for AM CDT neoplasm this procedure are in the results section. FREE KAPPA LIGHT CHAIN Routine 05/16/2021 7:43 Plasma cell Re sults for AM CDT neoplasm this procedure are in the results section. IMMUNOGLOBULIN M SERUM Routine 05/16/2021 7:43 Plasma cell Re sults for AM CDT neoplasm this procedure are in the results section. IMMUNOGLOBULIN A SERUM Routine 05/16/2021 7:43 Plasma cell Re sults for AM CDT neoplasm this procedure are in the results section. IMMUNOGLOBULIN G SERUM Routine 05/16/2021 7:43 Plasma cell Re sults for AM CDT neoplasm this procedure are in the results section. .DR BOSTON UIFE PATH Routine 05/16/2021 4:00 Resu lts for REVIEW AM CDT this procedure are in the results section. .DR. GIMENEZ U PROT ELEC Routine 05/16/2021 4:00 Re sults for PATH REVIEW AM CDT this procedure are in the results section. .TOTAL VOLUME Routine 05/16/2021 4:00 Results for AM CDT this procedure are in the results section. URINE TOTAL PROTEIN Routine 05/16/2021 4:00 Plasma cell Resul ts for AM CDT neoplasm this procedure are in the results section. PROTEIN ELECTROPHORESIS Routine 05/16/2021 4:00 Plasma cell R esults for URINE AM CDT neoplasm this procedure are in the results section. IMMUNOFIXATION Routine 05/16/2021 4:00 Plasma cell Results fo r ELECTROPHORESIS URINE AM CDT neoplasm this p rocedure are in the results section. after 04/20/2021 Results (ABNORMAL) .CBC (04/13/2022 2:46 AM COMMODITY INDUSTRY ANALYST)Only the most recent of26 resultswithin the time period is included. athologist Signature WBC 5.7 4.0 - 11.0 MI K/uL [facility] RBC 2.71 (L) 4.00 - MI MD 5.50 M/uL [facility] Hgb 9.2 (L) 12.0 - MI MD 16.0 gm/dL [facility] Hct 28.7 (L) 37.0 - MI 47.0 % [facility] MCV 106 (H) 82 - 98 [facility] MCH 33.9 (H) 27.0 - MI MD 31.0 pg [facility] MCHC 32.1 31.0 - [place] 36.0 gm/dL [facility] RDW-SD 75.2 (H) 35.1 - [facility] 46.3 [facility] RDW-CV 19.9 (H) 12.0 - [facility] 15.5 % [facility] Platelet count 95 (L) 140 - 440 [facility] K/[facility] MPV 10.8 (H) 4.0 - 10.4 [facility] INRBC 0.0 <=0.0 % [facility] Comment: The INRBC (instrument NRBC) value reflec ts the enumeration of nucleated red blood cells contained i n a 200uL sample of whole blood analyzed by the instrumen t. This value may differ from the NRBC value reported in a manual differential, which is based on a 100 cell differentia l. Specimen Anatomical Collection Method Collection Time Receive d Time (Source) Location / / Volume Laterality Blood 04/13/2022 2:46 AM 3 3:02 COMMODITY INDUSTRY ANALYST AM COMMODITY INDUSTRY ANALYST Pao Flores NP LAB BLOOD ORDERABLES Performing Organization Address City/State/ZIP Code Phon e Number [facility] Unless otherwise noted, [place] [address] [place] all lab tests performed by: Division of Pathology and Laboratory Medicine [facility]5 Douglas Jones (ABNORMAL) Differential (04/13/2022 2:46 AM COMMODITY INDUSTRY ANALYST)Only the most recent of25 resultswithin the time period is included. athologist Signature Neutrophil % 69.9 (H) 42.0 - [facility] 66.0 % [facility] Lymphocyte % 16.4 (L) 24.0 - [facility] 44.0 % [facility] [place] Monocyte % 11.5 (H) 2.0 - 7.0 [facility] Eosinophil % 1.2 1.0 - 4.0 [facility] Basophil % 0.3 0.0 - 1.0 [facility] IGRE % 0.7 (H) 0.0 - 0.4 [facility] Comment: IGRE % count includes Metamyelo cytes, Myelocytes, and Promyelocytes. Neutrophil Abs 4.00 1.70 - 7.30 K/uL [facility] Lymphocyte Abs 0.94 (L) 1.00 - 4.80 K/uL [facility] Monocyte Abs 0.66 0.08 - 0.70 K/uL MI MD [facility] Eosinophil Abs 0.07 0.04 - 0.40 K/uL MI MD ELI [facility] Basophil Abs 0.02 0.00 - 0.10 K/uL MI MD [facility] IG Abs 0.04 0.00 - 0.04 K/uL MI MD ALISHA Aparicio [facility] Specimen Anatomical Collection Method Collection Time Receive d Time (Source) Location / / Volume Laterality Blood 04/13/2022 2:46 AM 3 3:02 COMMODITY INDUSTRY ANALYST AM COMMODITY INDUSTRY ANALYST Pao Flores NP LAB BLOOD ORDERABLES Performing Organization Address City/[facility] Phon e Number [facility] Unless otherwise noted, [address] all lab tests performed by: Division of Pathology and Laboratory Medicine [facility]5 [facility] Blood Culture (04/13/2022 2:46 AM COMMODITY INDUSTRY ANALYST) Component Value Ref Test Analysis [facility] At [facility] gist Range Method Time Signature Final Report No growth [facility] Path Review - Immunity and antibiotic use may render culture negative. Ongoing infection requires repeat culture. The results have been reviewed and electronically signed by Pathologist: [place] Bottle/Isolat Radha Thomas MD, PhD #[id number] WHEELER or [facility] Specimen Anatomical Collection Method Collection Time Receive d Time (Source) Location / / Volume Laterality Blood 04/13/2022 2:46 AM 3 3:28 (Venipuncture-Le COMMODITY INDUSTRY ANALYST AM COMMODITY INDUSTRY ANALYST ft) Comment: lt arm Narrative [facility] - 3 4:13 PM COMMODITY INDUSTRY ANALYST One or both cultures bottles underfilled (< 5ml). This will result in decreased sensitivity in pathogen detection. Pao Flores NP MICROBIOLOGY - GENERAL ORDER CARA Performing Organization Address [facility] Phon e Number [facility] Unless otherwise noted, [address] all lab tests performed by: Division of Pathology and Laboratory Medicine [facility]5 [place] X-ray Chest 1 View Portable (04/13/2022 2:27 AM COMMODITY INDUSTRY ANALYST) Anatomical Region Laterality Modality Chest Digital Radiography Specimen (Source) Anatomical Collection Method Collection Time Re ceived Time Location / / Volume Laterality 04/13/2022 8:07 AM COMMODITY INDUSTRY ANALYST Impressions 04/13/2022 8:08 AM COMMODITY INDUSTRY ANALYST No acute findings radiographically. Narrative 04/13/2022 8:08 AM COMMODITY INDUSTRY ANALYST FULL RESULT: Examination: XR CHEST 1 VW PORTABLE, 03/22 2:27 AM Clinical History: Fracture of proximal e nd of femur. Multiple myeloma. Indication: Other:, elevated temp Comparison: 04/03/2022 Technique: Single portable anteroposteri or radiograph of the chest. Findings: The lungs are clear. There is no pleural effusion or pneumothorax. There is no mediastinal or hilar adenopathy. Cardiac silhouette is normal. Procedure Note Isaac Velez MD - 04/13/2022Formattin g of this note might be different from the original. FULL RESULT: Examination: XR CHEST 1 VW PORTABLE, 03/22 2:27 AM Clinical History: Fracture of proximal e nd of femur. Multiple myeloma. Indication: Other:, elevated temp Comparison: 04/03/2022 Technique: Single portable anteroposteri or radiograph of the chest. Findings: The lungs are clear. There is no pleural effusion or pneumothorax. There is no mediastinal or hilar adenopathy. Cardiac silhouette is normal. IMPRESSION: No acute findings radiographically. Pao Flores NP IMG DIAGNOSTIC IMAGING ORDER CARA (ABNORMAL) Urinalysis Microscopic Exam (04/13/2022 2:11 AM COMMODITY INDUSTRY ANALYST) P athologist Signature UA WBC 2 0 - 2 /HPF [facility] Comment: Some reporting parameters within the Uri nalysis test have changed due to the implementation of new instrumentation in the [facility] [place], allowing greater sensitivity of measurement. Urinalysis results rep orted by the [facility] using existing instrumentation, as well as Urinalysis t esting performed manually or by backup methodology at the [facility] [place] will remain relatively unchanged. New reporting parameters and units will not be reported for all campuses. UA RBC 7 (H) 0 - 2 /HPF MI MD [facility] UA Mucous TRACE Not Seen-Trace /HPF MI MD [facility] UA Bacteria NOT SEEN NOT SEEN /HPF [facility] UA Squam Epi NOT SEEN None-Occasional /HPF [facility] Specimen Anatomical Collection Method Collection Time Receive d Time (Source) Location / / Volume Laterality Urine 04/13/2022 2:11 AM 02/24/202 3 2:25 COMMODITY INDUSTRY ANALYST AM COMMODITY INDUSTRY ANALYST Pao Flores NP LAB BLOOD ORDERABLES Performing Organization Address City/[facility]/ZIP Code Phon e Number [facility] Unless otherwise noted, [address] all lab tests performed by: Division of Pathology and Laboratory Medicine [facility] [place] Karen (ABNORMAL) Urinalysis w/Microscopic if Indicated (04/13/2022 2:11 AM COMMODITY INDUSTRY ANALYST) [facility] gist Method Time Signature UA Color Straw Straw-Yel [facility] UA Appear Clear Clear [facility] UA Glucose NEG NEG mg/dL [facility] UA Bili NEG NEG [facility] UA Ketones NEG NEG mg/dL [facility] UA Spec Grav 1.024 1.003 - [facility] 1.035 [facility] UA Blood Moderate (A) NEG [facility] UA pH 6.0 5.0 - 9.0 [facility] UA Protein 50 (A) NEG mg/dL [facility] UA Urobilinogen NEG NEG [facility] UA Nitrite NEG NEG [facility] UA Leuk Est NEG NEG [facility] Specimen Anatomical Collection Method Collection Time Receive d Time (Source) Location / / Volume Laterality Urine 04/13/2022 2:11 AM 3 2:25 COMMODITY INDUSTRY ANALYST AM COMMODITY INDUSTRY ANALYST Pao Flores NP URINE ORDERABLES Performing Organization Address [facility]/ZIP Code Phon e Number [facility] CANCER Unless otherwise noted, [address] all lab tests performed by: Division of Pathology and Laboratory Medicine [address] [place] [address] [place] Urine Culture (04/13/2022 2:11 AM COMMODITY INDUSTRY ANALYST) Component Value Ref Test Analysis Performed At [facility] Range Method Time Signature Final Report No growth [facility] Path Review - The results have been review ed and electronically signed by Pathologist: [place] Urine DENISE PURI MD #[id number] A [facility] Specimen (Source) Anatomical Collection Method Collection Time Re ceived Time Location / / Volume Laterality Urine, Catherized 04/13/2022 2:11 023 4:45 Price AM COMMODITY INDUSTRY ANALYST AM COMMODITY INDUSTRY ANALYST Pao Flores NP MICROBIOLOGY - GENERAL ORDER CARA Performing Organization Address City/State/ZIP Code Phon e Number [facility] CANCER Unless otherwise noted, [address] all lab tests performed by: Division of Pathology and Laboratory Medicine [facility]5 [facility] Glucose, Random (04/12/2022 3:15 AM COMMODITY INDUSTRY ANALYST)Only the most recent of4 resultswithin the time period is included. P athologist Signature Glucose Random 133 70 - 199 [facility] mg/dL [facility] [place] Comment: Effective 09/14/15, the glucose reference intervals have been updated based on [place] [employer] guidelines (Standards of Medical Care in Diabetes 2016. Diabetes Care 2016; 39: S13-S22). Fasting blood glucose: Normal: 70-99 mg/dL Impaired fasting glucose (increased risk for diabetes or pre-diabetes): 100- 125 mg/dL Diabetes mellitus: >/=126 mg/dL Random blood glucose: Normal: 70-199 mg/dL Note: Random glucose >100 mg/dL is assoc iated with increased risk for diabetes Specimen Anatomical Collection Method Collection Time Receive d Time (Source) Location / / Volume Laterality Blood 04/12/2022 3:15 AM 3 3:28 COMMODITY INDUSTRY ANALYST AM COMMODITY INDUSTRY ANALYST Francy SUMMERS LAB BLOOD ORDERABLES Performing Organization Address City/[facility]/ZIP Code Phon e Number [facility] CANCER Unless otherwise noted, [address] all lab tests performed by: Division of Pathology and Laboratory Medicine [facility] An[facility] Gap (04/12/2022 3:15 AM COMMODITY INDUSTRY ANALYST)Only the most recent of3 resultswithin the time period is included. P athologist Signature Anion Gap 11 4 - 14 [facility] mEq/L [facility] Specimen Anatomical Collection Method Collection Time Receive d Time (Source) Location / / Volume Laterality Blood 04/12/2022 3:15 AM 3 3:28 COMMODITY INDUSTRY ANALYST AM COMMODITY INDUSTRY ANALYST Francy SUMMERS LAB BLOOD ORDERABLES Performing Organization Address City/State/ZIP Code Phon e Number [facility] CANCER Unless otherwise noted, [address] all lab tests performed by: Division of Pathology and Laboratory Medicine [facility]5 [facility] .Serum Creatinine (04/12/2022 3:15 AM COMMODITY INDUSTRY ANALYST)Only the most recent of20 results within the time period is included. athologist Signature Creatinine 0.80 0.51 - 0.95 [facility] mg/dL [facility] Specimen Anatomical Collection Method Collection Time Receive d Time (Source) Location / / Volume Laterality Blood 04/12/2022 3:15 AM 3 3:28 COMMODITY INDUSTRY ANALYST AM COMMODITY INDUSTRY ANALYST Francy SUMMERS LAB BLOOD ORDERABLES Performing Organization Address City/[facility] Phon e Number [facility] CANCER Unless otherwise noted, [address] all lab tests performed by: Division of Pathology and Laboratory Medicine [address] [place] Glomerular Filtration Rate (04/12/2022 3:15 AM COMMODITY INDUSTRY ANALYST)Only the most recent of20 resultswithin the time period is included. athologist Signature eGFR 78 >=60 [facility] mL/min/1.73 [facility] sq. m Comment: The eGFRcr is calculated with the 2020 KD-EPI creatinine equation using creatinine, patient's age, and sex for adults 18 years of age and older. Other factors, especially muscle mass, may affect accuracy and need to be considered. According to the Kidney Disease: Improvi ng Global Outcomes (KDIGO) CKD Work Group 2012 Clinical Practice Guideline, chronic kidney disease (CKD) is defined as the abnormalities of kidney structure or function, present for more than 3 months, with implications for health. CKD should be c lassified by cause, GFR category, and albuminuria category. KDIGO guidelines provide the following GFR categories Stage Description GFR mL/min/1.73 m2 G1* Normal or high >= 90 G2* Mildly decreased 60-89 G3a Mildly to moderately decreased 45-59 G3b Moderately to severely decreased 30- 44 G4 Severely decreased 15-29 G5 Kidney failure <15 *In the absence of evidence of kidney da mage, neither G1 nor G2 fulfill criteria for CKD. Specimen Anatomical Collection Method Collection Time Receive d Time (Source) Location / / Volume Laterality Blood 04/12/2022 3:15 AM 3 3:28 COMMODITY INDUSTRY ANALYST AM COMMODITY INDUSTRY ANALYST Francy SUMMERS LAB BLOOD ORDERABLES Performing Organization Address City/State/ZIP [facility] Phon e Number [facility] Unless otherwise noted, [address] all lab tests performed by: Division of Pathology and Laboratory Medicine [address] [place] Calcium Ionized, Venous (04/12/2022 3:15 AM COMMODITY INDUSTRY ANALYST)Only the most recent of3 results within the time period is included. P athologist Signature V Ion Ca 1.24 1.15 - 1.29 [facility] mmol/L [facility] Specimen Anatomical Collection Method Collection Time Receive d Time (Source) Location / / Volume Laterality Blood 04/12/2022 3:15 AM 3 3:19 COMMODITY INDUSTRY ANALYST AM COMMODITY INDUSTRY ANALYST Francy SUMMERS LAB BLOOD ORDERABLES Performing Organization Address City/[facility] Phon e Number [facility] CANCER Unless otherwise noted, [address] all lab tests performed by: Division of Pathology and Laboratory Medicine [address] [place] Blood Urea Nitrogen (04/12/2022 3:15 AM COMMODITY INDUSTRY ANALYST)Only the most recent of20 results within the time period is included. athologist Signature BUN 14 6 - 23 [facility] mg/dL [facility] Specimen Anatomical Collection Method Collection Time Receive d Time (Source) Location / / Volume Laterality Blood 04/12/2022 3:15 AM 3 3:28 COMMODITY INDUSTRY ANALYST AM COMMODITY INDUSTRY ANALYST Francy SUMMERS LAB BLOOD ORDERABLES Performing Organization Address City/[facility] Phon e Number [facility] CANCER Unless otherwise noted, [address] all lab tests performed by: Division of Pathology and Laboratory Medicine [address] [place] Sodium Level (04/12/2022 3:15 AM COMMODITY INDUSTRY ANALYST)Only the most recent of3 resultswithin the time period is included. P athologist Signature Sodium Lvl 139 136 - 145 [facility] mEq/L [facility] Specimen Anatomical Collection Method Collection Time Receive d Time (Source) Location / / Volume Laterality Blood 04/12/2022 3:15 AM 3 3:28 COMMODITY INDUSTRY ANALYST AM COMMODITY INDUSTRY ANALYST Francy SUMMERS LAB BLOOD ORDERABLES Performing Organization Address City/[facility] Phon e Number [facility] CANCER Unless otherwise noted, [address] all lab tests performed by: Division of Pathology and Laboratory Medicine [address] [place] Potassium Level (04/12/2022 3:15 AM COMMODITY INDUSTRY ANALYST)Only the most recent of3 resultswithin the time period is included. P athologist Signature Potassium Lvl 4.4 3.5 - 5.1 [facility] mEq/L [facility] Specimen Anatomical Collection Method Collection Time Receive d Time (Source) Location / / Volume Laterality Blood 04/12/2022 3:15 AM 3 3:28 COMMODITY INDUSTRY ANALYST AM COMMODITY INDUSTRY ANALYST Francy Donaldson PA LAB BLOOD ORDERABLES Performing Organization Address City/[facility]/ZIP Code Phon e Number [facility] CANCER Unless otherwise noted, [address] all lab tests performed by: Division of Pathology and Laboratory Medicine [address] [place] Magnesium Level (04/12/2022 3:15 AM COMMODITY INDUSTRY ANALYST)Only the most recent of7 resultswithin the time period is included. athologist Signature Magnesium 2.1 1.6 - 2.6 [facility] mg/dL [facility] Specimen Anatomical Collection Method Collection Time Receive d Time (Source) Location / / Volume Laterality Blood 04/12/2022 3:15 AM 3 3:28 COMMODITY INDUSTRY ANALYST AM COMMODITY INDUSTRY ANALYST Francy Donaldson PA LAB BLOOD ORDERABLES Performing Organization Address City/[facility]/ZIP Code Phon e Number [facility] CANCER Unless otherwise noted, [address] all lab tests performed by: Division of Pathology and Laboratory Medicine [address] [place] Chloride Level (04/12/2022 3:15 AM COMMODITY INDUSTRY ANALYST)Only the most recent of3 resultswithin the time period is included. P athologist Signature Chloride 103 98 - 107 [facility] mEq/L [facility] Specimen Anatomical Collection Method Collection Time Receive d Time (Source) Location / / Volume Laterality Blood 04/12/2022 3:15 AM 3 3:28 COMMODITY INDUSTRY ANALYST AM COMMODITY INDUSTRY ANALYST Francy Donaldson PA LAB BLOOD ORDERABLES Performing Organization Address City/[facility]/ZIP [facility] Phon e Number [facility] CANCER Unless otherwise noted, [address] all lab tests performed by: Division of Pathology and Laboratory Medicine [address] [place] Carbon Dioxide Level (04/12/2022 3:15 AM COMMODITY INDUSTRY ANALYST)Only the most recent of3 results within the time period is included. athologist Signature CO2 25 22 - 29 [facility] mEq/L [facility] Specimen Anatomical Collection Method Collection Time Receive d Time (Source) Location / / Volume Laterality Blood 04/12/2022 3:15 AM 3 3:28 COMMODITY INDUSTRY ANALYST AM COMMODITY INDUSTRY ANALYST Francy SUMMERS LAB BLOOD ORDERABLES Performing Organization Address City/[facility]/ZIP [facility] Phon e Number [facility] CANCER Unless otherwise noted, [address] all lab tests performed by: Division of Pathology and Laboratory Medicine [address] [place] [address] Transfuse RBC:Transfusion Date: 04/10/2022 (04/10/2022 5:56 PM COMMODITY INDUSTRY ANALYST)Only the most recent of2 resultswithin the time period is included. David Forbes MD BLOOD TRANSFUSION ORDERABLES RBC Product Ready for Automatic Silk Screen Printer (04/10/2022 7:16 AM COMMODITY INDUSTRY ANALYST) Analysis Performed At [facility] Signature PRBC Product B2 Blood [place] Ready for Pick Bank [facility] Specimen Anatomical Collection Method Collection Time Receive d Time (Source) Location / / Volume Laterality Blood 04/10/2022 7:16 AM 3 7:16 COMMODITY INDUSTRY ANALYST AM COMMODITY INDUSTRY ANALYST David Forbes MD BLOOD BANK PRODUCT ORDERABLE S Performing Organization Address City/[facility] Phon e Number [facility] CANCER Unless otherwise noted, [address] all lab tests performed by: Division of Pathology and Laboratory Medicine [address] [place] [address] Prepare RBC:P904, 2 Units (04/10/2022 7:16 AM COMMODITY INDUSTRY ANALYST) athologist Signature PRBC Product 2 [facility] Comment: Red Blood Cells Available - Ord er Form 03 when ready for product issue. Unit Number [id number] [facility] Product Code [id number] [facility] Unit Expiration [place] MD PERAZA [facility] Unit Blood Type 5100 [facility] Product Code Text RBCIRLR CPD AS1 500mL [facility] Crossmatch Expiration Date [facility] Unit Irradiated IRRADIATED [place] MD ALISHA Aparicio [facility] Dispense Status ISSUED [facility] Unit Blood Type O Positive [facility] Product Automatic Silk Screen Printer Location .[facility] Comment: Unit Number [id number] [facility] Product Code [id number] [place] [facility] Unit Expiration [facility] Unit Blood Type 5100 [facility] Product Code Text RBCIRLR CPD AS1 500mL [facility] Crossmatch Expiration Date [facility] Unit Irradiated IRRADIATED [place] [facility] Dispense Status ISSUED [facility] Unit Blood Type O Positive [facility] Product Automatic Silk Screen Printer Location .[facility] Comment: Specimen Anatomical Collection Method Collection Time Receive d Time (Source) Location / / Volume Laterality Blood 04/10/2022 7:16 AM 7:16 COMMODITY INDUSTRY ANALYST AM COMMODITY INDUSTRY ANALYST David Forbes MD BLOOD BANK PRODUCT ORDERABLE S Performing Organization Address City/State/ZIP Code Phon e Number [facility] Unless otherwise noted, [address] all lab tests performed by: Division of Pathology and Laboratory Medicine [address] [place] [address] Transfuse platelets:Transfusion Date: 04/09/2022 (04/09/2022 11:37 PM COMMODITY INDUSTRY ANALYST) Francy SUMMERS BLOOD TRANSFUSION ORDERABLES PLT Product Ready for Automatic Silk Screen Printer (04/09/2022 5:09 PM COMMODITY INDUSTRY ANALYST) Analysis Performed At [facility] Time Signature PLT Product B2 Blood [facility] Ready for Pick Bank [facility] Comment: Product is ready for merchandise pickup/receiving associate on April 09, 2022 20:50:00 COMMODITY INDUSTRY ANALYST. Specimen Anatomical Collection Method Collection Time Receive d Time (Source) Location / / Volume Laterality Blood 04/09/2022 5:09 PM 3 5:11 COMMODITY INDUSTRY ANALYST PM COMMODITY INDUSTRY ANALYST Francy SUMMERS BLOOD BANK PRODUCT ORDERABLE S Performing Organization Address City/[facility] Phon e Number [facility] CANCER Unless otherwise noted, [address] all lab tests performed by: Division of Pathology and Laboratory Medicine [address] [place] [address] Prepare platelets:Transfusion Date: 04/09/2022; Transfusion Indications: O.R. Patient; P904, 1 Units (04/09/2022 5:09 PM COMMODITY INDUSTRY ANALYST) athologist Signature PLT Product Approved [facility] Comment: Platelet order has been approve d. Order Form 3 when ready for product issue. Expect 2 hours for platelet concentratio n. Unit Number [id number] [facility] Product Code [id number] [facility] Unit Expiration [id number] [facility] Unit Blood Type 5100 [facility] Product Code Text PLATELET Aph IR LR BacM [facility] Unit Irradiated IRRADIATED [place] [facility] Dispense Status ISSUED [facility] Unit Blood Type O Positive [facility] Product Automatic Silk Screen Printer Location .BPAM [facility] Comment: Specimen Anatomical Collection Method Collection Time Receive d Time (Source) Location / / Volume Laterality Blood 04/09/2022 5:09 PM 3 5:11 COMMODITY INDUSTRY ANALYST PM COMMODITY INDUSTRY ANALYST Francy SUMMERS BLOOD BANK PRODUCT ORDERABLE S Performing Organization Address City/[facility]/ZIP [facility] Phon e Number [facility] CANCER Unless otherwise noted, [address] all lab tests performed by: Division of Pathology and Laboratory Medicine [address] [place] [address] X-ray Pelvis 1 or 2 Views (04/09/2022 1:06 PM COMMODITY INDUSTRY ANALYST)Only the most recent of5 resultswithin the time period is included. Anatomical Region Laterality Modality Pelvis Digital Radiography Specimen (Source) Anatomical Collection Method Collection Time Re ceived Time Location / / Volume Laterality 04/09/2022 4:12 PM COMMODITY INDUSTRY ANALYST Impressions 04/09/2022 4:16 PM COMMODITY INDUSTRY ANALYST No radiographic indication of complicati ons. Radiography of the left femur is recommended to image the tip of the femo ral stem. Narrative 04/09/2022 4:16 PM COMMODITY INDUSTRY ANALYST FULL RESULT: Examination: XR PELVIS 1 OR 2 VW, 023 1:06 PM. Clinical History: Fracture of proximal e nd of femur Indication: Status Post Surgery Comparison: Radiography of the pelvis Technique: Pelvis: One view Findings: Interval left total hip arthro plasty with cemented femoral stem. The distal stem is not included on this examination of the pelvis. No fracture, joint dislocation or subluxation is detected. A surgical drain projects over the left hip. Right hip joint spacing, the sacroiliac joints and pubic symphysis are intact. Mild degenerative sclerosis of the right sacroiliac joint. Fractures of the left ischium, left infe rior pubic ramus and right superior pubic ramus. The fracture lines remain apparent as were seen preoperatively. Procedure Note Chana Cottrell MD - 04/09/2022Forma tting of this note might be different from the original. FULL RESULT: Examination: XR PELVIS 1 OR 2 , 023 1:06 PM. Clinical History: Fracture of proximal e nd of femur Indication: Status Post Surgery Comparison: Radiography of the pelvis Technique: Pelvis: One view Findings: Interval left total hip arthro plasty with cemented femoral stem. The distal stem is not included on this examination of the pelvis. No fracture, joint dislocation or subluxation is detected. A surgical drain projects over the left hip. Right hip joint spacing, the sacroiliac joints and pubic symphysis are intact. Mild degenerative sclerosis of the right sacroiliac joint. Fractures of the left ischium, left infe rior pubic ramus and right superior pubic ramus. The fracture lines remain apparent as were seen preoperatively. IMPRESSION: No radiographic indication of complicati ons. Radiography of the left femur is recommended to image the tip of the femoral stem. Francy Lora [place] PA IMG DIAGNOSTIC IMAGING ORDER CARA Pathology Surgical Interpretation (04/09/2022 10:25 AM COMMODITY INDUSTRY ANALYST) Component Value Ref Test Analysis Performed Pathologis t Range Method Time At Signature Submitted Multiple myeloma [C90.00] 04/18/2022 [facility] Clinical Fracture of proximal end of femur <Left side; Closed; Initial> [S72.002A] 5:53 PM History Pain in left hip [M25.552] COMMODITY INDUSTRY ANALYST Diagnosis A. Bone, left femoral head, hemiarthroplasty: 04/18/2022 [facility] Electronically Articular bone with focal n ecrosis and reactive changes, negative for plasma cell neoplasm 5:53 PM signed by (see comment) COMMODITY INDUSTRY ANALYST Gin kevin De León MD on 04/18/2022 a t 5:53 PM Comment Immunohistochemical stains a re negative for CD138, kappa, and lambda, supporting the above diagnosis. 04/18/2022 [facility] BS 5:53 PM This case has been reviewed by Dr. Jaciel Garcai ([facility] section of hematopathology), who concurs with the interpretation. COMMODITY INDUSTRY ANALYST Gross A: 04/18/2022 [facility] Description Femur, left, left femoral he ad -- or 36: Consists of a partially disrupted femoral head (5.3 x 5.0 x 4.5 cm) with detached/separate femoral neck (4.0 x 3.0 x 2.4 cm). The femoral neck resection margin i 5:53 PM s manley-yellow and smooth. The opposite surface to the femoral neck resection margin is red-brown and jagged, representing the fracture. There are also 2 separate and the ends unoriented bony fragments (2.0 x 1.7 x 1.7 cm and 2.8 x 2.8 x 0.8 cm). COMMODITY INDUSTRY ANALYST The articular surface is cov ered with manley-white and smooth articular cartilage up to 0.3 cm and submitted. No gross ebunation is present. There is focal possible osteophytes at the cartilage-bone juctio n. The bony cut surfaces are remarkable for light manley and softened possible lesion towards the jagged surface of the femoral head and the femoral neck. [employer] [facility] [employer] sections are submitted following decalcification INK CODE: black-femoral neck margin SECTION CODE: A1-A2, represe ntative femoral head to include the possible fracture and focal osteophytes; A3, customer success representative section to include the fracture perpendicular to the femoral neck resection margin YS [employer] N/A 04/18/2022 [facility] Block(s) 5:53 PM COMMODITY INDUSTRY ANALYST Disclaimer "Some tests reported 04/18/2022 [facility] here may have been 5:53 PM developed and COMMODITY INDUSTRY ANALYST performance characteristics determined by [facility] Pathology and Laboratory Medicine. These tests have not been specifically cleared or approved by the U.S. Food and Drug Administration. If applicable, controls were reviewed and showed appropriate reactivity." Specimen Anatomical Collection Method Collection Time Receive d Time (Source) Location / / Volume Laterality Tissue (Femur, 04/09/2022 10:25 3 Left) AM COMMODITY INDUSTRY ANALYST 10:39 AM COMMODITY INDUSTRY ANALYST David Forbes MD LAB PATHOLOGY ORDERABLES Performing Organization Address City/State/ZIP Code Phon e Number [facility] [place] [address] [address] [place] (ABNORMAL) OR ABG+ (ABG, Na, K, Cl, Glu, Hct, Lactate, Ion Ca) (04/09/2022 10:03 AM COMMODITY INDUSTRY ANALYST) athologist Signature [place] Sodium, 143 136 - 146 [facility] arterial mEq/L [facility] [place] Comment: Methodology: The ABL90 Flex Plus analyze r is an in vitro diagnostic portable, automated analyzer that measures electrolytes in whole blood. This analyzer uses potentiometry to measure K+, Na+, and Cl- . The potential of an electrode chain is measured by a voltmeter, and related to the concent ration of the sample. OR Potassium, arterial 3.9 3.4 - 4.5 mEq/L [facility] Comment: Methodology: The ABL90 Flex Plus analyze r is an in vitro diagnostic portable, automated analyzer that measures electrolytes in whole blood. This analyzer uses potentiometry to measure K+, Na+, and Cl- . The potential of an electrode chain is measured by a voltmeter, and related to the concent ration of the sample. OR Chloride, arterial 104 98 - 106 mEq/L [facility] Comment: Methodology: The ABL90 Flex Plus analyze r is an in vitro diagnostic portable, automated analyzer that measures electrolytes in whole blood. This analyzer uses potentiometry to measure K+, Na+, and Cl- . The potential of an electrode chain is measured by a voltmeter, and related to the concent ration of the sample. OR Glucose, arterial 121 (H) 70 - 105 mg/dL [facility] Comment: Methodology: The ABL90 Flex Plus analyze r is an in vitro diagnostic portable, automated analyzer that measures metabolites in whole blood. This analyzer uses amperometry to measure glucose and lactate. The magnitude of an electrical current that flows through an electrode chain is proportion al to the concentration of the substance that is oxidized or reduced at an electrode in the chain. OR Hemoglobin, arterial 9.3 (L) 12.0 - 16.0 g/dL [facility] Comment: Methodology: The ABL90 Flex Plus analyze r is an in vitro diagnostic portable, automated analyzer that measures hemoglobin in whole blood. This analyzer uses spectrophotometry to measure hemoglobin. Light passes through a cuvette that contains a hemolyzed blood sample. Hematocrit is de rived from the total hemoglobin multiplied by the standard value 0.0301. OR Hematocrit, arterial 28 (L) 37 - 48 % [facility] OR Lactate, arterial 0.7 0.4 - 0.8 mmol/L [facility] Comment: Methodology: The ABL90 Flex Plus analyze r is an in vitro diagnostic portable, automated analyzer that measures metabolites in whole blood. This analyzer uses amperometry to measure glucose and lactate. The magnitude of an electrical current that flows through an electrode chain is proportion al to the concentration of the substance that is oxidized or reduced at an electrode in the chain. OR Ion calcium, arterial 1.18 1.15 - 1.29 mmol/L [facility] Comment: Methodology: The ABL90 Flex Plus analyze r is an in vitro diagnostic portable, automated analyzer that measures electrolytes in whole blood. This analyzer uses potentiometry to measure Ca2+. The potential of an electrode chain is measured by a voltmeter, and related to the concentrat ion of the sample. OR pH Art 7.36 7.35 - 7.45 [facility] OR pCO2 Art 46.5 (H) 32.0 - 45.0 mmHg [facility] OR pO2 Art 142 (H) 83 - 108 mmHg [facility] OR HCO3 Art 26 21 - 28 mmol/L [facility] Comment: Methodology: The ABL90 Flex Plus analyze r is an in vitro diagnostic portable, automated analyzer that measures electrolytes in whole blood. This analyzer uses potentiometry to measure K+, Na+, Cl-, and HCO3. The potential of an electrode chain is measured by a voltmeter, and related to the concentration of the sample. OR Anion Gap, arterial 12 7 - 16 mmol/L [facility] Comment: Methodology: The ABL90 Flex Plus analyze r is an in vitro diagnostic portable, automated analyzer that measures electrolytes in whole blood. This analyzer uses potentiometry to measure electrolytes. Th e potential of an electrode chain is niranjan sured by a voltmeter, and related to the concentrat ion of the sample. Anion gap is derived as the difference between the concentration of cations and anions. OR Base Excess Art 0 -2 - 3 mmol/L [place] MD Lora [facility] OR O2 Sat Art 100 (H) 95 - 99 % [facility] Comment: The ABL90 Flex Plus analyzer is an in vi tro diagnostic portable, automated analyzer that measures pH, blood gas, electrolytes, hemoglobin, glucose and lactate in whole blood. This analyzer uses the meth odologies noted to perform quantitative measurement of the parameters listed when tested or as noted with indicated analytes. 1) K+, Na+ and Cl-, Anion Gap, Glucose , Lactate, Hemoglobin, and HCO3 -NOTE: Methodology is noted with specific analyte(s) when reported. 2) pH and pCO2 are measured by potenti ometry. The potential of an electrode chain is measured by a voltmeter, and related to the concentration of the sample. 3) pO2 is measured by optical pO2. The optical system for pO2 is based on the ability of O2 to reduce the intensity and time constant of the phosphorescence from a phosphorescent dye that is in contact with the sample. 4) sO2 is measured by spectrophotometr y. Light passes through a cuvette that contains a hemolyzed blood sample. The absorption spectrum is used to calculate oximetry parameters. FLOW/ FiO2 57% [place] MD [facility] Art Draw Site Art Line [facility] Art Ananth Test Not Performed [place] MD ROLAND CHRIS [facility] Specimen Anatomical Collection Method Collection Time Receive d Time (Source) Location / / Volume Laterality Blood (Arterial 04/09/2022 10:03 04/09/19 23 Line) AM COMMODITY INDUSTRY ANALYST 10:08 AM COMMODITY INDUSTRY ANALYST Narrative [facility] - 3 10:10 AM COMMODITY INDUSTRY ANALYST FiO2: 57% Vipin Culver MD LAB BLOOD ORDERABLES Performing Organization Address City/[facility] Phon e Number [facility] Unless otherwise noted, [address] all lab tests performed by: Division of Pathology and Laboratory Medicine [address] [place] [address] Clot Expiration Date (04/09/2022 6:06 AM COMMODITY INDUSTRY ANALYST)Only the most recent of3 results within the time period is included. [facility] Signature T & S 04/12/2022 [facility] Specimen Anatomical Collection Method Collection Time Receive d Time (Source) Location / / Volume Laterality Blood 04/09/2022 6:06 AM 6:43 COMMODITY INDUSTRY ANALYST AM COMMODITY INDUSTRY ANALYST Francy [facility] BLOOD B[facility] TEST ORDERABLES Performing Organization Address [facility] Phon e Number [facility] Unless otherwise noted, [address] all lab tests performed by: Division of Pathology and Laboratory Medicine [address] [place] [address] TMP Interpretation Antibody Screen Negative (04/09/2022 6:06 AM COMMODITY INDUSTRY ANALYST)Only the most recent of3 resultswithin the time period is included. [facility] TMP Auto Neg At the [facility] patient plasma shows no evidence of RBC alloantibodi es. Comment: MD Benny OROZCO [id number] Dictated by: MD Benny OROZCO 1200 [id number] Dictated Date/Time: 04.09.2022 8:[address] Transcribed Date/Time: 04.09.2022 8:40 AM COMMODITY INDUSTRY ANALYST Electronically Signed By: MD Benny [id number] on 04.09.2022 8:40 AM C Specimen Anatomical Collection Method Collection Time Receive d Time (Source) Location / / Volume Laterality Blood 04/09/2022 6:06 AM 6:43 COMMODITY INDUSTRY ANALYST AM COMMODITY INDUSTRY ANALYST Francy [facility] BLOOD BANK TEST ORDERABLES Performing Organization Address City/[facility] Phon e Number [facility] Unless otherwise noted, [address] all lab tests performed by: Division of Pathology and Laboratory Medicine [address] [place] [address] [place] TMP Interpretation Crossmatch (04/09/2022 6:06 AM COMMODITY INDUSTRY ANALYST)Only the most recent of2 resultswithin the time period is included. [facility] Method Time Signature TMP XM Interp RBC units [place] crossmatched for [facility] acceptable. Comment: CRISTIANO WISE MD - [id number] Dictated by: CRISTIANO WISE MD - 1200 [id number] Dictated Date/Time: 04.10.2022 18:14 PM COMMODITY INDUSTRY ANALYST Transcribed Date/Time: 04.10.2022 18:14 PM COMMODITY INDUSTRY ANALYST Electronically Signed By: MD Benny BROWN [id number] on 04.10.2022 18:14 PM Specimen Anatomical Collection Method Collection Time Receive d Time (Source) Location / / Volume Laterality Blood 04/09/2022 6:06 AM 3 6:43 COMMODITY INDUSTRY ANALYST AM COMMODITY INDUSTRY ANALYST Francy [facility] BLOOD BANK TEST ORDERABLES Performing Organization Address City/State/ZIP Code Phon e Number [facility] Unless otherwise noted, [address] all lab tests performed by: Division of Pathology and Laboratory Medicine [address] [place], [place] [address]randal Jones ABORh (04/09/2022 6:06 AM COMMODITY INDUSTRY ANALYST)Only the most recent of3 resultswithin the time period is included. P athologist Signature ABORh. O POS [facility] Specimen Anatomical Collection Method Collection Time Receive d Time (Source) Location / / Volume Laterality Blood 04/09/2022 6:06 AM 3 6:43 COMMODITY INDUSTRY ANALYST AM COMMODITY INDUSTRY ANALYST [facility] ORDERABLES Performing Organization Address City/[facility] Phon e Number [facility] Unless otherwise noted, [address] all lab tests performed by: Division of Pathology and Laboratory Medicine [address] [place], [place] [address]d Antibody Screen (04/09/2022 6:06 AM COMMODITY INDUSTRY ANALYST)Only the most recent of3 resultswithin the time period is included. P athologist Signature ABSC. Negative ABSC [facility] Specimen Anatomical Collection Method Collection Time Receive d Time (Source) Location / / Volume Laterality Blood 04/09/2022 6:06 AM 6:43 COMMODITY INDUSTRY ANALYST AM COMMODITY INDUSTRY ANALYST Francy [facility] BLOOD BANK TEST ORDERABLES Performing Organization Address City/State/ZIP Code Phon e Number [facility] Unless otherwise noted, [place] [address] [place] all lab tests performed by: Division of Pathology and Laboratory Medicine [address] [place] COVID-19 (SARS-CoV-2) PCR-Asymptomatic [facility] (04/08/2022 9:48 AM COMMODITY INDUSTRY ANALYST) Patholo gist Method Time Signature COVID19 (SARS Not Detected Not Detected [facility] CoV-2) [facility] Comment: This test is a qualitative reverse-trans criptase polymerase chain reaction (RT- PCR) developed for the Robert SAYRA 6800 system and intended for qualitative detection of SARS CoV-2 RNA in nasopharyngeal a nd oropharyngeal swab specimens collecte d from any individuals, including those suspected o f COVID-19 by their healthcare provider, and those without symptoms or other reasons to suspect COVID-19. A fact sheet for patients provided by the transfer clerk ( [employer]) can be rev iewed at: https://www.fda.gov/media/851558/downloa d. A fact sheet for Health Care providers is provided by the transfer clerk ([employer]) and can be reviewed at: https://www.fda.gov/media/879678/download Results must be interpreted within the c ontext of all relevant clinical and laboratory findings and should not form the sole basis for a diagnosis or treatment decision. Positive results do not rule out bacterial infection or co- infection with other viruses. Negative results do not rule ou t SARS-CoV-2 and must be combined with clinical observations, patient history, and/or epidemiological information. "Presumptive Positive" results are due t o partial amplification of SARS-CoV-2 targets and indicates low amounts of virus present in the specimen at or near the limit of detection. Regardless, individuals with "Presumptive Positive" results should be managed per institutional guidelines as individuals positive for SARS-CoV-2 virus, including use of appropriate infection control protocols. Internal controls are included to assess for possible amplification inhibitors. If inhibition is detected, testing is repeated and if inhibition is confirmed the specimen is resulted as "Invalid". When an "Invalid" result occurs, it is recomm ended to wait 3 days before submitting a new spec imen for testing if clinically indicated. This assay has been approved by the FDA for use only under Emergency Use Authorization (EUA) in laboratories that have been CLIA-certified to perform moderate-complexity and high-complexity tests. The performance characteristics of this assay were verified by the Microbiology Laboratory at [facility], CLIA Accreditation #: [id number] and CAP Accreditation #: [id number]. COVID19 SARS Source MEMBER CERTIFICATION MANAGER Swab [place] MD [facility] COVID19 SARS Indication Pre-OR Procedure [facility] Specimen (Source) Anatomical Collection Method Collection Time Re ceived Time Location / / Volume Laterality Nasopharyngeal Swab 04/08/2022 9:48 04/08 AM COMMODITY INDUSTRY ANALYST 12:03 PM COMMODITY INDUSTRY ANALYST Francy [facility] MICROBIOLOGY - GENERAL ORDER CARA Performing Organization Address City/State/ZIP Code Phon e Number [facility] Unless otherwise noted, [address] all lab tests performed by: Division of Pathology and Laboratory Medicine [facility] XR Spine Cervical Complete 4 or 5 Views (04/05/2022 11:41 AM COMMODITY INDUSTRY ANALYST) Anatomical Region Laterality Modality C-spine Digital Radiography Specimen (Source) Anatomical Collection Method Collection Time Re ceived Time Location / / Volume Laterality 04/05/2022 2:12 PM COMMODITY INDUSTRY ANALYST Impressions 04/05/2022 2:14 PM COMMODITY INDUSTRY ANALYST 1. Images obtained in extended, neutral, and flexed posture in the lateral projection. 2. All intervertebral discs are fused fr om C3 through C7. An anterior plate and screws bridge the C3/C4 disc. 3. 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 4. Alignment is maintained in the presen ce of the cervical fusion. 5. No evidence of atlantoaxial instabili ty. Narrative 04/05/2022 2:14 PM COMMODITY INDUSTRY ANALYST FULL RESULT: Examination: XR SPINE CERVICAL COMPLETE 4 OR 5 VW, 04/05/2022 11:41 AM. Clinical History: 71-year-old woman with multiple myeloma. Encounter for other preprocedural examination Indication: preop Comparison: None Technique: XR SPINE CERVICAL COMPLETE 4 OR 5 VW Findings: 1. Images obtained in extended, neutral, and flexed posture in the lateral projection. 2. All intervertebral discs are fused fr om C3 through C7. An anterior plate and screws bridge the C3/C4 disc. 3. 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 4. Alignment is maintained in the presen ce of the cervical fusion. 5. No evidence of atlantoaxial instabili ty. Procedure Note Raúl Cabrera Jr., MD - 04/05/2022F ormatting of this note might be different from the original. FULL RESULT: Examination: XR SPINE CERVICAL COMPLETE 4 OR 5 VW, 04/05/2022 11:41 AM. Clinical History: 71-year-old woman with multiple myeloma. Encounter for other preprocedural examination Indication: preop Comparison: None Technique: XR SPINE CERVICAL COMPLETE 4 OR 5 VW Findings: 1. Images obtained in extended, neutral, and flexed posture in the lateral projection. 2. All intervertebral discs are fused fr om C3 through C7. An anterior plate and screws bridge the C3/C4 disc. 3. 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 4. Alignment is maintained in the presen ce of the cervical fusion. 5. No evidence of atlantoaxial instabili ty. IMPRESSION: 1. Images obtained in extended, neutral, and flexed posture in the lateral projection. 2. All intervertebral discs are fused fr om C3 through C7. An anterior plate and screws bridge the C3/C4 disc. 3. 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 4. Alignment is maintained in the presen ce of the cervical fusion. 5. No evidence of atlantoaxial instabili ty. Betty Reddy APN IMG DIAGNOSTIC IMAGING ORDER CARA Troponin T (In-House) (04/04/2022 2:42 AM COMMODITY INDUSTRY ANALYST)Only the most recent of2 results within the time period is included. P athologist Signature Troponin T <6 <=18 ng/L [facility] Comment: < 19 ng/L Suggest retest at 3 to 6 hours later to rule out myocardial infarction >= 19 to <=52 ng/L Pos sible myocardial injury. Suggest retest at 3 hours. - a change of < 20 ng/L, retest at 6 hours - a change of >= 20 ng/L, suggestive of myocardial infarction > 52 ng/L Suggestive of myocardial infarction Critical value will be reported when cTn T is > 52 ng/L and only reported for the first in a series. Hemolyzed specimens with Hemolysis Index >100 (100 mg/dl or moderate hemolysis) may cause interferences and falsely low results. Specimen Anatomical Collection Method Collection Time Receive d Time (Source) Location / / Volume [facility] Blood 04/04/2022 2:42 AM 3 3:07 COMMODITY INDUSTRY ANALYST AM COMMODITY INDUSTRY ANALYST Narrative [facility] - 3 3:20 AM COMMODITY INDUSTRY ANALYST Draw the second lab 6 hours after the AC CC level. Alin Márquez MD LAB BLOOD ORDERABLES Performing Organization Address City/[facility]/ZIP Code Phon e Number [facility] Unless otherwise noted, [address] all lab tests performed by: Division of Pathology and Laboratory Medicine [address] [place] Phosphorus Level (04/04/2022 2:42 AM COMMODITY INDUSTRY ANALYST)Only the most recent of3 resultswithin the time period is included. [facility] Phosphorus 4.3 2.5 - 4.5 [facility] mg/dL [facility] Specimen Anatomical Collection Method Collection Time Receive d Time (Source) Location / / Volume Laterality Blood 04/04/2022 2:42 AM 3 3:05 COMMODITY INDUSTRY ANALYST AM COMMODITY INDUSTRY ANALYST Alin Márquez MD LAB BLOOD ORDERABLES Performing Organization Address City/State/ZIP [facility] Phon e Number [facility] Unless otherwise noted, [address] all lab tests performed by: Division of Pathology and Laboratory Medicine [address] [place] (ABNORMAL) Glucose Level (04/04/2022 2:42 AM COMMODITY INDUSTRY ANALYST)Only the most recent of16 resultswithin the time period is included. athologist Signature Glucose Level 110 (H) 70 - 99 [facility] mg/dL [facility] Comment: Effective 09/14/15, the glucose reference intervals have been updated based on [place] [employer] guidelines (Standards of Medical Care in Diabetes 2016. Diabetes Care 2016; 39: S13-S22). Fasting blood glucose: Normal: 70-99 mg/dL Impaired fasting glucose (increased risk for diabetes or pre-diabetes): 100- 125 mg/dL Diabetes mellitus: >/=126 mg/dL Random blood glucose: Normal: 70-199 mg/dL Note: Random glucose >100 mg/dL is assoc iated with increased risk for diabetes Specimen Anatomical Collection Method Collection Time Receive d Time (Source) Location / / Volume Laterality Blood 04/04/2022 2:42 AM 3 3:05 COMMODITY INDUSTRY ANALYST AM COMMODITY INDUSTRY ANALYST Alin Márquez MD LAB BLOOD ORDERABLES Performing Organization Address City/[facility] Phon e Number [facility] Unless otherwise noted, [address] all lab tests performed by: Division of Pathology and Laboratory Medicine [address] [place] Calcium Level (04/04/2022 2:42 AM COMMODITY INDUSTRY ANALYST)Only the most recent of17 resultswithin the time period is included. athologist Signature Calcium Lvl 9.4 8.4 - 10.2 [facility] mg/dL [facility] Specimen Anatomical Collection Method Collection Time Receive d Time (Source) Location / / Volume Laterality Blood 04/04/2022 2:42 AM 3 3:05 COMMODITY INDUSTRY ANALYST AM COMMODITY INDUSTRY ANALYST Alin Márquez MD LAB BLOOD ORDERABLES Performing Organization Address City/[facility] Phon e Number [facility] Unless otherwise noted, [address] all lab tests performed by: Division of Pathology and Laboratory Medicine [address] [place] (ABNORMAL) Electrolyte Panel (04/04/2022 2:42 AM COMMODITY INDUSTRY ANALYST)Only the most recent of17 resultswithin the time period is included. P athologist Signature Sodium Lvl 142 136 - 145 [facility] mEq/L [facility] Potassium Lvl 3.8 3.5 - 5.1 [facility] mEq/L [facility] Chloride 104 98 - 107 [facility] mEq/L [facility] CO2 30 (H) 22 - 29 [facility] mEq/L [facility] Anion Gap 8 4 - 14 [facility] mEq/L [facility] Specimen Anatomical Collection Method Collection Time Receive d Time (Source) Location / / Volume Laterality Blood 04/04/2022 2:42 AM 3 3:05 COMMODITY INDUSTRY ANALYST AM COMMODITY INDUSTRY ANALYST Alin Márquez MD LAB BLOOD ORDERABLES Performing Organization Address City/[facility]/ZIP Code Phon e Number [facility] Unless otherwise noted, [place] [address] [place] all lab tests performed by: Division of Pathology and Laboratory Medicine [address] [facility] EKG, 12-Lead (Portable) (04/04/2022)Only the most recent of3 resultswithin the time period is included. Specimen (Source) Anatomical Location Collection Method / Collectio n Time Received Time / Laterality Volume Narrative This result has an attachment that is no t available. Alin Márquez MD ECG ORDERABLES Performing Organization Address City/[facility]/ZIP Code Phon e Number [facility] CT Chest Pulmonary Embolism with Contrast (04/03/2022 9:40 PM COMMODITY INDUSTRY ANALYST) Anatomical Region Laterality Modality Chest Computed Tomography Specimen (Source) Anatomical Collection Method Collection Time Re ceived Time Location / / Volume Laterality 04/03/2022 10:23 PM COMMODITY INDUSTRY ANALYST Impressions 04/04/2022 8:00 AM COMMODITY INDUSTRY ANALYST 1. No pulmonary embolus or other apparent etiology for dyspnea or chest pain. 2. New ground last opacity and subpleu ral nodularity in the lung bases probably atelectasis. I personally reviewed these image(s) ava ng with the resident's/fellow's interpretations, certify that if a procedure was performed I was physically present, and agree with the final report. Narrative 04/04/2022 8:00 AM COMMODITY INDUSTRY ANALYST FULL RESULT: Examination: CT CHEST PULMONARY EMBOLISM W CONTRAST, 04/03/2022 9:40 PM Clinical History: Chest pain, not otherw ise specified multiple myeloma, multiple sclerosis. She received IVIG today and during infusion she had severe chest pain and shortness of breath that lasted 4 hours, resolved eventually Indication: chest pain, chest pain x 3 h ours, with SOB Comparison: CT chest abdomen pelvis on and PET/CT on 12/20/2021 Technique: Spiral CT of the chest is per formed using intravenous contrast. Findings: Lines and tubes: None available Pulmonary arteries: Pulmonary artery opa cification is adequate. No pulmonary embolism identified. The main pulmonary trunk is normal in diameter. Cardiac: The heart size is normal. Minim al left anterior descending coronary calcifications are present. Aortic tortuosity and mild to moderate atherosclerosis without aneurysm. Lymph nodes: The left axillary region is unremarkable. No mediastinal adenopathy. Lungs and airways: There is a subpleural cavitary lesion no steven within the right upper lobe (series 8 image 84) measuring 0.8 cm in diameter, unchanged back to 2019 and presumably scarring. Bilobed solid pulmonary nodule w ithin the inferior aspect of the right u pper lobe (series 8 image 212) measuring 0.7 cm. Although new from 2019, it is stable over the past year and not FDG avid, presumably benign. Subpleural ground gl ass attenuation and small nodules in the costophrenic sulci, new from December and probably representing atelectasis. Pleural spaces: No pleural effusions. Bones and soft tissues: Multilevel degen erative changes of the thoracic spine. Upper abdomen: A small hiatus hernia is present. Cholecystectomy clips. Mild bilateral adrenal thickening has re mained stable and has not been FDG avid, presumably hyperplasia. Procedure Note Nishant Tillman MD - 04/04/2022Formatt ing of this note might be different from the original. FULL RESULT: Examination: CT CHEST PULMONARY EMBOLISM W CONTRAST, 04/03/2022 9:40 PM Clinical History: Chest pain, not otherw ise specified multiple myeloma, multiple sclerosis. She received IVIG today and during infusion she had severe chest pain and shortness of breath that lasted 4 hours, resolved eventually Indication: chest pain, chest pain x 3 h ours, with SOB Comparison: CT chest abdomen pelvis on and PET/CT on 12/20/2021 Technique: Spiral CT of the chest is per formed using intravenous contrast. Findings: Lines and tubes: None available Pulmonary arteries: Pulmonary artery opa cification is adequate. No pulmonary embolism identified. The main pulmonary trunk is normal in diameter. Cardiac: The heart size is normal. Minim al left anterior descending coronary calcifications are present. Aortic tortuosity and mild to moderate atherosclerosis without aneurysm. Lymph nodes: The left axillary region is unremarkable. No mediastinal adenopathy. Lungs and airways: There is a subpleural cavitary lesion no steven within the right upper lobe (series 8 image 84) measuring 0.8 cm in diameter, unchanged back to 2020 and presumably scarring. Bilobed solid pulmonary nodule within the inferior aspect of the right upper lobe (series 8 image 212) measuring 0.7 cm. Although new from 2020, it is stable over the past year and not FDG avid, presumably benign. Subpleural ground glass attenuation and small nodules in the costophrenic sulci, new f rom December and probably representing atelectasis. Pleural spaces: No pleural effusions. Bones and soft tissues: Multilevel degen erative changes of the thoracic spine. Upper abdomen: A small hiatus hernia is present. Cholecystectomy clips. Mild bilateral adrenal thickening has re mained stable and has not been FDG avid, presumably hyperplasia. IMPRESSION: 1. No pulmonary embolus or other apparen t etiology for dyspnea or chest pain. 2. New ground last opacity and subpleura l nodularity in the lung bases probably atelectasis. I personally reviewed these image(s) avalore ayala with the resident's/fellow's interpretations, certify that if a procedure was performed I was physically present, and agree with the final report. Alin Márquez MD IMG CT ORDERABLES COVID-19 (SARS-CoV-2)Asymptomatic-LT (04/03/2022 9:17 PM COMMODITY INDUSTRY ANALYST) [facility] Method Time Signature COVID19 Not Detected Not Detected ANGIE SPENCE (SARS-CoV-2) [facility] COVID19 SARS Inpatient ANGIE SPENCE Indication Admission [facility] Covid 19 See Note ANGIE SPENCE Comment [facility] Comment: The sayra SARS-CoV-2 nucleic acid test f or use on the sayra Lisa System is a real-time RT-PCR assay intended for the qualitative detection of SARS-CoV-2 (COVID-19) viral RNA in nasopharyngeal swabs from either individuals suspected of COVID-1 9 by their healthcare provider or from any individu al, including individuals without symptoms or other reasons to suspect COVID-19. A fact sheet for patients provided by the transfer clerk ([employer]) can be reviewed at: https://www.fda.gov/media/126304/jesse orozco. A fact sheet for Health Care providers is provided by the transfer clerk ([employer]) and can be reviewed at: https://www.fda.gov/media/312165/download Results must be interpreted within the c ontext of all relevant clinical and laboratory findings and should not form the sole basis for a diagnosis or treatment decision. Positive results do not rule out bacterial infection or co- infection with other viruses. Negative results do not preclud e SARS-CoV-2 infection and must be combined with clinical observations, patient history, and/or epidemiological information. This assay has been authorized by the [facility] for use only under Emergency Use Authorization (EUA) in laboratories that have been CLIA-certified to perform moderate-complexity and high-complexity tests. The Microbiology Laboratory at [facility] [place], CLIA Accreditation #[id number] a wa CAP Accreditation #[id number], verified the performance characteristics of this assay. Internal controls are used to monitor all stages of the test process. Specimen (Source) Anatomical Collection Method Collection Time Re ceived Time Location / / Volume Laterality Nasopharyngeal Swab 04/03/2022 9:17 04/03 PM COMMODITY INDUSTRY ANALYST 9:33 PM COMMODITY INDUSTRY ANALYST Alin Márquez MD MICROBIOLOGY - GENERAL ORDER CARA Performing Organization Address City/State/ZIP Code Phon e Number [facility] CANCER Unless otherwise noted, [place] [address] [place] all lab tests performed by: Division of Pathology and Laboratory Medicine [facility] X-ray Chest 1 View (04/03/2022 7:44 PM COMMODITY INDUSTRY ANALYST) Anatomical Region Laterality Modality Chest Digital Radiography Specimen (Source) Anatomical Collection Method Collection Time Re ceived Time Location / / Volume Laterality 04/03/2022 8:06 PM COMMODITY INDUSTRY ANALYST Impressions 04/03/2022 8:08 PM COMMODITY INDUSTRY ANALYST No evidence of acute or neoplastic disease. Narrative 04/03/2022 8:08 PM COMMODITY INDUSTRY ANALYST FULL RESULT: Examination: Portable Chest, 1 view, Mar ru2022 at 7:39 PM Clinical History: Multiple myeloma Indication: Chest pain/Shortness of hammad th Comparison: February 20, 2022 Technique: Single portable frontal radio graph of the chest Findings: Lungs are free of focal infiltration, co nsolidation, or mass. The cardiac silhouette is within normal limits. Moderate hypertrophic change in the spine. EKG buttons are present. Procedure Note Guillermina Charles MD - 04/03/2022Formatti ng of this note might be different from the original. FULL RESULT: Examination: Portable Chest, 1 view, Mar ru2022 at 7:39 PM Clinical History: Multiple myeloma Indication: Chest pain/Shortness of hammad th Comparison: February 20, 2022 Technique: Single portable frontal radio graph of the chest Findings: Lungs are free of focal infiltration, co nsolidation, or mass. The cardiac silhouette is within normal limits. Moderate hypertrophic change in the spine. EKG buttons are present. IMPRESSION: No evidence of acute or neoplastic disea se. Carrie Montilla MD IMG DIAGNOSTIC IMAGING ORDER CARA (ABNORMAL) Cardiac Panel (04/03/2022 5:05 PM COMMODITY INDUSTRY ANALYST) athologist Signature CK 25 (L) 26 - 192 [facility] U/L [facility] CK MB <2.0 <=5.3 ng/mL [facility] Troponin T <6 <=18 ng/L [facility] Comment: < 19 ng/L Suggest retest at 3 to 6 hours later to rule out myocardial infarction >= 19 to <=52 ng/L Pos sible myocardial injury. Suggest retest at 3 hours. - a change of < 20 ng/L, retest at 6 hours - a change of >= 20 ng/L, suggestive of myocardial infarction > 52 ng/L Suggestive of myocardial infarction Critical value will be reported when cTn T is > 52 ng/L and only reported for the first in a series. Hemolyzed specimens with Hemolysis Index >100 (100 mg/dl or moderate hemolysis) may cause interferences and falsely low results. Specimen Anatomical Collection Method Collection Time Receive d Time (Source) Location / / Volume Laterality Blood 04/03/2022 5:05 PM 5:28 COMMODITY INDUSTRY ANALYST PM COMMODITY INDUSTRY ANALYST Carrie Montilla MD LAB BLOOD ORDERABLES Performing Organization Address City/State/ZIP Code Phon e Number [facility] CANCER Unless otherwise noted, [place] [address] [place] all lab tests performed by: Division of Pathology and Laboratory Medicine [address] [facility] aPTT (04/03/2022 5:05 PM COMMODITY INDUSTRY ANALYST) athologist Signature aPTT 24.8 22.8 - 34.2 [facility]() [facility] Specimen Anatomical Collection Method Collection Time Receive d Time (Source) Location / / Volume Laterality Blood 04/03/2022 5:05 PM 3 5:18 COMMODITY INDUSTRY ANALYST PM COMMODITY INDUSTRY ANALYST Carrie Montilla MD LAB BLOOD ORDERABLES Performing Organization Address City/[facility]/ZIP Code Phon e Number [facility] CANCER Unless otherwise noted, [address] all lab tests performed by: Division of Pathology and Laboratory Medicine [address] (ABNORMAL) NT-Pro BNP (In-House) (04/03/2022 5:05 PM COMMODITY INDUSTRY ANALYST) P athologist Signature NT ProBNP 311 (H) <=125 pg/mL [facility] Specimen Anatomical Collection Method Collection Time Receive d Time (Source) Location / / Volume Laterality Blood 04/03/2022 5:05 PM 3 5:35 COMMODITY INDUSTRY ANALYST PM COMMODITY INDUSTRY ANALYST Carrie Montilla MD LAB BLOOD ORDERABLES Performing Organization Address City/[facility]/ZIP Code Phon e Number [facility] CANCER Unless otherwise noted, [address] all lab tests performed by: Division of Pathology and Laboratory Medicine [facility] [place] Prothrombin Time with INR (04/03/2022 5:05 PM COMMODITY INDUSTRY ANALYST) athologist Signature PT 12.6 11.9 - 14.1 [email or web address]] INR 0.99 0.89 - 1.10 [facility] Specimen Anatomical Collection Method Collection Time Receive d Time (Source) Location / / Volume Laterality Blood 04/03/2022 5:05 PM 3 5:18 COMMODITY INDUSTRY ANALYST PM COMMODITY INDUSTRY ANALYST Carrie Montilla MD LAB BLOOD ORDERABLES Performing Organization Address City/[facility]/ZIP Code Phon e Number [facility] CANCER Unless otherwise noted, [address] all lab tests performed by: Division of Pathology and Laboratory Medicine [facility]5 [address] (ABNORMAL) D-dimer (04/03/2022 5:05 PM COMMODITY INDUSTRY ANALYST) P athologist Signature D-Dimer 1.96 (H) 0.10 - 0.50 [facility] mcg/ml [facility] Comment: The cut off value for exclusion of venou s thromboembolism is <0.51 mcg/mL FEUs (fibrinogen equival ent units). Specimen Anatomical Collection Method Collection Time Receive d Time (Source) Location / / Volume Laterality Blood 04/03/2022 5:05 PM 3 5:18 COMMODITY INDUSTRY ANALYST PM COMMODITY INDUSTRY ANALYST Carrie Montilla MD LAB BLOOD ORDERABLES Performing Organization Address City/[facility]/ZIP Code Phon e Number [facility] CANCER Unless otherwise noted, [address] all lab tests performed by: Division of Pathology and Laboratory Medicine [address] [place] [address] Protein Electrophoresis Path Review (04/03/2022 7:24 AM COMMODITY INDUSTRY ANALYST)Only the most recent of6 resultswithin the time period is included. Component Value Ref Test Analysis Performed At [facility] [place] Method Time Signature SPE Path The follow-up [place] [facility] serum protein MARY BETH electrophoretic CANCER pattern does not CENTER show definitive evidence of an M-protein peak. A hypogammaglobuline yamilet, however, is present. Comment: MD Benny MARVIN [id number] Dictated by: MD Benny MARVIN [id number] Dictated Date/Time: 04.11.2022 9:[address] Transcribed Date/Time: 04.11.2022 9:30 AM COMMODITY INDUSTRY ANALYST Electronically Signed By: MD Benny MARVIN [id number] on 04.11.2022 9:30 AM C Specimen Anatomical Collection Method Collection Time Receive d Time (Source) Location / / Volume Laterality Blood 04/03/2022 7:24 AM 3 1:46 COMMODITY INDUSTRY ANALYST PM COMMODITY INDUSTRY ANALYST Vanessa SUMMERS LAB BLOOD ORDERABLES Performing Organization Address City/[facility]/ZIP [facility] Phon e Number [facility] CANCER Unless otherwise noted, [address] all lab tests performed by: Division of Pathology and Laboratory Medicine [address] [place] [address] JUAN Path Review (04/03/2022 7:24 AM COMMODITY INDUSTRY ANALYST)Only the most recent of6 resultswithin the time period is included. Component Value Ref Test Analysis Performed At [facility] [place] Method Time Signature JUAN Path Int The follow-up [facility] immunofixation CANCER electrophoretic CENTER patterns obtained with the use of antisera against IgG, IgA, IgM, bound and free kappa light chains do not show definitive evidence of a monoclonal gammopathy. Comment: MD Benny MARVIN [id number] Dictated by: MD Benny MARVIN84 Dictated Date/Time: 04.11.2022 9:[address] Transcribed Date/Time: 04.11.2022 9:30 AM COMMODITY INDUSTRY ANALYST Electronically Signed By: MD Benny MARVIN on 04.11.2022 9:30 AM C Specimen Anatomical Collection Method Collection Time Receive d Time (Source) Location / / Volume Laterality Blood 04/03/2022 7:24 04/03/2022 1:46 AM COMMODITY INDUSTRY ANALYST PM COMMODITY INDUSTRY ANALYST Vanessa SUMMERS LAB BLOOD ORDERABLES Performing Organization Address City/State/ZIP Code Phon e Number [facility] CANCER Unless otherwise noted, [address] all lab tests performed by: Division of Pathology and Laboratory Medicine [address] [facility] (ABNORMAL) Free [place]/Free Lambda Ratio (04/03/2022 7:24 AM COMMODITY INDUSTRY ANALYST)Only the most recent of16 resultswithin the time period is included. athologist [facility] FKap/FLam RT 7.76 (H) 0.26 - [facility] 1.65 CANCER CENTER Specimen Anatomical Collection Method Collection Time Receive d Time (Source) Location / / Volume Laterality Blood 04/03/2022 7:24 AM 8:14 COMMODITY INDUSTRY ANALYST AM COMMODITY INDUSTRY ANALYST Vanessa SUMMERS LAB BLOOD ORDERABLES Performing Organization Address City/[facility] Phon e Number [facility] CANCER Unless otherwise noted, [address] all lab tests performed by: Division of Pathology and Laboratory Medicine [address] [place] Fractionated Bilirubin (04/03/2022 7:24 AM COMMODITY INDUSTRY ANALYST)Only the most recent of16 results within the time period is included. athologist Signature Bili Total <0.3 <=1.2 mg/dL [facility] DIAGNOSTIC CENTER Comment: Direct and indirect bilirubin will not b e reported when Total bilirubin result is <0.3 mg/dL Indocyanine Green (ICG) may cause falsel y elevated bilirubin results. Total and direct bilirubin must not be measured from samples containing indocyanine green. False elevation of total bilirubin can b e seen in patients with IgG concentrations above 28 g/L. Specimen Anatomical Collection Method Collection Time Receive d Time (Source) Location / / Volume Laterality Blood 04/03/2022 7:24 AM 3 7:35 COMMODITY INDUSTRY ANALYST AM COMMODITY INDUSTRY ANALYST Vaenssa SUMMERS LAB BLOOD ORDERABLES Performing Organization Address City/[facility] Phon e Number [facility] DIAGNOSTIC Unless otherwise noted, [place], [place] [address] [place] all lab tests performed by: Division of Pathology and Laboratory Medicine [facility] [place] (ABNORMAL) Free Lambda Light Chain (04/03/2022 7:24 AM COMMODITY INDUSTRY ANALYST)Only the most recent of16 resultswithin the time period is included. athologist Signature Free Lambda 2.93 (L) 5.71 - [facility] 26.30 mg/L [facility] Specimen Anatomical Collection Method Collection Time Receive d Time (Source) Location / / Volume Laterality Blood 04/03/2022 7:24 AM 3 8:14 COMMODITY INDUSTRY ANALYST AM COMMODITY INDUSTRY ANALYST Vanessa SUMMERS LAB BLOOD ORDERABLES Performing Organization Address City/[facility] Phon e Number [facility] CANCER Unless otherwise noted, [place] [address] [place] all lab tests performed by: Division of Pathology and Laboratory Medicine [address] [place] (ABNORMAL) Free [place] Light Chain (04/03/2022 7:24 AM COMMODITY INDUSTRY ANALYST)Only the most recent of16 resultswithin the time period is included. athologist Signature Free [place] 22.74 (H) 3.30 - [facility] 19.40 mg/L [facility] Specimen Anatomical Collection Method Collection Time Receive d Time (Source) Location / / Volume Laterality Blood 04/03/2022 7:24 AM 3 8:14 COMMODITY INDUSTRY ANALYST AM COMMODITY INDUSTRY ANALYST Vanessa Myrick HI LAB BLOOD ORDERABLES Performing Organization Address City/[facility] Phon e Number [facility] CANCER Unless otherwise noted, [address] all lab tests performed by: Division of Pathology and Laboratory Medicine [address] [place] [address] [place] JUAN (04/03/2022 7:24 AM COMMODITY INDUSTRY ANALYST)Only the most recent of16 resultswithin the time period is included. P athologist Signature JUAN No [facility] M-protein CAN[facility]ER CENTER Specimen Anatomical Collection Method Collection Time Receive d Time (Source) Location / / Volume Laterality Blood 04/03/2022 7:24 AM 3 8:14 COMMODITY INDUSTRY ANALYST AM COMMODITY INDUSTRY ANALYST Vanessa Myrick PA LAB BLOOD ORDERABLES Performing Organization Address City/[facility]/ZIP [facility] Phon e Number [facility] CANCER Unless otherwise noted, [address] all lab tests performed by: Division of Pathology and Laboratory Medicine [address] [place] [address] Uric Acid (04/03/2022 7:24 AM COMMODITY INDUSTRY ANALYST)Only the most recent of2 resultswithin the time period is included. P athologist Signature Uric Acid 4.4 2.4 - 5.7 [facility] mg/dL DIAGNOSTIC CENTER Specimen Anatomical Collection Method Collection Time Receive d Time (Source) Location / / Volume Laterality Blood 04/03/2022 7:24 AM 3 7:35 COMMODITY INDUSTRY ANALYST AM COMMODITY INDUSTRY ANALYST Vanessa Myrick PA LAB BLOOD ORDERABLES Performing Organization Address City/State/ZIP Code Phon e Number [facility] DIAGNOSTIC Unless otherwise noted, [place] [address] [place] all lab tests performed by: Division of Pathology and Laboratory Medicine [address] [place] [address] [place] ALT (04/03/2022 7:24 AM COMMODITY INDUSTRY ANALYST)Only the most recent of16 resultswithin the time period is included. P athologist Signature ALT 12 <=33 U/L [facility] Specimen Anatomical Collection Method Collection Time Receive d Time (Source) Location / / Volume Laterality Blood 04/03/2022 7:24 AM 3 7:35 COMMODITY INDUSTRY ANALYST AM COMMODITY INDUSTRY ANALYST Vanessa Myrick PA LAB BLOOD ORDERABLES Performing Organization Address City/State/ZIP Code Phon e Number [facility] DIAGNOSTIC Unless otherwise noted, [place] [address] [place] all lab tests performed by: Division of Pathology and Laboratory Medicine [address] [place] Aspartate Aminotransferase (04/03/2022 7:24 AM COMMODITY INDUSTRY ANALYST)Only the most recent of16 resultswithin the time period is included. [facility] AST 16 <=32 U/L [facility] Specimen Anatomical Collection Method Collection Time Receive d Time (Source) Location / / Volume Laterality Blood 04/03/2022 7:24 AM 3 7:35 COMMODITY INDUSTRY ANALYST AM COMMODITY INDUSTRY ANALYST Vanessa SUMMERS LAB BLOOD ORDERABLES Performing Organization Address City/[facility]/ZIP [facility] Phon e Number [facility] DIAGNOSTIC Unless otherwise noted, [place] [address] [place] all lab tests performed by: Division of Pathology and Laboratory Medicine [address] [place] (ABNORMAL) Serum Protein Electrophoresis (04/03/2022 7:24 AM COMMODITY INDUSTRY ANALYST)Only the most recent of16 resultswithin the time period is included. [facility] TOT PROTEIN 6.4 6.4 - 8.3 [facility] gm/dL [facility]ER CENTER Albumin 4.4 3.6 - 5.4 [facility] gm/dL [facility] Alpha 1 0.3 0.2 - 0.4 [facility] Globulin gm/dL [facility] Alpha 2 0.8 0.5 - 1.0 [facility] Globulin gm/dL [facility] CENTER Beta Globulin 0.6 0.5 - 1.1 [facility] CANCER CENTER Gamma Globulin 0.3 (L) 0.7 - 1.6 [facility] CENTER Specimen Anatomical Collection Method Collection Time Receive d Time (Source) Location / / Volume Laterality Blood 04/03/2022 7:24 AM 3 8:14 COMMODITY INDUSTRY ANALYST AM COMMODITY INDUSTRY ANALYST Vanessa SUMMERS LAB BLOOD ORDERABLES Performing Organization Address City/State/ZIP Code Phon e Number [facility] CANCER Unless otherwise noted, [place] [address] [place] all lab tests performed by: Division of Pathology and Laboratory Medicine [address] [place] Total Protein (04/03/2022 7:24 AM COMMODITY INDUSTRY ANALYST)Only the most recent of16 resultswithin the time period is included. [facility] Total Protein 6.4 6.4 - 8.3 [facility] g/dL DIAGNOSTIC CENTER Specimen Anatomical Collection Method Collection Time Receive d Time (Source) Location / / Volume Laterality Blood 04/03/2022 7:24 AM 3 7:35 COMMODITY INDUSTRY ANALYST AM COMMODITY INDUSTRY ANALYST Vanessa SUMMERS LAB BLOOD ORDERABLES Performing Organization Address [facility]/ZIP [facility] Phon e Number [facility] DIAGNOSTIC Unless otherwise noted, [address] all lab tests performed by: Division of Pathology and Laboratory Medicine [address] [place] Alkaline Phosphatase (04/03/2022 7:24 AM COMMODITY INDUSTRY ANALYST)Only the most recent of16 results within the time period is included. athologist Signature Alk Phos 66 35 - 104 [facility] U/L DIAGNOSTIC CENTER Specimen Anatomical Collection Method Collection Time Receive d Time (Source) Location / / Volume Laterality Blood 04/03/2022 7:24 AM 3 7:35 COMMODITY INDUSTRY ANALYST AM COMMODITY INDUSTRY ANALYST Vanessa SUMMERS LAB BLOOD ORDERABLES Performing Organization Address [facility] Phon e Number [facility] DIAGNOSTIC Unless otherwise noted, [address] all lab tests performed by: Division of Pathology and Laboratory Medicine [address] [place] LDH (04/03/2022 7:24 AM COMMODITY INDUSTRY ANALYST)Only the most recent of2 resultswithin the time period is included. athologist Signature LDH [phone] - 214 [facility] U/L DIAGNOSTIC CENTER Comment: Results greater than 1651 U/L m ay not be reliable due to matrix effect with extended dilution as it exceeds the manu facturer's recommended limit. Caution should be exercised when interpreting such valu es and done in conjunction with clinical context. Specimen Anatomical Collection Method Collection Time Receive d Time (Source) Location / / Volume Laterality Blood 04/03/2022 7:24 AM 3 7:47 COMMODITY INDUSTRY ANALYST AM COMMODITY INDUSTRY ANALYST Vanessa SUMMERS LAB BLOOD ORDERABLES Performing Organization Address [facility] Phon e Number [facility] DIAGNOSTIC Unless otherwise noted, [address] all lab tests performed by: Division of Pathology and Laboratory Medicine [address] [place] (ABNORMAL) IgA (04/03/2022 7:24 AM COMMODITY INDUSTRY ANALYST)Only the most recent of16 resultswithin the time period is included. athologist Signature IgA 9 (L) 85 - 499 [facility] mg/dL [facility] Specimen Anatomical Collection Method Collection Time Receive d Time (Source) Location / / Volume Laterality Blood 04/03/2022 7:24 AM 3 8:14 COMMODITY INDUSTRY ANALYST AM COMMODITY INDUSTRY ANALYST Vanessa Myrick PA LAB BLOOD ORDERABLES Performing Organization Address City/[facility]/ZIP [facility] Phon e Number [facility] CANCER Unless otherwise noted, [address] all lab tests performed by: Division of Pathology and Laboratory Medicine [address] [place] (ABNORMAL) IgM (04/03/2022 7:24 AM COMMODITY INDUSTRY ANALYST)Only the most recent of16 resultswithin the time period is included. athologist Signature IgM <10 (L) 35 - 242 [facility] mg/dL [facility] Specimen Anatomical Collection Method Collection Time Receive d Time (Source) Location / / Volume Laterality Blood 04/03/2022 7:24 AM 3 8:14 COMMODITY INDUSTRY ANALYST AM COMMODITY INDUSTRY ANALYST Vanessa Myrick PA LAB BLOOD ORDERABLES Performing Organization Address City/[facility] Phon e Number [facility] CANCER Unless otherwise noted, [address] all lab tests performed by: Division of Pathology and Laboratory Medicine [address] [place] (ABNORMAL) IgG (04/03/2022 7:24 AM COMMODITY INDUSTRY ANALYST)Only the most recent of16 resultswithin the time period is included. athologist Signature IgG 325 (L) 610 - 1,616 [facility] mg/dL [facility] Specimen Anatomical Collection Method Collection Time Receive d Time (Source) Location / / Volume Laterality Blood 04/03/2022 7:24 AM 3 8:14 COMMODITY INDUSTRY ANALYST AM COMMODITY INDUSTRY ANALYST Vanessa Ensequencejordana PA LAB BLOOD ORDERABLES Performing Organization Address City/[facility] Phon e Number [facility] CANCER Unless otherwise noted, [address] all lab tests performed by: Division of Pathology and Laboratory Medicine [address] (ABNORMAL) Beta 2 Microglobulin (04/03/2022 7:24 AM COMMODITY INDUSTRY ANALYST)Only the most recent of2 resultswithin the time period is included. P athologist Signature Beta2 3.2 (H) 0.8 - 2.3 [facility] Microglob mg/L [facility] Comment: This test is measured by turbid imetric methodology on the [facility] Optilite analyzer. Results obtained from different methods are not interchangeable. Specimen Anatomical Collection Method Collection Time Receive d Time (Source) Location / / Volume Laterality Blood 04/03/2022 7:24 AM 8:14 COMMODITY INDUSTRY ANALYST AM COMMODITY INDUSTRY ANALYST Vanessa Myrick HI LAB BLOOD ORDERABLES Performing Organization Address City/[facility]/ZIP Code Phon e Number [facility] CANCER Unless otherwise noted, [place] [address] CENTER all lab tests performed by: Division of Pathology and Laboratory Medicine [address] [place] Albumin Level (04/03/2022 7:24 AM COMMODITY INDUSTRY ANALYST)Only the most recent of16 resultswithin the time period is included. athologist [facility] Albumin Lvl 4.5 3.5 - 5.2 [facility] gm/dL [facility] Specimen Anatomical Collection Method Collection Time Receive d Time (Source) Location / / Volume Laterality Blood 04/03/2022 7:24 04/03/2022 7:35 AM COMMODITY INDUSTRY ANALYST AM COMMODITY INDUSTRY ANALYST Vanessa Myrick HI LAB BLOOD ORDERABLES Performing Organization Address City/[facility]/ZIP [facility] Phon e Number [facility] DIAGNOSTIC Unless otherwise noted, [place] [address] CENTER all lab tests performed by: Division of Pathology and Laboratory Medicine [address] [place] Urine JUAN Path Review (04/03/2022 5:00 AM COMMODITY INDUSTRY ANALYST)Only the most recent of3 results within the time period is included. 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 Cor relation with the clinical findings, however, is recommended. [facility] Comment: MD Benny BURGESS Dictated by: MD Benny BURGESS Dictated Date/Time: 04.08.2022 13:10 PM COMMODITY INDUSTRY ANALYST Transcribed Date/Time: 04.08.2022 13:10 PM COMMODITY INDUSTRY ANALYST Electronically Signed By: MD Benny DAVIDSON on 04.08.2022 13:10 PM Specimen Anatomical Collection Method Collection Time Receive d Time (Source) Location / / Volume Laterality Urine 24 Hr 04/03/2022 5:00 AM 9:33 COMMODITY INDUSTRY ANALYST AM COMMODITY INDUSTRY ANALYST Vanessa SUMMERS URINE ORDERABLES Performing Organization Address City/State/ZIP Code Phon e Number [place] [facility] [place] [facility] Unless otherwise noted, [address] all lab tests performed by: Division of Pathology and Laboratory Medicine [facility] Urine Prot Electrophoresis Path Review (04/03/2022 5:00 AM COMMODITY INDUSTRY ANALYST)Only the most recent of3 resultswithin the time period is included. Component Value Ref Test Analysis Performed At [facility] gist Range Method Time Signature U ProE Path The follow-up urine protein electrophoretic pattern shows [place] MD [place] that a peak is still present in the gamma region, the excretion of which is 9 mg/day. This represents a decrease when compared to the previous study MARY BETH of 19 mg/day on 02/20/2022. However, the urine JUAN studies no longer produce a well defined band with bound or free kappa light chain antisera, so the identity of this peak as the Bence-Fields protein peak cannot be completely confirmed. [facility] Comment: MD Benny BURGESS Dictated by: MD Benny BURGESS Dictated Date/Time: 04.08.2022 13:10 PM COMMODITY INDUSTRY ANALYST Transcribed Date/Time: 04.08.2022 13:10 PM COMMODITY INDUSTRY ANALYST Electronically Signed By: MD Benny DAVIDSON on 04.08.2022 13:10 PM Specimen Anatomical Collection Method Collection Time Receive d Time (Source) Location / / Volume Laterality Urine 24 Hr 04/03/2022 5:00 AM 3 9:33 COMMODITY INDUSTRY ANALYST AM COMMODITY INDUSTRY ANALYST Vanessa USMMERS URINE ORDERABLES Performing Organization Address City/State/ZIP Code Phon e Number [facility] CANCER Unless otherwise noted, [address] all lab tests performed by: Division of Pathology and Laboratory Medicine [address] [place] (ABNORMAL) Total Volume (04/03/2022 5:00 AM COMMODITY INDUSTRY ANALYST)Only the most recent of9 results within the time period is included. Analysis Performed At Patho logist Time Signature Total Volume 1,750 (H) 1,200 - [facility] 1,500 WHEELER mL/24 h [facility] Hrs Collected 24 [facility] Start Date 04/02/2022 [facility] End Date 04/03/2022 [facility] U24 Comment 0500 0500 [facility] Specimen Anatomical Collection Method Collection Time Receive d Time (Source) Location / / Volume Laterality Urine 24 Hr 04/03/2022 5:00 AM 3 7:52 COMMODITY INDUSTRY ANALYST AM COMMODITY INDUSTRY ANALYST Vanessa SUMMERS URINE ORDERABLES Performing Organization Address City/[facility]/ZIP Code Phon e Number [facility] CANCER Unless otherwise noted, [address] all lab tests performed by: Division of Pathology and Laboratory Medicine [address] (ABNORMAL) 24hr Urine Total Protein (04/03/2022 5:00 AM COMMODITY INDUSTRY ANALYST)Only the most recent of9 resultswithin the time period is included. P athologist Signature UTP 9 mg/dL [facility] Comment: Caution is advised when interpreting natalya ues greater than 555 mg/dL. Results requiring extended dilution beyo nd the transfer clerk's recommended limit may not dilute linearly due to pot ential matrix effect. Correlation with clinical context is rec ommended. UTP 24 158 (H) <=149 mg/24hr [facility] Specimen Anatomical Collection Method Collection Time Receive d Time (Source) Location / / Volume Laterality Urine 24 Hr 04/03/2022 5:00 AM 3 9:07 COMMODITY INDUSTRY ANALYST AM COMMODITY INDUSTRY ANALYST Vanessa SUMMERS URINE ORDERABLES Performing Organization Address [facility]/ZIP [facility] Phon e Number [facility] CANCER Unless otherwise noted, [address] all lab tests performed by: Division of Pathology and Laboratory Medicine [address] Protein Electrophoresis Urine (04/03/2022 5:00 AM COMMODITY INDUSTRY ANALYST)Only the most recent of9 resultswithin the time period is included. athologist [facility] U Albumin % 35.6 % [facility] U Globulin% 64.4 % [facility] U [place] Fields see note 0.0 - 0.0 [facility] Specimen Anatomical Collection Method Collection Time Receive d Time (Source) Location / / Volume Laterality Urine 24 Hr 04/03/2022 5:00 AM 3 9:49 COMMODITY INDUSTRY ANALYST AM COMMODITY INDUSTRY ANALYST Vanessa SUMMERS URINE ORDERABLES Performing Organization Address [facility] Phon e Number [facility] Unless otherwise noted, [address] all lab tests performed by: Division of Pathology and Laboratory Medicine [address] JUAN Urine (04/03/2022 5:00 AM COMMODITY INDUSTRY ANALYST)Only the most recent of9 resultswithin the time period is included. athologist [facility] UIFE susp kappa [facility] Specimen Anatomical Collection Method Collection Time Receive d Time (Source) Location / / Volume Laterality Urine 24 Hr 04/03/2022 5:00 AM 3 9:49 COMMODITY INDUSTRY ANALYST AM COMMODITY INDUSTRY ANALYST Vanessa SUMMERS URINE ORDERABLES Performing Organization Address City/[facility]/ZIP [facility] Phon e Number [facility] CANCER Unless otherwise noted, [address] all lab tests performed by: Division of Pathology and Laboratory Medicine [address] EKG, 12-Lead (Scheduled) (04/03/2022) Specimen (Source) Anatomical Location Collection Method / Collectio n Time Received Time / Laterality Volume Narrative This result has an attachment that is no t available. Francy SUMMERS ECG ORDERABLES Performing Organization Address City/[facility]/ZIP [facility] Phon e Number [facility] XR Hip 2 or 3 Views w Pelvis Left (03/14/2022 1:40 PM COMMODITY INDUSTRY ANALYST) Anatomical Region Laterality Modality Hip, Extremity Digital Radiography Specimen (Source) Anatomical Collection Method Collection Time Re ceived Time Location / / Volume Laterality 03/14/2022 2:01 PM COMMODITY INDUSTRY ANALYST Impressions 03/14/2022 2:08 PM COMMODITY INDUSTRY ANALYST 1. No interval change in the alignment of the fragments of the subcapital fracture of the left femur is suspected as compared to 02/06/2022. The fracture is partially impacted. 2. No interval change in the pathologi c fracture of the left ischium with insufficiency fracture of the left superior pubic ramus. 3. Increased mature callus at the frac ture of the junction of the left inferior pubic ramus with the body of the pubic bone. Narrative 03/14/2022 2:08 PM COMMODITY INDUSTRY ANALYST FULL RESULT: Examination: XR HIP 2 OR 3 VW W PELVIS L EFT, 03/14/2022 1:40 PM. Clinical History: Multiple myeloma Pain in left hip Fracture of proximal end of femur <Left side; Closed; Initial> Indication: Hip fracture, healing assess ment Comparison: CT of the left hip Technique: Left hip: 2 views with one vi ew of pelvis. Findings: A subcapital fracture of the l eft femoral neck is again visualized. The distal fragment is superiorly dislocated with respect to the proximal fragment. Nevertheless, there is partial impaction of the distal femoral neck on to the fe moral head. Nevertheless, the fracture fragments are unopposed superiorly. No significant interval change is suspected given differences in modality. A pathologic fracture through a lytic le bob is visualized in the left ischium. Insufficiency-type fractures are visualized at the lateral aspect of the left superior pubic ramus and at the junction of the inferior pubic ramus with the pubic body. No definite interval change is visualized at the lateral aspect of the superior pubic ramus. Increased maturity of the callus is seen at the junction of the inferior pubic ramus and the body of th e pubic bone. No joint dislocation or subluxation. Rig ht hip joint spacing in the sacroiliac joints are intact. Degenerative mild/moderate narrowing of the right sacroiliac joint is apparent. Procedure Note Chana Cottrell MD - 03/14/2022Forma tting of this note might be different from the original. FULL RESULT: Examination: XR HIP 2 OR 3 VW W PELVIS L EFT, 03/14/2022 1:40 PM. Clinical History: Multiple myeloma Pain in left hip Fracture of proximal end of femur <Left side; Closed; Initial> Indication: Hip fracture, healing assess ment Comparison: CT of the left hip 2 Technique: Left hip: 2 views with one vi ew of pelvis. Findings: A subcapital fracture of the l eft femoral neck is again visualized. The distal fragment is superiorly dislocated with respect to the proximal fragment. Nevertheless, there is partial impaction of the distal femoral neck on to the femoral he ad. Nevertheless, the fracture fragments are unopposed superiorly. No significant interval change is suspected given differences in modality. A pathologic fracture through a lytic le bob is visualized in the left ischium. Insufficiency-type fractures are visualized at the lateral aspect of the left superior pubic ramus and at the junction of the inferior pubic ramus with the pubic body. No definite i nterval change is visualized at the lateral aspect of the superior pubic ramus. Increased maturity of the callus is seen at the junction of the inferior pubic ramus and the body of the pubic bone. No joint dislocation or subluxation. Rig ht hip joint spacing in the sacroiliac joints are intact. Degenerative mild/moderate narrowing of the right sacroiliac joint is apparent. IMPRESSION: 1. No interval change in the alignment o f the fragments of the subcapital fracture of the left femur is suspected as compared to 02/06/2022. The fracture is partially impacted. 2. No interval change in the pathologic fracture of the left ischium with insufficiency fracture of the left superior pubic ramus. 3. Increased mature callus at the fractu re of the junction of the left inferior pubic ramus with the body of the pubic bone. David Forbes MD IMG DIAGNOSTIC IMAGING ORDER CARA Respiratory Multiplex PCR Panel, Nasopharyngeal Swab (02/20/2022 12:16 PM COMMODITY INDUSTRY ANALYST) Only the most recent of2 resultswithin the time period is included. [facility] Method Time Signature Adenovirus Not Not UT MD Detected Detected [facility] Coronavirus 229E Not Not ANGIE MD Detected Detected [facility] Coronavirus HKU1 Not Not [place] MD Detected Detected [facility] Coronavirus NL63 Not Not UT MD Detected Detected [facility] Coronavirus OC43 Not Not UT MD Detected Detected [facility] COVID19 Not Not UT MD (SARS-CoV-2) Detected Detected [facility] Human Not Not UT MD Metapneumovirus Detected Detected [facility] Human Not Not UT MD Rhinovirus/Enterov Detected Detected [facility] Influenza A Not Not UT MD Detected Detected [facility] Influenza A H1 Not Not UT MD Detected Detected [facility] Influenza A H1 Not Not UT MD 2009 Detected Detected [facility] Influenza A H3 Not Not UT MD Detected Detected [facility] Influenza B Not Not UT MD Detected Detected [facility] Parainfluenza 1 Not Not UT MD Detected Detected [facility] Parainfluenza 2 Not Not UT MD Detected Detected [facility] Parainfluenza 3 Not Not UT MD Detected Detected [facility] Parainfluenza 4 Not Not UT MD Detected Detected [facility] Respiratory Not Not UT MD Syncytial Virus Detected Detected [facility] Bordetella Not Not UT MD Parapertussis Detected Detected [facility] Bordetella Not Not UT MD pertussis Detected Detected [facility] Chlamydiophila Not Not UT MD pneumoniae Detected Detected [facility] Mycoplasma Not Not UT MD pneumoniae Detected Detected [facility] Specimen (Source) Anatomical Collection Method Collection Time Re ceived Time Location / / Volume Laterality Nasopharyngeal Swab 02/20/2022 12:16 /04/2022 PM COMMODITY INDUSTRY ANALYST 12:52 PM COMMODITY INDUSTRY ANALYST Narrative UT MD [facility] - 3 1:58 PM COMMODITY INDUSTRY ANALYST Has patient had a positive for COVID-19 result in the last 3 months?->No The BioFire RP2.1 is a real-time, nested multiplexed polymerase chain reaction test designed to simultaneously identify nucleic acids from 22 different viruses and bacteria associated with respiratory tract infect ion, including SARS-CoV-2, from a single nasopharyngeal swab (TREASURY AGENT) specimen obtained from individuals suspected of respiratory tract infections, including COVID-19. Results must be interpreted within the c ontext of all relevant clinical and laboratory findings and should not form the sole basis for a diagnosis or treatment decision. Positive results do not rule out coninfection with other organisms. Nega tive results in the setting of a respiratory illness may be due to infection with pathogens that are not detected by this panel, or a lower respiratory tract infection that may not be detected by an TREASURY AGENT specimen. Internal controls are used to monitor al l stages of the test process and assess for possible amplification inhibitors. If inhibition is detected, testing is repeated and if inhibition is confirmed the s pecimen is resulted as "Invalid". When a n "Invalid" result occurs, it is recommended to wait 3 days before submitting a new specimen for testing if clinically indicated. This assay has been approved by the FDA for use in laboratories that have been CLIA-certified to perform moderate-complexity and high-complexity tests. The Microbiology Laboratory at [facility], CLIA Accreditation #[id number] and CAP Accreditation #[id number], verified the per formance characteristics of this assay. Microbiology Laboratory at [facility] performs the assay using the HuoBi System. Norberto Gregory MD MICROBIOLOGY - GENERAL ORDER CARA Performing Organization Address City/State/ZIP Code Phon e Number [facility] CANCER Unless otherwise noted, [place] [address] [place] all lab tests performed by: Division of Pathology and Laboratory Medicine [address] [facility] XR Chest 2 Views (02/20/2022 11:06 AM COMMODITY INDUSTRY ANALYST)Only the most recent of3 resultswithin the time period is included. Anatomical Region Laterality Modality Chest Digital Radiography Specimen (Source) Anatomical Collection Method Collection Time Re ceived Time Location / / Volume Laterality 02/20/2022 11:20 AM COMMODITY INDUSTRY ANALYST Impressions 02/20/2022 11:22 AM COMMODITY INDUSTRY ANALYST Increased left lower lobe opacities suspicious for aspiration and/or pneumonia Narrative 02/20/2022 11:22 AM COMMODITY INDUSTRY ANALYST FULL RESULT: Examination: XR CHEST 2 VW, 02/20/2022 11: 06 AM Clinical History: Subacute cough, multip le myeloma Indication: Cough, Shortness of Breath Comparison: 01/16/2022 Technique: Posteroanterior, lateral and dual-energy radiographs of the chest. Findings: The cardiomediastinal silhouette is stab le. No pleural effusion identified. There are increased left lower lobe opacity degenerative changes of osseous structures noted. Procedure Note Shae Oh MD - 02/20/2022 FULL RESULT: Examination: XR CHEST 2 VW, 02/20/2022 11: 06 AM Clinical History: Subacute cough, multip le myeloma Indication: Cough, Shortness of Breath Comparison: 01/16/2022 Technique: Posteroanterior, lateral and dual-energy radiographs of the chest. Findings: The cardiomediastinal silhouette is stab le. No pleural effusion identified. There are increased left lower lobe opacity degenerative changes of osseous structures noted. IMPRESSION: Increased left lower lobe opacities susp icious for aspiration and/or pneumonia Vanessa SUMMERS IMG DIAGNOSTIC IMAGING ORDER CARA Immunoelectrophoresis Path Review (02/20/2022 7:45 AM COMMODITY INDUSTRY ANALYST)Only the most recent of5 resultswithin the time period is included. Component Value Ref Test Analysis Performed At [email or web address] Method Time Signature JUAN Path Int The follow-up serum protein immunofixation electrophoretic patterns obtained with the use of antisera against IgG, IgA, IgM, bound and free [place] light chain proteins ANGIE SPENCE show no definitive evidence of a monoclonal gammopathy. MARY BETH clinical correlation is suggested. [facility]ENTER Comment: MD Benny RIVERA [id number] Dictated by: MD Bneny RIVERA [id number] Dictated Date/Time: 02.20.2022 16:22 PM COMMODITY INDUSTRY ANALYST Transcribed Date/Time: 02.20.2022 16:22 PM COMMODITY INDUSTRY ANALYST Electronically Signed By: MD Benny RIVERA [id number] on 02.20.2022 16:22 PM Specimen Anatomical Collection Method Collection Time Receive d Time (Source) Location / / Volume Laterality Blood 02/20/2022 7:45 AM 3 COMMODITY INDUSTRY ANALYST 10:31 AM COMMODITY INDUSTRY ANALYST Shelli Henderson APN LAB BLOOD ORDERABLES Performing Organization Address City/State/ZIP Code Phon e Number [place] [facility] [place] [facility] Unless otherwise noted, [place] [address] [place] all lab tests performed by: Division of Pathology and Laboratory Medicine Nyla Jones Protein Electrophoresis Path Review (02/20/2022 7:45 AM COMMODITY INDUSTRY ANALYST)Only the most recent of5 resultswithin the time period is included. Component Value Ref Test Analysis Performed At [email or web address] Method Time Signature SPE Path The follow-up [place] MD [place] serum protein MARY BETH electrophoretic CANCER pattern shows no CENTER definitive evidence of an M-protein peak. Comment: MD Benny RIVERA [id number] Dictated by: MD Benny RIVERA [id number] Dictated Date/Time: 02.20.2022 16:22 PM COMMODITY INDUSTRY ANALYST Transcribed Date/Time: 02.20.2022 16:22 PM COMMODITY INDUSTRY ANALYST Electronically Signed By: MD Benny RIVERA [id number] on 02.20.2022 16:22 PM Specimen Anatomical Collection Method Collection Time Receive d Time (Source) Location / / Volume Laterality Blood 02/20/2022 7:45 AM COMMODITY INDUSTRY ANALYST 10:31 AM COMMODITY INDUSTRY ANALYST Shelli Henderson APN LAB BLOOD ORDERABLES Performing Organization Address City/State/ZIP Code Phon e Number [facility] CANCER Unless otherwise noted, [address] all lab tests performed by: Division of Pathology and Laboratory Medicine [address] [place] [address] CT Hip Left without Contrast (02/06/2022 7:06 AM COMMODITY INDUSTRY ANALYST) Anatomical Region Laterality Modality Extremity, Hip Computed Tomography Specimen (Source) Anatomical Collection Method Collection Time Re ceived Time Location / / Volume Laterality 02/06/2022 9:15 AM COMMODITY INDUSTRY ANALYST Impressions 02/06/2022 9:33 AM COMMODITY INDUSTRY ANALYST Left hemipelvis fractures as characteriz ed above. Narrative 02/06/2022 9:33 AM COMMODITY INDUSTRY ANALYST FULL RESULT: Examination: CT HIP LEFT WO CONTRAST, 7:06 AM. Clinical History: 71-year-old woman with multiple myeloma Fracture of proximal end of femur <Left side; Closed; Initial> Indication: Hip neoplasm (known or suspe cted), Hip fracture, X-ray hip done, Hip pain, Pre-op planning for hip fracture, myeloma Comparison: Computed tomography of the l eft hip May 06, 2020. Conventional radiographs of the pelvis February 06, 2022. Magnetic resonance imaging of the pelvis January 24, 2022. Technique: CT of the left hip was perfor med without administration of intravenous contrast. Multiplanar reformations in the coronal and sagittal planes are provided. Images obtained utilizing contiguous 0.63 mm axial sections. These sections were then reformatted into contiguous 2.5 mm axial sections as well as 1.25 mm contiguous sagittal and coronal sections. Findings: 1. Comparison was primarily with the CT examination of May 06, 2020. 2. Generalized bone demineralization thr oughout the region imaged. Overall bone stock is poor 3. Known left pelvic fractures: * The comminuted pathological fracture surrounding a lytic lesion of the posterior column shows increased mineral content of the cortical fragments but no bridging. There is some central increased min eral content. Compare series 4 image 183 of May 06, 2020 with series 5 image 47 of February 06, 2022. * The superior pubic ramus fracture at the acetabulum shows bone resorption and no bridging. Compare series 4 image 162 May 06, 2020 with series 5 image 411 of February 06, 2022. * The inferior pubic ramus fracture ad jacent to the pubis shows hypertrophic union with some persistence of fracture line. Compare series 4 image 203 of May 06, 2020 with series 5 image 57 of February 06, 2022. 4. The impacted subcapital fracture of t he left femur shows a small trabecular and cortical fragments with medial rotation of the epiphysis and slight cranial shift of the shaft. See series 601 image 112. 5. L4/L5 and L5/S1 degenerative disc dis ease. Series 8 image 216. Procedure Note Raúl Cabrera Jr., MD - 02/06/2022F ormatting of this note might be different from the original. FULL RESULT: Examination: CT HIP LEFT WO CONTRAST, 7:06 AM. Clinical History: 71-year-old woman with multiple myeloma Fracture of proximal end of femur <Left side; Closed; Initial> Indication: Hip neoplasm (known or suspe cted), Hip fracture, X-ray hip done, Hip pain, Pre-op planning for hip fracture, myeloma Comparison: Computed tomography of the l eft hip May 06, 2020. Conventional radiographs of the pelvis February 06, 2022. Magnetic resonance imaging of the pelvis January 24, 2022. Technique: CT of the left hip was perfor med without administration of intravenous contrast. Multiplanar reformations in the coronal and sagittal planes are provided. Images obtained utilizing contiguous 0.63 mm axial sections. These sections were then refor matted into contiguous 2.5 mm axial sections as well as 1.25 mm contiguous sagittal and coronal sections. Findings: 1. Comparison was primarily with the CT examination of May 06, 2020. 2. Generalized bone demineralization thr oughout the region imaged. Overall bone stock is poor 3. Known left pelvic fractures: * The comminuted pathological fracture s urrounding a lytic lesion of the posterior column shows increased mineral content of the cortical fragments but no bridging. There is some central increased mineral content. Compare series 4 image 183 of May 06, 2020 wit h series 5 image 47 of February 06, 2022. * The superior pubic ramus fracture at t he acetabulum shows bone resorption and no bridging. Compare series 4 image 162 May 06, 2020 with series 5 image 411 of February 06, 2022. * The inferior pubic ramus fracture savannah cent to the pubis shows hypertrophic union with some persistence of fracture line. Compare series 4 image 203 of May 06, 2020 with series 5 image 57 of February 06, 2022. 4. The impacted subcapital fracture of t he left femur shows a small trabecular and cortical fragments with medial rotation of the epiphysis and slight cranial shift of the shaft. See series 601 image 112. 5. L4/L5 and L5/S1 degenerative disc dis ease. Series 8 image 216. IMPRESSION: Left hemipelvis fractures as characteriz ed above. Marisa Braswell NP IMG CT ORDERABLES MRI Pelvis with and without Contrast - Musculoskeletal (01/24/2022 10:10 AM COMMODITY INDUSTRY ANALYST) Only the most recent of2 resultswithin the time period is included. Anatomical Region Laterality Modality Pelvis Magnetic Resonance Specimen (Source) Anatomical Collection Method Collection Time Re ceived Time Location / / Volume Laterality 01/24/2022 10:49 AM COMMODITY INDUSTRY ANALYST Impressions 01/24/2022 11:09 AM COMMODITY INDUSTRY ANALYST 1. Slight interval increase in the impaction of the subcapital insufficiency fracture of the left femoral neck. No interval dislocation. 2. No significant interval change in t he insufficiency fractures of the left superior pubic ramus and ischium. These 3 fractures all continue to demonstrate associated fracture edema, unchanged. 3. Foci of high T2 signal intensity in the sacroiliac joints is consistent with stress and demonstrates no significant interval change. No iliac or sacral alar fractures are detected. 4. No indication of disease progressio n. Narrative 01/24/2022 11:09 AM COMMODITY INDUSTRY ANALYST FULL RESULT: Examination: MRI PELVIS W WO CONTRAST - MUSCULOSKELETAL, 01/24/2022 10:10 AM. Clinical History: Multiple myeloma Pain in left hip Indication: Multiple myeloma, assessment of previous fractures Comparison: MRI pelvis 08/22/2021. PET/CT 12/20/2021 Technique: Multiplanar multisequence mag netic resonance imaging of the pelvis was performed without and with intravenous administration of contrast. Findings: Insufficiency fractures of the left superior pubic ramus, ischium and subcapital femoral neck are again visualized with associated edema. There is interval greater impaction of the femoral fra cture with no interval dislocation of th e fracture fragments. No increase in signal abnormality worrisome for underlying progressive myeloma is detected at the fracture sites. Small foci of edema are visualized in th e riwq-grlthuv-ytcq-right sacroiliac joints as can be seen on series 3 image 14 and is also consistent with stress. No interval change is detected. No interval de velopment of fractures in the sacrum or iliac bones. A small focus of mildly diminished T1 si gnal, slightly increased T2 signal and enhancement is visualized in the right medial iliac bone measuring 0.8 x 1.1 cm on series 9 image 10. No interval change is detected. It may represent an island of red marrow. Healed insufficiency fracture of the lef t inferior pubic ramus with no associated edema. Procedure Note Chana Cottrell MD - 01/24/2022Forma tting of this note might be different from the original. FULL RESULT: Examination: MRI PELVIS W WO CONTRAST - MUSCULOSKELETAL, 01/24/2022 10:10 AM. Clinical History: Multiple myeloma Pain in left hip Indication: Multiple myeloma, assessment of previous fractures Comparison: MRI pelvis 08/22/2021. PET/CT 12/20/2021 Technique: Multiplanar multisequence mag netic resonance imaging of the pelvis was performed without and with intravenous administration of contrast. Findings: Insufficiency fractures of the left superior pubic ramus, ischium and subcapital femoral neck are again visualized with associated edema. There is interval greater impaction of the femoral fracture with no interval dislocation of the fracture fra gments. No increase in signal abnormality worrisome for underlying progressive myeloma is detected at the fracture sites. Small foci of edema are visualized in th e fnht-mklrmol-qilf-right sacroiliac joints as can be seen on series 3 image 14 and is also consistent with stress. No interval change is detected. No interval development of fractures in the sacrum o r iliac bones. A small focus of mildly diminished T1 si gnal, slightly increased T2 signal and enhancement is visualized in the right medial iliac bone measuring 0.8 x 1.1 cm on series 9 image 10. No interval change is detected. It may represent an island of red marrow. Healed insufficiency fracture of the lef t inferior pubic ramus with no associated edema. IMPRESSION: 1. Slight interval increase in the impac tion of the subcapital insufficiency fracture of the left femoral neck. No interval dislocation. 2. No significant interval change in the insufficiency fractures of the left superior pubic ramus and ischium. These 3 fractures all continue to demonstrate associated fracture edema, unchanged. 3. Foci of high T2 signal intensity in t he sacroiliac joints is consistent with stress and demonstrates no significant interval change. No iliac or sacral alar fractures are detected. 4. No indication of disease progression. Francy Donaldson [facility] MRI ORDERABLES POC Creatinine (01/24/2022 8:57 AM COMMODITY INDUSTRY ANALYST) athologist Signature POC Crea 0.9 0.6 - 1.3 POC TELCOR mg/dL Comment: Medications, especially hydroxyurea or s upplements, such as ascorbate, can interfere with test results causing a falsely and significantly higher result than expected. If a problem is suspected with a patient's result, a sample should be sent to the laboratory for confirmatory testing. Method description: The i-STAT is an cirilo lyzer used for in vitro quantification of various analytes in whole blood. The device uses a single disposable cartridge which contains microfabricated sensors, a calibration solution, fluidics system, and a waste chamber. Each test cartridge contains ch emically sensitive biosensors on a silicon chip that are configured to perform specific tests. The microfabricated sensors measure analyte concentration by an electrochemical assay. POC EGFR 68 >=60 mL/min/1.73 sq. m POC TEL COR Comment: The eGFRcr is calculated with the 2020 KD-EPI creatinine equation using creatinine, patient's age, and sex for adults 18 years of age and older. Other factors, especially muscle mass, may affect accuracy and need to be considered. According to the Kidney Disease: Improvi ng Global Outcomes (KDIGO) CKD Work Group 2012 Clinical Practice Guideline, chronic kidney disease (CKD) is defined as the abnormalities of kidney structure or function, present for more than 3 months, with implications for health. CKD should be c lassified by cause, GFR category, and albuminuria category. KDIGO guidelines provide the following GFR categories Stage Description GFR mL/min/1.73 m2 G1* Normal or high >= 90 G2* Mildly decreased 60-89 G3a Mildly to moderately decreased 45-59 G3b Moderately to severely decreased 30- 44 G4 Severely decreased 15-29 G5 Kidney failure <15 *In the absence of evidence of kidney da mage, neither G1 nor G2 fulfill criteria for CKD. POC Clean Dev Yes POC TELCOR Performing Lab [facility] POC TELCO R Comment: [facility], [address] [place] [address], [place] [address]; Lab Direct or: Vanessa Grady MD Specimen Anatomical Collection Method Collection Time Receive d Time (Source) Location / / Volume Laterality Blood 01/24/2022 8:57 AM 8:57 COMMODITY INDUSTRY ANALYST AM COMMODITY INDUSTRY ANALYST Francy SUMMERS POCT ORDERABLES - DEVICE Performing Organization Address City/State/[facility] Code Phon e Number POC TELCOR Unless otherwise noted, [place] [address] lab tests performed by: Division of Pathology and Laboratory Medicine [address] [place] [address] POC TELCOR Unless otherwise notes, [place] [address] lab tests performed by: Division of Pathology and Laboratory Medicine [address] [place] [address] HBV DNA Quant (01/24/2022 7:15 AM COMMODITY INDUSTRY ANALYST)Only the most recent of6 resultswithin the time period is included. [facility] Method Time Signature HBV DNA Undetected Undetected [place] [facility] IU/mL [facility] Comment: Result in log IU/mL is Undetected. ADDITIONAL INFORMATIO N The quantification range of this assay i s 10 to 1,000,000,000 IU/mL (1.00 log to 9.00 lo g IU/mL). Testing was performed using the sayra HBV test ( [id number] with the sayra [employer] Syste m. Test Performed by: Formerly named [facility] [address] [address] 90 Linux System Engineer: Raúl Salvador M.D. Ph. D.; IA# [id number] Specimen Anatomical Collection Method Collection Time Receive d Time (Source) Location / / Volume Laterality Blood 01/24/2022 7:15 AM 2 8:40 COMMODITY INDUSTRY ANALYST AM COMMODITY INDUSTRY ANALYST Norberto Gregory MD LAB BLOOD ORDERABLES Performing Organization Address City/[facility] Phon e Number [facility] Unless otherwise noted, [address] all lab tests performed by: Division of Pathology and Laboratory Medicine [address] [place] [address] [place] Urine JUAN Path Review (01/16/2022 5:10 AM COMMODITY INDUSTRY ANALYST)Only the most recent of3 results within the time period is included. Component Value Ref Test Analysis Performed At [facility] gist Range Method Time Signature UIFE Path Int The follow-up urine protein immunofixation electrophoretic patterns obtained with the use of antisera against IgG, IgA, IgM, bound kappa and bound lambda light chains, free kappa and free lambda light chains are consistent with a kappa Vinny-Donnie ADAMS MD proteinuria. Correlation with the clinical findi ngs, however, is recommended. [facility] Comment: MD Benny MARVIN [id number] Dictated by: MD Benny MARVIN [id number] Dictated Date/Time: 01.17.2022 17:20 PM COMMODITY INDUSTRY ANALYST Transcribed Date/Time: 01.17.2022 17:20 PM COMMODITY INDUSTRY ANALYST Electronically Signed By: MD Benny MARVIN [id number] on 01.17.2022 17:20 PM Specimen Anatomical Collection Method Collection Time Receive d Time (Source) Location / / Volume Laterality Urine 24 Hr 01/16/2022 5:10 AM 2 1:50 COMMODITY INDUSTRY ANALYST PM COMMODITY INDUSTRY ANALYST Norberto Gregory MD URINE ORDERABLES Performing Organization Address City/[facility] Phon e Number [facility]CER Unless otherwise noted, [address] all lab tests performed by: Division of Pathology and Laboratory Medicine [address] [place] [address] [place] Urine Prot Electrophoresis Path Review (01/16/2022 5:10 AM COMMODITY INDUSTRY ANALYST)Only the most recent of3 resultswithin the time period is included. Component Value Ref Test Analysis Performed At [email or web address] [email or web address] Method Time Signature U ProE Path The follow-up urine protein electrophoretic pattern shows that the current Bence-Fields protein excretion is 15 mg/day. The small degree of change between the current value and that of the previous study ANGIE Tidwell on 12/26/21 falls within the expected imprecision MARY BETH limits of this test, consequ ently, these results should be correlated with the clinical findings. [facility] Comment: MD Benny MARVIN [id number] Dictated by: MD Benny MARVIN84 Dictated Date/Time: 01.17.2022 17:20 PM COMMODITY INDUSTRY ANALYST Transcribed Date/Time: 01.17.2022 17:20 PM COMMODITY INDUSTRY ANALYST Electronically Signed By: MD Benny MARVIN84 on 01.17.2022 17:20 PM Specimen Anatomical Collection Method Collection Time Receive d Time (Source) Location / / Volume Laterality Urine 24 Hr 01/16/2022 5:10 AM 1:50 COMMODITY INDUSTRY ANALYST PM COMMODITY INDUSTRY ANALYST Norberto Gregory MD URINE ORDERABLES Performing Organization Address City/State/ZIP Code Phon e Number [place] MD [place] [facility] Unless otherwise noted, [address] all lab tests performed by: Division of Pathology and Laboratory Medicine [address] [place] [address] [place] Protein Electrophoresis Path Review (12/26/2021 9:14 AM COMMODITY INDUSTRY ANALYST)Only the most recent of3 resultswithin the time period is included. Component Value Ref Test Analysis Performed At [email or web address] Method Time Signature SPE Path The follow-up serum protein electrophoretic pattern shows no definitive evidence of an M-protein peak. ANGIE Chen If a paraproteinemia is susp ected clinically, serum protein immunofixation, serum immunoglobulin quantification, and urine Bence-Fields protein studies are recommended. [facility] Comment: [place] [id number] Dictated by: [place] [id number] Dictated Date/Time: 12.27.2021 15:04 PM COMMODITY INDUSTRY ANALYST Transcribed Date/Time: 12.27.2021 15:04 PM COMMODITY INDUSTRY ANALYST Electronically Signed By: [place] [id number] on 12.27.2021 15:04 PM Specimen Anatomical Collection Method Collection Time Receive d Time (Source) Location / / Volume Laterality Blood 12/26/2021 9:14 AM 9:55 COMMODITY INDUSTRY ANALYST AM COMMODITY INDUSTRY ANALYST Norberto Gregory MD LAB BLOOD ORDERABLES Performing Organization Address City/[facility] Code Phon e Number [facility] Unless otherwise noted, [address] all lab tests performed by: Division of Pathology and Laboratory Medicine [address] [place] [address] JUAN Path Review (12/26/2021 9:14 AM COMMODITY INDUSTRY ANALYST)Only the most recent of3 resultswithin the time period is included. Component Value Ref Test Analysis Performed At [facility] Range Method Time Signature JUAN Path Int The follow-up [facility] immunofixation CANCER electrophoretic CENTER patterns obtained with the use of antisera against IgG, IgA, IgM, bound [place] and bound Lambda light chain proteins show no definitive evidence of a monoclonal gammopathy. Comment: [place] [id number] Dictated by: [place] [id number] Dictated Date/Time: 12.27.2021 15:04 PM COMMODITY INDUSTRY ANALYST Transcribed Date/Time: 12.27.2021 15:04 PM COMMODITY INDUSTRY ANALYST Electronically Signed By: [place] , [place] [id number] on 12.27.2021 15:04 PM Specimen Anatomical Collection Method Collection Time Receive d Time (Source) Location / / Volume Laterality Blood 12/26/2021 9:14 AM 2 9:55 COMMODITY INDUSTRY ANALYST AM COMMODITY INDUSTRY ANALYST Norberto Gregory MD LAB BLOOD ORDERABLES Performing Organization Address City/State/ZIP [facility] Phon e Number [place] MD MARY BETH [facility] Unless otherwise noted, [address] all lab tests performed by: Division of Pathology and Laboratory Medicine [facility] Urine Prot Electrophoresis Path Review (12/26/2021 6:05 AM COMMODITY INDUSTRY ANALYST)Only the most recent of3 resultswithin the time period is included. Component Value Ref Test Analysis Performed At [facility] [place] Range Method Time Signature U ProE Path The follow-up [facility] Int urine protein MARY BETH electrophoretic CANCER pattern currently CENTER shows a protein peak in the gamma region that is appears to correspond with a suspected kappa Bence-Fields protein band by immunofixation studies. The Bence-Fields protein excretion is 8 mg/day. Comment: [place] [id number] Dictated by: [place] [id number] Dictated Date/Time: 12.28.2021 14:44 PM COMMODITY INDUSTRY ANALYST Transcribed Date/Time: 12.28.2021 14:44 PM COMMODITY INDUSTRY ANALYST Electronically Signed By: [place] [id number] on 12.28.2021 14:44 PM Specimen Anatomical Collection Method Collection Time Receive d Time (Source) Location / / Volume Laterality Urine 24 Hr 12/26/2021 6:05 AM 2 COMMODITY INDUSTRY ANALYST 12:32 PM COMMODITY INDUSTRY ANALYST Norberto Gregory MD LAB BLOOD ORDERABLES Performing Organization Address City/State/ZIP Code Phon e Number [facility]CER Unless otherwise noted, [address] all lab tests performed by: Division of Pathology and Laboratory Medicine [facility] Urine JUAN Path Review (12/26/2021 6:05 AM COMMODITY INDUSTRY ANALYST)Only the most recent of3 results within the time period is included. Component Value Ref Test Analysis Performed At [facility] [place] Range Method Time Signature UIFE Path Int The follow-up urine protein immunofixation electrophoretic patterns obtained with the use of antisera against IgG, IgA, IgM, bound and free [place] and Lambda light chain proteins suggest the presence of a faint monotypic free kappa band in the gamma [facility] region. 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 Clinical correlation and close follow-up studies are recommended. [facility] CENTER Comment: [place] [id number] Dictated by: [place] [id number] Dictated Date/Time: 12.28.2021 14:44 PM COMMODITY INDUSTRY ANALYST Transcribed Date/Time: 12.28.2021 14:44 PM COMMODITY INDUSTRY ANALYST Electronically Signed By: [place] , [place] [id number] on 12.28.2021 14:44 PM Specimen Anatomical Collection Method Collection Time Receive d Time (Source) Location / / Volume Laterality Urine 24 Hr 12/26/2021 6:05 AM COMMODITY INDUSTRY ANALYST 12:32 PM COMMODITY INDUSTRY ANALYST Norberto Gregory MD LAB BLOOD ORDERABLES Performing Organization Address City/State/ZIP Code Phon e Number [facility] Unless otherwise noted, [address] all lab tests performed by: Division of Pathology and Laboratory Medicine [address] [place] [address] PETCT WB Subsequent Treatment Strategy (12/20/2021 7:56 AM CDT)Only the most recent of2 resultswithin the time period is included. Anatomical Region Laterality Modality Whole Body Positron Emission To mography (PET) Specimen (Source) Anatomical Collection Method Collection Time Re ceived Time Location / / Volume Laterality 12/22/2021 7:31 AM CDT Impressions 12/22/2021 7:38 AM CDT There is no evidence of FDG avid lytic myeloma. Stable improving left ischium lesion. No evidence of FDG avid extra medullary disease. Narrative 12/22/2021 7:38 AM CDT FULL RESULT: Examination: FDG PET/CT, 12/20/2021 7:56 AM Clinical History: 71-year-old female pat ient with multiple myeloma, healing pathologic fracture left ischium. Indication: Restaging for subsequent jodi atment strategy. Comparison: FDG PET/CT scan 06/13/2021, x -ray of the pelvis 11/21/2021. Technique: F-18 fluorodeoxyglucose (FDG) 10.6 mCi was administered intravenously via left hand vein. To allow for distribution and uptake of radiotracer, the patient was asked to rest quietly for appr oximately 60-90 minutes. PET/CT imagin g was performed from the vertex to feet. CT scanning was done for attenuation correction, image registration, and diagnosis with scan parameters optimized to mini chance radiation exposure to the patient. SUV measurements are reported as maximum SUV based on body weight unless otherwise specified. Findings: Head and Neck: No hypermetabolic lesions seen in the brain. The sinuses are well-aerated. There are no enlarged FDG avid nodes see n in the cervical or supraclavicular stefan regions. No abnormal activity seen in the thyroid gland. There are no enlarged FDG avid nodes seen in the mediastinal, hilar, Chest: There are axillary stefan regions. No new suspicious or FDG avid pulmonary nodules seen. No pleural or pericardial effusion identified. Abdomen and Pelvis: Normal FDG activity seen in the liver, spleen, adrenals, and pancreas. Changes from prior cholecystectomy appear stable. Tracer excretion is seen in both kidneys . There are no enlarged FDG avid nodes see n in the abdominal, pelvic, or inguinal stefan regions. Changes from prior hysterectomy noted. N o abnormal activity seen in the adnexal regions. Musculoskeletal: No new fractures in the left superior and inferior pubic rami appear stable without increase activity. Healed pathological fracture in the left anterior sixth rib as well as the insuffi ciency fracture of the left sacrum witho ut interval development of FDG avidity. No new FDG avid lytic lesion identified. No impending fracture seen in the long bones of the extremities. Procedure Note Brijesh Polanco MD - 12/22/2021Format ting of this note might be different from the original. FULL RESULT: Examination: FDG PET/CT, 12/20/2021 7:56 AM Clinical History: 71-year-old female pat ient with multiple myeloma, healing pathologic fracture left ischium. Indication: Restaging for subsequent jodi atment strategy. Comparison: FDG PET/CT scan 06/13/2021, x -ray of the pelvis 11/21/2021. Technique: F-18 fluorodeoxyglucose (FDG) 10.6 mCi was administered intravenously via left hand vein. To allow for distribution and uptake of radiotracer, the patient was asked to rest quietly for approximately 60-90 minutes. PET/CT imaging was performed fr om the vertex to feet. CT scanning was done for attenuation correction, image registration, and diagnosis with scan parameters optimized to minimize radiation exposure to the patient. SUV measurements are report ed as maximum SUV based on body weight unless otherwise specified. Findings: Head and Neck: No hypermetabolic lesions seen in the brain. The sinuses are well-aerated. There are no enlarged FDG avid nodes see n in the cervical or supraclavicular stefan regions. No abnormal activity seen in the thyroid gland. There are no enlarged FDG avid nodes seen in the mediastinal, hilar, Chest: There are axillary stefan regions. No new suspicious or FDG avid pulmonary nodules seen. No pleural or pericardial effusion identified. Abdomen and Pelvis: Normal FDG activity seen in the liver, spleen, adrenals, and pancreas. Changes from prior cholecystectomy appear stable. Tracer excretion is seen in both kidneys . There are no enlarged FDG avid nodes see n in the abdominal, pelvic, or inguinal stefan regions. Changes from prior hysterectomy noted. N o abnormal activity seen in the adnexal regions. Musculoskeletal: No new fractures in the left superior and inferior pubic rami appear stable without increase activity. Healed pathological fracture in the left anterior sixth rib as well as the insufficiency fracture of the left sacrum without interval develop ment of FDG avidity. No new FDG avid lytic lesion identified. No impending fracture seen in the long bones of the extremities. IMPRESSION: There is no evidence of FDG avid lytic m yeloma. Stable improving left ischium lesion. No evidence of FDG avid extra medullary disease. Beatris BONDN IMG PETCT ORDERABLES (ABNORMAL) TSH (07/25/2021 7:56 AM CDT)Only the most recent of2 resultswithin the time period is included. athologist Signature TSH 0.01 (L) 0.27 - 4.20 [place] MD [place] mcunit/mL [facility] Specimen Anatomical Collection Method Collection Time Receive d Time (Source) Location / / Volume Laterality Blood 07/25/2021 7:56 AM 8:00 CDT AM CDT Norberto Gregory MD LAB BLOOD ORDERABLES Performing Organization Address City/State/ZIP Code Phon e Number [facility] Unless otherwise noted, [place], [place] [address] CENTER all lab tests performed by: Division of Pathology and Laboratory Medicine [facility] Free T4 (07/25/2021 7:56 AM CDT)Only the most recent of2 resultswithin the time period is included. P athologist Signature T4 Free 1.56 0.93 - 1.70 [facility] MARYB ETH ng/dL DIAGNOSTIC CENTER Specimen Anatomical Collection Method Collection Time Receive d Time (Source) Location / / Volume Laterality Blood 07/25/2021 7:56 AM 2 8:00 CDT AM CDT Norberto Gregory MD LAB BLOOD ORDERABLES Performing Organization Address City/State/ZIP Code Phon e Number [facility] DIAGNOSTIC Unless otherwise noted, [place], [place] [address] [place] all lab tests performed by: Division of Pathology and Laboratory Medicine [address] [place] [address] T4 (07/25/2021 7:56 AM CDT) athologist [facility] T4 9.9 4.5 - 11.7 [facility] mcg/dL CAN[facility]ER CENTER Specimen Anatomical Collection Method Collection Time Receive d Time (Source) Location / / Volume Laterality Blood 07/25/2021 7:56 AM 2 8:54 CDT AM CDT Norberto Gregory MD LAB BLOOD ORDERABLES Performing Organization Address City/[facility]/ZIP Code Phon e Number [facility] CANCER Unless otherwise noted, [place] [address] [place] all lab tests performed by: Division of Pathology and Laboratory Medicine [address] [place] [address] Protein Electrophoresis Path Review (07/18/2021 10:55 AM CDT)Only the most recent of2 resultswithin the time period is included. 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 If light chain diseases or other types of paraproteinemia are suspecte ANGIE orozco clinically, serum free light chain studies, serum MARY BETH protein JUAN studies, serum i mmunoglobulin quantitation and urine Bence-Fields protein studies are recommended. CAN[facility]ER CENTER Comment: VANESSA F SEAN-HERMAN,MD - [id number] Dictated by: MD Benny [id number] Dictated Date/Time: 07.19.2021 12:49 PM CDT Transcribed Date/Time: 07.19.2021 12:49 PM CDT Electronically Signed By: MD Benny DAVIDSON [id number] on 07.19.2021 12:49 PM Specimen Anatomical Collection Method Collection Time Receive d Time (Source) Location / / Volume Laterality Blood 07/18/2021 10:55 07/19/2021 9:37 AM CDT AM CDT Norberto Gregory MD LAB BLOOD ORDERABLES Performing Organization Address City/State/ZIP Code Phon e Number [facility] CANCER Unless otherwise noted, [address] all lab tests performed by: Division of Pathology and Laboratory Medicine [facility] JUAN Path Review (07/18/2021 10:55 AM CDT)Only the most recent of2 resultswithin the time period is included. Component Value Ref Test Analysis Performed At [facility] gist Range Method Time Signature JUAN Path Int The digital image of the fol low-up serum protein immunofixation electrophoretic patterns ANGIE SPENCE obtained with the use of ant isera against IgG, IgA, IgM, bound kappa and free kappa light chains show an indistinct linear density, of unknown significance, with bound kappa light chain antiserum. Rahat salas correlation with serum free light chain studies. CANCER CENTER Comment: MD Benny BURGESS [id number] Dictated by: MD Benny [id number] Dictated Date/Time: 07.19.2021 12:49 PM CDT Transcribed Date/Time: 07.19.2021 12:49 PM CDT Electronically Signed By: MD Benny DAVIDSON [id number] on 07.19.2021 12:49 PM Specimen Anatomical Collection Method Collection Time Receive d Time (Source) Location / / Volume Laterality Blood 07/18/2021 10:55 07/19/2021 9:37 AM CDT AM CDT Norberto Gregory MD LAB BLOOD ORDERABLES Performing Organization Address City/State/ZIP Code Phon e Number [facility] CANCER Unless otherwise noted, [place], [place] [id number] [place] [address] all lab tests performed by: Division of Pathology and Laboratory Medicine [facility] Hematopathology Bone Marrow Interpretation (06/13/2021 12:11 PM CDT) Component Value Ref Test Analysis Performed Pathologis t Range Method Time At Signature Addendum 1 06/15/2021 [facility] Addend um CD3 and CD20 show a mixture of T-cells and B-stone ls in one lymphoid aggregate. 6:21 PM electronically The previous interpretation remains unchanged. CDT signed by Rohini young MD on 06/15 at 6:21 PM Diagnosis 06/15/2021 [facility] Electro nically Bone marrow, left posterior iliac crest, biopsy, clot section, aspirate smears and touch imprint: 6:21 PM signed by Rohini young, RESIDUAL PLASMA CELL NEOPLASM, INVOLVING <5% OF THE MARROW C BENITA SPENCE on 06/15/2021 at 8:48 AM Comment 06/15/2021 [facility] Flow cytometric studies dete cted an aberrant plasma cell population, the results will be reported separately. 6:21 PM CDT Microscopic 06/15/2021 [facility] Description BONE MARROW BIOPSY 6:21 PM CDT Quality: Suboptimal subcortical fragmented biopsy Cellularity: ~10% in this sample Megakaryocytes: Few present Infiltrate: Not identified BONE MARROW CLOT Quality: Adequate Cellularity: Variable <5% to 50% Megakaryocytes: Adequate in number with unremarkable morphol ogy Infiltrate: Not identified BONE MARROW SMEARS/TOUCH IMPRINT Quality: Adequate quality pa rticulate and cellular aspirate smears; touch imprint is Granulocytes: Progressive maturation Erythrocytes: Progressive maturation, mild nuclear to cytoplasmic asynchrony Megakaryocytes: Present with unremarkable morphology Lymphocytes: Not increased Plasma cells: Not increased Monocytes: Not increased Blasts: Not increased Stains on 06/15/2021 [facility] Biopsy CD138 highlights rare scatte red plasma cells, overall <5% of the marrow cellularity 6:21 PM CDT Stains on Clot 06/15/2021 [facility] CD138 highlights scattered a nd clusters of plasma cells, overall <5% of the marrow cellularity 6:21 PM [place] and lambda immunostains show kappa light chain restric tion CDT Gross B: 06/15/2021 [facility] Description Iliac crest, left posterior, clot 6:21 PM Dimensions: 0.3 x 3.0 x 2.5 cm CDT Specimen is entirely submitted in 1. BB C: Iliac crest, left posterior, biopsy Length: 1.7 cm Submitted in a single cassette for decalcification. BB Disclaimer "Some tests 06/15/2021 [facility] reported here may 6:21 PM have been CDT developed and performance characteristics determined by [facility] Pathology and Laboratory Medicine. These tests have not been specifically cleared or approved by the U.S. Food and Drug Administration. If applicable, controls were reviewed and showed appropriate reactivity." Specimen Anatomical Collection Method Collection Time Receive d Time (Source) Location / / Volume Laterality Bone Marrow Collection / 06/13/2021 12:11 06/13/2021 1:26 (Iliac Crest, Unknown PM CDT PM CDT Left Posterior, Aspirate) Bone Marrow Collection / 06/13/2021 12:11 06/13/2021 (Iliac Crest, Unknown PM CDT 12:44 PM CDT Left Posterior, Clot) Bone Marrow 06/13/2021 12:11 06/13/2021 (Iliac Crest, PM CDT 12:44 PM CDT Left Posterior, Biopsy) David Forbes MD LAB PATHOLOGY ORDERABLES Performing Organization Address City/State/ZIP Code Phon e Number [facility] Cancer [facility] [place] [address] [address] (ABNORMAL) Hematopathology Bone Marrow Differential (06/13/2021 12:11 PM CDT) Component Value Ref Test Analysis [facility] gist Range Method Time Signature Method Smear 06/15/2021 [facility] 8:47 AM CDT Adequacy Satisfactory 06/15/2021 [facility] for evaluation 8:47 AM CDT Total cells 500 06/15/2021 [facility] counted 8:47 AM CDT BM Blast % 1 0 - 5 % 06/15/2021 [facility] 8:47 AM CDT BM Progranulocyte 1 (L) 2 - 8 % 06/15/2021 [facility] % 8:47 AM CDT BM Myelocyte % 1 (L) 5 - 20 % 06/15/2021 [facility] 8:47 AM CDT BM Metamyelocyte 7 (L) 13 - 32 06/15/2021 [facility] % % 8:47 AM CDT BM Granulocyte % 15 7 - 30 % 06/15/2021 [facility] 8:47 AM CDT BM Eosinophil % 5 (H) 0 - 4 % 06/15/2021 [facility] 8:47 AM CDT BM Basophil % 0 0 - 1 % 06/15/2021 [facility] 8:47 AM CDT BM Lymphocyte % 17 3 - 17 % 06/15/2021 [facility] 8:47 AM CDT BM Plasma Cell % 1 0 - 2 % 06/15/2021 [facility] 8:47 AM CDT BM Monocyte % 4 0 - 5 % 06/15/2021 [facility] 8:47 AM CDT BM Reticulum Cell 06/15/2021 [facility] % 8:47 AM CDT BM Pronormoblast 2 1 - 8 % 06/15/2021 [facility] % 8:47 AM CDT BM Normoblast % 45 (H) 7 - 32 % 06/15/2021 [facility] 8:47 AM CDT BM M:E Ratio 0.7 (L) 3.0 - 06/15/2021 [facility] 4.0 8:47 AM CDT BM Mast Cell % 1 (H) 0 - 0 % 06/15/2021 [facility] 8:47 AM CDT Specimen Anatomical Collection Method Collection Time Receive d Time (Source) Location / / Volume Laterality Bone Marrow Collection / 06/13/2021 12:11 06/13/2021 1:26 (Iliac Crest, Unknown PM CDT PM CDT Left Posterior, Aspirate) Narrative [facility] - 06/15/2021 8:47 AM CDT DISCLAIMER Preliminary BM Diff may have been comple steven by a medical nurse or a hematopathology fellow and is subject to change. Any pathologist updates will be included on interpretation and appear in the f inal result. Please use caution in evalu ating your patient based on preliminary results. David Forbes MD LAB PATHOLOGY ORDERABLES Performing Organization Address City/State/ZIP Code Phon e Number [facility] Cancer [facility] [place] [address] [address] MOLINA MRD Myeloma Collection, Nonblood (06/13/2021 12:05 PM CDT) athologist Signature Flow Cytometry Yes [facility] ([facility]) [facility] Specimen Anatomical Collection Method Collection Time Receive d Time (Source) Location / / Volume Laterality Bone Marrow 06/13/2021 12:05 06/13/2021 2:44 PM CDT PM CDT Narrative [facility] - 7:21 AM CDT No Sirisha Norberto Gregory MD, MDA HP FC NONBLOOD COLLECTIO NS Performing Organization Address City/State/ZIP [facility] Phon e Number [facility] CANCER Unless otherwise noted, [address] all lab tests performed by: Division of Pathology and Laboratory Medicine [address] [place] [address] Myeloma FISH Panel Collection, Nonblood (06/13/2021 12:05 PM CDT) athologist Signature Cytogenetics Yes [facility] ([facility]) [facility] Specimen Anatomical Collection Method Collection Time Receive d Time (Source) Location / / Volume Laterality Bone Marrow 06/13/2021 12:05 06/13/2021 1:04 PM CDT PM CDT Norberto Gregory MD, MDA HP CG NONBLOOD COLLECTIO NS Performing Organization Address City/State/ZIP Code Phon e Number [facility] Unless otherwise noted, [address] all lab tests performed by: Division of Pathology and Laboratory Medicine [address] [place] [address] Myeloma FISH Tests Interpretation and Report (06/13/2021 12:05 PM CDT) Specimen (Source) Anatomical Collection Method Collection Time Re ceived Time Location / / Volume Laterality 06/13/2021 12:05 PM CDT Narrative This result has an attachment that is no t available. Norberto Gregory MD, MDA HP CYTOGENETICS (HP CG) CG Chromosome Analysis Collection, Nonblood (06/13/2021 12:05 PM CDT) athologist Signature Cytogenetics Yes [facility] ([facility]) [facility] Specimen Anatomical Collection Method Collection Time Receive d Time (Source) Location / / Volume Laterality Bone Marrow 06/13/2021 12:05 06/13/2021 1:04 PM CDT PM CDT Norberto Gregory MD, MDA HP CG NONBLOOD COLLECTIO NS Performing Organization Address City/[facility] Phon e Number [facility] CANCER Unless otherwise noted, [address] all lab tests performed by: Division of Pathology and Laboratory Medicine [facility] Douglas Jones CG Chromosome Analysis Interpretation and Report (06/13/2021 12:05 PM CDT) Specimen (Source) Anatomical Collection Method Collection Time Re ceived Time Location / / Volume Laterality 06/13/2021 12:05 PM CDT Narrative This result has an attachment that is no t available. Norberto Gregory MD, MDA HP CYTOGENETICS (HP CG) FC MRD Myeloma Interpretation and Report (06/13/2021 12:05 PM CDT) Specimen (Source) Anatomical Collection Method Collection Time Re ceived Time Location / / Volume Laterality 06/13/2021 12:05 PM CDT Narrative This result has an attachment that is no t available. Norberto Gregory MD, MDA HP FLOW CYTOMETRY (HP FC ) Flow Cytometry Specimen Collection -Bone Marrow (06/13/2021 12:05 PM CDT) athologist Signature Flow Cytometry Yes [facility] (Received) [facility] Comment: Test performed by: [facility] Flow Cytometry Laboratory [address] [place] [address] Anay Bond Link [id number] [facility] Specimen Anatomical Collection Method Collection Time Receive d Time (Source) Location / / Volume Laterality Bone Marrow 06/13/2021 12:05 06/13/2021 2:44 PM CDT PM CDT Norberto Gregory MD, MDA HP FC NONBLOOD COLLECTIO NS Performing Organization Address City/State/ZIP Code Phon e Number [facility] CANCER Unless otherwise noted, [place], [address] all lab tests performed by: Division of Pathology and Laboratory Medicine [facility] Douglas Jones NM DIAGNOSTIC BONE MARROW BIOPSIES & ASPIRATIONS (06/13/2021 11:55 AM CDT) Specimen (Source) Anatomical Location Collection Method / Collectio n Time Received Time / Laterality Volume Bone Marrow Narrative [facility] - 11:55 AM CDT MELINA Tubbs 06/13/2021 12:20 PM Procedure: Bone marrow aspiration/biopsy Date/Time: 06/13/2021 11:55 AM Provider Information: Performed by: MELINA Tubbs Authorized by: Norberto Gregory MD [employer] Work Supervisor present: yes [employer] Work Supervisor: RT 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 Patient Diagnosis: Pre-procedure diagnosis: MM Post-procedure diagnosis: unchanged Indication: Indication: evaluation of disease status Anesthesia: Anesthesia: local infiltration and see M AR for details Patient anesthetized by: advanced practi ce provider Local anesthetic: lidocaine 1% without e pinephrine Anesthetic total (ml): 20 Sedation: Patient sedated?: patient not sedated Aspirate Site(s): Laterality: left Site location: posterior iliac crest Instrument(s) used: [place] needle Instruments placed by: advanced practice provider Biopsy Site(s): Laterality: left Site location: posterior iliac crest Instrument(s) used: [employer] needle Instruments placed by: advanced practice provider Dressing: Dressing: compression bandage Post-Procedure Patient Assessment: Patient tolerance: well Estimated blood loss: minimal Complications/Observations: no complicat ions Discharge/Disposition: Discharge instructions: verbal and patie nt verbalized understanding Patient discharged to: discharge to home Disposition mode: wheelchair Sample Disposition: Testing performed: flow cytometry, cytog enetics and pathology Research samples(s): yes Protocol #: 2019-034 Aspirate volume obtained (mL) - left: 17 Visual assessment for specimen adequacy - left: particles Visual assessment for biopsy specimen ad equacy (cm) - left: 1.8 Specimen integrity - left: fragmented Comments: The patient was identified by name, MRN, and . Laboratory values, allergies, and medications were reviewed . Discussed bone marrow procedure and potential risks with patient. Surendra thomas signed consent for the procedure. Following the procedure press ure was applied to site until hemostasis achieved. Post-procedure inst ructions were given including to leave the bandage dry and in place for 4 8 hours. Patient acknowledged understanding. Patient tolerated procedu re well with no complications. Norberto Gregory MD PROCEDURE/MINOR SURGICAL ORD ERABLES Performing Organization Address City/State/ZIP Code Phon e Number [facility] CANCER Unless otherwise noted, [place] [address] [place] all lab tests performed by: Division of Pathology and Laboratory Medicine [facility] [place] X-ray Femur 2 Views Left (06/07/2021 11:52 AM CDT) Anatomical Region Laterality Modality Thigh, Extremity Digital Radiography Specimen (Source) Anatomical Collection Method Collection Time Re ceived Time Location / / Volume Laterality 06/07/2021 1:08 PM CDT Impressions 06/07/2021 1:18 PM CDT Partial re-mineralization of left tissue recovery technician ior column plasma, and partial healing of the 3 fractures in the left obturator ring. Narrative 06/07/2021 1:18 PM CDT FULL RESULT: Examination: XR PELVIS 1 OR 2 VW, XR FEM UR 2 VW LEFT, 06/07/2021 11:54 AM. Clinical History: 70-year-old woman with multiple myeloma Indication: Assess known fractures of pe lvis for interval change; persistent left hip pain; Hx of multiple myeloma Comparison: AP pelvis June 15, 2020; pe lvis and left femur March 07, 2021 Technique: XR PELVIS 1 OR 2 VW, XR FEMUR 2 VW LEFT Findings: 1. 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 Partial re-mineralization consistent with therapeutic response. 2. Known fractures of the left obturator ring at the junction of the superior pubic ramus with the acetabulum, of the adjacent subacetabular posterior column, and of the left inferior pubic ramus. Fract ures are partially healed. The degree of healing is marginally better as compared to March 07, 2021. 3. Previous lumbar laminectomies from L3 through L5. No change. 4. No new findings. 5. Unremarkable left femur Procedure Note Raúl Cabrera Jr., MD - 06/07/2021F ormatting of this note might be different from the original. FULL RESULT: Examination: XR PELVIS 1 OR 2 VW, XR FEM UR 2 VW LEFT, 06/07/2021 11:54 AM. Clinical History: 70-year-old woman with multiple myeloma Indication: Assess known fractures of pe lvis for interval change; persistent left hip pain; Hx of multiple myeloma Comparison: AP pelvis June 15, 2020; pe lvis and left femur March 07, 2021 Technique: XR PELVIS 1 OR 2 VW, XR FEMUR 2 VW LEFT Findings: 1. 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 Partial re-mineralization consistent with therapeutic response. 2. Known fractures of the left obturator ring at the junction of the superior pubic ramus with the acetabulum, of the adjacent subacetabular posterior column, and of the left inferior pubic ramus. Fractures are partially healed. The degree of healing is marginally better as compared to March 07, 2021. 3. Previous lumbar laminectomies from L3 through L5. No change. 4. No new findings. 5. Unremarkable left femur IMPRESSION: Partial re-mineralization of left tissue recovery technician ior column plasma, and partial healing of the 3 fractures in the left obturator ring. Francy [facility]AGING ORDER CARA after 04/20/2021 Insurance Payer Benefit Plan / Subscriber ID Effective Phone Address T ype Group Dates UNITED UHC MEDICARE [id number] [address]-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 on Advance Directives: 12/31/2021 [facility] [employer] Payable Professional Medical Power of Accounts Payable Professional Advance Directives: 08/07/2019 [facility] [employer] Payable Professional Medical Power of Accounts Payable Professional Code Status Date Activated Date Inactivated Comments Full Code 04/09/2022 4:39 PM Code Status Date Activated Date Inactivated Comments Full Code 04/03/2022 9:06 PM 04/04/2022 4:21 PM Full Code 05/06/2020 9:37 PM 05/11/2020 6:40 PM Care Teams [facility] Relationship Specialty Start Date End Date Grover Fernandes PCP - External Referring Orthopedic Surgery [address] [place] [phone] David Forbes MD PCP - General Orthopaedic Sarcoma 05/08/19 04/02/[address] [place] [address] [phone] Norberto Gregory MD PCP - General Lymphoma and Myeloma 04/03/[address] [place] [id number] Darrell Andrade PCP - External Primary Family Practice 04/05/22 MD [facility] [address] [place] [address]
--- OUTSIDE RECORDS SUMMARY | 2022-04-20 09:27 | XMS REPORT | Continuity of Care Document ---
:1950 Author Organization [facility] t Address [address] [facility] [address] [place] [address] Care Team Providers Name Role Phone [phone] Primary Care Physician Unavailable SYSTEM, PROVIDER NOT IN Attending Clinician Unavailable BRIANNE GONZALEZ Attending Clinician Unavailable MANUEL TEIXEIRA Attending Clinician Unavailable TETO ESCALANTE Attending Clinician Unavailable LILIANA KIRK Attending Clinician Unavailable HELGA PASCUAL Attending Clinician Unavailable ELEAZAR AVILES Attending Clinician Unavailable KALLIE LUDWIG Attending Clinician Unavailable KANE DEGROOT Attending Clinician Unavailable BROOK AMES Attending Clinician Unavailable EVIE OWENS Attending Clinician Unavailable DESTINY MELGOZA Attending Clinician Unavailable Griffin Handy MD Attending Clinician MEENU SANTIZO Attending Clinician Unavailable CATHERINE ARMAS Attending Clinician Unavailable DINAH KIRK Attending Clinician Unavailable ZACKERY BELLA Attending Clinician Unavailable LANDEN SANCHEZ Attending Clinician Unavailable MD LANDEN SANCHEZ Attending Clinician Unavailable MD GRIFFIN HANDY Attending Clinician Unavailable DOM WILLS Attending Clinician Unavailable BENTON WOODSON Attending Clinician Unavailable TERESA PRICE Attending Clinician Unavailable NATHAN AMADOR Attending Clinician Unavailable BRIANNE GONZALEZ Admitting Clinician Unavailable HELGA PASCUAL Admitting Clinician Unavailable GRIFFIN HANDY Admitting Clinician Unavailable MD GRIFFIN HANDY Admitting Clinician Unavailable Payers Payer Name Policy Type Policy Number Effective Date Expiration Date S shane [facility] MEDICARE [id number] 2020 ADVANTAGE 00:00:00 [employer] CHOICE [id number] 2018 MEDICARE PPO 00:00:00 Problems Condition Condition Condition Status Onset Resolution Last Treating Co mments Source Name Details Category Date Date Treatment Clinician Date H/O H/O Disease Active 2019-02 Overview: Method i autologous autologous -[address] stem cell stem cell 00:00: g of this H ospita transplant transplant 00 note l might be different from the original. TRANSPLAN T HISTORYAd augusto 0Regimen: HD Melphalan Transplan t date: 0. (received 5.114 x 10(6) CD34/kg cells) Engraftme nt date: 12/15/19 (2 consecuti ve days of ANC>500) Neutropen ic fevers... Yes ( cultures +ve Klebsiell a Pneumonia e, repeat C/S negative) Diarrhea. . Grade I-II.. Resolved ( C. diff negative) Nausea.. Grade II.. resolved. Granix X 6 doses. PCP prophylax is: Pentamidi ne inhalatio n on 12/15/19. Right DL morrissey CVC removed on 0. 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 10-19 not having not having 00:00: Ho spita achieved achieved 00 l remission remission HTN HTN Disease Active Methodi (hypertens (hypertens st ion) ion) Hospita l Hypothyroi Hypothyroi Disease Active M ethodi d d st Hospita l Abnormal Abnormal Disease Active Metho di coagulatio coagulatio st n profile n profile Hosp donte l Encounter Encounter Disease Active Met hodi for for st immunizati immunizati Ho spita on on l Dyslipidem Dyslipidem Disease Active M ethodi ia ia st Hospita l Vitamin D Vitamin D Disease Active Met hodi deficiency deficiency st Hospita l Other Other Disease Active Methodi superficia superficia st l bite of l bite of Hosp donte left left l elbow, elbow, subsequent subsequent encounter encounter Abrasion Abrasion Disease Active Metho di of left of left st elbow, elbow, Hospita initial initial l encounter encounter Allergies, Adverse Reactions, Alerts Allergy Allergy Status Severity Reaction(s) Onset Inactive Treating Comm ents Source Name Type Date Date Clinician GAMMAGAR DRUG Active High Other 2023-0 MD D 2-14 Anderso 00:00: n 00 GAMMAGAR DRUG Active High Other 2023-0 MD D 2-14 Anderso 00:00: n 00 GAMMAGAR DRUG Active High Other 2023-0 MD D 2-14 Anderso 00:00: n 00 GAMMAGAR DRUG Active High Other 2023-0 MD D 2-14 Anderso 00:00: n 00 GAMMAGAR DRUG Active High Other 2023-0 MD D 2-14 Anderso 00:00: n 00 GAMMAGAR DRUG Active High Other 2023-0 MD D 2-14 Anderso 00:00: n 00 GAMMAGAR DRUG Active High Other 2023-0 MD D 2-14 Anderso 00:00: n 00 GAMMAGAR DRUG Active High Other 2023-0 MD D 2-14 Anderso 00:00: n 00 GAMMAGAR DRUG Active High Other 2023-0 MD D 2-14 Anderso 00:00: n 00 GAMMAGAR DRUG Active High Other 2023-0 MD D 2-14 Anderso 00:00: n 00 GAMMAGAR DRUG Active High Other 2023-0 MD D 2-14 Anderso 00:00: n 00 GAMMAGAR DRUG Active High Other 2023-0 MD D 2-14 Anderso 00:00: n 00 GAMMAGAR DRUG Active High Other 2023-0 MD D 2-14 Anderso 00:00: n 00 GAMMAGAR DRUG Active High Other 2023-0 MD D 2-14 Anderso 00:00: n 00 GAMMAGAR DRUG Active High Other 2023-0 MD D 2-14 Anderso 00:00: n 00 GAMMAGAR DRUG Active High Other 2023-0 MD D 2-14 Anderso 00:00: n 00 GAMMAGAR DRUG Active High Other 2023-0 MD D 2-14 Anderso 00:00: n 00 GAMMAGAR DRUG Active High Other 2023-0 MD D 2-14 Anderso 00:00: n 00 GAMMAGAR DRUG Active High Other 2023-0 MD D 2-14 Anderso 00:00: n 00 GAMMAGAR DRUG Active High Other 2023-0 MD D 2-14 Anderso 00:00: n 00 GAMMAGAR DRUG Active High Other 2023-0 MD D 2-14 Anderso 00:00: n 00 GAMMAGAR DRUG Active High Other 2023-0 MD D 2-14 Anderso 00:00: n 00 GAMMAGAR DRUG Active High Other 2023-0 MD D 2-14 Anderso 00:00: n 00 GAMMAGAR DRUG Active High Other 2023-0 MD D 2-14 Anderso 00:00: n 00 GAMMAGAR DRUG Active High Other 2023-0 MD D 2-14 Anderso 00:00: n 00 GAMMAGAR DRUG Active High Other 2023-0 MD D 2-14 Anderso 00:00: n 00 GAMMAGAR DRUG Active High Other 2023-0 MD D 2-14 Anderso 00:00: n 00 GAMMAGAR DRUG Active High Other 2023-0 MD D 2-14 Anderso 00:00: n 00 GAMMAGAR DRUG Active High Other 2023-0 MD D 2-14 Anderso 00:00: n 00 GAMMAGAR DRUG Active High Other 2023-0 MD D 2-14 Anderso 00:00: n 00 GAMMAGAR DRUG Active High Other 2023-0 MD D 2-14 Anderso 00:00: n 00 GAMMAGAR DRUG Active High Other 2023-0 MD D 2-14 Anderso 00:00: n 00 GAMMAGAR DRUG Active High Other 2023-0 MD D 2-14 Anderso 00:00: n 00 GAMMAGAR DRUG Active High Other 2023-0 MD D 2-14 Anderso 00:00: n 00 GAMMAGAR DRUG Active High Other 2023-0 MD D 2-14 Anderso 00:00: n 00 GAMMAGAR DRUG Active High Other 2023-0 MD D 2-14 Anderso 00:00: n 00 GAMMAGAR DRUG Active High Other 2023-0 MD D 2-14 Anderso 00:00: n 00 GAMMAGAR DRUG Active High Other 2023-0 MD D 2-14 Anderso 00:00: n 00 GAMMAGAR DRUG Active High Other 2023-0 MD D 2-14 Anderso 00:00: n 00 GAMMAGAR DRUG Active High Other 2023-0 MD D 2-14 Anderso 00:00: n 00 GAMMAGAR DRUG Active High Other 2023-0 MD D 2-14 Anderso 00:00: n 00 GAMMAGAR DRUG Active High Other 2023-0 MD D 2-14 Anderso 00:00: n 00 GAMMAGAR DRUG Active High Other 2023-0 MD D 2-14 Anderso 00:00: n 00 GAMMAGAR DRUG Active High Other 2023-0 MD D 2-14 Anderso 00:00: n 00 GAMMAGAR DRUG Active High Other 2023-0 MD D 2-14 Anderso 00:00: n 00 GAMMAGAR DRUG Active High Other 2023-0 MD D 2-14 Anderso 00:00: n 00 GAMMAGAR DRUG Active High Other 2023-0 MD D 2-14 Anderso 00:00: n 00 GAMMAGAR DRUG Active High Other 2023-0 MD D 2-14 Anderso 00:00: n 00 GAMMAGAR DRUG Active High Other 2023-0 MD D 2-14 Anderso 00:00: n 00 GAMMAGAR DRUG Active High Other 2023-0 MD D 2-14 Anderso 00:00: n 00 GAMMAGAR DRUG Active High Other 2023-0 MD D 2-14 Anderso 00:00: n 00 GAMMAGAR DRUG Active High Other 2023-0 MD D 2-14 Anderso 00:00: n 00 GAMMAGAR DRUG Active High Other 2023-0 MD D 2-14 Anderso 00:00: n 00 GAMMAGAR DRUG Active High Other 2023-0 MD D 2-14 Anderso 00:00: n 00 GAMMAGAR DRUG Active High Other 2023-0 MD D 2-14 Anderso 00:00: n 00 GAMMAGAR DRUG Active High Other 2023-0 MD D 2-14 Anderso 00:00: n 00 GAMMAGAR DRUG Active High Other 2023-0 MD D 2-14 Anderso 00:00: n 00 GAMMAGAR DRUG Active High Other 2023-0 MD D 2-14 Anderso 00:00: n 00 GAMMAGAR DRUG Active High Other 2023-0 MD D 2-14 Anderso 00:00: n 00 GAMMAGAR DRUG Active High Other 2023-0 MD D 2-14 Anderso 00:00: n 00 GAMMAGAR DRUG Active High Other 2023-0 MD D 2-14 Anderso 00:00: n 00 GAMMAGAR DRUG Active High Other 2023-0 MD D 2-14 Anderso 00:00: n 00 GAMMAGAR DRUG Active High Other 2023-0 MD D 2-14 Anderso 00:00: n 00 GAMMAGAR DRUG Active High Other 2023-0 MD D 2-14 Anderso 00:00: n 00 GAMMAGAR DRUG Active High Other 2023-0 MD D 2-14 Anderso 00:00: n 00 GAMMAGAR DRUG Active High Other 2023-0 MD D 2-14 Anderso 00:00: n 00 GAMMAGAR DRUG Active High Other 2023-0 MD D 2-14 Anderso 00:00: n 00 GAMMAGAR DRUG Active High Other 2023-0 MD D 2-14 Anderso 00:00: n 00 GAMMAGAR DRUG Active High Other 2023-0 MD D 2-14 Anderso 00:00: n 00 GAMMAGAR DRUG Active High Other 2023-0 MD D 2-14 Anderso 00:00: n 00 GAMMAGAR DRUG Active High Other 2023-0 MD D 2-14 Anderso 00:00: n 00 GAMMAGAR DRUG Active High Other 2023-0 MD D 2-14 Anderso 00:00: n 00 GAMMAGAR DRUG Active High Other 2023-0 MD D 2-14 Anderso 00:00: n 00 GAMMAGAR DRUG Active High Other 2023-0 MD D 2-14 Anderso 00:00: n 00 GAMMAGAR DRUG Active High Other 2023-0 MD D 2-14 Anderso 00:00: n 00 GAMMAGAR DRUG Active High Other 2023-0 MD D 2-14 Anderso 00:00: n 00 GAMMAGAR DRUG Active High Other 2023-0 MD D 2-14 Anderso 00:00: n 00 GAMMAGAR DRUG Active High Other 2023-0 MD D 2-14 Anderso 00:00: n 00 GAMMAGAR DRUG Active High Other 2023-0 MD D 2-14 Anderso 00:00: n 00 GAMMAGAR DRUG Active High Other 2023-0 MD D 2-14 Anderso 00:00: n 00 GAMMAGAR DRUG Active High Other 2023-0 MD D 2-14 Anderso 00:00: n 00 GAMMAGAR DRUG Active High Other 2023-0 MD D 2-14 Anderso 00:00: n 00 GAMMAGAR DRUG Active High Other 2023-0 MD D 2-14 Anderso 00:00: n 00 GAMMAGAR DRUG Active High Other 2023-0 MD D 2-14 Anderso 00:00: n 00 GAMMAGAR DRUG Active High Other 2023-0 MD D 2-14 Anderso 00:00: n 00 GAMMAGAR DRUG Active High Other 2023-0 MD D 2-14 Anderso 00:00: n 00 GAMMAGAR DRUG Active High Other 2023-0 MD D 2-14 Anderso 00:00: n 00 GAMMAGAR DRUG Active High Other 2023-0 MD D 2-14 Anderso 00:00: n 00 GAMMAGAR DRUG Active High Other 2023-0 MD D 2-14 Anderso 00:00: n 00 GAMMAGAR DRUG Active High Other 2023-0 MD D 2-14 Anderso 00:00: n 00 GAMMAGAR DRUG Active High Other 2023-0 MD D 2-14 Anderso 00:00: n 00 GAMMAGAR DRUG Active High Other 2023-0 MD D 2-14 Anderso 00:00: n 00 GAMMAGAR DRUG Active High Other 2023-0 MD D 2-14 Anderso 00:00: n 00 GAMMAGAR DRUG Active High Other 2023-0 MD D 2-14 Anderso 00:00: n 00 GAMMAGAR DRUG Active High Other 2023-0 MD D 2-14 Anderso 00:00: n 00 GAMMAGAR DRUG Active High Other 2023-0 MD D 2-14 Anderso 00:00: n 00 GAMMAGAR DRUG Active High Other 2023-0 MD D 2-14 Anderso 00:00: n 00 GAMMAGAR DRUG Active High Other 2023-0 MD D 2-14 Anderso 00:00: n 00 GAMMAGAR DRUG Active High Other 2023-0 MD D 2-14 Anderso 00:00: n 00 GAMMAGAR DRUG Active High Other 2023-0 MD D 2-14 Anderso 00:00: n 00 GAMMAGAR DRUG Active High Other 2023-0 MD D 2-14 Anderso 00:00: n 00 GAMMAGAR DRUG Active High Other 2023-0 MD D 2-14 Anderso 00:00: n 00 GAMMAGAR DRUG Active High Other 2023-0 MD D 2-14 Anderso 00:00: n 00 GAMMAGAR DRUG Active High Other 2023-0 MD D 2-14 Anderso 00:00: n 00 GAMMAGAR DRUG Active High Other 2023-0 MD D 2-14 Anderso 00:00: n 00 GAMMAGAR DRUG Active High Other 2023-0 MD D 2-14 Anderso 00:00: n 00 GAMMAGAR DRUG Active High Other 2023-0 MD D 2-14 Anderso 00:00: n 00 GAMMAGAR DRUG Active High Other 2023-0 MD D 2-14 Anderso 00:00: n 00 GAMMAGAR DRUG Active High Other 2023-0 MD D 2-14 Anderso 00:00: n 00 GAMMAGAR DRUG Active High Other 2023-0 MD D 2-14 Anderso 00:00: n 00 GAMMAGAR DRUG Active High Other 2023-0 MD D 2-14 Anderso 00:00: n 00 GAMMAGAR DRUG Active High Other 2023-0 MD D 2-14 Anderso 00:00: n 00 GAMMAGAR DRUG Active High Other 2023-0 MD D 2-14 Anderso 00:00: n 00 GAMMAGAR DRUG Active High Other 2023-0 MD D 2-14 Anderso 00:00: n 00 GAMMAGAR DRUG Active High Other 2023-0 MD D 2-14 Anderso 00:00: n 00 GAMMAGAR DRUG Active High Other 2023-0 MD D 2-14 Anderso 00:00: n 00 GAMMAGAR DRUG Active High Other 2023-0 MD D 2-14 Anderso 00:00: n 00 GAMMAGAR DRUG Active High Other 2023-0 MD D 2-14 Anderso 00:00: n 00 GAMMAGAR DRUG Active High Other 2023-0 MD D 2-14 Anderso 00:00: n 00 GAMMAGAR DRUG Active High Other 2023-0 MD D 2-14 Anderso 00:00: n 00 GAMMAGAR DRUG Active High Other 2023-0 MD D 2-14 Anderso 00:00: n 00 GAMMAGAR DRUG Active High Other 2023-0 MD D 2-14 Anderso 00:00: n 00 GAMMAGAR DRUG Active High Other 2023-0 MD D 2-14 Anderso 00:00: n 00 GAMMAGAR DRUG Active High Other 2023-0 MD D 2-14 Anderso 00:00: n 00 GAMMAGAR DRUG Active High Other 2023-0 MD D 2-14 Anderso 00:00: n 00 GAMMAGAR DRUG Active High Other 2023-0 MD D 2-14 Anderso 00:00: n 00 GAMMAGAR DRUG Active High Other 2023-0 MD D 2-14 Anderso 00:00: n 00 GAMMAGAR DRUG Active High Other 2023-0 MD D 2-14 Anderso 00:00: n 00 GAMMAGAR DRUG Active High Other 2023-0 MD D 2-14 Anderso 00:00: n 00 GAMMAGAR DRUG Active High Other 2023-0 MD D 2-14 Anderso 00:00: n 00 GAMMAGAR DRUG Active High Other 2023-0 MD D 2-14 Anderso 00:00: n 00 GAMMAGAR DRUG Active High Other 2023-0 MD D 2-14 Anderso 00:00: n 00 GAMMAGAR DRUG Active High Other 2023-0 MD D 2-14 Anderso 00:00: n 00 GAMMAGAR DRUG Active High Other 2023-0 MD D 2-14 Anderso 00:00: n 00 GAMMAGAR DRUG Active High Other 2023-0 MD D 2-14 Anderso 00:00: n 00 GAMMAGAR DRUG Active High Other 2023-0 MD D 2-14 Anderso 00:00: n 00 GAMMAGAR DRUG Active High Other 2023-0 MD D 2-14 Anderso 00:00: n 00 GAMMAGAR DRUG Active High Other 2023-0 MD D 2-14 Anderso 00:00: n 00 GAMMAGAR DRUG Active High Other 2023-0 MD D 2-14 Anderso 00:00: n 00 GAMMAGAR DRUG Active High Other 2023-0 MD D 2-14 Anderso 00:00: n 00 GAMMAGAR DRUG Active High Other 2023-0 MD D 2-14 Anderso 00:00: n 00 GAMMAGAR DRUG Active High Other 2023-0 MD D 2-14 Anderso 00:00: n 00 GAMMAGAR DRUG Active High Other 2023-0 MD D 2-14 Anderso 00:00: n 00 GAMMAGAR DRUG Active High Other 2023-0 MD D 2-14 Anderso 00:00: n 00 GAMMAGAR DRUG Active High Other 2023-0 MD D 2-14 Anderso 00:00: n 00 GAMMAGAR DRUG Active High Other 2023-0 MD D 2-14 Anderso 00:00: n 00 GAMMAGAR DRUG Active High Other 2023-0 MD D 2-14 Anderso 00:00: n 00 GAMMAGAR DRUG Active High Other 2023-0 MD D 2-14 Anderso 00:00: n 00 GAMMAGAR DRUG Active High Other 2023-0 MD D 2-14 Anderso 00:00: n 00 GAMMAGAR DRUG Active High Other 2023-0 MD D 2-14 Anderso 00:00: n 00 GAMMAGAR DRUG Active High Other 2023-0 MD D 2-14 Anderso 00:00: n 00 GAMMAGAR DRUG Active High Other 2023-0 MD D 2-14 Anderso 00:00: n 00 GAMMAGAR DRUG Active High Other 2023-0 MD D 2-14 Anderso 00:00: n 00 GAMMAGAR DRUG Active High Other 2023-0 MD D 2-14 Anderso 00:00: n 00 GAMMAGAR DRUG Active High Other 2023-0 MD D 2-14 Anderso 00:00: n 00 GAMMAGAR DRUG Active High Other 2023-0 MD D 2-14 Anderso 00:00: n 00 GAMMAGAR DRUG Active High Other 2023-0 MD D 2-14 Anderso 00:00: n 00 GAMMAGAR DRUG Active High Other 2023-0 MD D 2-14 Anderso 00:00: n 00 GAMMAGAR DRUG Active High Other 2023-0 MD D 2-14 Anderso 00:00: n 00 GAMMAGAR DRUG Active High Other 2023-0 MD D 2-14 Anderso 00:00: n 00 GAMMAGAR DRUG Active High Other 2023-0 MD D 2-14 Anderso 00:00: n 00 GAMMAGAR DRUG Active High Other 2023-0 MD D 2-14 Anderso 00:00: n 00 GAMMAGAR DRUG Active High Other 2023-0 MD D 2-14 Anderso 00:00: n 00 GAMMAGAR DRUG Active High Other 2023-0 MD D 2-14 Anderso 00:00: n 00 GAMMAGAR DRUG Active High Other 2023-0 MD D 2-14 Anderso 00:00: n 00 GAMMAGAR DRUG Active High Other 2023-0 MD D 2-14 Anderso 00:00: n 00 GAMMAGAR DRUG Active High Other 2023-0 MD D 2-14 Anderso 00:00: n 00 GAMMAGAR DRUG Active High Other 2023-0 MD D 2-14 Anderso 00:00: n 00 GAMMAGAR DRUG Active High Other 2023-0 MD D 2-14 Anderso 00:00: n 00 GAMMAGAR DRUG Active High Other 2023-0 MD D 2-14 Anderso 00:00: n 00 GAMMAGAR DRUG Active High Other 2023-0 MD D 2-14 Anderso 00:00: n 00 GAMMAGAR DRUG Active High Other 2023-0 MD D 2-14 Anderso 00:00: n 00 GAMMAGAR DRUG Active High Other 2023-0 MD D 2-14 Anderso 00:00: n 00 GAMMAGAR DRUG Active High Other 2023-0 MD D 2-14 Anderso 00:00: n 00 GAMMAGAR DRUG Active High Other 2023-0 MD D 2-14 Anderso 00:00: n 00 GAMMAGAR DRUG Active High Other 2023-0 MD D 2-14 Anderso 00:00: n 00 GAMMAGAR DRUG Active High Other 2023-0 MD D 2-14 Anderso 00:00: n 00 GAMMAGAR DRUG Active High Other 2023-0 MD D 2-14 Anderso 00:00: n 00 GAMMAGAR DRUG Active High Other 2023-0 MD D 2-14 Anderso 00:00: n 00 GAMMAGAR DRUG Active High Other 2023-0 MD D 2-14 Anderso 00:00: n 00 GAMMAGAR DRUG Active High Other 2023-0 MD D 2-14 Anderso 00:00: n 00 GAMMAGAR DRUG Active High Other 2023-0 MD D 2-14 Anderso 00:00: n 00 GAMMAGAR DRUG Active High Other 2023-0 MD D 2-14 Anderso 00:00: n 00 GAMMAGAR DRUG Active High Other 2023-0 MD D 2-14 Anderso 00:00: n 00 GAMMAGAR DRUG Active High Other 2023-0 MD D 2-14 Anderso 00:00: n 00 GAMMAGAR DRUG Active High Other 2023-0 MD D 2-14 Anderso 00:00: n 00 GAMMAGAR DRUG Active High Other 2023-0 MD D 2-14 Anderso 00:00: n 00 GAMMAGAR DRUG Active High Other 2023-0 MD D 2-14 Anderso 00:00: n 00 GAMMAGAR DRUG Active High Other 2023-0 MD D 2-14 Anderso 00:00: n 00 GAMMAGAR DRUG Active High Other 2023-0 MD D 2-14 Anderso 00:00: n 00 GAMMAGAR DRUG Active High Other 2023-0 MD D 2-14 Anderso 00:00: n 00 GAMMAGAR DRUG Active High Other 2023-0 MD D 2-14 Anderso 00:00: n 00 GAMMAGAR DRUG Active High Other 2023-0 MD D 2-14 Anderso 00:00: n 00 GAMMAGAR DRUG Active High Other 2023-0 MD D 2-14 Anderso 00:00: n 00 GAMMAGAR DRUG Active High Other 2023-0 MD D 2-14 Anderso 00:00: n 00 GAMMAGAR DRUG Active High Other 2023-0 MD D 2-14 Anderso 00:00: n 00 GAMMAGAR DRUG Active High Other 2023-0 MD D 2-14 Anderso 00:00: n 00 GAMMAGAR DRUG Active High Other 2023-0 MD D 2-14 Anderso 00:00: n 00 GAMMAGAR DRUG Active High Other 2023-0 MD D 2-14 Anderso 00:00: n 00 GAMMAGAR DRUG Active High Other 2023-0 MD D 2-14 Anderso 00:00: n 00 GAMMAGAR DRUG Active High Other 2023-0 MD D 2-14 Anderso 00:00: n 00 GAMMAGAR DRUG Active High Other 2023-0 MD D 2-14 Anderso 00:00: n 00 GAMMAGAR DRUG Active High Other 2023-0 MD D 2-14 Anderso 00:00: n 00 GAMMAGAR DRUG Active High Other 2023-0 MD D 2-14 Anderso 00:00: n 00 GAMMAGAR DRUG Active High Other 2023-0 MD D 2-14 Anderso 00:00: n 00 GAMMAGAR DRUG Active High Other 2023-0 MD D 2-14 Anderso 00:00: n 00 GAMMAGAR DRUG Active High Other 2023-0 MD D 2-14 Anderso 00:00: n 00 GAMMAGAR DRUG Active High Other 2023-0 MD D 2-14 Anderso 00:00: n 00 GAMMAGAR DRUG Active High Other 2023-0 MD D 2-14 Anderso 00:00: n 00 GAMMAGAR DRUG Active High Other 2023-0 MD D 2-14 Anderso 00:00: n 00 GAMMAGAR DRUG Active High Other 2023-0 MD D 2-14 Anderso 00:00: n 00 GAMMAGAR DRUG Active High Other 2023-0 MD D 2-14 Anderso 00:00: n 00 GAMMAGAR DRUG Active High Other 2023-0 MD D 2-14 Anderso 00:00: n 00 GAMMAGAR DRUG Active High Other 2023-0 MD D 2-14 Anderso 00:00: n 00 GAMMAGAR DRUG Active High Other 2023-0 MD D 2-14 Anderso 00:00: n 00 GAMMAGAR DRUG Active High Other 2023-0 MD D 2-14 Anderso 00:00: n 00 GAMMAGAR DRUG Active High Other 2023-0 MD D 2-14 Anderso 00:00: n 00 GAMMAGAR DRUG Active High Other 2023-0 MD D 2-14 Anderso 00:00: n 00 GAMMAGAR DRUG Active High Other 2023-0 MD D 2-14 Anderso 00:00: n 00 GAMMAGAR DRUG Active High Other 2023-0 MD D 2-14 Anderso 00:00: n 00 GAMMAGAR DRUG Active High Other 2023-0 MD D 2-14 Anderso 00:00: n 00 GAMMAGAR DRUG Active High Other 2023-0 MD D 2-14 Anderso 00:00: n 00 GAMMAGAR DRUG Active High Other 2023-0 MD D 2-14 Anderso 00:00: n 00 GAMMAGAR DRUG Active High Other 2023-0 MD D 2-14 Anderso 00:00: n 00 MORPHINE DRUG Active Other 2018-0 MD INGREDI 7-12 Anderso 00:00: n 00 MORPHINE DRUG Active Other 2018-0 MD INGREDI 7-12 Anderso 00:00: n 00 MORPHINE DRUG Active Other 2018-0 MD INGREDI 7-12 Anderso 00:00: n 00 MORPHINE DRUG Active Other 2018-0 MD INGREDI 7-12 Anderso 00:00: n 00 MORPHINE DRUG Active Other 2018-0 MD INGREDI 7-12 Anderso 00:00: n 00 MORPHINE DRUG Active Other 2018-0 MD INGREDI 7-12 Anderso 00:00: n 00 MORPHINE DRUG Active Other 2018-0 MD INGREDI 7-12 Anderso 00:00: n 00 MORPHINE DRUG Active Other 2018-0 MD INGREDI 7-12 Anderso 00:00: n 00 MORPHINE DRUG Active Other 2018-0 MD INGREDI 7-12 Anderso 00:00: n 00 MORPHINE DRUG Active Other 2018-0 MD INGREDI 7-12 Anderso 00:00: n 00 MORPHINE DRUG Active Other 2018-0 MD INGREDI 7-12 Anderso 00:00: n 00 MORPHINE DRUG Active Other 2018-0 MD INGREDI 7-12 Anderso 00:00: n 00 MORPHINE DRUG Active Other 2018-0 MD INGREDI 7-12 Anderso 00:00: n 00 MORPHINE DRUG Active Other 2018-0 MD INGREDI 7-12 Anderso 00:00: n 00 MORPHINE DRUG Active Other 2018-0 MD INGREDI 7-12 Anderso 00:00: n 00 MORPHINE DRUG Active Other 2018-0 MD INGREDI 7-12 Anderso 00:00: n 00 MORPHINE DRUG Active Other 2018-0 MD INGREDI 7-12 Anderso 00:00: n 00 MORPHINE DRUG Active Other 2018-0 MD INGREDI 7-12 Anderso 00:00: n 00 MORPHINE DRUG Active Other 2018-0 MD INGREDI 7-12 Anderso 00:00: n 00 MORPHINE DRUG Active Other 2018-0 MD INGREDI 7-12 Anderso 00:00: n 00 MORPHINE DRUG Active Other 2018-0 MD INGREDI 7-12 Anderso 00:00: n 00 MORPHINE DRUG Active Other 2018-0 MD INGREDI 7-12 Anderso 00:00: n 00 MORPHINE DRUG Active Other 2018-0 MD INGREDI 7-12 Anderso 00:00: n 00 MORPHINE DRUG Active Other 2018-0 MD INGREDI 7-12 Anderso 00:00: n 00 MORPHINE DRUG Active Other 2018-0 MD INGREDI 7-12 Anderso 00:00: n 00 MORPHINE DRUG Active Other 2018-0 MD INGREDI 7-12 Anderso 00:00: n 00 MORPHINE DRUG Active Other 2018-0 MD INGREDI 7-12 Anderso 00:00: n 00 MORPHINE DRUG Active Other 2018-0 MD INGREDI 7-12 Anderso 00:00: n 00 MORPHINE DRUG Active Other 2018-0 MD INGREDI 7-12 Anderso 00:00: n 00 MORPHINE DRUG Active Other 2018-0 MD INGREDI 7-12 Anderso 00:00: n 00 MORPHINE DRUG Active Other 2018-0 MD INGREDI 7-12 Anderso 00:00: n 00 MORPHINE DRUG Active Other 2018-0 MD INGREDI 7-12 Anderso 00:00: n 00 MORPHINE DRUG Active Other 2018-0 MD INGREDI 7-12 Anderso 00:00: n 00 MORPHINE DRUG Active Other 2018-0 MD INGREDI 7-12 Anderso 00:00: n 00 MORPHINE DRUG Active Other 2018-0 MD INGREDI 7-12 Anderso 00:00: n 00 MORPHINE DRUG Active Other 2018-0 MD INGREDI 7-12 Anderso 00:00: n 00 MORPHINE DRUG Active Other 2018-0 MD INGREDI 7-12 Anderso 00:00: n 00 MORPHINE DRUG Active Other 2018-0 MD INGREDI 7-12 Anderso 00:00: n 00 MORPHINE DRUG Active Other 2018-0 MD INGREDI 7-12 Anderso 00:00: n 00 MORPHINE DRUG Active Other 2018-0 MD INGREDI 7-12 Anderso 00:00: n 00 MORPHINE DRUG Active Other 2018-0 MD INGREDI 7-12 Anderso 00:00: n 00 MORPHINE DRUG Active Other 2018-0 MD INGREDI 7-12 Anderso 00:00: n 00 MORPHINE DRUG Active Other 2018-0 MD INGREDI 7-12 Anderso 00:00: n 00 MORPHINE DRUG Active Other 2018-0 MD INGREDI 7-12 Anderso 00:00: n 00 MORPHINE DRUG Active Other 2018-0 MD INGREDI 7-12 Anderso 00:00: n 00 MORPHINE DRUG Active Other 2018-0 MD INGREDI 7-12 Anderso 00:00: n 00 MORPHINE DRUG Active Other 2018-0 MD INGREDI 7-12 Anderso 00:00: n 00 MORPHINE DRUG Active Other 2018-0 MD INGREDI 7-12 Anderso 00:00: n 00 MORPHINE DRUG Active Other 2018-0 MD INGREDI 7-12 Anderso 00:00: n 00 MORPHINE DRUG Active Other 2018-0 MD INGREDI 7-12 Anderso 00:00: n 00 MORPHINE DRUG Active Other 2018-0 MD INGREDI 7-12 Anderso 00:00: n 00 MORPHINE DRUG Active Other 2018-0 MD INGREDI 7-12 Anderso 00:00: n 00 MORPHINE DRUG Active Other 2018-0 MD INGREDI 7-12 Anderso 00:00: n 00 MORPHINE DRUG Active Other 2018-0 MD INGREDI 7-12 Anderso 00:00: n 00 MORPHINE DRUG Active Other 2018-0 MD INGREDI 7-12 Anderso 00:00: n 00 MORPHINE DRUG Active Other 2018-0 MD INGREDI 7-12 Anderso 00:00: n 00 MORPHINE DRUG Active Other 2018-0 MD INGREDI 7-12 Anderso 00:00: n 00 MORPHINE DRUG Active Other 2018-0 MD INGREDI 7-12 Anderso 00:00: n 00 MORPHINE DRUG Active Other 2018-0 MD INGREDI 7-12 Anderso 00:00: n 00 MORPHINE DRUG Active Other 2018-0 MD INGREDI 7-12 Anderso 00:00: n 00 MORPHINE DRUG Active Other 2018-0 MD INGREDI 7-12 Anderso 00:00: n 00 MORPHINE DRUG Active Other 2018-0 MD INGREDI 7-12 Anderso 00:00: n 00 [facility] Active Other 2018-0 [facility] 7-12 Anderso 00:00: n 00 [facility] Active Other 2018-0 [facility] 7-12 Anderso 00:00: n 00 [facility] Active Other 2018-0 MD [facility] 7-12 Anderso 00:00: n 00 [facility] Active Other 2018-0 [facility] 7-12 Anderso 00:00: n 00 [facility] Active Other 2018-0 [facility] 7-12 Anderso 00:00: n 00 [facility] Active Other 2018-0 MD [facility] 7-12 Anderso 00:00: n 00 [facility] Active Other 2018-0 [facility] 7-12 Anderso 00:00: n 00 [facility] Active Other 2018-0 MD [facility] 7-12 Anderso 00:00: n 00 [facility] Active Other 2018-0 MD [facility] 7-12 Anderso 00:00: n 00 [facility] Active Other 2018-0 [facility] 7-12 Anderso 00:00: n 00 [facility] Active Other 2018-0 [facility] 7-12 Anderso 00:00: n 00 [facility] Active Other 2018-0 MD [facility] 7-12 Anderso 00:00: n 00 [facility] Active Other 2018-0 MD [facility] 7-12 Anderso 00:00: n 00 [facility] Active Other 2018-0 MD [facility] 7-12 Anderso 00:00: n 00 [facility] Active Other 2018-0 MD [facility] 7-12 Anderso 00:00: n 00 [facility] Active Other 2018-0 MD [facility] 7-12 Anderso 00:00: n 00 [facility] Active Other 2018-0 MD [facility] 7-12 Anderso 00:00: n 00 [facility] Active Other 2018-0 MD [facility] 7-12 Anderso 00:00: n 00 [facility] Active Other 2018-0 MD [facility] 7-12 Anderso 00:00: n 00 [facility] Active Other 2018-0 MD [facility] 7-12 Anderso 00:00: n 00 [facility] Active Other 2018-0 MD [facility] 7-12 Anderso 00:00: n 00 [facility] Active Other 2018-0 MD [facility] 7-12 Anderso 00:00: n 00 [facility] Active Other 2018-0 MD [facility] 7-12 Anderso 00:00: n 00 [facility] Active Other 2018-0 MD [facility] 7-12 Anderso 00:00: n 00 [facility] Active Other 2018-0 MD [facility] 7-12 Anderso 00:00: n 00 [facility] Active Other 2018-0 MD [facility] 7-12 Anderso 00:00: n 00 [facility] Active Other 2018-0 MD [facility] 7-12 Anderso 00:00: n 00 [facility] Active Other 2018-0 MD [facility] 7-12 Anderso 00:00: n 00 [facility] Active Other 2018-0 MD [facility] 7-12 Anderso 00:00: n 00 [facility] Active Other 2018-0 [facility] 7-12 Anderso 00:00: n 00 [facility] Active Other 2018-0 MD [facility] 7-12 Anderso 00:00: n 00 [facility] Active Other 2018-0 MD [facility] 7-12 Anderso 00:00: n 00 [facility] Active Other 2018-0 MD [facility] 7-12 Anderso 00:00: n 00 [facility] Active Other 2018-0 MD [facility] 7-12 Anderso 00:00: n 00 [facility] Active Other 2018-0 MD [facility] 7-12 Anderso 00:00: n 00 [facility] Active Other 2018-0 MD [facility] 7-12 Anderso 00:00: n 00 [facility] Active Other 2018-0 MD [facility] 7-12 Anderso 00:00: n 00 [facility] Active Other 2018-0 MD [facility] 7-12 Anderso 00:00: n 00 [facility] Active Other 2018-0 MD [facility] 7-12 Anderso 00:00: n 00 [facility] Active Other 2018-0 MD [facility] 7-12 Anderso 00:00: n 00 [facility] Active Other 2018-0 MD [facility] 7-12 Anderso 00:00: n 00 [facility] Active Other 2018-0 MD [facility] 7-12 Anderso 00:00: n 00 [facility] Active Other 2018-0 MD [facility] 7-12 Anderso 00:00: n 00 [facility] Active Other 2018-0 MD [facility] 7-12 Anderso 00:00: n 00 [facility] Active Other 2018-0 MD [facility] 7-12 Anderso 00:00: n 00 [facility] Active Other 2018-0 MD [facility] 7-12 Anderso 00:00: n 00 [facility] Active Other 2018-0 MD [facility] 7-12 Anderso 00:00: n 00 [facility] Active Other 2018-0 MD [facility] 7-12 Anderso 00:00: n 00 [facility] Active Other 2018-0 MD [facility] 7-12 Anderso 00:00: n 00 [facility] Active Other 2018-0 MD [facility] 7-12 Anderso 00:00: n 00 [facility] Active Other 2018-0 MD [facility] 7-12 Anderso 00:00: n 00 [facility] Active Other 2018-0 MD [facility] 7-12 Anderso 00:00: n 00 [facility] Active Other 2018-0 MD [facility] 7-12 Anderso 00:00: n 00 [facility] Active Other 2018-0 MD IN[facility] 7-12 Anderso 00:00: n 00 [facility] Active Other 2018-0 MD [facility] 7-12 Anderso 00:00: n 00 [facility] Active Other 2018-0 MD [facility] 7-12 Anderso 00:00: n 00 [facility] Active Other 2018-0 MD IN[facility]I 7-12 Anderso 00:00: n 00 [facility] Active Other 2018-0 MD [facility] 7-12 Anderso 00:00: n 00 [facility] Active Other 2018-0 MD [facility] 7-12 Anderso 00:00: n 00 [facility] Active Other 2018-0 MD [facility] 7-12 Anderso 00:00: n 00 [facility] Active Other 2018-0 MD [facility] 7-12 Anderso 00:00: n 00 [facility] Active Other 2018-0 MD [facility] 7-12 Anderso 00:00: n 00 [facility] Active Other 2018-0 MD IN[facility] 7-12 Anderso 00:00: n 00 [facility] Active Other 2018-0 MD IN[facility] 7-12 Anderso 00:00: n 00 [facility] Active Other 2018-0 MD [facility] 7-12 Anderso 00:00: n 00 [facility] Active Other 2018-0 MD [facility] 7-12 Anderso 00:00: n 00 [facility] Active Other 2018-0 MD [facility] 7-12 Anderso 00:00: n 00 [facility] Active Other 2018-0 MD [facility] 7-12 Anderso 00:00: n 00 [facility] Active Other 2018-0 MD [facility] 7-12 Anderso 00:00: n 00 [facility] Active Other 2018-0 MD [facility] 7-12 Anderso 00:00: n 00 [facility] Active Other 2018-0 MD [facility] 7-12 Anderso 00:00: n 00 [facility] Active Other 2018-0 MD [facility] 7-12 Anderso 00:00: n 00 [facility] Active Other 2018-0 MD [facility] 7-12 Anderso 00:00: n 00 [facility] Active Other 2018-0 MD [facility] 7-12 Anderso 00:00: n 00 [facility] Active Other 2018-0 MD [facility] 7-12 Anderso 00:00: n 00 [facility] Active Other 2018-0 MD [facility] 7-12 Anderso 00:00: n 00 [facility] Active Other 2018-0 MD [facility] 7-12 Anderso 00:00: n 00 [facility] Active Other 2018-0 MD [facility] 7-12 Anderso 00:00: n 00 [facility] Active Other 2018-0 MD [facility] 7-12 Anderso 00:00: n 00 [facility] Active Other 2018-0 MD [facility] 7-12 Anderso 00:00: n 00 [facility] Active Other 2018-0 [facility] 7-12 Anderso 00:00: n 00 [facility] Active Other 2018-0 MD [facility] 7-12 Anderso 00:00: n 00 Morphine Propensi Active Other (See 2018-0 Puts her Methodi ty to Comments) [address] adverse 00:00: [facility] reaction 00 t takes l s to Hydrocodo drug ne without any issues Puts her in an MS episodePu ts her in an MS episodeBu t takes Hydrocodo ne without any issues [facility] Active Other 2018-0 MD [facility] 7-12 Anderso 00:00: n 00 [facility] Active Other 2018-0 MD [facility] 7-12 Anderso 00:00: n 00 [facility] Active Other 2018-0 MD [facility] 7-12 Anderso 00:00: n 00 [facility] Active Other 2018-0 MD [facility] 7-12 Anderso 00:00: n 00 [facility] Active Other 2018-0 MD [facility] 7-12 Anderso 00:00: n 00 [facility] Active Other 2018-0 MD [facility] 7-12 Anderso 00:00: n 00 [facility] Active Other 2018-0 MD [facility] 7-12 Anderso 00:00: n 00 [facility] Active Other 2018-0 MD [facility] 7-12 Anderso 00:00: n 00 [facility] Active Other 2018-0 MD [facility] 7-12 Anderso 00:00: n 00 [facility] Active Other 2018-0 MD [facility] 7-12 Anderso 00:00: n 00 [facility] Active Other 2018-0 MD [facility] 7-12 Anderso 00:00: n 00 [facility] Active Other 2018-0 MD [facility] 7-12 Anderso 00:00: n 00 [facility] Active Other 2018-0 MD [facility] 7-12 Anderso 00:00: n 00 [facility] Active Other 2018-0 MD [facility] 7-12 Anderso 00:00: n 00 [facility] Active Other 2018-0 MD [facility] 7-12 Anderso 00:00: n 00 [facility] Active Other 2018-0 MD [facility] 7-12 Anderso 00:00: n 00 [facility] Active Other 2018-0 MD [facility] 7-12 Anderso 00:00: n 00 [facility] Active Other 2018-0 MD [facility] 7-12 Anderso 00:00: n 00 [facility] Active Other 2018-0 MD [facility] 7-12 Anderso 00:00: n 00 [facility] Active Other 2018-0 MD [facility] 7-12 Anderso 00:00: n 00 [facility] Active Other 2018-0 MD [facility] 7-12 Anderso 00:00: n 00 [facility] Active Other 2018-0 MD [facility] 7-12 Anderso 00:00: n 00 [facility] Active Other 2018-0 MD [facility] 7-12 Anderso 00:00: n 00 [facility] Active Other 2018-0 MD [facility] 7-12 Anderso 00:00: n 00 [facility] Active Other 2018-0 MD [facility] 7-12 Anderso 00:00: n 00 [facility] Active Other 2018-0 MD IN[facility] 7-12 Anderso 00:00: n 00 [facility] Active Other 2018-0 MD IN[facility] 7-12 Anderso 00:00: n 00 [facility] Active Other 2018-0 MD [facility] 7-12 Anderso 00:00: n 00 [facility] Active Other 2018-0 MD IN[facility] 7-12 Anderso 00:00: n 00 [facility] Active Other 2018-0 MD IN[facility] 7-12 Anderso 00:00: n 00 [facility] Active Other 2018-0 MD IN[facility]I 7-12 Anderso 00:00: n 00 [facility] Active Other 2018-0 MD IN[facility] 7-12 Anderso 00:00: n 00 [facility] Active Other 2018-0 MD IN[facility]I 7-12 Anderso 00:00: n 00 [facility] Active Other 2018-0 MD [facility] 7-12 Anderso 00:00: n 00 [facility] Active Other 2018-0 MD [facility] 7-12 Anderso 00:00: n 00 [facility] Active Other 2018-0 MD IN[facility]I 7-12 Anderso 00:00: n 00 [facility] Active Other 2018-0 MD [facility] 7-12 Anderso 00:00: n 00 [facility] Active Other 2018-0 MD IN[facility]I 7-12 Anderso 00:00: n 00 [facility] Active Other 2018-0 MD IN[facility]I 7-12 Anderso 00:00: n 00 [facility] Active Other 2018-0 MD INGREDI 7-12 Anderso 00:00: n 00 [facility] Active Other 2018-0 MD IN[facility]I 7-12 Anderso 00:00: n 00 [facility] Active Other 2018-0 MD IN[facility]I 7-12 Anderso 00:00: n 00 [facility] Active Other 2018-0 MD IN[facility]I 7-12 Anderso 00:00: n 00 [facility] Active Other 2018-0 MD [facility] 7-12 Anderso 00:00: n 00 [facility] Active Other 2018-0 MD [facility] 7-12 Anderso 00:00: n 00 [facility] Active Other 2018-0 MD IN[facility] 7-12 Anderso 00:00: n 00 [facility] Active Other 2018-0 MD [facility] 7-12 Anderso 00:00: n 00 [facility] Active Other 2018-0 MD [facility] 7-12 Anderso 00:00: n 00 [facility] Active Other 2018-0 MD IN[facility] 7-12 Anderso 00:00: n 00 [facility] Active Other 2018-0 MD [facility] 7-12 Anderso 00:00: n 00 [facility] Active Other 2018-0 MD [facility] 7-12 Anderso 00:00: n 00 [facility] Active Other 2018-0 MD [facility] 7-12 Anderso 00:00: n 00 [facility] Active Other 2018-0 MD [facility] 7-12 Anderso 00:00: n 00 [facility] Active Other 2018-0 MD [facility] 7-12 Anderso 00:00: n 00 [facility] Active Other 2018-0 MD [facility] 7-12 Anderso 00:00: n 00 [facility] Active Other 2018-0 MD IN[facility] 7-12 Anderso 00:00: n 00 [facility] Active Other 2018-0 MD [facility] 7-12 Anderso 00:00: n 00 [facility] Active Other 2018-0 MD IN[facility] 7-12 Anderso 00:00: n 00 [facility] Active Other 2018-0 MD IN[facility] 7-12 Anderso 00:00: n 00 [facility] Active Other 2018-0 MD IN[facility] 7-12 Anderso 00:00: n 00 [facility] Active Other 2018-0 MD [facility] 7-12 Anderso 00:00: n 00 [facility] Active Other 2018-0 MD [facility] 7-12 Anderso 00:00: n 00 [facility] Active Other 2018-0 MD [facility] 7-12 Anderso 00:00: n 00 [facility] Active Other 2018-0 MD [facility] 7-12 Anderso 00:00: n 00 [facility] Active Other 2018-0 MD [facility] 7-12 Anderso 00:00: n 00 [facility] Active Other 2018-0 MD IN[facility] 7-12 Anderso 00:00: n 00 [facility] Active Other 2018-0 MD IN[facility]I 7-12 Anderso 00:00: n 00 [facility] Active Other 2018-0 MD INGR[facility]I 7-12 Anderso 00:00: n 00 [facility] Active Other 2018-0 MD IN[facility]I 7-12 Anderso 00:00: n 00 [facility] Active Other 2018-0 MD IN[facility] 7-12 Anderso 00:00: n 00 [facility] Active Other 2018-0 MD IN[facility]I 7-12 Anderso 00:00: n 00 [facility] Active Other 2018-0 MD IN[facility] 7-12 Anderso 00:00: n 00 [facility] Active Other 2018-0 MD IN[facility] 7-12 Anderso 00:00: n 00 [facility] Active Other 2018-0 MD IN[facility]I 7-12 Anderso 00:00: n 00 [facility] Active Other 2018-0 MD IN[facility]I 7-12 Anderso 00:00: n 00 [facility] Active Other 2018-0 MD IN[facility]I 7-12 Anderso 00:00: n 00 [facility] Active Other 2018-0 MD IN[facility]I 7-12 Anderso 00:00: n 00 [facility] Active Other 2018-0 MD INGREDI 7-12 Anderso 00:00: n 00 [facility] Active Other 2018-0 MD INGR[facility]I 7-12 Anderso 00:00: n 00 [facility] Active Other 2018-0 MD INGREDI 7-12 Anderso 00:00: n 00 [facility] Active Other 2018-0 MD INGREDI 7-12 Anderso 00:00: n 00 [facility] Active Other 2018-0 MD INGREDI 7-12 Anderso 00:00: n 00 [facility]UG Active Other 2018-0 MD INGREDI 7-12 Anderso 00:00: n 00 [facility] Active Other 2018-0 MD INGREDI 7-12 Anderso 00:00: n 00 [facility] DRUG Active Other 2018-0 MD INGREDI 7-12 Anderso 00:00: n 00 [facility] DRUG Active Other 2018-0 MD INGREDI 7-12 Anderso 00:00: n 00 MORPHINE DRUG Active Other 2018-0 MD INGREDI 7-12 Anderso 00:00: n 00 MORPHINE DRUG Active Other 2018-0 MD INGREDI 7-12 Anderso 00:00: n 00 M[facility]PH[facility] DRUG Active Other 2018-0 MD INGREDI 7-12 Anderso 00:00: n 00 [facility] DRUG Active Other 2018-0 MD INGREDI 7-12 Anderso 00:00: n 00 [facility] DRUG Active Other 2018-0 MD INGREDI 7-12 Anderso 00:00: n 00 [facility] DRUG Active Other 2018-0 MD INGREDI 7-12 Anderso 00:00: n 00 [facility] DRUG Active Other 2018-0 MD INGREDI 7-12 Anderso 00:00: n 00 [facility] DRUG Active Other 2018-0 MD INGREDI 7-12 Anderso 00:00: n 00 [facility]UG Active Other 2018-0 MD INGREDI 7-12 Anderso 00:00: n 00 [facility] DRUG Active Other 2018-0 MD INGREDI 7-12 Anderso 00:00: n 00 MORPH[facility] DRUG Active Other 2018-0 MD INGREDI 7-12 Anderso 00:00: n 00 [facility]PH[facility] DRUG Active Other 2018-0 MD INGREDI 7-12 Anderso 00:00: n 00 [facility]ORPH[facility] DRUG Active Other 2018-0 MD INGREDI 7-12 Anderso 00:00: n 00 MORPH[facility] DRUG Active Other 2018-0 MD INGREDI 7-12 Anderso 00:00: n 00 [facility]ORPH[facility] DRUG Active Other 2018-0 MD INGREDI 7-12 Anderso 00:00: n 00 [facility] DRUG Active Other 2018-0 MD INGREDI 7-12 Anderso 00:00: n 00 [facility] Active Other 2018-0 MD INGREDI 7-12 Anderso 00:00: n 00 [facility] Active Other 2018-0 MD INGREDI 7-12 Anderso 00:00: n 00 [facility] Active Other 2018-0 MD INGREDI 7-12 Anderso 00:00: n 00 [facility] Active Other 2018-0 MD INGREDI 7-12 Anderso 00:00: n 00 [facility]UG Active Other 2018-0 MD INGREDI 7-12 Anderso 00:00: n 00 [facility] Active Other 2018-0 MD INGREDI 7-12 Anderso 00:00: n 00 [facility]UG Active Other 2018-0 MD INGREDI 7-12 Anderso 00:00: n 00 [facility]UG Active Other 2018-0 MD INGREDI 7-12 Anderso 00:00: n 00 [facility]UG Active Other 2018-0 MD INGREDI 7-12 Anderso 00:00: n 00 [facility]UG Active Other 2018-0 MD INGREDI 7-12 Anderso 00:00: n 00 [facility] Active Other 2018-0 MD INGREDI 7-12 Anderso 00:00: n 00 [facility] DRUG Active Other 2018-0 MD INGREDI 7-12 Anderso 00:00: n 00 [facility] DRUG Active Other 2018-0 MD INGREDI 7-12 Anderso 00:00: n 00 [facility] DRUG Active Other 2018-0 MD INGREDI 7-12 Anderso 00:00: n 00 [facility] DRUG Active Other 2018-0 MD INGREDI 7-12 Anderso 00:00: n 00 [facility] DRUG Active Other 2018-0 MD INGREDI 7-12 Anderso 00:00: n 00 [facility] DRUG Active Other 2018-0 MD INGREDI 7-12 Anderso 00:00: n 00 [facility] DRUG Active Other 2018-0 MD INGREDI 7-12 Anderso 00:00: n 00 [facility] DRUG Active Other 2018-0 MD INGREDI 7-12 Anderso 00:00: n 00 [facility] DRUG Active Other 2018-0 MD INGREDI 7-12 Anderso 00:00: n 00 [facility] DRUG Active Other 2018-0 MD INGREDI 7-12 Anderso 00:00: n 00 MORPH[facility] DRUG Active Other 2018-0 MD INGREDI 7-12 Anderso 00:00: n 00 MORPH[facility] DRUG Active Other 2018-0 MD INGREDI 7-12 Anderso 00:00: n 00 MORPHINE DRUG Active Other 2018-0 MD INGREDI 7-12 Anderso 00:00: n 00 MORPHINE DRUG Active Other 2018-0 MD INGREDI 7-12 Anderso 00:00: n 00 MORPHINE DRUG Active Other 2018-0 MD INGREDI 7-12 Anderso 00:00: n 00 MORPHINE DRUG Active Other 2018-0 MD INGREDI 7-12 Anderso 00:00: n 00 MORPHINE DRUG Active Other 2018-0 MD INGREDI 7-12 Anderso 00:00: n 00 M[facility]PH[facility] DRUG Active Other 2018-0 MD INGREDI 7-12 Anderso 00:00: n 00 MORPH[facility] DRUG Active Other 2018-0 MD INGREDI 7-12 Anderso 00:00: n 00 MORPH[facility] DRUG Active Other 2018-0 MD INGREDI 7-12 Anderso 00:00: n 00 MORPH[facility] DRUG Active Other 2018-0 MD INGREDI 7-12 Anderso 00:00: n 00 MORPH[facility] DRUG Active Other 2018-0 MD INGREDI 7-12 Anderso 00:00: n 00 MOR[facility] DRUG Active Other 2018-0 MD INGREDI 7-12 Anderso 00:00: n 00 MORPH[facility] DRUG Active Other 2018-0 MD INGREDI 7-12 Anderso 00:00: n 00 MORPH[facility] DRUG Active Other 2018-0 MD INGREDI 7-12 Anderso 00:00: n 00 MORPHINE DRUG Active Other 2018-0 MD INGREDI 7-12 Anderso 00:00: n 00 MORPHINE DRUG Active Other 2018-0 MD INGREDI 7-12 Anderso 00:00: n 00 MORPH[facility] DRUG Active Other 2018-0 MD INGREDI 7-12 Anderso 00:00: n 00 MORPHINE DRUG Active Other 2018-0 MD INGREDI 7-12 Anderso 00:00: n 00 MORPHINE DRUG Active Other 2018-0 MD INGREDI 7-12 Anderso 00:00: n 00 MORPHINE DRUG Active Other 2018-0 MD INGREDI 7-12 Anderso 00:00: n 00 MORPH[facility] DRUG Active Other 2018-0 MD INGREDI 7-12 Anderso 00:00: n 00 MORPH[facility] DRUG Active Other 2018-0 MD INGREDI 7-12 Anderso 00:00: n 00 MORPHINE DRUG Active Other 2018-0 MD INGREDI 7-12 Anderso 00:00: n 00 MORPHINE DRUG Active Other 2018-0 MD INGREDI 7-12 Anderso 00:00: n 00 MORPHINE DRUG Active Other 2018-0 MD INGREDI 7-12 Anderso 00:00: n 00 MORPHINE DRUG Active Other 2018-0 MD INGREDI 7-12 Anderso 00:00: n 00 M[facility] DRUG Active Other 2018-0 MD INGREDI 7-12 Anderso 00:00: n 00 MORPHINE DRUG Active Other 2018-0 MD INGREDI 7-12 Anderso 00:00: n 00 MORPHINE DRUG Active Other 2018-0 MD INGREDI 7-12 Anderso 00:00: n 00 MORPHINE DRUG Active Other 2018-0 MD INGREDI 7-12 Anderso 00:00: n 00 MORPHINE DRUG Active Other 2018-0 MD INGREDI 7-12 Anderso 00:00: n 00 MORPHINE DRUG Active Other 2018-0 MD INGREDI 7-12 Anderso 00:00: n 00 MORPHINE DRUG Active Other 2018-0 MD INGREDI 7-12 Anderso 00:00: n 00 MORPHINE DRUG Active Other 2018-0 MD INGREDI 7-12 Anderso 00:00: n 00 MORPHINE DRUG Active Other 2018-0 MD INGREDI 7-12 Anderso 00:00: n 00 MORPHINE DRUG Active Other 2018-0 MD INGREDI 7-12 Anderso 00:00: n 00 MORPHINE DRUG Active Other 2018-0 MD INGREDI 7-12 Anderso 00:00: n 00 MORPHINE DRUG Active Other 2018-0 MD INGREDI 7-12 Anderso 00:00: n 00 MORPH[facility] DRUG Active Other 2018-0 MD INGREDI 7-12 Anderso 00:00: n 00 MORPH[facility] DRUG Active Other 2018-0 MD INGREDI 7-12 Anderso 00:00: n 00 MORPH[facility] DRUG Active Other 2018-0 MD INGREDI 7-12 Anderso 00:00: n 00 MORPHINE DRUG Active Other 2018-0 MD INGREDI 7-12 Anderso 00:00: n 00 MORPHINE DRUG Active Other 2018-0 MD INGREDI 7-12 Anderso 00:00: n 00 MORPHINE DRUG Active Other 2018-0 MD INGREDI 7-12 Anderso 00:00: n 00 MORPHINE DRUG Active Other 2018-0 MD INGREDI 7-12 Anderso 00:00: n 00 MORPHINE DRUG Active Other 2018-0 MD INGREDI 7-12 Anderso 00:00: n 00 MORPHINE DRUG Active Other 2018-0 MD INGREDI 7-12 Anderso 00:00: n 00 MORPHINE DRUG Active Other 2018-0 MD INGREDI 7-12 Anderso 00:00: n 00 MORPHINE DRUG Active Other 2018-0 MD INGREDI 7-12 Anderso 00:00: n 00 MORPHINE DRUG Active Other 2018-0 MD INGREDI 7-12 Anderso 00:00: n 00 MORPHINE DRUG Active Other 2018-0 MD INGREDI 7-12 Anderso 00:00: n 00 MORPHINE DRUG Active Other 2018-0 MD INGREDI 7-12 Anderso 00:00: n 00 MORPHINE DRUG Active Other 2018-0 MD INGREDI 7-12 Anderso 00:00: n 00 MORPHINE DRUG Active Other 2018-0 MD INGREDI 7-12 Anderso 00:00: n 00 MORPHINE DRUG Active Other 2018-0 MD INGREDI 7-12 Anderso 00:00: n 00 MORPHINE DRUG Active Other 2018-0 MD INGREDI 7-12 Anderso 00:00: n 00 MORPHINE DRUG Active Other 2018-0 MD INGREDI 7-12 Anderso 00:00: n 00 MORPHINE DRUG Active Other 2018-0 MD INGREDI 7-12 Anderso 00:00: n 00 MORPHINE DRUG Active Other 2018-0 MD INGREDI 7-12 Anderso 00:00: n 00 MORPHINE DRUG Active Other 2018-0 MD INGREDI 7-12 Anderso 00:00: n 00 MORPHINE DRUG Active Other 2018-0 MD INGREDI 7-12 Anderso 00:00: n 00 MORPHINE DRUG Active Other 2018-0 MD INGREDI 7-12 Anderso 00:00: n 00 MORPHINE DRUG Active Other 2018-0 MD INGREDI 7-12 Anderso 00:00: n 00 MORPHINE DRUG Active Other 2018-0 MD INGREDI 7-12 Anderso 00:00: n 00 MORPHINE DRUG Active Other 2018-0 MD INGREDI 7-12 Anderso 00:00: n 00 MORPHINE DRUG Active Other 2018-0 MD INGREDI 7-12 Anderso 00:00: n 00 M[facility]PH[facility] DRUG Active Other 2018-0 MD INGREDI 7-12 Anderso 00:00: n 00 M[facility]UG Active Other 2018-0 MD INGREDI 7-12 Anderso 00:00: n 00 [facility] DRUG Active Other 2018-0 MD INGREDI 7-12 Anderso 00:00: n 00 M[facility] DRUG Active Other 2018-0 MD INGREDI 7-12 Anderso 00:00: n 00 MORPH[facility] DRUG Active Other 2018-0 MD INGREDI 7-12 Anderso 00:00: n 00 MORPH[facility] DRUG Active Other 2018-0 MD INGREDI 7-12 Anderso 00:00: n 00 MORPHINE DRUG Active Other 2018-0 MD INGREDI 7-12 Anderso 00:00: n 00 MORPH[facility] DRUG Active Other 2018-0 MD INGREDI 7-12 Anderso 00:00: n 00 MORPH[facility] DRUG Active Other 2018-0 MD INGREDI 7-12 Anderso 00:00: n 00 MORPHINE DRUG Active Other 2018-0 MD INGREDI 7-12 Anderso 00:00: n 00 MORPH[facility] DRUG Active Other 2018-0 MD INGREDI 7-12 Anderso 00:00: n 00 MOR[facility] DRUG Active Other 2018-0 MD INGREDI 7-12 Anderso 00:00: n 00 MORPH[facility] DRUG Active Other 2018-0 MD INGREDI 7-12 Anderso 00:00: n 00 MORPH[facility] DRUG Active Other 2018-0 MD INGREDI 7-12 Anderso 00:00: n 00 MORPH[facility] DRUG Active Other 2018-0 MD INGREDI 7-12 Anderso 00:00: n 00 MORPH[facility] DRUG Active Other 2018-0 MD INGREDI 7-12 Anderso 00:00: n 00 MORPHINE DRUG Active Other 2018-0 MD INGREDI 7-12 Anderso 00:00: n 00 MORPHINE DRUG Active Other 2018-0 MD INGREDI 7-12 Anderso 00:00: n 00 MORPHINE DRUG Active Other 2018-0 MD INGREDI 7-12 Anderso 00:00: n 00 MORPHINE DRUG Active Other 2018-0 MD INGREDI 7-12 Anderso 00:00: n 00 MORPHINE DRUG Active Other 2018-0 MD INGREDI 7-12 Anderso 00:00: n 00 MORPHINE DRUG Active Other 2018-0 MD INGREDI 7-12 Anderso 00:00: n 00 MORPHINE DRUG Active Other 2018-0 MD INGREDI 7-12 Anderso 00:00: n 00 MORPHINE DRUG Active Other 2018-0 MD INGREDI 7-12 Anderso 00:00: n 00 MORPHINE DRUG Active Other 2018-0 MD INGREDI 7-12 Anderso 00:00: n 00 MORPHINE DRUG Active Other 2018-0 MD INGREDI 7-12 Anderso 00:00: n 00 MORPHINE DRUG Active Other 2018-0 MD INGREDI 7-12 Anderso 00:00: n 00 MORPHINE DRUG Active Other 2018-0 MD INGREDI 7-12 Anderso 00:00: n 00 MORPHINE DRUG Active Other 2018-0 MD INGREDI 7-12 Anderso 00:00: n 00 MORPHINE DRUG Active Other 2018-0 MD INGREDI 7-12 Anderso 00:00: n 00 MORPHINE DRUG Active Other 2018-0 MD INGREDI 7-12 Anderso 00:00: n 00 MORPHINE DRUG Active Other 2018-0 MD INGREDI 7-12 Anderso 00:00: n 00 MORPHINE DRUG Active Other 2018-0 MD INGREDI 7-12 Anderso 00:00: n 00 MORPHINE DRUG Active Other 2018-0 MD INGREDI 7-12 Anderso 00:00: n 00 MORPHINE DRUG Active Other 2018-0 MD INGREDI 7-12 Anderso 00:00: n 00 MORPHINE DRUG Active Other 2018-0 MD INGREDI 7-12 Anderso 00:00: n 00 MORPHINE DRUG Active Other 2018-0 MD INGREDI 7-12 Anderso 00:00: n 00 MORPHINE DRUG Active Other 2018-0 MD INGREDI 7-12 Anderso 00:00: n 00 MORPHINE DRUG Active Other 2018-0 MD INGREDI 7-12 Anderso 00:00: n 00 MORPHINE DRUG Active Other 2018-0 MD INGREDI 7-12 Anderso 00:00: n 00 MORPHINE DRUG Active Other 2018-0 MD INGREDI 7-12 Anderso 00:00: n 00 MORPHINE DRUG Active Other 2018-0 MD INGREDI 7-12 Anderso 00:00: n 00 MORPHINE DRUG Active Other 2018-0 MD INGREDI 7-12 Anderso 00:00: n 00 MORPHINE DRUG Active Other 2018-0 MD INGREDI 7-12 Anderso 00:00: n 00 MORPHINE DRUG Active Other 2018-0 MD INGREDI 7-12 Anderso 00:00: n 00 MORPHINE DRUG Active Other 2018-0 MD INGREDI 7-12 Anderso 00:00: n 00 MORPHINE DRUG Active Other 2018-0 MD INGREDI 7-12 Anderso 00:00: n 00 MORPHINE DRUG Active Other 2018-0 MD INGREDI 7-12 Anderso 00:00: n 00 MORPHINE DRUG Active Other 2018-0 MD INGREDI 7-12 Anderso 00:00: n 00 MORPHINE DRUG Active Other 2018-0 MD INGREDI 7-12 Anderso 00:00: n 00 MORPHINE DRUG Active Other 2018-0 MD INGREDI 7-12 Anderso 00:00: n 00 MORPHINE DRUG Active Other 2018-0 MD INGREDI 7-12 Anderso 00:00: n 00 MORPHINE DRUG Active Other 2018-0 MD INGREDI 7-12 Anderso 00:00: n 00 MORPHINE DRUG Active Other 2018-0 MD INGREDI 7-12 Anderso 00:00: n 00 MORPHINE DRUG Active Other 2018-0 MD INGREDI 7-12 Anderso 00:00: n 00 MORPHINE DRUG Active Other 2018-0 MD INGREDI 7-12 Anderso 00:00: n 00 MORPHINE DRUG Active Other 2018-0 MD INGREDI 7-12 Anderso 00:00: n 00 MORPHINE DRUG Active Other 2018-0 MD INGREDI 7-12 Anderso 00:00: n 00 MORPHINE DRUG Active Other 2018-0 MD INGREDI 7-12 Anderso 00:00: n 00 MORPHINE DRUG Active Other 2018-0 MD INGREDI 7-12 Anderso 00:00: n 00 MORPHINE DRUG Active Other 2018-0 MD INGREDI 7-12 Anderso 00:00: n 00 ETHER DRUG Active Med Other 2016-0 MD INGREDI 10-26 Anderso 00:00: n 00 ETHER DRUG Active Med Other 2016-0 MD INGREDI 10-26 Anderso 00:00: n 00 ETHER DRUG Active Med Other 2016-0 MD INGREDI 08 Anderso 00:00: n 00 ETHER DRUG Active Med Other 2016-0 MD INGREDI 08 Anderso 00:00: n 00 ETHER DRUG Active Med Other 2016-0 MD INGREDI 908 Anderso 00:00: n 00 ETHER DRUG Active Med Other 2016-0 MD INGREDI 08 Anderso 00:00: n 00 [facility] Active Med Other 2016-0 MD INGREDI 908 Anderso 00:00: n 00 [facility] Active Med Other 2016-0 MD INGREDI 908 Anderso 00:00: n 00 ETHER [facility] Active Med Other 2016-0 MD INGREDI 08 Anderso 00:00: n 00 ETHER [facility] Active Med Other 2016-0 MD INGREDI 08 Anderso 00:00: n 00 ETHER [facility] Active Med Other 2015-0 MD INGREDI 9-08 Anderso 00:00: n 00 ETHER [facility]UG Active Med Other 2015-0 MD INGREDI 9-08 Anderso 00:00: n 00 ETHER [facility]UG Active Med Other 2016-0 MD INGREDI 908 Anderso 00:00: n 00 ETHER [facility]UG Active Med Other 2015-0 MD INGREDI 08 Anderso 00:00: n 00 ETHER [facility] Active Med Other 2015-0 MD INGREDI 08 Anderso 00:00: n 00 ETHER [facility] Active Med Other 2015-0 MD INGREDI 9-08 Anderso 00:00: n 00 ETHER [facility]UG Active Med Other 2015-0 MD INGREDI 08 Anderso 00:00: n 00 ETHER [facility] Active Med Other 2015-0 MD INGREDI 08 Anderso 00:00: n 00 ETHER [facility]UG Active Med Other 2015-0 MD INGREDI 08 Anderso 00:00: n 00 ETHER [facility]UG Active Med Other 2015-0 MD INGREDI 08 Anderso 00:00: n 00 ETHER DRUG Active Med Other 2015-0 MD INGREDI 08 Anderso 00:00: n 00 ETHER [facility]UG Active Med Other 2015-0 MD INGREDI 08 Anderso 00:00: n 00 ETHER [facility]UG Active Med Other 2015-0 MD INGREDI 908 Anderso 00:00: n 00 ETHER [facility]UG Active Med Other 2016-0 MD INGREDI 908 Anderso 00:00: n 00 ETHER DRUG Active Med Other 2015-0 MD INGREDI 08 Anderso 00:00: n 00 ETHER [facility]UG Active Med Other 2015-0 MD INGREDI 908 Anderso 00:00: n 00 ETHER [facility]UG Active Med Other 2016-0 MD INGREDI 908 Anderso 00:00: n 00 ETHER [facility]UG Active Med Other 2015-0 MD INGREDI 908 Anderso 00:00: n 00 ETHER [facility] Active Med Other 2015-0 MD INGREDI 908 Anderso 00:00: n 00 ETHER [facility] Active Med Other 2016-0 MD INGREDI 908 Anderso 00:00: n 00 ETHER [facility] Active Med Other 2015-0 MD INGREDI 908 Anderso 00:00: n 00 ETHER [facility] Active Med Other 2015-0 MD INGREDI 908 Anderso 00:00: n 00 ETHER [facility] Active Med Other 2016-0 MD INGREDI 9-08 Anderso 00:00: n 00 ETHER [facility]UG Active Med Other 2016-0 MD INGREDI 9-08 Anderso 00:00: n 00 ETHER [facility]UG Active Med Other 2016-0 MD INGREDI 908 Anderso 00:00: n 00 ETHER [facility]UG Active Med Other 2016-0 MD INGREDI 08 Anderso 00:00: n 00 ETHER [facility]UG Active Med Other 2016-0 MD INGREDI 908 Anderso 00:00: n 00 ETHER [facility]UG Active Med Other 2016-0 MD INGREDI 08 Anderso 00:00: n 00 ETHER [facility]UG Active Med Other 2015-0 MD INGREDI 08 Anderso 00:00: n 00 ETHER DRUG Active Med Other 2015-0 MD INGREDI 08 Anderso 00:00: n 00 ETHER [facility]UG Active Med Other 2015-0 MD INGREDI 08 Anderso 00:00: n 00 ETHER [facility]UG Active Med Other 2016-0 MD INGREDI 08 Anderso 00:00: n 00 ETHER [facility]UG Active Med Other 2016-0 MD INGREDI 908 Anderso 00:00: n 00 ETHER [facility]UG Active Med Other 2015-0 MD INGREDI 08 Anderso 00:00: n 00 ETHER [facility]UG Active Med Other 2016-0 MD INGREDI 908 Anderso 00:00: n 00 ETHER DRUG Active Med Other 2016-0 MD INGREDI 908 Anderso 00:00: n 00 ETHER DRUG Active Med Other 2016-0 MD INGREDI 908 Anderso 00:00: n 00 ETHER [facility]UG Active Med Other 2016-0 MD INGREDI 908 Anderso 00:00: n 00 ETHER [facility]UG Active Med Other 2016-0 MD INGREDI 908 Anderso 00:00: n 00 ETHER [facility]UG Active Med Other 2015-0 MD INGREDI 9-08 Anderso 00:00: n 00 ETHER [facility]UG Active Med Other 2016-0 MD INGREDI 9-08 Anderso 00:00: n 00 ETHER [facility]UG Active Med Other 2016-0 MD INGREDI 908 Anderso 00:00: n 00 ETHER [facility] Active Med Other 2015-0 MD INGREDI 908 Anderso 00:00: n 00 ETHER [facility] Active Med Other 2016-0 MD INGREDI 9-08 Anderso 00:00: n 00 ETHER [facility]UG Active Med Other 2016-0 MD INGREDI 9-08 Anderso 00:00: n 00 ETHER [facility]UG Active Med Other 2016-0 MD INGREDI 9-08 Anderso 00:00: n 00 ETHER [facility]UG Active Med Other 2016-0 MD INGREDI 08 Anderso 00:00: n 00 ETHER [facility]UG Active Med Other 2016-0 MD INGREDI 08 Anderso 00:00: n 00 ETHER [facility]UG Active Med Other 2016-0 MD INGREDI 908 Anderso 00:00: n 00 ETHER [facility] Active Med Other 2016-0 MD INGREDI 08 Anderso 00:00: n 00 ETHER [facility]UG Active Med Other 2016-0 MD INGREDI 08 Anderso 00:00: n 00 ETHER [facility]UG Active Med Other 2016-0 MD INGREDI 08 Anderso 00:00: n 00 ETHER [facility]UG Active Med Other 2016-0 MD INGREDI 08 Anderso 00:00: n 00 ETHER [facility]UG Active Med Other 2016-0 MD INGREDI 08 Anderso 00:00: n 00 ETHER [facility]UG Active Med Other 2016-0 MD INGREDI 908 Anderso 00:00: n 00 ETHER [facility]UG Active Med Other 2016-0 MD INGREDI 908 Anderso 00:00: n 00 ETHER DRUG Active Med Other 2016-0 MD INGREDI 08 Anderso 00:00: n 00 ETHER [facility]UG Active Med Other 2016-0 MD INGREDI 908 Anderso 00:00: n 00 ETHER DRUG Active Med Other 2016-0 MD INGREDI 08 Anderso 00:00: n 00 ETHER DRUG Active Med Other 2016-0 MD INGREDI 908 Anderso 00:00: n 00 ETHER [facility]UG Active Med Other 2016-0 MD INGREDI 908 Anderso 00:00: n 00 ETHER [facility]UG Active Med Other 2016-0 MD INGREDI 908 Anderso 00:00: n 00 ETHER [facility]UG Active Med Other 2016-0 MD INGREDI 908 Anderso 00:00: n 00 ETHER [facility]UG Active Med Other 2016-0 MD INGREDI 908 Anderso 00:00: n 00 ETHER [facility] Active Med Other 2016-0 MD INGREDI 908 Anderso 00:00: n 00 ETHER [facility] Active Med Other 2016-0 MD INGREDI 9-08 Anderso 00:00: n 00 ETHER [facility]UG Active Med Other 2015-0 MD INGREDI 9-08 Anderso 00:00: n 00 ETHER [facility]UG Active Med Other 2016-0 MD INGREDI 908 Anderso 00:00: n 00 ETHER [facility]UG Active Med Other 2016-0 MD INGREDI 08 Anderso 00:00: n 00 ETHER [facility]UG Active Med Other 2015-0 MD INGREDI 08 Anderso 00:00: n 00 ETHER [facility]UG Active Med Other 2015-0 MD INGREDI 08 Anderso 00:00: n 00 ETHER [facility]UG Active Med Other 2015-0 MD INGREDI 08 Anderso 00:00: n 00 ETHER [facility] Active Med Other 2015-0 MD INGREDI 08 Anderso 00:00: n 00 ETHER [facility] Active Med Other 2015-0 MD INGREDI 08 Anderso 00:00: n 00 ETHER [facility]UG Active Med Other 2015-0 MD INGREDI 08 Anderso 00:00: n 00 ETHER [facility]UG Active Med Other 2016-0 MD INGREDI 08 Anderso 00:00: n 00 ETHER [facility]UG Active Med Other 2015-0 MD INGREDI 08 Anderso 00:00: n 00 ETHER [facility] Active Med Other 2015-0 MD INGREDI 08 Anderso 00:00: n 00 ETHER [facility] Active Med Other 2016-0 MD INGREDI 08 Anderso 00:00: n 00 ETHER [facility] Active Med Other 2016-0 MD INGREDI 08 Anderso 00:00: n 00 ETHER [facility]UG Active Med Other 2016-0 MD INGREDI 08 Anderso 00:00: n 00 ETHER [facility]UG Active Med Other 2016-0 MD INGREDI 908 Anderso 00:00: n 00 ETHER [facility]UG Active Med Other 2015-0 MD INGREDI 08 Anderso 00:00: n 00 ETHER [facility]UG Active Med Other 2015-0 MD INGREDI 908 Anderso 00:00: n 00 ETHER [facility]UG Active Med Other 2016-0 MD INGREDI 908 Anderso 00:00: n 00 ETHER [facility] Active Med Other 2015-0 MD INGREDI 08 Anderso 00:00: n 00 ETHER [facility] Active Med Other 2015-0 MD INGREDI 908 Anderso 00:00: n 00 ETHER [facility] Active Med Other 2015-0 MD INGREDI 9-08 Anderso 00:00: n 00 ETHER [facility] Active Med Other 2015-0 MD INGREDI 9-08 Anderso 00:00: n 00 ETHER [facility] Active Med Other 2016-0 MD INGREDI 908 Anderso 00:00: n 00 ETHER [facility] Active Med Other 2015-0 MD INGREDI 08 Anderso 00:00: n 00 ETHER [facility]UG Active Med Other 2015-0 MD INGREDI 08 Anderso 00:00: n 00 ETHER [facility] Active Med Other 2015-0 MD INGREDI 9-08 Anderso 00:00: n 00 ETHER [facility] Active Med Other 2015-0 MD INGREDI 08 Anderso 00:00: n 00 ETHER [facility] Active Med Other 2015-0 MD INGREDI 08 Anderso 00:00: n 00 ETHER [facility]UG Active Med Other 2015-0 MD INGREDI 08 Anderso 00:00: n 00 ETHER [facility]UG Active Med Other 2015-0 MD INGREDI 08 Anderso 00:00: n 00 ETHER [facility] Active Med Other 2015-0 MD INGREDI 908 Anderso 00:00: n 00 ETHER [facility] Active Med Other 2015-0 MD INGREDI 08 Anderso 00:00: n 00 ETHER [facility]UG Active Med Other 2015-0 MD INGREDI 908 Anderso 00:00: n 00 ETHER [facility] Active Med Other 2016-0 MD INGREDI 908 Anderso 00:00: n 00 ETHER [facility]UG Active Med Other 2015-0 MD INGREDI 08 Anderso 00:00: n 00 ETHER [facility]UG Active Med Other 2015-0 MD INGREDI 908 Anderso 00:00: n 00 ETHER [facility] Active Med Other 2015-0 MD INGREDI 9-08 Anderso 00:00: n 00 ETHER [facility]UG Active Med Other 2015-0 MD INGREDI 908 Anderso 00:00: n 00 ETHER [facility] Active Med Other 2015-0 MD INGREDI 908 Anderso 00:00: n 00 ETHER [facility]UG Active Med Other 2015-0 MD INGREDI 908 Anderso 00:00: n 00 ETHER [facility] Active Med Other 2015-0 MD INGREDI 908 Anderso 00:00: n 00 ETHER [facility] Active Med Other 2015-0 MD INGREDI 9-08 Anderso 00:00: n 00 ETHER [facility] Active Med Other 2016-0 MD INGREDI 9-08 Anderso 00:00: n 00 ETHER [facility] Active Med Other 2016-0 MD INGREDI 9-08 Anderso 00:00: n 00 ETHER [facility]UG Active Med Other 2016-0 MD INGREDI 908 Anderso 00:00: n 00 ETHER [facility]UG Active Med Other 2015-0 MD INGREDI 08 Anderso 00:00: n 00 ETHER [facility]UG Active Med Other 2016-0 MD INGREDI 08 Anderso 00:00: n 00 ETHER [facility] Active Med Other 2015-0 MD INGREDI 08 Anderso 00:00: n 00 ETHER [facility] Active Med Other 2015-0 MD INGREDI 08 Anderso 00:00: n 00 ETHER [facility] Active Med Other 2015-0 MD INGREDI 08 Anderso 00:00: n 00 ETHER [facility] Active Med Other 2015-0 MD INGREDI 10-26 Anderso 00:00: n 00 ETHER [facility]UG Active Med Other 2015-0 MD INGREDI 08 Anderso 00:00: n 00 ETHER [facility] Active Med Other 2016-0 MD INGREDI 08 Anderso 00:00: n 00 ETHER [facility] Active Med Other 2015-0 MD INGREDI 08 Anderso 00:00: n 00 ETHER [facility]UG Active Med Other 2016-0 MD INGREDI 908 Anderso 00:00: n 00 ETHER [facility]UG Active Med Other 2016-0 MD INGREDI 908 Anderso 00:00: n 00 ETHER [facility]UG Active Med Other 2015-0 MD INGREDI 08 Anderso 00:00: n 00 ETHER [facility]UG Active Med Other 2016-0 MD INGREDI 908 Anderso 00:00: n 00 ETHER [facility]UG Active Med Other 2015-0 MD INGREDI 908 Anderso 00:00: n 00 ETHER [facility]UG Active Med Other 2015-0 MD INGREDI 908 Anderso 00:00: n 00 ETHER [facility]UG Active Med Other 2015-0 MD INGREDI 908 Anderso 00:00: n 00 ETHER [facility]UG Active Med Other 2016-0 MD INGREDI 908 Anderso 00:00: n 00 ETHER [facility]UG Active Med Other 2015-0 MD INGREDI 908 Anderso 00:00: n 00 ETHER [facility]UG Active Med Other 2015-0 MD INGREDI 9-08 Anderso 00:00: n 00 ETHER [facility]UG Active Med Other 2016-0 MD INGREDI 9-08 Anderso 00:00: n 00 ETHER [facility]UG Active Med Other 2016-0 MD INGREDI 9-08 Anderso 00:00: n 00 ETHER [facility]UG Active Med Other 2016-0 MD INGREDI 908 Anderso 00:00: n 00 ETHER DRUG Active Med Other 2016-0 MD INGREDI 908 Anderso 00:00: n 00 ETHER [facility]UG Active Med Other 2016-0 MD INGREDI 908 Anderso 00:00: n 00 ETHER [facility]UG Active Med Other 2016-0 MD INGREDI 08 Anderso 00:00: n 00 ETHER DRUG Active Med Other 2016-0 MD INGREDI 08 Anderso 00:00: n 00 ETHER [facility]UG Active Med Other 2016-0 MD INGREDI 08 Anderso 00:00: n 00 ETHER [facility]UG Active Med Other 2016-0 MD INGREDI 08 Anderso 00:00: n 00 ETHER [facility]UG Active Med Other 2016-0 MD INGREDI 08 Anderso 00:00: n 00 ETHER [facility]UG Active Med Other 2016-0 MD INGREDI 908 Anderso 00:00: n 00 ETHER [facility]UG Active Med Other 2016-0 MD INGREDI 908 Anderso 00:00: n 00 ETHER [facility]UG Active Med Other 2016-0 MD INGREDI 908 Anderso 00:00: n 00 ETHER [facility]UG Active Med Other 2016-0 MD INGREDI 908 Anderso 00:00: n 00 ETHER [facility]UG Active Med Other 2016-0 MD INGREDI 908 Anderso 00:00: n 00 ETHER [facility]UG Active Med Other 2016-0 MD INGREDI 908 Anderso 00:00: n 00 ETHER [facility]UG Active Med Other 2016-0 MD INGREDI 908 Anderso 00:00: n 00 ETHER [facility]UG Active Med Other 2016-0 MD INGREDI 9-08 Anderso 00:00: n 00 ETHER [facility]UG Active Med Other 2016-0 MD INGREDI 908 Anderso 00:00: n 00 ETHER [facility]UG Active Med Other 2016-0 MD INGREDI 908 Anderso 00:00: n 00 ETHER [facility]UG Active Med Other 2016-0 MD INGREDI 908 Anderso 00:00: n 00 ETHER DRUG Active Med Other 2016-0 MD INGREDI 9-08 Anderso 00:00: n 00 ETHER [facility]UG Active Med Other 2016-0 MD INGREDI 9-08 Anderso 00:00: n 00 ETHER [facility]UG Active Med Other 2016-0 MD INGREDI 908 Anderso 00:00: n 00 ETHER [facility]UG Active Med Other 2016-0 MD INGREDI 08 Anderso 00:00: n 00 ETHER [facility]UG Active Med Other 2016-0 MD INGREDI 08 Anderso 00:00: n 00 ETHER [facility]UG Active Med Other 2016-0 MD INGREDI 08 Anderso 00:00: n 00 ETHER [facility]UG Active Med Other 2015-0 MD INGREDI 08 Anderso 00:00: n 00 ETHER [facility]UG Active Med Other 2015-0 MD INGREDI 08 Anderso 00:00: n 00 ETHER [facility]UG Active Med Other 2016-0 MD INGREDI 08 Anderso 00:00: n 00 ETHER [facility]UG Active Med Other 2016-0 MD INGREDI 08 Anderso 00:00: n 00 ETHER DRUG Active Med Other 2016-0 MD INGREDI 08 Anderso 00:00: n 00 ETHER [facility]UG Active Med Other 2016-0 MD INGREDI 908 Anderso 00:00: n 00 ETHER [facility]UG Active Med Other 2016-0 MD INGREDI 908 Anderso 00:00: n 00 ETHER [facility]UG Active Med Other 2016-0 MD INGREDI 08 Anderso 00:00: n 00 ETHER DRUG Active Med Other 2016-0 MD INGREDI 08 Anderso 00:00: n 00 ETHER [facility]UG Active Med Other 2016-0 MD INGREDI 908 Anderso 00:00: n 00 ETHER [facility]UG Active Med Other 2016-0 MD INGREDI 908 Anderso 00:00: n 00 ETHER [facility]UG Active Med Other 2015-0 MD INGREDI 908 Anderso 00:00: n 00 ETHER [facility]UG Active Med Other 2016-0 MD INGREDI 908 Anderso 00:00: n 00 ETHER [facility]UG Active Med Other 2016-0 MD INGREDI 908 Anderso 00:00: n 00 ETHER [facility]UG Active Med Other 2015-0 MD INGREDI 908 Anderso 00:00: n 00 ETHER DRUG Active Med Other 2016-0 MD INGREDI 08 Anderso 00:00: n 00 ETHER [facility]UG Active Med Other 2015-0 MD INGREDI 9-08 Anderso 00:00: n 00 ETHER [facility]UG Active Med Other 2015-0 MD INGREDI 9-08 Anderso 00:00: n 00 ETHER DRUG Active Med Other 2016-0 MD INGREDI 908 Anderso 00:00: n 00 ETHER [facility]UG Active Med Other 2015-0 MD INGREDI 908 Anderso 00:00: n 00 ETHER [facility]UG Active Med Other 2015-0 MD INGREDI 908 Anderso 00:00: n 00 ETHER [facility]UG Active Med Other 2016-0 MD INGREDI 9-08 Anderso 00:00: n 00 ETHER DRUG Active Med Other 2015-0 MD INGREDI 908 Anderso 00:00: n 00 ETHER [facility]UG Active Med Other 2015-0 MD INGREDI 908 Anderso 00:00: n 00 ETHER [facility]UG Active Med Other 2015-0 MD INGREDI 908 Anderso 00:00: n 00 ETHER DRUG Active Med Other 2015-0 MD INGREDI 908 Anderso 00:00: n 00 ETHER [facility]UG Active Med Other 2016-0 MD INGREDI 908 Anderso 00:00: n 00 ETHER DRUG Active Med Other 2015-0 MD INGREDI 908 Anderso 00:00: n 00 ETHER DRUG Active Med Other 2016-0 MD INGREDI 908 Anderso 00:00: n 00 ETHER DRUG Active Med Other 2016-0 MD INGREDI 908 Anderso 00:00: n 00 ETHER DRUG Active Med Other 2015-0 MD INGREDI 908 Anderso 00:00: n 00 ETHER [facility]UG Active Med Other 2015-0 MD INGREDI 908 Anderso 00:00: n 00 ETHER DRUG Active Med Other 2015-0 MD INGREDI 9-08 Anderso 00:00: n 00 ETHER DRUG Active Med Other 2015-0 MD INGREDI 9-08 Anderso 00:00: n 00 ETHER DRUG Active Med Other 2015-0 MD INGREDI 908 Anderso 00:00: n 00 ETHER DRUG Active Med Other 2015-0 MD INGREDI 9-08 Anderso 00:00: n 00 ETHER [facility]UG Active Med Other 2015-0 MD INGREDI 9-08 Anderso 00:00: n 00 ETHER DRUG Active Med Other 2015-0 MD INGREDI 9-08 Anderso 00:00: n 00 ETHER DRUG Active Med Other 2016-0 MD INGREDI 08 Anderso 00:00: n 00 ETHER DRUG Active Med Other 2016-0 MD INGREDI 08 Anderso 00:00: n 00 ETHER DRUG Active Med Other 2016-0 MD INGREDI 08 Anderso 00:00: n 00 ETHER DRUG Active Med Other 2015-0 MD INGREDI 08 Anderso 00:00: n 00 ETHER DRUG Active Med Other 2016-0 MD INGREDI 08 Anderso 00:00: n 00 ETHER DRUG Active Med Other 2015-0 MD INGREDI 08 Anderso 00:00: n 00 ETHER [facility]UG Active Med Other 2015-0 MD INGREDI 08 Anderso 00:00: n 00 ETHER [facility]UG Active Med Other 2015-0 MD INGREDI 08 Anderso 00:00: n 00 ETHER [facility]UG Active Med Other 2015-0 MD INGREDI 10-26 Anderso 00:00: n 00 ETHER DRUG Active Med Other 2015-0 MD INGREDI 08 Anderso 00:00: n 00 ETHER DRUG Active Med Other 2016-0 MD INGREDI 08 Anderso 00:00: n 00 ETHER DRUG Active Med Other 2015-0 MD INGREDI 08 Anderso 00:00: n 00 ETHER DRUG Active Med Other 2016-0 MD INGREDI 08 Anderso 00:00: n 00 ETHER DRUG Active Med Other 2016-0 MD INGREDI 908 Anderso 00:00: n 00 ETHER DRUG Active Med Other 2016-0 MD INGREDI 08 Anderso 00:00: n 00 ETHER DRUG Active Med Other 2016-0 MD INGREDI 08 Anderso 00:00: n 00 ETHER DRUG Active Med Other 2015-0 MD INGREDI 908 Anderso 00:00: n 00 ETHER DRUG Active Med Other 2015-0 MD INGREDI 908 Anderso 00:00: n 00 ETHER DRUG Active Med Other 2015-0 MD INGREDI 08 Anderso 00:00: n 00 ETHER DRUG Active Med Other 2016-0 MD INGREDI 08 Anderso 00:00: n 00 ETHER DRUG Active Med Other 2015-0 MD INGREDI 908 Anderso 00:00: n 00 ETHER DRUG Active Med Other 2016-0 MD INGREDI 9-08 Anderso 00:00: n 00 ETHER DRUG Active Med Other 2016-0 MD INGREDI 9-08 Anderso 00:00: n 00 ETHER DRUG Active Med Other 2016-0 MD INGREDI 9-08 Anderso 00:00: n 00 ETHER [facility]UG Active Med Other 2016-0 MD INGREDI 9-08 Anderso 00:00: n 00 ETHER DRUG Active Med Other 2016-0 MD INGREDI 908 Anderso 00:00: n 00 ETHER DRUG Active Med Other 2016-0 MD INGREDI 908 Anderso 00:00: n 00 ETHER DRUG Active Med Other 2015-0 MD INGREDI 08 Anderso 00:00: n 00 ETHER DRUG Active Med Other 2015-0 MD INGREDI 08 Anderso 00:00: n 00 ETHER DRUG Active Med Other 2015-0 MD INGREDI 08 Anderso 00:00: n 00 ETHER DRUG Active Med Other 2015-0 MD INGREDI 08 Anderso 00:00: n 00 ETHER DRUG Active Med Other 2016-0 MD INGREDI 08 Anderso 00:00: n 00 ETHER DRUG Active Med Other 2016-0 MD INGREDI 908 Anderso 00:00: n 00 ETHER DRUG Active Med Other 2015-0 MD INGREDI 908 Anderso 00:00: n 00 ETHER DRUG Active Med Other 2016-0 MD INGREDI 908 Anderso 00:00: n 00 ETHER DRUG Active Med Other 2016-0 MD INGREDI 08 Anderso 00:00: n 00 ETHER DRUG Active Med Other 2016-0 MD INGREDI 908 Anderso 00:00: n 00 ETHER DRUG Active Med Other 2016-0 MD INGREDI 908 Anderso 00:00: n 00 ETHER DRUG Active Med Other 2015-0 MD INGREDI 908 Anderso 00:00: n 00 ETHER DRUG Active Med Other 2015-0 MD INGREDI 908 Anderso 00:00: n 00 ETHER DRUG Active Med Other 2016-0 MD INGREDI 908 Anderso 00:00: n 00 ETHER DRUG Active Med Other 2015-0 MD INGREDI 908 Anderso 00:00: n 00 ETHER DRUG Active Med Other 2015-0 MD INGREDI 908 Anderso 00:00: n 00 ETHER DRUG Active Med Other 2016-0 MD INGREDI 9-08 Anderso 00:00: n 00 ETHER DRUG Active Med Other 2016-0 MD INGREDI 9-08 Anderso 00:00: n 00 ETHER [facility]UG Active Med Other 2016-0 MD INGREDI 9-08 Anderso 00:00: n 00 ETHER DRUG Active Med Other 2016-0 MD INGREDI 908 Anderso 00:00: n 00 ETHER DRUG Active Med Other 2015-0 MD INGREDI 908 Anderso 00:00: n 00 ETHER DRUG Active Med Other 2015-0 MD INGREDI 908 Anderso 00:00: n 00 ETHER DRUG Active Med Other 2015-0 MD INGREDI 08 Anderso 00:00: n 00 ETHER DRUG Active Med Other 2015-0 MD INGREDI 08 Anderso 00:00: n 00 ETHER DRUG Active Med Other 2015-0 MD INGREDI 08 Anderso 00:00: n 00 ETHER DRUG Active Med Other 2015-0 MD INGREDI 08 Anderso 00:00: n 00 ETHER DRUG Active Med Other 2015-0 MD INGREDI 908 Anderso 00:00: n 00 ETHER DRUG Active Med Other 2015-0 MD INGREDI 908 Anderso 00:00: n 00 ETHER DRUG Active Med Other 2015-0 MD INGREDI 908 Anderso 00:00: n 00 ETHER DRUG Active Med Other 2016-0 MD INGREDI 908 Anderso 00:00: n 00 ETHER DRUG Active Med Other 2015-0 MD INGREDI 908 Anderso 00:00: n 00 ETHER DRUG Active Med Other 2016-0 MD INGREDI 908 Anderso 00:00: n 00 ETHER DRUG Active Med Other 2016-0 MD INGREDI 908 Anderso 00:00: n 00 ETHER DRUG Active Med Other 2015-0 MD INGREDI 908 Anderso 00:00: n 00 ETHER DRUG Active Med Other 2016-0 MD INGREDI 9-08 Anderso 00:00: n 00 ETHER DRUG Active Med Other 2016-0 MD INGREDI 908 Anderso 00:00: n 00 ETHER DRUG Active Med Other 2015-0 MD INGREDI 908 Anderso 00:00: n 00 ETHER DRUG Active Med Other 2015-0 MD INGREDI 908 Anderso 00:00: n 00 ETHER DRUG Active Med Other 2016-0 MD INGREDI 9-08 Anderso 00:00: n 00 ETHER DRUG Active Med Other 2016-0 MD INGREDI 9-08 Anderso 00:00: n 00 ETHER DRUG Active Med Other 2016-0 MD INGREDI 908 Anderso 00:00: n 00 ETHER DRUG Active Med Other 2016-0 MD INGREDI 08 Anderso 00:00: n 00 ETHER DRUG Active Med Other 2016-0 MD INGREDI 908 Anderso 00:00: n 00 ETHER DRUG Active Med Other 2016-0 MD INGREDI 9-08 Anderso 00:00: n 00 ETHER DRUG Active Med Other 2015-0 MD INGREDI 908 Anderso 00:00: n 00 ETHER DRUG Active Med Other 2015-0 MD INGREDI 908 Anderso 00:00: n 00 ETHER DRUG Active Med Other 2015-0 MD INGREDI 08 Anderso 00:00: n 00 ETHER DRUG Active Med Other 2016-0 MD INGREDI 08 Anderso 00:00: n 00 ETHER DRUG Active Med Other 2016-0 MD INGREDI 9-08 Anderso 00:00: n 00 ETHER DRUG Active Med Other 2015-0 MD INGREDI 908 Anderso 00:00: n 00 ETHER DRUG Active Med Other 2016-0 MD INGREDI 9-08 Anderso 00:00: n 00 ETHER DRUG Active Med Other 2016-0 MD INGREDI 908 Anderso 00:00: n 00 ETHER DRUG Active Med Other 2016-0 MD INGREDI 908 Anderso 00:00: n 00 ETHER DRUG Active Med Other 2016-0 MD INGREDI 908 Anderso 00:00: n 00 ETHER DRUG Active Med Other 2016-0 MD INGREDI 9-08 Anderso 00:00: n 00 ETHER DRUG Active Med Other 2015-0 MD INGREDI 9-08 Anderso 00:00: n 00 ETHER DRUG Active Med Other 2016-0 MD INGREDI 9-08 Anderso 00:00: n 00 ETHER DRUG Active Med Other 2016-0 MD INGREDI 9-08 Anderso 00:00: n 00 ETHER DRUG Active Med Other 2015-0 MD INGREDI 9-08 Anderso 00:00: n 00 ETHER DRUG Active Med Other 2015-0 MD INGREDI 9-08 Anderso 00:00: n 00 ETHER DRUG Active Med Other 2016-0 MD INGREDI 08 Anderso 00:00: n 00 ETHER DRUG Active Med Other 2016-0 MD INGREDI 08 Anderso 00:00: n 00 ETHER DRUG Active Med Other 2016-0 MD INGREDI 08 Anderso 00:00: n 00 ETHER DRUG Active Med Other 2016-0 MD INGREDI 08 Anderso 00:00: n 00 ETHER DRUG Active Med Other 2016-0 MD INGREDI 08 Anderso 00:00: n 00 ETHER DRUG Active Med Other 2015-0 MD INGREDI 08 Anderso 00:00: n 00 ETHER DRUG Active Med Other 2015-0 MD INGREDI 08 Anderso 00:00: n 00 ETHER DRUG Active Med Other 2015-0 MD INGREDI 08 Anderso 00:00: n 00 ETHER DRUG Active Med Other 2015-0 MD INGREDI 10-26 Anderso 00:00: n 00 ETHER DRUG Active Med Other 2016-0 MD INGREDI 08 Anderso 00:00: n 00 ETHER DRUG Active Med Other 2016-0 MD INGREDI 08 Anderso 00:00: n 00 ETHER DRUG Active Med Other 2015-0 MD INGREDI 08 Anderso 00:00: n 00 ETHER DRUG Active Med Other 2016-0 MD INGREDI 08 Anderso 00:00: n 00 ETHER DRUG Active Med Other 2016-0 MD INGREDI 08 Anderso 00:00: n 00 ETHER DRUG Active Med Other 2016-0 MD INGREDI 08 Anderso 00:00: n 00 ETHER DRUG Active Med Other 2016-0 MD INGREDI 08 Anderso 00:00: n 00 ETHER DRUG Active Med Other 2016-0 MD INGREDI 08 Anderso 00:00: n 00 ETHER DRUG Active Med Other 2015-0 MD INGREDI 908 Anderso 00:00: n 00 ETHER DRUG Active Med Other 2016-0 MD INGREDI 08 Anderso 00:00: n 00 ETHER DRUG Active Med Other 2016-0 MD INGREDI 08 Anderso 00:00: n 00 ETHER DRUG Active Med Other 2015-0 MD INGREDI 08 Anderso 00:00: n 00 ETHER DRUG Active Med Other 2016-0 MD INGREDI 9-08 Anderso 00:00: n 00 ETHER DRUG Active Med Other 2015-0 MD INGREDI 9-08 Anderso 00:00: n 00 ETHER DRUG Active Med Other 2016-0 MD INGREDI 9-08 Anderso 00:00: n 00 ETHER DRUG Active Med Other 2016-0 MD INGREDI 908 Anderso 00:00: n 00 ETHER DRUG Active Med Other 2015-0 MD INGREDI 908 Anderso 00:00: n 00 ETHER DRUG Active Med Other 2015-0 MD INGREDI 908 Anderso 00:00: n 00 ETHER DRUG Active Med Other 2015-0 MD INGREDI 08 Anderso 00:00: n 00 ETHER DRUG Active Med Other 2015-0 MD INGREDI 08 Anderso 00:00: n 00 ETHER DRUG Active Med Other 2015-0 MD INGREDI 08 Anderso 00:00: n 00 ETHER DRUG Active Med Other 2015-0 MD INGREDI 08 Anderso 00:00: n 00 ETHER DRUG Active Med Other 2015-0 MD INGREDI 08 Anderso 00:00: n 00 ETHER DRUG Active Med Other 2015-0 MD INGREDI 08 Anderso 00:00: n 00 ETHER DRUG Active Med Other 2015-0 MD INGREDI 908 Anderso 00:00: n 00 ETHER DRUG Active Med Other 2015-0 MD INGREDI 908 Anderso 00:00: n 00 ETHER DRUG Active Med Other 2015-0 MD INGREDI 08 Anderso 00:00: n 00 ETHER DRUG Active Med Other 2015-0 MD INGREDI 08 Anderso 00:00: n 00 ETHER DRUG Active Med Other 2015-0 MD INGREDI 908 Anderso 00:00: n 00 ETHER DRUG Active Med Other 2015-0 MD INGREDI 08 Anderso 00:00: n 00 ETHER DRUG Active Med Other 2015-0 MD INGREDI 908 Anderso 00:00: n 00 ETHER DRUG Active Med Other 2015-0 MD INGREDI 908 Anderso 00:00: n 00 ETHER DRUG Active Med Other 2015-0 MD INGREDI 908 Anderso 00:00: n 00 ETHER DRUG Active Med Other 2015-0 MD INGREDI 908 Anderso 00:00: n 00 ETHER DRUG Active Med Other 2016-0 MD INGREDI 9-08 Anderso 00:00: n 00 ETHER DRUG Active Med Other 2015-0 MD INGREDI 9-08 Anderso 00:00: n 00 ETHER DRUG Active Med Other 2016-0 MD INGREDI 908 Anderso 00:00: n 00 ETHER DRUG Active Med Other 2016-0 MD INGREDI 08 Anderso 00:00: n 00 ETHER DRUG Active Med Other 2015-0 MD INGREDI 08 Anderso 00:00: n 00 ETHER DRUG Active Med Other 2015-0 MD INGREDI 08 Anderso 00:00: n 00 ETHER DRUG Active Med Other 2015-0 MD INGREDI 08 Anderso 00:00: n 00 ETHER DRUG Active Med Other 2015-0 MD INGREDI 08 Anderso 00:00: n 00 ETHER DRUG Active Med Other 2015-0 MD INGREDI 08 Anderso 00:00: n 00 ETHER DRUG Active Med Other 2015-0 MD INGREDI 08 Anderso 00:00: n 00 ETHER DRUG Active Med Other 2015-0 MD INGREDI 908 Anderso 00:00: n 00 ETHER DRUG Active Med Other 2015-0 MD INGREDI 908 Anderso 00:00: n 00 ETHER DRUG Active Med Other 2015-0 MD INGREDI 908 Anderso 00:00: n 00 ETHER DRUG Active Med Other 2016-0 MD INGREDI 08 Anderso 00:00: n 00 ETHER DRUG Active Med Other 2015-0 MD INGREDI 08 Anderso 00:00: n 00 ETHER DRUG Active Med Other 2016-0 MD INGREDI 908 Anderso 00:00: n 00 ETHER DRUG Active Med Other 2016-0 MD INGREDI 9-08 Anderso 00:00: n 00 ETHER DRUG Active Med Other 2015-0 MD INGREDI 908 Anderso 00:00: n 00 ETHER DRUG Active Med Other 2016-0 MD INGREDI 908 Anderso 00:00: n 00 ETHER DRUG Active Med Other 2016-0 MD INGREDI 908 Anderso 00:00: n 00 ETHER DRUG Active Med Other 2015-0 MD INGREDI 908 Anderso 00:00: n 00 ETHER DRUG Active Med Other 2015-0 MD INGREDI 908 Anderso 00:00: n 00 ETHER DRUG Active Med Other 2016-0 MD INGREDI 9-08 Anderso 00:00: n 00 ETHER DRUG Active Med Other 2016-0 MD INGREDI 9-08 Anderso 00:00: n 00 ETHER DRUG Active Med Other 2016-0 MD INGREDI 9-08 Anderso 00:00: n 00 ETHER DRUG Active Med Other 2016-0 MD INGREDI 908 Anderso 00:00: n 00 ETHER DRUG Active Med Other 2016-0 MD INGREDI 908 Anderso 00:00: n 00 ETHER DRUG Active Med Other 2016-0 MD INGREDI 9-08 Anderso 00:00: n 00 ETHER DRUG Active Med Other 2015-0 MD INGREDI 9-08 Anderso 00:00: n 00 ETHER DRUG Active Med Other 2015-0 MD INGREDI 908 Anderso 00:00: n 00 ETHER DRUG Active Med Other 2015-0 MD INGREDI 908 Anderso 00:00: n 00 ETHER DRUG Active Med Other 2016-0 MD INGREDI 908 Anderso 00:00: n 00 ETHER DRUG Active Med Other 2016-0 MD INGREDI 9-08 Anderso 00:00: n 00 ETHER DRUG Active Med Other 2015-0 MD INGREDI 9-08 Anderso 00:00: n 00 ETHER DRUG Active Med Other 2016-0 MD INGREDI 9-08 Anderso 00:00: n 00 ETHER DRUG Active Med Other 2016-0 MD INGREDI 9-08 Anderso 00:00: n 00 ETHER DRUG Active Med Other 2016-0 MD INGREDI 908 Anderso 00:00: n 00 ETHER DRUG Active Med Other 2016-0 MD INGREDI 9-08 Anderso 00:00: n 00 ETHER DRUG Active Med Other 2016-0 MD INGREDI 9-08 Anderso 00:00: n 00 ETHER DRUG Active Med Other 2015-0 MD INGREDI 9-08 Anderso 00:00: n 00 ETHER DRUG Active Med Other 2016-0 MD INGREDI 9-08 Anderso 00:00: n 00 ETHER DRUG Active Med Other 2016-0 MD INGREDI 9-08 Anderso 00:00: n 00 ETHER DRUG Active Med Other 2015-0 MD INGREDI 9-08 Anderso 00:00: n 00 ETHER DRUG Active Med Other 2015-0 MD INGREDI 9-08 Anderso 00:00: n 00 ETHER DRUG Active Med Other 2015-0 MD INGREDI 08 Anderso 00:00: n 00 ETHER DRUG Active Med Other 2015-0 MD INGREDI 08 Anderso 00:00: n 00 ETHER DRUG Active Med Other 2015-0 MD INGREDI 08 Anderso 00:00: n 00 ETHER DRUG Active Med Other 2015-0 MD INGREDI 10-26 Anderso 00:00: n 00 ETHER DRUG Active Med Other 2015-0 MD INGREDI 10-26 Anderso 00:00: n 00 ETHER DRUG Active Med Other 2015-0 MD INGREDI 10-26 Anderso 00:00: n 00 ETHER DRUG Active Med Other 2015-0 MD INGREDI 10-26 Anderso 00:00: n 00 ETHER DRUG Active Med Other 2015-0 MD INGREDI 10-26 Anderso 00:00: n 00 ETHER DRUG Active Med Other 2015-0 MD INGREDI 10-26 Anderso 00:00: n 00 ETHER DRUG Active Med Other 2015-0 MD INGREDI 10-26 Anderso 00:00: n 00 ETHER DRUG Active Med Other 2015-0 MD INGREDI 08 Anderso 00:00: n 00 ETHER DRUG Active Med Other 2015-0 MD INGREDI 10-26 Anderso 00:00: n 00 ETHER DRUG Active Med Other 2015-0 MD INGREDI 10-26 Anderso 00:00: n 00 ETHER DRUG Active Med Other 2015-0 MD INGREDI 08 Anderso 00:00: n 00 ETHER DRUG Active Med Other 2015-0 MD INGREDI 08 Anderso 00:00: n 00 ETHER DRUG Active Med Other 2015-0 MD INGREDI 08 Anderso 00:00: n 00 ETHER DRUG Active Med Other 2015-0 MD INGREDI 08 Anderso 00:00: n 00 ETHER DRUG Active Med Other 2015-0 MD INGREDI 08 Anderso 00:00: n 00 ETHER DRUG Active Med Other 2015-0 MD INGREDI 08 Anderso 00:00: n 00 Ether Propensi Active Other (See 2015-0 States Meth renetta ty to Comments) 10-[address] adverse 00:00: unable to Hospit a reaction 00 wake her l s to up for 4 drug days after her last surgery that she received gas anesthesi a. Family History Family Member Diagnosis Comments Start Date Stop Date Source [facility] Social History Social Habit Start Date Stop Date Quantity Comments Source History [facility] Std Drinks Hospit al History [facility] Tao[facility] Alcohol Binge Hospital History [facility] Social [facility] Living Hospit al Alcohol intake 2019-12-01 2019-12-01 Ex-drinker [facility] 00:00:00 00:00:00 (finding) Hospital History [facility] 2019-11-05 2019-11-05 2 [facility] Alcohol Frequency 00:00:00 00:00:00 Hospita l Tobacco use and 2019-08-16 2019-08-16 Smokeless [facility] exposure 00:00:00 00:00:00 tobacco non-user Hospital History [facility] Social 2019-08-16 2019-08-16 4 [facility] Connections Phone 00:00:00 00:00:00 Hospita l History [facility] Social 2019-08-16 2019-08-16 4 [facility] Connections Get 00:00:00 00:00:00 Hospital Together History [facility] Social 2019-08-16 2019-08-16 1 [facility] dist Connections Evangelical 00:00:00 00:00:00 Hospit al History [facility] Social 2019-08-16 2019-08-16 2 [facility] Connections 00:00:00 00:00:00 Hospital Membership History [facility] Social 2019-08-16 2019-08-16 1 [facility] dist Connections 00:00:00 00:00:00 Hospital Meetings History [facility] 2019-08-16 2019-08-16 0 [facility] Physical Activity 00:00:00 00:00:00 Hospita l DPW History [facility] 2019-08-16 2019-08-16 0 [facility] Physical Activity 00:00:00 00:00:00 Hospita l MPS History [facility] Stress 2019-08-16 2019-08-16 2 [facility] dist 00:00:00 00:00:00 Hospital History [facility] IPV 2019-08-16 2019-08-16 2 [facility] Fear 00:00:00 00:00:00 Hospital History [facility] IPV 2019-08-16 2019-08-16 2 [facility] Emotional 00:00:00 00:00:00 Hospital History [facility] IPV 2019-08-16 2019-08-16 2 [facility] Physical Abuse 00:00:00 00:00:00 Hospital History [facility] IPV 2019-08-16 2019-08-16 2 [facility] Sexual Abuse 00:00:00 00:00:00 Hospital Alcohol Comment 2019-08-16 2019-08-16 holidays [facility] 00:00:00 00:00:00 Hospital History of tobacco 1963-08-03 1990-09-14 Cigarette Smoker [facility] use 00:00:00 00:00:00 Hospital Sex Assigned At [birth year] [facility] 00:00:00 00:00:00 Hospital Smoking Status Start Date Stop Date Source Ex-smoker 2019-08-16 00:00:00 2019-08-16 00:00:[facility] Medications Ordered Filled Start Stop Current Ordering Indication Dosage Frequency Signature Comments Components Source Medication Medication Date Date Medication? Clinician (SIG) Name Name cholestyram Yes 1{packe Q.5D Take 1 M ethodi ine 9-14 t} packet by st (Questran) 00:00: mouth 2 Hosp donte 4 gram 00 (two) l packet times a day with meals. albuterol Yes 2{puff} Q.25D Inhale 2 Methodi (PROAIR 8-[address] HFA) 90 07:47: (four) Hospita mcg/actuati 16 times a l on inhaler day as needed. tiotropium- Yes Q24H 2 Method i olodateroL 8-[address] (STIOLTO 07:47: s daily as Hos issa RESPIMAT) 16 needed. l 2.5-2.5 mcg/actuati on inhalation solution carboxymeth Yes 1[drp] QD Apply 1 M ethodi yl/gly/poly 8-[address] 80/PF 07:47: eye daily. Hospit a (REFRESH 16 l OPTIVE ISMAEL-3, PF, OPHT) ergocalcife Yes [id number] Q7D Take 1 Methodi rol 4-[address] (Vitamin 00:00: (50,000 Hospit a D2) 50,000 00 Units l unit total) by capsule mouth once a week. levothyroxi 2019-02 Yes 50ug QD Take 1 Meth renetta ne 2-09 tablet (50 st (Synthroid) 00:00: mcg total) Hospita 50 mcg 00 by mouth l tablet daily. multivitami 2020-1 Yes [id number] 1{tbl} QD Take 1 Methodi n 0-[address] (THERAGRAN) 00:00: mouth Hospi ta tablet 00 daily. l ondansetron 2019-1 Yes 8mg Q8H Take 1 Meth renetta (ZOFRAN) 8 0-27 tablet (8 st MG tablet 00:00: mg total) Hos issa 00 by mouth l every 8 (eight) hours as needed for nausea or vomiting. loratadine 2020-0 Yes 10mg QD Take 1 Metho di (Claritin) 9-14 tablet (10 st 10 mg 00:00: mg total) Hospita tablet 00 by mouth l daily. pantoprazol 2020-0 Yes 40mg QD Take 40 mg Methodi e 5-[address] (PROTONIX) 00:00: daily. Hospi ta 40 MG EC 00 l tablet dextrometho 2020-0 Yes 1{capsu QD Take 1 M ethodi rphan-quini 5-14 le} capsule by st dine 00:00: mouth Hospita (Nuedexta) 00 daily. l 20-10 mg capsule dimethyl 2020-0 Yes 1{tbl} Q.5D Take 1 Metho di fumarate 3-[address] (Tecfidera) 00:00: mouth 2 Hos issa 240 mg 00 (two) l capsule,del times a ayed day. release(DR/ EC) carvedilol 2020-0 Yes 1{capsu QD Take 1 Me thodi CR (COREG 3-16 le} capsule by st CR) 20 MG 00:00: mouth Hospita 24 hr 00 daily. l capsule topiramate 2020-0 Yes 1{tbl} QD Take 1 Met hodi (TOPAMAX) 3-[address] 25 MG 00:00: mouth Hospita tablet 00 nightly. l baclofen 2020-0 Yes 1{tbl} Q.5D Take 1 Metho di (LIORESAL) 3-[address] 10 MG 00:00: mouth 2 Hospita tablet 00 (two) l times a day. gabapentin 2020-0 Yes 300mg Q.25D Take 300 M ethodi (NEURONTIN) 3-[address] 300 mg 00:00: mouth 4 Hospita capsule 00 (four) l times a day. HYDROcodone 0 Yes 1{tbl} Q6H Take 1 Me thodi -acetaminop 3-[address] hen (NORCO) 00:00: mouth Hospi ta 7.5-325 mg 00 every 6 l per tablet (six) hours. Immunizations Ordered Immunization Filled Immunization Date Status Commen ts Source Name Name IPV 2021-01-03 Completed [facility] 00:00:00 Hospital MMR 2021-01-03 Completed [facility] 00:00:00 [facility] Pneumococcal 2021-01-03 Completed [facility] Polysaccharide 00:00:00 [facility] Zoster Vaccine 2021-01-03 Completed [facility] Recombinant 00:00:00 [facility] FLUZONE HIGH-DOSE PF 2021-01-03 Completed Meth odist 00:00:00 [facility] Tdap 2020-11-29 Completed [facility] 00:00:00 [facility] Hepatitis B 2020-11-29 Completed [facility] 00:00:00 [facility] Hib (PRP-T) 2020-11-29 Completed [facility] 00:00:00 [facility] Hepatitis A 2020-11-29 Completed [facility] 00:00:00 [facility] Hepatitis B 2020-11-01 Completed [facility] 00:00:00 Hospital Tdap 2020-11-01 Completed [facility] 00:00:00 Hospital Hepatitis A 2020-11-01 Completed [facility] 00:00:00 [facility] Hib (PRP-T) 2020-11-01 Completed [facility] 00:00:00 [facility] IPV 2020-09-27 Completed [facility] 00:00:00 Hospital Tdap 2020-09-27 Completed [facility] 00:00:00 Hospital MMR 2020-09-27 Completed [facility] 00:00:00 [facility] Hib (PRP-T) 2020-09-27 Completed [facility] 00:00:00 Hospital Hepatitis B 2020-08-19 Completed [facility] 00:00:00 Hospital Hepatitis A 2020-08-19 Completed [facility] 00:00:00 [facility] Meningococcal MCV4P 2020-08-19 Completed Metho dist 00:00:00 Hospital Zoster Vaccine 2020-08-19 Completed [facility] Recombinant 00:00:00 Hospital IPV 2020-06-15 Completed [facility] 00:00:00 Hospital Hepatitis B 2020-06-15 Completed [facility] 00:00:00 Hospital Tdap 2020-06-15 Completed [facility] 00:00:00 Hospital Pneumococcal 2020-06-15 Completed [facility] Conjugate 13-Valent 00:00:00 Hospi holli FLUZONE HIGH-DOSE PF 2020-01-05 Completed Meth odist 00:00:00 [facility] Vital Signs Vital Name Observation Time Observation Value Comments Source WEIGHT 2019-08-18 00:00:00 88.6 kg WEIGHT 2019-08-12 00:00:00 88 kg Procedures This patient has no known procedures. Plan of Care Planned Activity Planned Date Details Comments Source Future Scheduled 2022-04-20 Hepatitis C screening [facility] Test 09:19:13 (procedure) [code = 740886898] Future Scheduled 2022-04-20 BREAST CANCER [facility] Test 09:19:13 SCREENING [code = BREAST CANCER SCREENING] Future Scheduled 2022-04-20 COLONOSCOPY SCREENING [facility] Test 09:19:13 [code = COLONOSCOPY SCREENING] Future Scheduled 2022-04-20 COVID-19 VACCINE (4 - Me [facility] Test 09:19:13 Booster for Pfizer series) [code = COVID-19 VACCINE (4 - Booster for Pfizer series)] Future Scheduled 2022-04-20 [facility] 09:19:13 [code = INFLUENZA VACCINE] Encounters Start End Encounter Admission Attending Care Care Encounter Source Date/Time Date/Time Type Type Clinicians Facility Department ID 2022-04-11 Outpatient SYSTEM, SAJAN MOELLER [id number] 06:30:34 PROVIDER Leon o fernando 2022-04-03 Emergency [facility] [id number] URI - 17:58:38 [facility] ent 2020-09-30 Outpatient SYSTEM, SAJAN MOELLER [id number] 12:53:22 PROVIDER Leon o fernando 2020-08-11 Outpatient SYSTEM, SAJAN MOELLER [id number] 15:44:17 PROVIDER Leon o fernando 2022-04-09 2022-04-20 Inpatient VALENCIA GONZALEZ MDA [facility] [id number] 04:40:00 08:08:00 BRIANNE Quintero o fernando 2022-04-17 2022-04-17 Inpatient VALENCIA GONZALEZ MDA MDA [id number] 22:10:52 22:24:29 BRIANNE Quintero o fernando 2022-04-10 2022-04-10 Inpatient VALENCIA GONZALEZ MDA MDA [id number] MD 15:02:53 15:17:17 VALERAE Leon o n 2022-04-08 2022-04-08 Outpatient VALENCIA TEIXEIRA MDA MDA [id number] MD 10:22:26 23:59:00 MANUEL Ramos chado n 2022-04-08 2022-04-08 Outpatient [facility] MDA MDA [id number] 10:04:52 10:21:00 TETO Leon o n 2022-04-08 2022-04-08 [facility] MDA [id number] 09:41:38 09:49:20 TETO Leon o n 2022-04-05 2022-04-05 Outpatient VALENCIA GONZALEZ MDA MDA [id number] MD 09:11:30 12:58:01 VALERAE Leon o n 2022-04-05 2022-04-05 Outpatient LILIANA CROWLEY MDA MDA [id number] 11:25:08 11:25:08 Leon o n 2022-04-05 2022-04-05 [facility] MDA [id number] 09:11:46 09:11:46 TETO Leon o n 2022-04-03 2022-04-04 Outpatient HELGA FERMIN MDA Lymphoma/My 1 [id number] 20:15:00 14:21:00 higinio McgregorLeon o n 2022-04-03 2022-04-03 Outpatient VALENCIA AVILES MDA MDA [id number] MD 11:08:57 21:30:05 ELEAZAR Peraza so n 2022-04-03 2022-04-03 Outpatient [facility], MDA MDA [id number] 07:17:37 20:14:00 TETO Leon o n 2022-04-03 2022-04-03 Outpatient VALENCIA ANKUR HELGA MDA MDA [id number] 08:38:28 10:49:09 Leon o n 2022-04-03 2022-04-03 Outpatient VALENCIA AVILES, MDA MDA [id number] MD 07:16:59 07:16:59 ELEAZAR Peraza so n 2022-04-03 2022-04-03 Outpatient VALENCIA AVILES, MDA MDA [id number] MD 07:16:39 07:16:39 ELEAZAR Peraza so n 2022-03-14 2022-03-14 Outpatient VALENCIA GONZALEZ, MDA MDA [id number] MD 14:20:47 15:36:02 BRIANNE Leon o n 2022-03-14 2022-03-14 Outpatient VALENCIA GONZALEZ, MDA MDA [id number] MD 13:18:15 13:18:15 BRIANNE Leon o n 2022-03-14 2022-03-14 Outpatient VALENCIA GONZALEZ, MDA MDA [id number] MD 00:00:00 00:00:00 BRIANNE Leon o n 2022-02-20 2022-02-20 Outpatient VALENCIA TEIXEIRA, MDA MDA [id number] 07:30:00 23:59:00 MANUEL bonillao n 2022-02-20 2022-02-20 Outpatient VALENCIA AVILES, MDA MDA [id number] MD 10:40:13 10:40:13 ELEAZAR Peraza so n 2022-02-20 2022-02-20 Outpatient HELGA ARDON MDA MDA [id number] MD 08:59:18 10:26:06 Leon o n 2022-02-20 2022-02-20 Outpatient VALENCIA TEIXEIRA, MDA MDA [id number] 07:15:00 07:29:00 MANUEL Ramos rso n 2022-02-06 2022-02-06 Outpatient VALENCIA LUDWIG, MDA MDA [id number] 06:08:50 23:59:00 KALLIE Quintero o fernando 2022-01-24 2022-01-24 Outpatient HELGA ARDON MDA MDA [id number] 07:04:24 23:59:00 Leon o n 2022-01-24 2022-01-24 Outpatient VALENCIA GONZALEZ, MDA MDA [id number] MD 14:39:36 16:34:31 BRIANNE Leon o n 2022-01-24 2022-01-24 Outpatient VALENCIA ESCALANTE, MDA MDA [id number] 13:54:58 13:54:58 TETO Mcgregorers o n 2022-01-24 2022-01-24 Outpatient HELGA ARDON MDA MDA [id number] 12:12:49 12:12:49 Leon o n 2022-01-24 2022-01-24 Outpatient VALENCIA ESCALANTE MDA MDA [id number] 07:56:12 07:56:12 TETO Quintero o fernando 2022-01-24 2022-01-24 Outpatient HELGA ARDON MDA MDA [id number] MD 07:00:00 07:03:00 Leon o fernando 2022-01-16 2022-01-16 Outpatient HELGA ARDON MDA MDA [id number] 07:21:37 23:59:00 Leon o fernando 2022-01-16 2022-01-16 Outpatient VALENCIA DEGROOT MDA MDA [id number] 10:18:01 10:18:01 KANE Quintero o fernando 2022-01-16 2022-01-16 Outpatient HELGA ARDON MDA MDA [id number] 08:41:26 08:41:26 Leon king 2022-01-16 2022-01-16 Outpatient HELGA ARDON MDA MDA [id number] 07:15:00 07:20:00 Leon o fernando 2021-12-26 2021-12-26 Outpatient HELGA ARDON MDA MDA [id number] MD 09:01:45 23:59:00 Leon o fernando 2021-12-26 2021-12-26 Outpatient HELGA ARDON MDA MDA [id number] 10:04:51 11:45:07 Leon o fernando 2021-12-20 2021-12-20 Outpatient VALENCIA GONZALEZ MDA MDA [id number] MD 05:57:30 05:57:30 BRIANNE Mcgregorers o fernando 2021-12-19 2021-12-19 Outpatient VALENCIA GONZALEZ MDA MDA [id number] MD 11:18:00 23:59:00 BRIANNE Mcgregorers o fernando 2021-12-19 2021-12-19 Outpatient HELGA ARDON MDA MDA [id number] 06:12:07 11:17:00 Leon o fernando 2021-12-19 2021-12-19 Outpatient HELGA ARDON MDA MDA [id number] MD 09:02:06 11:09:01 Leon o fernando 2021-12-19 2021-12-19 Outpatient HELGA ARDON MDA MDA [id number] 06:05:44 06:11:00 Leon o n 2021-12-18 2021-12-18 Outpatient [facility] SAJAN MDA [id number] 10:41:00 23:59:00 Leon MONTILLA 2021-11-21 2021-11-21 Outpatient VALENCIA ESCALANTE MDA MDA [id number] 11:30:03 11:30:03 TETO Leon o n 2021-11-21 2021-11-21 Outpatient HELGA ARDON MDA MDA [id number] 08:51:14 11:24:20 Leon o n 2021-11-21 2021-11-21 Outpatient HELGA ARDON MDA MDA [id number] 08:47:02 08:47:02 Leon o n 2021-11-07 2021-11-07 Outpatient HELGA ARDON MDA MDA [id number] MD 08:59:38 23:59:00 Leon o n 2021-11-07 2021-11-07 Outpatient HELGA ARDON MDA MDA [id number] 10:24:14 13:36:24 Leon o n 2021-10-10 2021-10-10 Outpatient VALENCIA OWENS MDA MDA [id number] MD 09:56:56 12:19:25 EVIE Mcgregorers o n 2021-10-10 2021-10-10 Outpatient HELGA ARDON MDA MDA [id number] 07:04:15 07:04:15 Leon o n 2021-10-10 2021-10-10 Outpatient HELGA ARDON MDA MDA [id number] 06:19:47 06:19:47 Leon o n 2021-09-12 2021-09-12 Outpatient HELGA ARDON MDA MDA [id number] 10:05:54 23:59:00 Leon o n 2021-09-12 2021-09-12 Outpatient VALENCIA OWENS MDA MDA [id number] 14:04:19 15:13:32 EVIE Mcgregorers o n 2021-09-12 2021-09-12 Outpatient HELGA ARDON MDA MDA [id number] 09:48:11 10:04:00 Leon o n 2021-08-22 2021-08-22 Outpatient HELGA ARDON MDA MDA [id number] 09:15:00 23:59:00 Leon o fernando 2021-08-22 2021-08-22 Outpatient VALENCIA MELGOZA MDA MDA [id number] MD 11:43:24 11:43:24 DESTINY king 2021-08-22 2021-08-22 Outpatient HELGA ARDON MDA MDA [id number] MD 09:51:53 09:51:53 Leon o fernando 2021-08-22 2021-08-22 Outpatient HELGA ARDON MDA MDA [id number] 07:46:48 09:34:42 Leon o fernando 2021-08-22 2021-08-22 Outpatient HELGA ARDON MDA MDA [id number] 06:30:42 09:14:00 Leon o fernando 2021-08-09 2021-08-09 Outpatient VALENCIA LUDWIG MDA MDA [id number] MD 13:21:50 13:21:50 KALLIE king 2021-08-09 2021-08-09 Outpatient VALENCIA LUDWIG MDA MDA [id number] 00:00:00 00:00:00 KALLIE king 2021-06-13 2021-06-13 Outpatient HELGA ARDON MDA MDA [id number] 10:47:50 23:59:00 Leon o fernando 2021-06-13 2021-06-13 Outpatient HELGA ARDON MDA MDA [id number] MD 13:12:41 14:11:41 Leon o efrnando 2021-06-13 2021-06-13 Outpatient HELGA ARDON MDA MDA [id number] 10:08:49 10:46:00 Leon o fernando 2021-06-13 2021-06-13 Outpatient VALENCIA TEIXEIRA, MDA MDA [id number] 07:17:34 07:17:34 MANUEL king 2021-06-07 2021-06-07 Outpatient CARLOS, MDA MDA [id number] MD 12:53:44 15:02:02 BRIANNE king 2021-06-07 2021-06-07 Outpatient AVA, MDA MDA [id number] 11:23:05 11:23:05 TETO Quintero o fernando 2021-06-07 2021-06-07 Outpatient VALENCIA ESCALANTE MDA MDA [id number] 11:20:32 11:20:32 TETO Leon o n 2021-05-28 2021-05-28 Chaz Handy, [id number] Methodi 00:00:00 00:00:00 [place] T. [id number] 099 [id number] Hospit a .[id number] l .8 2021-05-16 2021-05-16 Outpatient HELGA ARDON MDA MDA [id number] 07:57:47 23:59:00 Leon o n 2021-05-16 2021-05-16 Outpatient HELGA ARDON MDA MDA [id number] 09:15:47 12:01:17 Leon o n 2021-05-16 2021-05-16 Outpatient HELGA ARDON MDA MDA [id number] 07:14:43 07:56:00 Leon o n 2021-04-18 2021-04-18 Outpatient VALENCIA TEIXEIRA MDA MDA [id number] 14:17:03 23:59:00 MANUEL bonillao fernando 2021-04-18 2021-04-18 Outpatient HELGA ARDON MDA MDA [id number] 11:48:52 14:13:22 Leon o n 2021-04-18 2021-04-18 Outpatient HELGA ARDON MDA MDA [id number] 11:48:34 11:48:34 Leon o n 2021-03-21 2021-03-21 Outpatient HELGA ARDON MDA MDA [id number] 09:16:07 23:59:00 Leon o n 2021-03-21 2021-03-21 Outpatient HELGA ARDON MDA MDA [id number] 10:48:07 12:26:37 Leon o n 2021-03-07 2021-03-07 Outpatient HELGA ARDON MDA MDA [id number] MD 08:28:53 23:59:00 Elon o n 2021-03-07 2021-03-07 Outpatient VALENCIA TEIXEIRA MDA MDA [id number] MD 07:54:55 07:54:55 MANUEL Ramos rso n 2021-03-07 2021-03-07 Outpatient VALENCIA TEIXEIRA MDA MDA [id number] 07:54:43 07:54:43 MANUEL Ramos rso n 2021-02-28 2021-02-28 Outpatient HELGA ARDON MDA MDA [id number] 07:32:15 23:59:00 Leon o n 2021-02-28 2021-02-28 Outpatient HELGA ARDON MDA MDA [id number] 08:56:16 09:46:33 Leon o n 2021-01-31 2021-01-31 Outpatient HELGA ARDON MDA MDA [id number] 08:15:20 23:59:00 Leon o fernando 2021-01-31 2021-01-31 Outpatient VALENCIA TEIXEIRA MDA MDA [id number] 13:55:25 15:22:00 MANUEL Ramos rso n 2021-01-31 2021-01-31 Outpatient HELGA ARDON MDA MDA [id number] 10:00:24 12:28:13 Leon o n 2021-01-31 2021-01-31 Outpatient HELGA ARDON MDA MDA [id number] 08:03:18 08:14:00 Leon o fernando 2021-01-03 2021-01-03 Outpatient HELGA ARDON MDA MDA [id number] 10:39:33 23:59:00 Leon o fernando 2021-01-03 2021-01-03 Outpatient [facility] [id number] [facility] 00:00:00 23:59:00 Huongin e 2021-01-03 2021-01-03 Outpatient VALENCIA SANTIZO, MDA MDA [id number] 12:08:02 13:28:25 MEENU king 2021-01-03 2021-01-03 Out[facility] [id number] [place] 00:00:00 00:00:[address] 2020-12-06 2020-12-06 Outpatient VALENCIA MDA MDA [id number] MD 06:22:10 23:59:00 Leon o fernando 2020-12-06 2020-12-06 Outpatient VALENCIA ARMAS MDA MDA [id number] 08:02:31 11:21:05 , CATHERINE Leon o fernando 2020-11-29 2020-11-29 Outpatient EL MDA MDA [id number] 09:06:42 23:59:00 Leon o fernando 2020-11-29 2020-11-29 Outpatient BCM BCM [id number] [facility] 00:00:00 23:59:00 [facility] 2020-11-29 2020-11-29 Outpatient DINAH CROWLEY MDA MDA [id number] 10:30:53 13:46:35 Leon o fernando 2020-11-29 2020-11-29 Outpatient BRANDIE [facility] [id number] [place] 00:00:00 00:00:00 [address] 2020-11-01 2020-11-01 Outpatient VALENCIA PASCUAL HELGA MDA MDA [id number] 11:04:27 23:59:00 Leon o fernando 2020-11-01 2020-11-01 Outpatient BC BCM [id number] [facility] 00:00:00 23:59:00 [facility] 2020-11-01 2020-11-01 Outpatient VALENCIA HELGA PASCUAL MDA MDA [id number] 12:45:33 13:38:51 Leon o fernando 2020-11-01 2020-11-01 Outpatient VALENCIA ANKUR HELGA MDA MDA [id number] 06:14:49 06:14:49 Leon o fernando 2020-11-01 2020-11-01 Outpatient [facility] [id number] [place] 00:00:00 00:00:00 RAMMURTI [address] 2020-10-04 2020-10-04 Outpatient VALENCIA TEIXEIRA MDA MDA [id number] 16:06:53 23:59:00 MANUEL Ramos rso n 2020-10-04 2020-10-04 Outpatient HELGA ARDON MDA MDA [id number] 10:28:04 16:05:00 Leon o fernando 2020-10-04 2020-10-04 Outpatient HELGA ARDON MDA MDA [id number] 12:03:24 13:27:43 Leon o n 2020-09-28 2020-09-28 Outpatient VALENCIA BELLA MDA MDA [id number] 08:00:00 23:59:00 ZACKERY Ramos rso n 2020-09-27 2020-09-27 Outpatient HELGA ARDNO MDA MDA [id number] 07:17:08 23:59:00 Leon o fernando 2020-09-27 2020-09-27 Outpatient VALENCIA TEIXEIRA MDA MDA [id number] 10:25:57 10:25:57 MANUEL Ramos rso n 2020-09-27 2020-09-27 Outpatient HELGA ARDON MDA MDA [id number] 08:34:22 10:20:34 Leon o fernando 2020-09-27 2020-09-27 Outpatient [facility] [id number] [place] 00:00:00 00:00:00 [address] 2020-08-30 2020-08-30 Outpatient HELGA ARDON MDA MDA [id number] 07:40:00 23:59:00 Leon o fernando 2020-08-30 2020-08-30 Outpatient HELGA ARDON MDA MDA [id number] 08:23:54 09:17:55 Leon o fernando 2020-08-19 2020-08-19 Outpatient HELGA ARDON MDA MDA [id number] 08:56:32 23:59:00 Leon o fernando 2020-08-19 2020-08-19 Outpatient [facility] [id number] [facility] 00:00:00 23:59:00 Sami 2020-08-19 2020-08-19 Outpatient HELGA ARDON MDA MDA [id number] 10:18:49 11:11:45 Leon o fernando 2020-08-19 2020-08-19 [id number] [place] 00:00:00 00:00:00 RAMMURTI [address] 2020-06-20 2020-06-20 Outpatient VALENCIA GONZALEZ MDA MDA [id number] 14:14:03 14:14:03 VALERAE Leon o fernando 2020-06-15 2020-06-15 Outpatient KAMBLE, [facility] [id number] 902 [place] 00:00:00 00:00:00 RAMMURTI [address] 2020-05-20 2020-05-20 Outpatient HELGA ARDON [facility] [id number] [place] 06:43:31 06:43:31 Leon king 2020-03-08 2020-03-08 Outpatient KAMBLE, [facility] [id number] 861 [place] 00:00:00 00:00:00 RAMMURTI [address] 2020-03-01 2020-03-01 Outpatient KAMBLE, [facility] [id number] 822 [place] 00:00:00 00:00:00 RAMMURTI [address] 2020-01-26 2020-01-26 Outpatient KAMBLE, [facility] [id number] 685 [place] 00:00:00 00:00:00 RAMMURTI [address] 2020-01-05 2020-01-05 Outpatient KAMBLE, [facility] [id number] 272 [place] 00:00:00 00:00:00 RAMMURTI [address] 2019-12-29 2019-12-29 Outpatient KAMBLE, [facility] [id number] 858 [place] 00:00:00 00:00:00 RAMMURTI [address] 2019-12-22 2019-12-22 Outpatient KAMBLE, [facility] [id number] 641 [place] 00:00:00 00:00:00 RAMMURTI [address] 2019-12-18 2019-12-18 Outpatient KAMBLE, [facility] [id number] 358 [place] 00:00:00 00:00:00 RAMMURTI [address] 2019-12-01 2019-12-16 Inpatient HILL, [facility] [id number] 66 [place] 00:00:00 00:00:00 LAQUISA [address] 2019-11-30 2019-11-30 Outpatient KAMBLE, [facility] [id number] 885 [place] 00:00:00 00:00:00 [address]TI [address] 2019-11-18 2019-11-19 Outpatient KAMBLE, [facility] [id number] [place] 00:00:00 00:00:00 RAMMURTI [address] 2019-11-18 2019-11-18 Outpatient KAMBLE, [facility] [id number] 780 [place] 00:00:00 00:00:00 RAMMURTI [address] 2019-11-18 2019-11-18 Outpatient CARRUM, [facility] [id number] 292 [place] 00:00:00 00:00:00 DOM [address] 2019-11-17 2019-11-17 Outpatient KAMBLE, [facility] [id number] 466 [place] 00:00:00 00:00:00 [address]MURTI [address] 2019-11-16 2019-11-16 Outpatient KAMBLE, [facility] [id number] 950 [place] 00:00:00 00:00:00 RAMMURTI [address] 2019-11-13 2019-11-13 Outpatient KAMBLE, [facility] [id number] 950 [place] 00:00:00 00:00:00 RAMMURTI [address] 2019-11-11 2019-11-11 Outpatient KAMBLE, [facility] [id number] 950 [place] 00:00:00 00:00:00 [facility]MURTI [address] 2019-11-05 2019-11-07 Inpatient LULLA, [facility] [id number] 90 [place] 00:00:00 00:00:00 PREMAL [address] 2019-11-03 2019-11-03 Outpatient KAMBLE, [facility] [id number] 358 [place] 00:00:00 00:00:00 RAMMURTI [address] 2019-10-22 2019-10-22 Outpatient KAMBLE, [facility] [id number] [place] 00:00:00 00:00:00 RAMMURTI [address] 2019-10-16 2019-10-16 Outpatient KAMBLE, [facility] [id number] [place] 00:00:00 00:00:00 [address]MURTI [address] 2019-10-16 2019-10-16 Outpatient KAMBLE, [facility] [id number] 228 [place] 00:00:00 00:00:00 RAMMURTI [address] 2019-10-16 2019-10-16 Outpatient KAMBLE, [facility] [id number] 228 [place] 00:00:00 00:00:00 [address]TI [address] 2019-09-02 2019-09-02 Outpatient HELGA ARDON MDA MDA [id number] 00:00:00 00:00:00 Leon o n 2019-08-19 2019-08-19 Outpatient HELGA ARDON MDA MDA [id number] 13:44:28 13:44:28 Leon o n 2019-08-18 2019-08-19 Outpatient HELGA ARDON MDA MDA [id number] 13:48:38 07:40:01 Leon o n 2019-08-18 2019-08-18 Outpatient HELGA ARDON MDA MDA [id number] 13:37:36 13:42:44 Leon o n 2019-08-17 2019-08-17 Outpatient BRANDIE [facility] [id number] 310 [place] 00:00:00 00:00:00 RAMMURTI [address] 2019-08-12 2019-08-12 Outpatient HELGA ARDON MDA MDA [id number] 07:13:49 10:18:14 Leon o n 2019-08-12 2019-08-12 Outpatient VALENCIA PRICE MDA MDA [id number] MD 09:54:39 09:56:35 TERESA Leon o n 2019-08-11 2019-08-11 Outpatient HELGA ARDON MDA MDA [id number] MD 06:58:01 06:58:01 Leon o n 2019-08-11 2019-08-11 Outpatient HELGA ARDON MDA MDA [id number] 06:10:59 06:18:26 Leon o n 2019-08-05 2019-08-05 Outpatient HELGA ARDON MDA MDA [id number] 14:00:32 23:59:00 Leon o n 2019-08-04 2019-08-04 Outpatient HELGA ARDON MDA MDA [id number] MD 08:54:12 12:31:00 Leon o n 2019-05-14 2019-05-14 Outpatient MARJORIE MDA MDA [id number] MD 01:34:00 01:34:00 NATHAN king Results Test Description Test Time Test Comments Results Result Comments Source SARS-CoV-2 (COVID-19) RNA [Presence] in Respiratory sp ecimen by 2019-12-11 16:44:09 VERNON with probe detection Test Item Value Reference Range Interpretation Comme nts SARS-CoV-2 (COVID-19) RNA [Presence] in Respiratory Not detected No t-Detected specimen by VERNON with probe detection (test code = 34761-9) ZACK AMOS [id number] (COVID-19) RNA [Presence] in Respiratory specimen by VERNON with probe [id number] 16:38:22 Test Item Value Reference Range Interpretation Comments SARS-CoV-2 (COVID-19) RNA Not detected Not-Detected [Presence] in Respiratory specimen by VERNON with probe detection (test code = 79726-6) ZACK YOUNGSARS-CoV-2 (COVID-19) RNA [Presence] in Respiratory specimen by VERNON with probe [id number] 00:48:54 Test Item Value Reference Range Interpretation Comments SARS-CoV-2 (COVID-19) RNA Not detected Not-Detected [Presence] in Respiratory specimen by VERNON with probe detection (test code = 10195-7) ZACK YOUNGSARS-CoV-2 (COVID-19) RNA [Presence] in Respiratory specimen by VERNON with probe [id number] 17:09:13 Test Item Value Reference Range Interpretation Comments SARS-CoV-2 (COVID-19) RNA Not detected Not-Detected [Presence] in Respiratory specimen by VERNON with probe detection (test code = 50364-4) ZACK YOUNG
[2022-04-20] MEDS ORDERED: OXYCODONE HCL 5 MG TAB PO PRN (11:39)
[2022-04-20] MEDS ORDERED: ALBUTEROL IH PRN (11:40)
[2022-04-20] MEDS ORDERED: BENZONATATE 100 MG CAP PO PRN (11:41)
[2022-04-20] MEDS ORDERED: POLYETHYL GLY 3350 17 GM/DOSE PO PRN (11:49)
[2022-04-20] MEDS ORDERED: SENOSIDES 8.6 MG TAB PO PRN (11:50)
[2022-04-20] MEDS ORDERED: TIOTROPIUM OLODATEROL IH PRN (11:52)
[2022-04-20 13:53] VITALS: BMI 28.8
[2022-04-20] MEDS: methocarbamoL 500 MG TAB PO PRN (14:33)
[2022-04-20] MEDS: ENOXAPARIN 40 MG/0.4 ML SQ SCH (16:08)
[2022-04-20] MEDS: HYDROCODONE/APAP 5/325 MG TAB PO PRN ×2 (16:10→22:42)
[2022-04-20] MEDS: LIDOCAINE 4% PATCH TOP SCH (16:12)
[2022-04-20] MEDS: DIMETHYL FUMARATE 240 MG PO SCH (17:25)
[2022-04-20] MEDS ORDERED: DIMETHYL FUMARATE 240 MG PO SCH (20:00)
[2022-04-20] MEDS ORDERED: TECFIDERA 240 MG PO SCH (20:00)
[2022-04-20] MEDS: NYSTATIN PWDR 100000 UNIT/GM TOP SCH (20:02)
[2022-04-20] MEDS: CRANBERRY FRUIT EXTRACT 200 MG CAP PO SCH (20:02)
[2022-04-20] MEDS: GABAPENTIN 400 MG CAP PO SCH (20:02)
[2022-04-20] MEDS: TOPIRAMATE 25 MG TAB PO SCH (20:03)
[2022-04-20] MEDS: TAMSULOSIN 0.4 MG SR CAP PO SCH (20:03)
--- NOTE | 2022-04-21 03:11 | HP ---
Date of Admission: 04/20/2022 Yzqk-Kb-Elug Admission History And Physical Time Of Service: 12 noon. Chief Complaint: "I had left hip surgery." History Of Present Illness: Ms. Tripathi is a 71-year-old right-handed patient with multip le myeloma and multiple sclerosis who came to hospital on 04/03/2022 with worsening shortness of hammad th and chest pain, which began during an infusion of IVIG. Workup was negative and the shortness of breath resolved. She came back on the 09 of April as a result of a non-healed femoral neck fracture that had occurred in March of 2020. She had surgery and initially did well; however, postop complications complicated by significant blood loss requirin g 2 units of packed red blood cells. She actually had to have a PREMA drain, which fell out during a tr ansfer overnight on 04/09/2022 and that was replaced and removed on 04/10/2022. She also because of multiple strokes and had a neurogenic bladder, which worsened, had a Price catheter in place with rec ommendation for at least 1 week of it to remain in place before it can be removed and begin bladder t raining. She had mild tachycardia, heart rates in the 110s. In addition, she had significant debili ty and decline in ability to ambulate and perform her activities of daily living. As a result of her complicated course and recent revision surgery, she was determined to be a more appropriate candidat e for inpatient rehabilitation and was therefore admitted to the rehabilitation unit as that was more appropriate than a lower level of care. Past Medical History: Left hemiarthroplasty on 04/09/2022, multiple sclerosis, COPD, cytopenia, mult iple myeloma, herpes zoster, hypothyroidism, pneumonia, and she had a close fracture of the left pubi s on 06/15/2021. Past Surgical History: Appendectomy, hysterectomy in 1971, cholecystectomy, cataract removal, and th oracic spine surgery. Family History: Mother and mother's parents with multiple sclerosis and stroke in mother and mother' s parents. Social History: She denies alcohol, tobacco, or IV drug use. She has high school education and occa sionally drinks wine. Allergies: MORPHINE AND XANDER FROM ANESTHETIC. Current Medications: [place] 5/325 every 6 hours as needed, Tessalon Perles 100 mg every 6 hours, Core g 6.25 mg daily, Lovenox 40 mg subcutaneously daily, gabapentin 1200 mg twice daily, Synthroid 0.1 mg daily in addition to the 0.05 mg daily, lidocaine patch 1 topical to left hip daily, Robaxin 500 mg every 8 hours, Mycostatin apply 1 application topically twice daily, Protonix 40 mg daily, GlycoLax 1 7 g daily for constipation, potassium 10 mEq daily, Senokot 17.2 mg daily for constipation, Flomax 0. 4 mg at bedtime, and topiramate 50 mg daily. Laboratory Studies: White blood cell count 5.7, hemoglobin 9.2, hematocrit 28.7, and platelets 95. Sodium 139, potassium 4.4, glucose 133, BUN 14, and magnesium 2.1. X-ray/imaging: Hip and left pelvis on 03/14 showed no interval change in alignment of the fragments of a subcapital fracture of the left femur that was compared to an x-ray from 02/06/2022. The fractu re was partially impacted. Spine x-ray on 04/05/2022 showed disk fusion C2 through C7 and there is a nterior plate and screws that bridged C3-[address] shows pulmonary embolism contrast, but no PE was identified. There was ground-glass opacification, subpleural nodularity in the lung bases, an d likely represented atelectasis. Pelvic x-ray on 04/09/2022 showed postop changes. There was no ra diologic indication of any complications. The left femur was recommended to image the tip of the fem oral stem. Prior to coming to rehab, she was seen by the Urology Service that recommended Price be p laced with subsequent bladder training. Review of Systems: She does report mild pain in the left hip. Otherwise, she is very enthusiastic about coming to rehab unit. She denies any fevers or chills. She has mild myalgias and arthralgias. No rash. No headac he or weight change. No active psychiatric issues. She has urinary retention. No stool complicatio ns or issues. No dermatological issues. Physical Examination: Vital Signs: Blood pressure 126/54, pulse 79, respiratory rate 16, temperature 98.2, and oxygen satu ration 97%. Weight 184 pounds, height 5 feet 7 inches, BMI 28.8. General: Ms. Tripathi was ambulating in the hallway. She is in no acute distress. HEENT: She is normocephalic, atraumatic. Sclerae anicteric. Oropharynx pink and moist. Neck: Supple. Chest: Clear. Heart: Regular. Extremities: Mild edema in the left lower extremity. No edema on the right. Neurological: She has no focal deficits in upper and lower extremities. She has give-away weakness because of the left hip surgery. Current Level Of Functioning: Currently she was able to ambulate 195 feet, 100 feet, 120 feet with c ontact guard assistance using a rolling walker. She ascended and descended 5 steps with minimum assi stance using bilateral handrails. She did multiple sit to stand transfers with minimal assistance us ing a rolling walker. She was instructed on the proper technique and set up to perform a sit to supi ne transfer. She did functional core strengthening exercises while adhering to her hip precautions. She did fatigue while maintaining dynamic sitting balance. She did sitting balance tolerance twice or 3 minutes each before a break was needed. She did have an evaluation with Speech and she had cogn itive testing done and she did excellent. There was good verbal understanding. Rehabilitation And Medical Assessment And Plan: Ms. Tripathi is a 71-year-old patient in the rehabil itation unit with a rehabilitation impairment category 07 orthopedic lower extremity fracture and [facility] airment group code of 08.11, status post unilateral hip fracture. Her etiologic diagnosis is left fe moral neck fracture. Active comorbidities are anemia, multiple myeloma, chronic obstructive pulmonar y disease, debility with decreased mobility, hypertension, hypothyroidism, postoperative anemia, tach ycardia, thrombocytopenia, urinary retention, neurogenic bladder and neuropathy, multiple sclerosis, and peripheral neuropathy. Plan: 1.She will have physical, occupational, and speech therapy up to 3-1/2 hours for 5-7 days as appropr iate. 2.Multiple sclerosis, which is actually stable. She is not on a course modifying medication at this point. 3.Multiple myeloma, also stable and she has been treated for that. 4.She does have pain and the pain was managed by muscle relaxants and the narcotic medications, Norc o and Tylenol. 5.DVT prophylaxis provided by Lovenox. 6.Hypothyroidism, done by receiving 0.1 and 0.05 mg Synthroid daily. 7.GE reflux treated with Protonix 40 mg daily. 8.Senokot-S will be used for constipation. 9.Flomax to help with neurogenic bladder and topiramate for headache. Impact Of Comorbid Conditions: Given the multiple sclerosis and multiple myeloma, she is at risk of worsening infections and white blood cell count will be followed carefully. Temperatures will be nati luated and any signs of confusion will prompt a workup including chest x-ray, blood work per cultures , and appropriate antibiotics of the use if need be. She is also at the risk of depression given her multiple medical conditions. She will be evaluated and as appropriate, antidepressants may be used. Otherwise, her comorbidities are stable and medications will be continued as appropriate. Rehab Specific Plan: As noted, she will have physical and occupational along with speech therapy if appropriate up to 3-1/2 hours for 5 of 7 days. She does have a good understanding of why she is admitted to the inpatient rehabilitation unit and e has a great potential to make good improvement and as needed, we will have at least 2 of the discip lines that is physical, occupational and speech therapy as appropriate. Additionally, services such as Pulmonary Service if need be, Orthopedic Service, Nutrition Services, and Psychological Evaluation Services will be used as appropriate. Given her complex conditions and recent surgery on the hip, the risk of her worsening is significant, in addition to her medical condition worsening. Therefore she cannot be safely and effectively have her rehabilitation performed at a lower level of care. Barriers To Discharge: As noted, she has multiple myeloma and multiple sclerosis with risk of infect ion. She has neurogenic bladder with urinary retention as appropriate and will have Urology consult. Bladder training will be done. Those are being mitigated. Estimated Length Of Stay: About 10 to 12 days. Disposition: She is expected to go home. Prognosis: Good. Rehabilitation Goals: 1.Become independent with upper and lower body dressing, transfer and toileting. 2.Ambulate over 250 feet with modified independence. 3.Up and down 10 steps with modified independence. 4.Cognitive functioning performed with modified independence. 5.Maintain hip precautions with modified independence. I acknowledge that I personally performed a full physical examination on the patient, Sunni Tripathi within 24 hours of her admission to the inpatient rehabilitation unit and determined she is able to tolerate the above course of treatment at an intensive level. A detailed individualized plan of care for her will be completed by hospital day 4 based on the preadmission screen, history and physical, and therapeutic evaluations. LB/MODL Voice ID: [id number]
[2022-04-21] MEDS: DIMETHYL FUMARATE 240 MG PO SCH ×2 (05:06→17:32)
[2022-04-21 05:45] LABS: Specific Gravity 1.018 (1.005-1.030); Urine Bacteria <20 /HPF (<20); Urine Bilirubin NEGATIVE (Negative); Urine Blood Trace (Negative); Urine Clarity Clear (Clear); Urine Color Light-Yellow (Yellow); Urine Glucose NEGATIVE (Negative); Urine Mucus Slight /HPF (None Seen); Urine Protein TRACE (Negative); Urine Urobilinogen Normal (Normal); Urine pH 5.5 (5.0-7.0)
[2022-04-21 05:46] LABS: Absolute Lymphocytes (CBC) 0.8 K/uL (0.7-4.9); Hematocrit 27.4 % (36.0-45.0); Lymphocytes % 17.7 % (15.3-44.8); MCV 101.7 fL (80-100); MPV 8.3 fL (7.6-11.3); RBC Red Blood Cell Count 2.69 M/uL (3.86-4.86)
[2022-04-21 06:06] LABS: Albumin 3.4 g/dL (3.4-5.0); Magnesium 2.2 mg/dL (1.6-2.4); Potassium 3.4 mmol/L (3.5-5.1); Prealbumin 18.2 mg/dL (20-40)
[2022-04-21] MEDS: LEVOTHYROXINE SOD 0.1 MG TAB PO SCH (06:18)
[2022-04-21] MEDS: LEVOTHYROXINE SOD 0.05 MG TABLET PO SCH (06:18)
[2022-04-21] MEDS ORDERED: PANTOPRAZOLE 40MG TABLET PO SCH (06:30)
[2022-04-21] MEDS: LIDOCAINE 4% PATCH TOP SCH (06:43)
[2022-04-21] MEDS: HYDROCODONE/APAP 5/325 MG TAB PO PRN ×3 (08:19→19:06)
[2022-04-21] MEDS: POTASSIUM CL SA 10 MEQ TAB PO SCH (08:20)
[2022-04-21] MEDS: GABAPENTIN 400 MG CAP PO SCH ×2 (08:20→19:06)
[2022-04-21] MEDS: CRANBERRY FRUIT EXTRACT 200 MG CAP PO SCH ×2 (08:20→19:06)
[2022-04-21] MEDS: carvediloL 6.25 MG TAB PO SCH (08:20)
[2022-04-21 08:31] LABS: Anisocytosis 1+; Blood Morphology Comment NOTED (NOT SEEN); Platelet Estimate DECR; White Blood Cell Scan OK (OK)
[2022-04-21 08:32] LABS: Macrocytosis 1+
[2022-04-21] MEDS: NYSTATIN PWDR 100000 UNIT/GM TOP SCH ×2 (09:14→19:06)
[2022-04-21] MEDS: methocarbamoL 500 MG TAB PO PRN (12:28)
[2022-04-21] MEDS: ENOXAPARIN 40 MG/0.4 ML SQ SCH (16:41)
[2022-04-21] MEDS ORDERED: LIDOCAINE 4% PATCH TOP STA (18:49)
[2022-04-21] MEDS: TOPIRAMATE 25 MG TAB PO SCH (19:06)
[2022-04-21] MEDS: TAMSULOSIN 0.4 MG SR CAP PO SCH (19:07)
[2022-04-22] MEDS: HYDROCODONE/APAP 5/325 MG TAB PO PRN ×3 (03:31→22:59)
[2022-04-22] MEDS: LEVOTHYROXINE SOD 0.05 MG TABLET PO SCH (05:25)
[2022-04-22] MEDS: LEVOTHYROXINE SOD 0.1 MG TAB PO SCH (05:25)
[2022-04-22] MEDS: DIMETHYL FUMARATE 240 MG PO SCH ×2 (05:25→17:25)
[2022-04-22] MEDS: LIDOCAINE 4% PATCH TOP SCH (07:07)
[2022-04-22] MEDS: PANTOPRAZOLE 40MG TABLET PO SCH (07:08)
[2022-04-22] MEDS: GABAPENTIN 400 MG CAP PO SCH ×2 (07:51→19:45)
[2022-04-22] MEDS: carvediloL 6.25 MG TAB PO SCH (07:52)
[2022-04-22] MEDS: CRANBERRY FRUIT EXTRACT 200 MG CAP PO SCH ×2 (07:52→19:45)
[2022-04-22] MEDS: POTASSIUM CL SA 10 MEQ TAB PO SCH (07:53)
[2022-04-22] MEDS: NYSTATIN PWDR 100000 UNIT/GM TOP SCH ×2 (09:01→19:45)
[2022-04-22] MEDS: methocarbamoL 500 MG TAB PO PRN ×2 (11:42→19:46)
[2022-04-22] MEDS: ENOXAPARIN 40 MG/0.4 ML SQ SCH (16:21)
[2022-04-22] MEDS: TOPIRAMATE 25 MG TAB PO SCH (19:45)
[2022-04-22] MEDS: TAMSULOSIN 0.4 MG SR CAP PO SCH (19:46)
[2022-04-23] MEDS: LEVOTHYROXINE SOD 0.05 MG TABLET PO SCH (05:23)
[2022-04-23] MEDS: DIMETHYL FUMARATE 240 MG PO SCH ×2 (05:23→17:12)
[2022-04-23] MEDS: LEVOTHYROXINE SOD 0.1 MG TAB PO SCH (05:23)
[2022-04-23] MEDS: PANTOPRAZOLE 40MG TABLET PO SCH (07:55)
[2022-04-23] MEDS: carvediloL 6.25 MG TAB PO SCH (07:56)
[2022-04-23] MEDS: methocarbamoL 500 MG TAB PO PRN (07:56)
[2022-04-23] MEDS: CRANBERRY FRUIT EXTRACT 200 MG CAP PO SCH ×2 (07:57→19:58)
[2022-04-23] MEDS: GABAPENTIN 400 MG CAP PO SCH ×2 (07:57→19:58)
[2022-04-23] MEDS: LIDOCAINE 4% PATCH TOP SCH (07:57)
[2022-04-23] MEDS: POTASSIUM CL SA 10 MEQ TAB PO SCH (07:58)
[2022-04-23] MEDS: NYSTATIN PWDR 100000 UNIT/GM TOP SCH ×2 (09:40→19:59)
[2022-04-23] MEDS: ENOXAPARIN 40 MG/0.4 ML SQ SCH (16:50)
[2022-04-23] MEDS: TAMSULOSIN 0.4 MG SR CAP PO SCH (19:58)
[2022-04-23] MEDS: TOPIRAMATE 25 MG TAB PO SCH (19:58)
[2022-04-23] MEDS: HYDROCODONE/APAP 5/325 MG TAB PO PRN (20:02)
--- NOTE | 2022-04-24 01:00 | PN ---
Date of Progress Note: 04/23/2022 Time Of Service: 12:30 p.m. Subjective: Ms. Tripathi is doing very well. She denies any significant pain. She is happy with he r therapy so far and her gains in physical and occupational therapy. Review of Systems: No fevers, chills. No nausea, vomiting. No significant myalgias, arthralgias. No rash, headache, w eight change. No psychiatric issues. Physical Examination: Vital Signs: Blood pressure 114/56, pulse 92, respiratory rate 16, temperature 97.2, oxygen saturati on 98%. General: Ms. Tripathi is sitting at the table, finishing lunch. HEENT: She is normocephalic, atraumatic. Sclerae anicteric. Oropharynx moist. Neck: Supple. Chest: Clear. Heart: Regular. Extremities: Show no significant edema or cyanosis. Neurological: She has improving strength in the extremities, but still has mild diffuse weakness, so me incoordination. Laboratory Studies: No new laboratory studies since the 4th, where white blood cell count was 4.8, h emoglobin 9.3, platelets 103. Sodium 137, potassium 3.4, chloride 105, creatinine normal at 0.63. P realbumin 18.2. Urinalysis showed 11 to 20 red blood cells, trace blood, trace protein. COVID-[address] was negative on the 3rd and a smear scan okay on the 4th. None. Medications: [place] 5/325 every 6 hours as needed; Tessalon Perles 100 mg every 6 hours as needed for cough; Coreg 6.25 mg daily; Lovenox 40 mg subcutaneously daily; gabapentin 1200 mg twice daily; Synt hroid 0.15 mg daily; lidocaine patch 2 patches apply topically to the hip; Robaxin 500 mg every 8 merari rs for muscle spasms as needed; Mycostatin apply topically twice daily as needed; Protonix 40 mg maricruz y; potassium 10 mEq daily; Senokot-S 17.2 mg daily as needed; Flomax 0.4 mg daily; topiramate 50 mg a t bedtime. Current Functional Status: Ms. Tripathi was able to ambulate 75 feet, and 125 feet 3 times, and 100 feet once with contact guard assistance using a rolling walker. She ascended and descended 15 stagge rs with contact guard assistance using bilateral handrails. She did multiple [id number] transfers with contact guard assistance using a rolling walker. Progress Towards Rehabilitation Goals: She is making good progress towards her goals of becoming ind ependent with upper and lower body dressing, transferring, toileting. Ambulating over 500 feet with modified independence to independence, up and down 15 steps with modified independence to independenc e. Continuing of good cognitive functioning with independence. Assessment: Ms. Tripathi is a 71-year-old patient in the rehabilitation unit with left hip fracture, and she is making great progress in terms of her physical and occupational therapy regarding the hip fracture. She does have multiple myeloma, multiple sclerosis, chronic obstructive pulmonary disease , hypertension, hypothyroidism, postoperative anemia, neurogenic bladder with urinary retention, and the peripheral neuropathy as noted. Plan: 1.Continue physical and occupational therapy as noted. 2.Continue with comorbid condition management, including Synthroid 0.15 mg daily for hypothyroidism, Protonix for GE reflux, Senokot-S for constipation, Lovenox for DVT prophylaxis, Flomax for urinary retention and she is doing bladder training as well. Comorbidities That Continue To Impact Rehabilitation Process: At this point, her comorbidities are w ell managed and do not negatively impact her rehabilitation. REYMUNDO/MARCIO Voice ID: [id number] Report ID: [id number]
[2022-04-24] MEDS: DIMETHYL FUMARATE 240 MG PO SCH ×2 (05:22→17:13)
[2022-04-24] MEDS: LEVOTHYROXINE SOD 0.1 MG TAB PO SCH (05:22)
[2022-04-24] MEDS: LEVOTHYROXINE SOD 0.05 MG TABLET PO SCH (05:23)
[2022-04-24] MEDS: HYDROCODONE/APAP 5/325 MG TAB PO PRN ×3 (05:27→20:41)
[2022-04-24] MEDS: PANTOPRAZOLE 40MG TABLET PO SCH (07:06)
[2022-04-24] MEDS: NYSTATIN PWDR 100000 UNIT/GM TOP SCH ×2 (07:54→20:03)
[2022-04-24] MEDS: GABAPENTIN 400 MG CAP PO SCH ×2 (07:54→20:03)
[2022-04-24] MEDS: LIDOCAINE 4% PATCH TOP SCH (07:54)
[2022-04-24] MEDS: CRANBERRY FRUIT EXTRACT 200 MG CAP PO SCH ×2 (07:54→20:02)
[2022-04-24] MEDS: POTASSIUM CL SA 10 MEQ TAB PO SCH (07:55)
[2022-04-24] MEDS: carvediloL 6.25 MG TAB PO SCH (09:07)
[2022-04-24] MEDS: ENOXAPARIN 40 MG/0.4 ML SQ SCH (16:10)
[2022-04-24] MEDS: TOPIRAMATE 25 MG TAB PO SCH (20:02)
[2022-04-24] MEDS: TAMSULOSIN 0.4 MG SR CAP PO SCH (20:03)
[2022-04-24] MEDS: methocarbamoL 500 MG TAB PO PRN (22:31)
--- NOTE | 2022-04-25 02:32 | PN ---
Date of Progress Note: 04/24/2022 Time Of Service: 12:30 p.m. Subjective: Ms. Tripathi is in general doing well. She denies any significant problems, except for some mild pain in the left medial knee area. She is very happy with her progress with therapy. Review of Systems: No fevers or chills, nausea or vomiting. Some mild pain is noted in the left medial knee. No rash, headache, or psychiatric issues. Physical Examination: Vital Signs: Blood pressure 112/55, pulse 96, respiratory rate 16, temperature 97.6, oxygen saturation 97%. General: Ms. Tripathi is resting in a chair. She has no focal deficits. She is well. Extremities: Mild edema in the left lower extremity. Laboratory Studies: No new laboratory studies. X-ray/imaging: No x-ray or imaging. Medications: She will have 1 of the lidocaine patches cut in half and partly put on the left medial knee and 1 on the left lower extremity and other areas as appropriate. Otherwise, no changes in medications. Current Functional Status: Today, she ambulated 75 feet twice, 125 feet once, 250 feet once with standby assistance using a rolling walker. She ascended and descended 25 steps with standby assistance using bilateral hand rails. She mobilized her wheelchair to 250 feet to improve her upper extremity strength. She did sit to stand transfers with standby assistance using her own walker. Progress Towards Rehabilitation Goals: The patient is making very good progress towards her goals of becoming fully independent with all activities including activities of daily living, transferring, mobilizing 500 feet, and up and down 25 steps with independence. Assessments And Plan: Ms. Tripathi is a 71-year-old patient in the rehabilitation unit with left hip fracture, who is doing excellent in terms of physical and occupational therapy. She has comorbid multiple myeloma, multiple sclerosis, chronic obstructive pulmonary disease, hypertension, hypothyroidism, postoperative anemia, neurogenic bladder with urinary retention, and peripheral neuropathy. She does have the Price removed and is working well. Plan: 1. Continuing physical and occupational therapy. 2. Continue medications for hypothyroidism Synthroid 0.15 mg daily, Protonix for GE reflux, Senokot for constipation, Lovenox for DVT prophylaxis, Flomax for urinary retention. Comorbidities That Continue To Impact Rehabilitation Process: At this point, her comorbid conditions do not negatively impact the rehabilitation and she is doing very well. LB/MODL Voice ID: [id number] Report ID: [id number] GAMA
[2022-04-25] MEDS: DIMETHYL FUMARATE 240 MG PO SCH ×2 (05:44→17:35)
[2022-04-25] MEDS: LEVOTHYROXINE SOD 0.05 MG TABLET PO SCH (05:45)
[2022-04-25] MEDS: LEVOTHYROXINE SOD 0.1 MG TAB PO SCH (05:45)
[2022-04-25] MEDS: PANTOPRAZOLE 40MG TABLET PO SCH (07:12)
[2022-04-25] MEDS: methocarbamoL 500 MG TAB PO PRN ×2 (07:32→19:59)
[2022-04-25] MEDS: POTASSIUM CL SA 10 MEQ TAB PO SCH (07:33)
[2022-04-25] MEDS: GABAPENTIN 400 MG CAP PO SCH ×2 (07:33→19:59)
[2022-04-25] MEDS: CRANBERRY FRUIT EXTRACT 200 MG CAP PO SCH ×2 (07:33→19:59)
[2022-04-25] MEDS: carvediloL 6.25 MG TAB PO SCH (07:33)
[2022-04-25] MEDS: HYDROCODONE/APAP 5/325 MG TAB PO PRN ×2 (09:23→16:56)
[2022-04-25] MEDS: LIDOCAINE 4% PATCH TOP SCH (09:31)
[2022-04-25] MEDS: NYSTATIN PWDR 100000 UNIT/GM TOP SCH ×2 (09:31→19:59)
[2022-04-25] MEDS: ENOXAPARIN 40 MG/0.4 ML SQ SCH (16:56)
[2022-04-25] MEDS: TAMSULOSIN 0.4 MG SR CAP PO SCH (19:59)
[2022-04-25] MEDS: TOPIRAMATE 25 MG TAB PO SCH (19:59)
--- NOTE | 2022-04-26 00:29 | PN ---
Date of Progress Note: 04/25/2022 A [id number] progress note visit. Time Of Service: 1:00 p.m. Subjective: Ms. Tripathi is doing very well. She has no new complaints. She is happy about her the rapy. She does report less pain in the left medial knee, where a Lidoderm patch was placed. She bird s report some swelling when the legs are dependent in the afternoon and the swelling improves overnig ht, and by morning no significant swelling in the left more than right lower extremity, where of cour se she had a left hip fracture and surgery. Review of Systems: She has noted some mild swelling in the left leg, pain in left medial knee. Otherwise, no fevers, ch ills, nausea, vomiting. No rash, headache, or psychiatric issues. Physical Examination: Vital Signs: Blood pressure 100/52, pulse 94, respiratory rate 16, temperature 97.8, oxygen saturati on 94%. General: Ms. Tripathi is doing well. She is in the gym and is ready to start more therapy. HEENT: She is normocephalic, atraumatic. Sclerae anicteric. Oropharynx pink and moist. Neck: Supple. Chest: Clear. Heart: Regular. Extremities: Show trace edema, left more than right lower extremity. She does not have focal neurol ogical deficits. Laboratory Studies: No new laboratory studies. X-ray/imaging: No new x-ray or imaging. Medications: Medications are reviewed and are unchanged compared to yesterday. She is treated with topiramate to reduce headache frequency; Flomax for urinary retention, it is improving; Senokot for c onstipation; Protonix for GE reflux; Synthroid for hypothyroidism; gabapentin for peripheral neuropat hy symptoms; Lovenox for DVT prophylaxis; Gates for pain; and Tessalon for cough. Progress With Her Therapy: She ambulated 75 feet and 175 feet and 325 feet independently using a rol ling walker. Emphasis was placed on more weight and on her lower extremities and on offloading her u pper extremities. She ascended and descended 25 steps twice independently using bilateral handrails. She performed multiple lle-st-wkoqx transfers independently with a rolling walker. In occupational therapy, she did independently gather and wear her clothes after we performed sponge baths, sitting on a Rollator sink. She tolerated all the sessions well and independently completed her activities o f daily living. Progress Towards Her Rehabilitation Goals: She has made excellent progress and is actually ready to be discharged. She will be discharged in the morning and will continue aggressive therapy. She actu ally would benefit more from outpatient, but due to circumstances such as transportation and otherwis e, may have a home health care initially. Assessment: Ms. Tripathi is a 71-year-old patient in the rehabilitation unit with left hip fracture, who is doing very well with her physical and occupational therapy and actually is ready to be discha rged home. Comorbidities include multiple myeloma, multiple sclerosis, chronic obstructive pulmonary disease, hypertension, hypothyroidism, neurogenic bladder, which is improved, and then peripheral ne uropathy. Next, continue physical and occupational therapy until ready for discharge in the morning. Continue Synthroid for hypothyroidism, Protonix for GE reflux, Senokot for constipation, Lovenox for DVT prophylaxis, and Flomax for urinary retention. Comorbidities That Continue To Impact Rehabilitation Process: She has no comorbidities that negative ly impact her rehabilitation process and she is ready for discharge in the morning. REYMUNDO/MARCIO Voice ID: [id number] Report ID: [id number]
[2022-04-26] MEDS: LEVOTHYROXINE SOD 0.1 MG TAB PO SCH (05:26)
[2022-04-26] MEDS: LEVOTHYROXINE SOD 0.05 MG TABLET PO SCH (05:26)
[2022-04-26] MEDS: DIMETHYL FUMARATE 240 MG PO SCH (05:26)
[2022-04-26] MEDS: HYDROCODONE/APAP 5/325 MG TAB PO PRN (05:30)
[2022-04-26] MEDS: PANTOPRAZOLE 40MG TABLET PO SCH (07:26)
[2022-04-26 07:45] VITALS: BP 103/59; TEMP 97
[2022-04-26] MEDS ORDERED: APIXABAN 2.5 MG TABLET PO SCH (08:00)
[2022-04-26] MEDS: LIDOCAINE 4% PATCH TOP SCH (08:04)
[2022-04-26] MEDS: CRANBERRY FRUIT EXTRACT 200 MG CAP PO SCH (08:05)
[2022-04-26] MEDS: GABAPENTIN 400 MG CAP PO SCH (08:05)
[2022-04-26] MEDS: NYSTATIN PWDR 100000 UNIT/GM TOP SCH (08:05)
[2022-04-26] MEDS: POTASSIUM CL SA 10 MEQ TAB PO SCH (08:06)
[2022-04-26] MEDS: carvediloL 6.25 MG TAB PO SCH (08:06)
[2022-04-26 09:38] LABS: Absolute Lymphocytes (CBC) 0.8 K/uL (0.7-4.9); Hematocrit 27.9 % (36.0-45.0); Lymphocytes % 23.1 % (15.3-44.8); MCV 103.2 fL (80-100); RBC Red Blood Cell Count 2.71 M/uL (3.86-4.86)
[2022-04-26 09:52] LABS: Potassium 3.6 mmol/L (3.5-5.1)
--- NOTE | 2022-04-26 09:54 | P.RH.PN ---
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 Goal: Mobility, Transfers, Self Care Vital Signs: Last Vital Signs Temp 97.0 F 04/26/22 07:45 Pulse 76 04/26/22 08:06 Resp 18 04/26/22 07:45 BP 103/59 L 04/26/22 08:06 Pulse Ox 98 04/26/22 07:45 Laboratory: Laboratory Last Values WBC 3.30 K/uL (4.3-10.9) L 04/26/22 09:24 RBC 2.71 M/uL (3.86-4.86) L 04/26/22 09:24 Hgb 9.2 g/dL (12.0-15.0) L 04/26/22 09:24 Hct 27.9 % (36.0-45.0) L 04/26/22 09:24 MCV 103.2 fL (80-100) H 04/26/22 09:24 MCH 34.0 pg (27.0-35.0) 04/26/22 09:24 MCHC 32.9 g/dL (32.0-36.0) 04/26/22 09:24 RDW 21.0 % (12.1-15.2) H 04/26/22 09:24 Plt Count 101 K/uL (152-406) L 04/26/22 09:24 MPV 8.0 fL (7.6-11.3) 04/26/22 09:24 Neutrophils % 64.2 % (41.7-73.7) 04/26/22 09:24 Lymphocytes % 23.1 % (15.3-44.8) 04/26/22 09:24 Monocytes % 10.1 % (3.3-12.3) 04/26/22 09:24 Eosinophils % 2.1 % (0-4.4) 04/26/22 09:24 Basophils % 0.5 % (0-1.3) 04/26/22 09:24 Absolute Neutrophils 2.1 K/uL (1.8-8.0) 04/26/22 09:24 Absolute Lymphocytes 0.8 K/uL (0.7-4.9) 04/26/22 09:24 Absolute Monocytes 0.3 K/uL (0.1-1.3) 04/26/22 09:24 Absolute Eosinophils 0.1 K/uL (0-0.5) 04/26/22 09:24 Absolute Basophils 0.0 K/uL (0-0.5) 04/26/22 09:24 Platelet Estimate Decr 04/21/22 05:09 Anisocytosis 1+ 04/21/22 05:09 Macrocytosis 1+ 04/21/22 05:09 Morphology Comment Noted (NOT SEEN) 04/21/22 05:09 Sodium 137 mmol/L (136-145) 04/21/22 05:09 Potassium 3.4 mmol/L (3.5-5.1) L 04/21/22 05:09 Chloride 105 mmol/L (98-107) 04/21/22 05:09 Carbon Dioxide 28 mmol/L (21-32) 04/21/22 05:09 Anion Gap 7.4 mEq/L (5.0-15.0) 04/21/22 05:09 BUN 20 mg/dL (7-18) H 04/21/22 05:09 Creatinine 0.63 mg/dL (0.55-1.02) 04/21/22 05:09 Est GFR (CKD-EPI) 94 ml/min (=/>90) 04/21/22 05:09 Glucose 105 mg/dL (74-106) 04/21/22 05:09 Calcium 9.4 mg/dL (8.5-10.1) 04/21/22 05:09 Magnesium 2.2 mg/dL (1.6-2.4) 04/21/22 05:09 Albumin 3.4 g/dL (3.4-5.0) 04/21/22 05:09 Prealbumin 18.2 mg/dL (20-40) L 04/21/22 05:09 Urine Color Light-yellow (Yellow) 04/21/22 03:30 Urine Clarity Clear (Clear) 04/21/22 03:30 Urine pH 5.5 (5.0-7.0) 04/21/22 03:30 Ur Specific Amber 1.018 (1.005-1.030) 04/21/22 03:30 Glucose (UA)(Auto) Negative (Negative) 04/21/22 03:30 Urine Ketones Negative (Negative) 04/21/22 03:30 Urine Blood Trace (Negative) H 04/21/22 03:30 Urine Nitrite Negative (Negative) 04/21/22 03:30 Urine Bilirubin Negative (Negative) 04/21/22 03:30 Urine Urobilinogen Normal (Normal) 04/21/22 03:30 Ur Leukocyte Esterase Negative Preston/uL (Negative) 04/21/22 03:30 Urine RBC 11-20 /HPF (None Seen) H 04/21/22 03:30 Urine WBC <5 /HPF (<5) 04/21/22 03:30 Ur Squamous Epith Cells <5 /HPF (None Seen) 04/21/22 03:30 Urine Bacteria <20 /HPF (<20) 04/21/22 03:30 Urine Mucus Slight /HPF (None Seen) 04/21/22 03:30 Urine Culture Reflexed Not needed 04/21/22 03:30 Urine Total Protein Trace (Negative) H 04/21/22 03:30 SARS-CoV-2 Rap RNA(RT-PCR) Negative (NEGATIVE) 04/20/22 10:45 Smear Scan Ok (OK) 04/21/22 05:09 Weight: 196 lb 9.6 oz Wound Present: No Closed Surgical Incision Present: Yes Negative Pressure Wound Therapy Present: No Physician Update: She did very well with all of her therapy. She is ready to go home today and will continue with physical therapy. She has chronic anemia and needs to be further evaluated. Summary: Patient's care plan and project development leader goals have been reviewed and revised as necessary. Please see the Rehabilitation Signature page for all necessary signatures.
== END 2022-04-26 10:00 | disposition home health service (06) | DRG 561 ==
LOC: 5TH 04-20 09:00 → UNDOADMIN 04-20 09:10 → 5TH 04-20 09:10
PROVIDERS: ADMIT Psychiatry & Neurology Neurology with Special Qualifications in Child Neurology; ATTEND Psychiatry & Neurology Neurology with Special Qualifications in Child Neurology
DX: S72.052D Unspecified fracture of head of left femur, subsequent encounter for closed fracture with routine healing (principal); M25.552 Pain in left hip; G35 Multiple sclerosis; J44.9 Chronic obstructive pulmonary disease, unspecified; D75.9 Disease of blood and blood-forming organs, unspecified; B02.9 Zoster without complications; E03.9 Hypothyroidism, unspecified; D64.9 Anemia, unspecified; D64.89 Other specified anemias; I10 Essential (primary) hypertension; R00.0 Tachycardia, unspecified; D69.6 Thrombocytopenia, unspecified; R53.81 Other malaise; K59.00 Constipation, unspecified; R51.9 Headache, unspecified; R33.9 Retention of urine, unspecified; N31.9 Neuromuscular dysfunction of bladder, unspecified; G62.9 Polyneuropathy, unspecified; Z96.642 Presence of left artificial hip joint; Z98.890 Other specified postprocedural states; Z88.6 Allergy status to analgesic agent; Z20.822 Contact with and (suspected) exposure to COVID-19; Z86.73 Personal history of transient ischemic attack (TIA), and cerebral infarction without residual deficits; Z82.49 Family history of ischemic heart disease and other diseases of the circulatory system; Z85.79 Personal history of other malignant neoplasms of lymphoid, hematopoietic and related tissues
CPT/HCPCS: 36415; 80048; 81001; 82040; 83735; 84134; 85025; 87086; 87088; 92523; 97110; 97116; 97150; 97161; 97165; 97530; 97542; J1650; J2001; U0003

== ENCOUNTER 2024-05-15 21:49 | Inpatient (IN) | payer OTHER ==
--- OUTSIDE RECORDS SUMMARY | 2024-05-15 21:55 | XMS REPORT | Clinical Summary ---
Author Name Unknown Organization [facility] [place] [place] Address [address] [place] [address] Care Team Providers [facility] Name Role Phone Grover Fernandes MD Unavailable [phone] Norberto Gregory MD Primary Care Provider [phone] Lokesh Quinteros DDS Unavailable [phone] Terrence Arce MD Unavailable Nancy Busby MD Unavailable Dat Polo MD Unavailable [phone] Neli Zafar MD Unavailable [phone] Selena Douglas MD Unavailable [phone] Allergies Active Allergy Reactions Criticality Noted Date Comments Ether Other (See Comments) Medium 10/27/2015 Pt states she cannot have any gas anesthesia at all. States they were unable to wake her up for 4 days after her last surgery that she received gas anesthesia. States they were unable to wake her up for 4 days after her last surgery that she received gas anesthesia. Gammagard Other (See Comments) High 04/03/2022 Chest pain and SOB Morphine Other (See Comments) 08/29/2017 Puts her in an MS episode Puts her in an MS episode But takes Hydrocodone without any issues Medications * This document contains information received from the source organization and may not represent a complete record from that organization. albuterol (VENTOLIN HFA,PROAIR HFA) 90 mcg/puff inhaler Inhale 2 puffs by mouth every 6 (six) hours as needed for wheezing or shortness of breath. Active CARVEDILOL PHOSPHATE ORAL Take 12.5 mg by mouth 2 (two) times a day. 12.5 05/04/19 20 Active TECFIDERA 240 mg cpDR Take 1 capsule by mouth twice daily. 05/05/19 20 Active tiotropium-olo dateroL 2.5-2.5 mcg/actuation mist Inhale 2 puffs by mouth daily as needed. Active senna-docusate (SENOKOT-S) 8.6 mg-50 mg tabletIndicati ons:Pain in left hip Take 1-2 tablets by mouth 2 (two) times a day as needed for constipation. 05/12/19 21 Active levothyroxine (SYNTHROID, LEVOTHROID) 150 mcg tablet Take 137 mcg by mouth daily. 03/12/19 23 Active aspirin 81 mg chewable tablet Chew and swallow 1 tablet (81 mg) by mouth daily. Active gabapentin (NEURONTIN) 600 mg tabletIndicati ons:Multiple myeloma,Neurop athy, not otherwise specified,Logistics Associate baljinder pain,Neoplasm related pain (acute) (chronic) Take 1 tablet (600 mg) by mouth at bedtime. 60 tablet 3 10/31/19 24 Active methocarbamol (ROBAXIN) 500 mg tabletIndicati ons:Neuropathy , not otherwise specified,Logistics Associate baljinder pain,Neoplasm related pain (acute) (chronic),Mult iple myeloma,Spasm of back muscles TAKE 1 TABLET(500 MG) BY MOUTH EVERY 8 HOURS NEEDED FOR MUSCLE SPASMS 90 tablet 2 02/23/19 25 Active oxyCODONE-acet aminophen (PERCOCET) 7.5-325 mg per tabletIndicati ons:Neoplasm related pain (acute) (chronic) Take 1 tablet by mouth every 6 (six) hours as needed for severe pain. 120 tablet 04/25/19 25 Active topiramate (TOPAMAX) 50 mg tablet TK 1 T PO HS 04/30/19 20 025 Discontinued potassium chloride (K-DUR,KLOR-CO N M) 10 mEq tablet Take 1 tablet (10 mEq) by mouth daily. 03/29/19 23 024 Discontinued valACYclovir (VALTREX) 1000 mg tablet Take 1 tablet (1,000 mg) by mouth daily. 025 Discontinued lenalidomide (REVLIMID) capsule 2.5 mg Take 1 capsule (2.5 mg) by mouth daily. For 21 days 024 Discontinued(Th erapy completed) carBAMazepine (TEGretol) 200 mg tablet Take 1 tablet (200 mg) by mouth at bedtime. 2 at bedtime 025 Discontinued methocarbamol (ROBAXIN) 500 mg tabletIndicati ons:Chronic pain,Neoplasm related pain (acute) (chronic),Mult iple myeloma,Neurop athy, not otherwise specified,Spas m of back muscles TAKE 1 TABLET(500 MG) BY MOUTH EVERY 8 HOURS NEEDED FOR MUSCLE SPASMS 60 tablet 2 03/20/19 24 024 Discontinued gabapentin (NEURONTIN) 600 mg tabletIndicati ons:Neoplasm related pain (acute) (chronic),Logistics Associate baljinder pain,Multiple myeloma,Neurop athy, not otherwise specified Take 1 tablet (600 mg) by mouth twice daily. 60 tablet 05/07/19 24 024 Discontinued oxyCODONE-acet aminophen (PERCOCET) 7.5-325 mg per tabletIndicati ons:Neoplasm related pain (acute) (chronic) Take 1 tablet by mouth every 6 (six) hours as needed for severe pain. 120 tablet 05/08/19 24 024 Discontinued(Re order) methocarbamol (ROBAXIN) 500 mg tabletIndicati ons:Chronic pain,Neoplasm related pain (acute) (chronic),Mult iple myeloma,Neurop athy, not otherwise specified,Spas m of back muscles TAKE 1 TABLET(500 MG) BY MOUTH EVERY 8 HOURS NEEDED FOR MUSCLE SPASMS 90 tablet 05/27/19 24 024 Discontinued methocarbamol (ROBAXIN) 500 mg tabletIndicati ons:Chronic pain,Neoplasm related pain (acute) (chronic),Mult iple myeloma,Neurop athy, not otherwise specified,Spas m of back muscles TAKE 1 TABLET(500 MG) BY MOUTH EVERY 8 HOURS NEEDED FOR MUSCLE SPASMS 270 tablet 06/26/19 24 024 Discontinued gabapentin (NEURONTIN) 600 mg tabletIndicati ons:Neoplasm related pain (acute) (chronic),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 120 tablet 06/25/19 24 024 Discontinued(Re order) gabapentin (NEURONTIN) 600 mg tabletIndicati ons:Multiple myeloma,Neurop athy, not otherwise specified,Logistics Associate baljinder pain,Neoplasm related pain (acute) (chronic) Take 1 tablet (600 mg) by mouth at bedtime. 60 tablet 3 07/31/19 24 024 Discontinued(Re order) oxyCODONE-acet aminophen (PERCOCET) 7.5-325 mg per tabletIndicati ons:Neoplasm related pain (acute) (chronic) Take 1 tablet by mouth every 6 (six) hours as needed for severe pain. 120 tablet 07/31/19 24 024 Discontinued(Re order) oxyCODONE-acet aminophen (PERCOCET) 7.5-325 mg per tabletIndicati ons:Neoplasm related pain (acute) (chronic) Take 1 tablet by mouth every 6 (six) hours as needed for severe pain. 120 tablet 09/16/19 24 024 Discontinued(Re order) methocarbamol (ROBAXIN) 500 mg tabletIndicati ons:Chronic pain,Neoplasm related pain (acute) (chronic),Mult iple myeloma,Neurop athy, not otherwise specified,Spas m of back muscles TAKE 1 TABLET(500 MG) BY MOUTH EVERY 8 HOURS NEEDED FOR MUSCLE SPASMS 270 tablet 10/02/19 24 024 Discontinued(Re order) oxyCODONE-acet aminophen (PERCOCET) 7.5-325 mg per tabletIndicati ons:Neoplasm related pain (acute) (chronic) Take 1 tablet by mouth every 6 (six) hours as needed for severe pain. 120 tablet 10/31/19 24 024 Discontinued(Re order) lenalidomide (REVLIMID) capsule 2.5 mgIndications: Multiple myeloma Take 1 capsule (2.5 mg) by mouth daily for 21 doses. 21 capsule 12/26/19 24 024 oxyCODONE-acet aminophen (PERCOCET) 7.5-325 mg per tabletIndicati ons:Neoplasm related pain (acute) (chronic) Take 1 tablet by mouth every 6 (six) hours as needed for severe pain. 120 tablet 12/25/19 24 024 Discontinued(Re order) methocarbamol (ROBAXIN) 500 mg tabletIndicati ons:Neuropathy , not otherwise specified,Logistics Associate baljinder pain,Neoplasm related pain (acute) (chronic),Mult iple myeloma,Spasm of back muscles Take 1 tablet (500 mg) by mouth every 8 (eight) hours as needed for muscle spasms. 90 tablet 01/22/20 24 025 Discontinued lenalidomide (REVLIMID) capsule 2.5 mgIndications: Multiple myeloma Take 1 capsule (2.5 mg) by mouth daily for 21 days. And 7 days off in 28 day cycle 21 capsule 01/24/20 24 024 oxyCODONE-acet aminophen (PERCOCET) 7.5-325 mg per tabletIndicati ons:Neoplasm related pain (acute) (chronic) Take 1 tablet by mouth every 6 (six) hours as needed for severe pain. 120 tablet 01/30/20 24 025 Discontinued(Re order) oxyCODONE-acet aminophen (PERCOCET) 7.5-325 mg per tabletIndicati ons:Neoplasm related pain (acute) (chronic) Take 1 tablet by mouth every 6 (six) hours as needed for severe pain. 120 tablet 03/16/19 25 025 Discontinued(Re order) Active Problems Patient Care Coordination No te Formatting of this note migh t be different from the original. The following people are approved to obtain medical information about the patient via phone: Contact #1: Name: Shalini Montes (Daughter) Contact #2: Name: Phone Number: Contact #3: Name: Phone Number: Contact #4: Name: Phone Number: Pt is handicapped and needs assistance in using the restroom, please allow daughter to go with patient. 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 Date Type Department Care Team Description 05/12/2024 9:39 AM CDT - 05/12/2024 11:59 PM CDT Hospital Encounter [facility] [address] [facility], 3rd [place] [address] Nicole Stone PA Multiple myeloma Discharge Disposition: Home 05/12/2024 Orders Only [facility] [address] [facility], 6th [place] [address] Nicole Stone PA 05/11/2024 Orders Only [facility] [address] [facility], 6th [place] [address] Nicole Stone PA Multiple myeloma (Primary Dx) 05/08/2024 3:30 PM CDT Ancillary Procedure General Ultrasound [address] [facility], 5th [place] [address] Nicole Stone PA Multiple myeloma 05/08/2024 11:30 AM CDT - 05/08/2024 11:59 PM CDT Hospital Encounter [facility] [address] [facility], 4th [place] [address] Charles Valero APRN Chronic pain; Neoplasm related pain (acute) (chronic); Multiple myeloma; Spasm of back muscles Discharge Disposition: Home 05/08/2024 10:30 AM CDT [facility]Up [facility] [address] [place] [address], 6th [place] [address] Tila López PA-C Lee, Hans C, MD Multiple myeloma 05/08/2024 8:25 AM CDT - 05/08/2024 11:29 AM CDT Hospital Encounter [facility] [address] [place] [address] Shelli Henderson APRN Multiple myeloma Discharge Disposition: Home 05/08/2024 Orders Only [facility] [address] [place] [address], [facility] [place] [address] Nicole Stone PA Multiple myeloma (Primary Dx) 05/08/2024 Travel 05/07/2024 Documentation [facility] [address] [place] [address], 6th [place] [address] Hayden Thomas 04/24/2024 Refill [facility] [address] [place] [address], 4th [place] [address] Edwar Joiner, CHANI Neoplasm related pain (acute) (chronic) 04/14/2024 Refill [facility] [address] [place] [address], 6th [place] [address] Norberto Gregory MD 04/09/2024 10:00 AM FARM OPERATOR Telemedicine [facility] [address] [place] [address], [facility] Floor Elevator [place] [phone] Tila López PA-C Anemia, not otherwise specified (Primary Dx); Multiple myeloma 04/07/2024 9:05 AM FARM OPERATOR - 04/07/2024 11:59 PM FARM OPERATOR Hospital Encounter [facility] [address] [place] [address] Shelli Henderson APRN Multiple myeloma; Anemia, not otherwise specified Discharge Disposition: Home 03/17/2024 9:30 AM FARM OPERATOR Follow-Up [facility] [address] [place] [address] [place] [address] Norberto Gregory MD Multiple myeloma (Primary Dx) 03/17/2024 Travel 03/16/2024 Refill [facility] [address] [place], [place] [address]ator [place] [phone] Sudarshan Fatima, RN Neoplasm related pain (acute) (chronic) 03/13/2024 10:30 AM FARM OPERATOR Ancillary Procedure PET Imaging [address] [facility], [address] [place] [id number] Multiple myeloma 03/13/2024 9:07 AM FARM OPERATOR - 03/13/2024 11:59 PM FARM OPERATOR Hospital Encounter [facility] [address] [place] [address] Shelli Henderson APRN Multiple myeloma Discharge Disposition: Home 03/13/2024 9:00 AM FARM OPERATOR - 03/13/2024 9:06 AM FARM OPERATOR Hospital Encounter [facility] [address] [place] [address] Shelli Henderson APRN Multiple myeloma Discharge Disposition: Home 02/24/2024 [facility]ill [facility] [address] [place] [address] Charles Valero APRN Neuropathy, not otherwise specified; Chronic pain; Neoplasm related pain (acute) (chronic); Multiple myeloma; Spasm of back muscles 02/22/2024 Refill [facility] [address] [place], [place] [address] [address] Jazmine Cody MD 02/20/2024 Orders Only [facility] [address] [place], [place] [address]ator [place] [address] Shelli Henderson APRN 02/06/2024 Orders Only [facility] [address] [place] [address], 6th [place] [address] Shelli Henderson APRN 01/30/2024 [facility]ill [facility] [address] [place] [address], 4th [place] [address] Edwar Joiner RN Neoplasm related pain (acute) (chronic) 01/29/2024 Orders Only [facility] [address] [place] [address] Shelli Henderson APRN 01/24/2024 10:30 AM FARM OPERATOR Telemedicine [facility] [address] [place] [address], [facility] [place] [address] Norberto Gregory MD Cuellar, Elizabeth L, APRN Multiple myeloma (Primary Dx) 01/24/2024 Orders Only [facility] [address] [place] [address], [facility] Floor Elevator [place] [phone] Jazmine Cody MD Multiple myeloma (Primary Dx) 01/24/2024 Telephone [facility] [address] [place] [address], [address] [place] [address] [place] [address] Mandeep Harrell MA Follow-up (Telephone Visit) 01/23/2024 Telephone [facility] [address] [place] [address] [place] [address] Сергей Wheeler RN 01/22/2024 11:04 AM FARM OPERATOR - 01/22/2024 11:59 PM FARM OPERATOR Hospital Encounter [facility] [address] [place] [address] Shelli Henderson APRN Multiple myeloma Discharge Disposition: Home 01/22/2024 11:00 AM FARM OPERATOR Follow-Up [facility] [address] [place] [address], 9th [place] [address] David Forbes MD Multiple myeloma (Primary Dx); Plasma cell neoplasm; Multiple sclerosis 01/22/2024 9:45 AM FARM OPERATOR Ancillary Procedure [facility] Outpatient [facility] [address] [facility], 7th [place] [address] Francy Donaldson PA Multiple myeloma 01/22/2024 9:36 AM FARM OPERATOR - 01/22/2024 11:03 AM FARM OPERATOR Hospital Encounter [facility] [address] [place] [address], 4th [place] [address] Charles Valero APRN Neuropathy, not otherwise specified; Chronic pain; Neoplasm related pain (acute) (chronic); Multiple myeloma; Spasm of back muscles Discharge Disposition: Home 01/22/2024 Travel 12/26/2023 11:30 AM FARM OPERATOR Telemedicine [facility] [address] [place] [address] 6th [place] [address] Shelli Henderson APRN Multiple myeloma (Primary Dx) 12/25/2023 Telephone [facility] [address] [place] [address], 6th [place] [address] Jose Johnson, MA 12/25/2023 Refill [facility] [address] [place] [address], 4th [place] [address] Tomas Willard, RN Neoplasm related pain (acute) (chronic) 12/24/2023 9:30 AM FARM OPERATOR - 12/24/2023 11:59 PM FARM OPERATOR Hospital Encounter [facility] [address] [place] [address] Shelli Henderson APRN Multiple myeloma Discharge Disposition: Home 12/01/2023 Orders Only [facility] [address] [place] [address] [place] [address] Norberto Gregory MD Multiple myeloma (Primary Dx) 11/28/2023 10:30 AM CDT Telemedicine [facility] [address] [place] [address] [place] [address] Shelli Henderson APRN Multiple myeloma 11/28/2023 Refill [facility] [address] [place] [address], [facility] [place] [address] Norberto Gregory MD 11/27/2023 Telephone [facility] [address] [place] [address], [facility] [place] [address] Walter Maya MA 2023 8:58 AM CDT - 2023 11:59 PM CDT Hospital Encounter [facility] [address] [place] [address] Shelli Henderson APRN Multiple myeloma Discharge Disposition: Home 11/04/2023 Telephone [facility] [address] [place] [address], [facility] [place] [address] India Fulton RN 10/31/2023 2:20 PM CDT - 10/31/2023 11:59 PM CDT Hospital Encounter [facility] [address] [place] [address], 4th [place] [address] Charles Valero APRN Neuropathy, not otherwise specified; Chronic pain; Neoplasm related pain (acute) (chronic); Spasm of back muscles Discharge Disposition: Home 10/31/2023 Refill [facility] [address] [place] [address], 4th [place] [address] Charles Valero APRN Multiple myeloma; Neuropathy, not otherwise specified; Chronic pain; Neoplasm related pain (acute) (chronic) 10/29/2023 1:15 PM CDT Follow-Up [facility] [address] [place] [address], [facility] [place] [address] Norberto Gregory MD Multiple myeloma (Primary Dx) 10/29/2023 10:41 AM CDT - 10/29/2023 11:59 PM CDT Hospital Encounter [facility] [address] [place] [address] Shelli Henderson APRN Multiple myeloma Discharge Disposition: Home 10/29/2023 10:40 AM CDT Hospital Encounter [facility] [address] [place] [address] Shelli Henderson APRN Multiple myeloma Discharge Disposition: Home 10/29/2023 Travel 10/24/2023 Orders Only [facility] [address] [place] [address], 6th [place] [address] Shelli Henderson APRN Multiple myeloma (Primary Dx) 10/11/2023 Documentation [facility] [address] [place] [address], 6th [place] [address] Tere Mace RN 10/03/2023 1:15 PM CDT Telemedicine [facility] [address] [place] [address], [facility] [place] [address] Shelli Henderson APRN Multiple myeloma (Primary Dx) 10/03/2023 Telephone [facility] [address] [place] [address], 6th [place] [address] Marko Snider 10/02/2023 Refill [facility] [address] [place] [address], 4th [place] [address] Charles Valero APRN Chronic pain; Neoplasm related pain (acute) (chronic); Multiple myeloma; Neuropathy, not otherwise specified; Spasm of back muscles 10/01/2023 9:38 AM CDT - 10/01/2023 11:59 PM CDT Hospital Encounter [facility] [address] [place] [address] Shelli Henderson APRN Multiple myeloma Discharge Disposition: Home 09/16/2023 Refill [facility] [address] [place] [address], 4th [place] [address] Tae Keenan, CHANI Neoplasm related pain (acute) (chronic) 09/05/2023 2:00 PM CDT Telemedicine [facility] [address] [place] [address], [facility] [place] [address] Shelli Henderson APRN Multiple myeloma (Primary Dx) 09/04/2023 9:48 AM CDT - 09/04/2023 11:59 PM CDT Hospital Encounter [facility] [address] [place] [address] Shelli Henderson APRN Multiple myeloma Discharge Disposition: Home 08/01/2023 10:00 AM CDT Telemedicine [facility] [address] [place] [address], 6th [place] [address] Shelli Henderson APRN Multiple myeloma (Primary Dx) 07/31/2023 2:00 PM CDT Follow-Up [facility] [address] [place] [address], 9th [place] [address] David Forbes MD Multiple myeloma (Primary Dx) 07/31/2023 1:45 PM CDT Ancillary Procedure [facility] [address] [facility], 7th [place] [address] David Forbes MD Multiple myeloma 07/31/2023 10:35 AM CDT - 07/31/2023 11:59 PM CDT Hospital Encounter [facility] [address] [place] [address], 4th [place] [address] Charles Valero APRN Multiple myeloma; Neuropathy, not otherwise specified; Chronic pain; Neoplasm related pain (acute) (chronic); Spasm of back muscles Discharge Disposition: Home 07/31/2023 10:17 AM CDT - 07/31/2023 10:34 AM CDT Hospital Encounter [facility] [address] [place] [address] Shelli Henderson APRN Multiple myeloma Discharge Disposition: Home 07/31/2023 Refill [facility] [address] [place] [address], 4th [place] [address] Charles Valero APRN Neoplasm related pain (acute) (chronic) 07/31/2023 Travel 06/25/2023 2:45 PM CDT Follow-Up [facility] [address] [place] [address], 6th [place] [address] Norberto Gregory MD Multiple myeloma (Primary Dx) 06/25/2023 11:45 AM CDT - 06/25/2023 11:59 PM CDT Hospital Encounter [facility] [address] [place] [address] Shelli Henderson APRN Multiple myeloma Discharge Disposition: Home 06/25/2023 11:45 AM CDT - 06/25/2023 11:59 PM CDT Hospital Encounter [facility] [address] [place] [address] Shelli Henderson APRN Multiple myeloma Discharge Disposition: Home 06/25/2023 Refill [facility] [address] [place] [address], 4th [place] [address] Esmer Johnson RN Neoplasm related pain (acute) (chronic) 06/25/2023 Travel 06/24/2023 Refill [facility] [address] [place] [address], 4th [place] [address] Charles Valero APRN Neoplasm related pain (acute) (chronic); Chronic pain; Multiple myeloma; Neuropathy, not otherwise specified 06/24/2023 Refill [facility] [address] [place] [address], 4th [place] [address] Kushal Sutherland MD Chronic pain; Neoplasm related pain (acute) (chronic); Multiple myeloma; Neuropathy, not otherwise specified; Spasm of back muscles 05/28/2023 1:00 PM CDT Office Visit [facility] [address] [place] [address] Shelli Henderson APRN Eshareturi, Okeroghene, APRN Multiple myeloma 05/28/2023 Travel 05/27/2023 Refill [facility] [address] [place] [address], [facility] [place] [address] Kushal Mendez MD Chronic pain; Neoplasm related pain (acute) (chronic); Multiple myeloma; Neuropathy, not otherwise specified; Spasm of back muscles after 05/16/2023 Immunizations Name Administration Dates Next Due Hepatitis A 11/29/2020,11/01/2020,08/19/2020 Hepatitis B 11/29/2020, 1,08/19/2020,06/15 Hib (PRP-T) 11/29/2020,11/01/2020,09/27/2020 IPV 01/03/2021,09/27/2020,06/15/2020 Influenza Quadrivalent High Dose 12/13/2021 Influenza, Unspecified 01/03/2024 Influenza, high dose, trival ent, preservative free 01/03/2021,01/05/2020 MMR 01/03/2021,09/27/2020 Meningococcal MCV4P 08/19/2020 [facility] COVID-19 Vaccine, Sea [place]ail, 12+ y.o. (30 mcg/0.3 mL) 03/15/2023 [facility] SARS-CoV-2 Vaccinatio n (Purple Cap) 12/13/2021,01/19/2021,05/15/2020,04/23 Pneumococcal Conjugate 13-Valent 06/15/2020 Pneumococcal Conjugate 20-valent 03/13/2023 Pneumococcal Polysaccharide PPSV23 01/03/2021 Tdap 11/29/2020, 1,09/27/2020,06/15 Zoster Recombinant 03/15/2023 Zoster, Unspecified 01/03/2021, 1,09/26/2018,09/26,07/28/2018,07/28/2018 Surgical History Surgery Date Site/Laterality Comments APPENDECTOMY 1966 appendix removal BACK SURGERY 3 steel plate in spine in neck area BRAIN SURGERY Spinal miningeious 1972 2 spinal taps for brain HYSTERECTOMY complete removal AR HEMIARTHROPLASTY HIP PARTIAL 04/09/2022 Hip/Left Procedure: LEFT HEMIARTHROPLASTY OF HIP, PARTIAL; Surgeon: David Forbes MD; Location: MAIN OR; Service: ORTHOPEDIC ONCOLOGY Medical devices from this surgery are in the Medical Devices section. Medical History Medical History Date Comments Irregular heart beat 2017 pt reports that she was told that she had an "irregular heart beat" with rapid heart beat that would "drop really fast". pt denies dx such as afib. pt is on carvedilol Multiple sclerosis 1994 has been stab le. has had 2 flares - last about 9 yrs ago. 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 pt reports that she has never used on daily basis and only uses these as needed - usually triggered by ragwed and chemicals. last used in 11/2021 Pneumonia had twice Dependence on supplemental oxygen pt denies sleep apnea (did h ave sleep study 4 yrs ago). however, she was noted to have low oxygen and HR drops when she is sleeping. 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 Since 06/2020, pt had been on maintenance trial (AURIGA) with daratumumab + Revlimid vs Revlimid in a randomized phase 2 trial for pts with MRD positive disease after autologous SCT. pt was randomized to Revlimid monotherapy arm (currently 2.5 mg 21/28 days due to cytopenias). Body mass index (BMI) 29.0-29.9, adult Cytopenia Due to recurrent thrombocytopenia and neutropenia requiring dose holds, came off Auriga study in 12/2021 Family History Medical History Relation Name Comments Prostate cancer Brother Garfield Tripathi He is fig hting it now Breast cancer Maternal Aunt Marcus Tucker both removed Diabetes Maternal Grandmother Multiple sclerosis Mother COD at 46 Stroke Mother Coronary artery disease Paternal Grandfather Mr. Barr COD at 60 Skin cancer Paternal Grandfather Mr. Barr noise r emoved grandmothers father Hypertension Neg Hx VTE Neg Hx Relation Name Status Comments Brother Garfield Tripathi Maternal Aunt Marcus Tucker Maternal Grandmother Mother Paternal Grandfather Mr. Barr Social History Tobacco Use Types Packs/Day Years Used Date Smoking Tobacco: Former Cigarettes 1 31.1 0 08/03/1963 - 09/14/1994 Smokeless Tobacco: Never Tobacco Cessation:Counseling Given: Not Answered Alcohol Use Standard Drinks/Week Comments Not Currently 1 (1 standard drink = 0.6 oz pure alcohol) only 1 glass on special holidays Lan, New Years Comments No Sex and Gender Information Value Date Recorded Sex Assigned at Not on file Legal Sex Female 4:33 PM CDT Gender Identity Not on file Sexual Orientation Not on file Obstetrics History Last Filed Vital Signs Vital Sign Reading Time Taken Comments Blood Pressure 133/76 05/08/2024 11:46 AM CDT Pulse 68 05/08/2024 11:46 AM CDT Temperature 36.8 °C (98.2 °F) 05/08/2024 11:46 AM C DT Respiratory Rate 16 05/08/2024 11:46 AM CDT Oxygen Saturation 93% 05/08/2024 11:46 AM CDT Inhaled Oxygen Concentration - - Weight 83.5 kg (184 lb 1.4 oz) 05/08/2024 11:46 AM CDT Height 170.2 cm (5' 7") 05/08/2024 11:46 AM CDT Body Mass Index 28.83 05/08/2024 11:46 AM CDT Plan of Treatment Upcoming Encounters Date Type Department Care Team (Late st Contact Info) Description 06/04/2024 8:15 AM CDT Appointment [facility] [address] [place] [phone] Nicole Stone PA [address] [place] [phone] [email or web address] 06/04/2024 8:30 AM CDT Appointment [facility] [address] [place] [phone] iNcole Stone PA [facility] [place] [address] [email or web address] 06/05/2024 10:30 AM CDT Follow-Up [facility] [address] [place] [address], 6th [place] [address] Sarah Lugo PA-C [address] [place] [phone] [email or web address] 06/12/2024 1:40 PM CDT Appointment [facility] [address] [place] [address], 4th [place] [address] Kushal Sutherland MD [address] [place] [phone] [email or web address] 07/02/2024 8:30 AM CDT Appointment [facility] [address] [place] [phone] Nicole Stone PA [address] [place] [phone] [email or web address] 07/02/2024 8:45 AM CDT Appointment [facility] [address] [place] [phone] Nicole Stone PA [address] [place] [phone] [email or web address] 07/03/2024 11:15 AM CDT [facility] [address] [place] [address], 6th [place] [address] Norberto Gregory MD [address] [place] [phone] [email or web address] 07/22/2024 9:00 AM CDT Ancillary Procedure Diagnostic Center [facility], 2nd [place] [address] Marisa Braswell, JIGNA [address] [place] [address] [email or web address] 07/22/2024 9:30 AM CDT Follow-Up Orthopaedic Center [address] [place] [address], 9th [place] [address] David Forbes MD [address] [place] [phone] [email or web address] 08/11/2024 1:00 PM CDT Appointment [facility] [address] [place] [address], 4th [place] [address] Charles Valero APRN [address] [place] [address] [email or web address] Health Maintenance Due Date Last Done Comments COVID-19 Vaccine (2023-2 5 season) 2023 03/15/2023, 12/13/2021, 01/19/2021, Additional history exists Pneumococcal Vaccine: 50+ Years Completed 03/13/2023, 01/03/2021, 06/15/2020 Influenza Vaccine Completed 01/03/2024, , 01/03/2021, Additional history exists Medical Devices Implanted Type Area Flying Squad Salesperson Device Identifier Shelf Expiration Date Model / Serial / Lot Bone Cement W/ Tobramycin - [id number] Implanted:Qty: 3 on 04/09/2022 by David Forbes MD at [facility] Implant Left: Hip FABIANA ELLI 05/19/2023 6197-9-00 1 / / [id number] [place] Unv Distal Cment Spacer 13mm Implanted:Qty: 1 on 04/09/2022 by David Forbes MD at [facility] Implant Left: Hip FABIANA ELLI 04/28/2023 [id number] / / [id number] Hip C-Taper Head 06-2800 - [id number] Implanted:Qty: 1 on 04/09/2022 by David Forbes MD at [facility] Metalware Left: Hip FABIANA ELLI 05/03/2025 06-2800 / / [id number] Hip Stem Long #7 Omnifit Cemented Right - [id number] Implanted:Qty: 1 on 04/09/2022 by David Forbes MD at [facility] Metalware Left: Hip FABIANA ELLI 11/28/2025 0733-7768 / / [id number] Hip Uhr Univ Head 50 - [id number] Implanted:Qty: 1 on 04/09/2022 by David Forbes MD at [facility] Metalware Left: Hip FABIANA ELLI 10/12/2026 [id number] / / [id number] Restrictor 22mm - [id number] Implanted:Qty: 1 on 04/09/2022 by David Forbes MD at [facility] Metalware Left: Hip [employer] 07/07/2026 [id number] / / [id number] Metal N/A: Neck Procedures Procedure Name Priority Date/Time Associated Diagnosis Comments CT CHEST PULMONARY EMBOLISM W CONTRAST Routine 05/12/2024 10:57 AM CDT Multiple myeloma US LEG VENOUS DOPPLER LEFT STAT 05/08/2024 2:30 PM CDT Multiple myeloma FREE KAPPA/FREE LAMBDA RATIO Routine 05/08/2024 8:48 AM CDT Multiple myeloma SPEP TOTAL PROTEIN Routine 05/08/2024 8: 48 AM CDT Multiple myeloma IMMUNOFIXATION ELECTROPHORESIS Routine 05/08/2024 8:48 AM CDT Multiple myeloma PROTEIN ELECTROPHORESIS Routine 05/09/19 8:48 AM CDT Multiple myeloma .CBC Routine 05/08/2024 8:48 AM CDT Multiple myeloma LACTATE DEHYDROGENASE Routine 05/08/2024 8:48 AM CDT Multiple myeloma BETA 2 MICROGLOBULIN Routine 05/08/2024 8:48 AM CDT Multiple myeloma SERUM PROTEIN ELECTROPHORESIS WITH JUAN Routine 05/08/2024 8:48 AM CDT Multiple myeloma FREE LAMBDA LIGHT CHAIN Routine 05/09/19 8:48 AM CDT Multiple myeloma FREE KAPPA LIGHT CHAIN Routine 8:48 AM CDT Multiple myeloma IMMUNOGLOBULIN M Routine 05/08/2024 8:48 AM CDT Multiple myeloma IMMUNOGLOBULIN G Routine 05/08/2024 8:48 AM CDT Multiple myeloma IMMUNOGLOBULIN A Routine 05/08/2024 8:48 AM CDT Multiple myeloma FRACTIONATED BILIRUBIN Routine 8:48 AM CDT Multiple myeloma URIC ACID Routine 05/08/2024 8:48 AM CDT Multiple myeloma PHOSPHORUS LEVEL Routine 05/08/2024 8:48 AM CDT Multiple myeloma MAGNESIUM LEVEL Routine 05/08/2024 8:48 AM CDT Multiple myeloma COMPREHENSIVE METABOLIC PANEL Routine 05/08/2024 8:48 AM CDT Multiple myeloma COMPLETE BLOOD COUNT W/ DIFFERENTIAL Routine 05/08/2024 8:48 AM CDT Multiple myeloma FERRITIN Add-On 04/07/2024 9:14 AM FARM OPERATOR Anemia, not otherwise specified IRON LEVEL Add-On 04/07/2024 9:14 AM FARM OPERATOR Anemia, not otherwise specified TRANSFERRIN Add-On 04/07/2024 9:14 AM FARM OPERATOR Anemia, not otherwise specified VITAMIN B12 LEVEL Add-On 04/07/2024 9:1 4 AM FARM OPERATOR Anemia, not otherwise specified FREE KAPPA/FREE LAMBDA RATIO Routine 04/07/2024 9:14 AM FARM OPERATOR Multiple myeloma SPEP TOTAL PROTEIN Routine 04/07/2024 9: 14 AM FARM OPERATOR Multiple myeloma IMMUNOFIXATION ELECTROPHORESIS Routine 04/07/2024 9:14 AM FARM OPERATOR Multiple myeloma PROTEIN ELECTROPHORESIS Routine 04/07/19 9:14 AM FARM OPERATOR Multiple myeloma .CBC Routine 04/07/2024 9:14 AM FARM OPERATOR Multiple myeloma LACTATE DEHYDROGENASE Routine 04/07/2024 9:14 AM FARM OPERATOR Multiple myeloma BETA 2 MICROGLOBULIN Routine 04/07/2024 9:14 AM FARM OPERATOR Multiple myeloma SERUM PROTEIN ELECTROPHORESIS WITH JUAN Routine 04/07/2024 9:14 AM FARM OPERATOR Multiple myeloma FREE LAMBDA LIGHT CHAIN Routine 04/07/19 9:14 AM FARM OPERATOR Multiple myeloma FREE KAPPA LIGHT CHAIN Routine 9:14 AM FARM OPERATOR Multiple myeloma IMMUNOGLOBULIN M Routine 04/07/2024 9:14 AM FARM OPERATOR Multiple myeloma IMMUNOGLOBULIN G Routine 04/07/2024 9:14 AM FARM OPERATOR Multiple myeloma IMMUNOGLOBULIN A Routine 04/07/2024 9:14 AM FARM OPERATOR Multiple myeloma FRACTIONATED BILIRUBIN Routine 9:14 AM FARM OPERATOR Multiple myeloma URIC ACID Routine 04/07/2024 9:14 AM FARM OPERATOR Multiple myeloma PHOSPHORUS LEVEL Routine 04/07/2024 9:14 AM FARM OPERATOR Multiple myeloma MAGNESIUM LEVEL Routine 04/07/2024 9:14 AM FARM OPERATOR Multiple myeloma COMPREHENSIVE METABOLIC PANEL Routine 04/07/2024 9:14 AM FARM OPERATOR Multiple myeloma COMPLETE BLOOD COUNT W/ DIFFERENTIAL Routine 04/07/2024 9:14 AM FARM OPERATOR Multiple myeloma PETCT WHOLE BODY F18 FDG (FLUORODEOXYGLUCOSE) WITHOUT CONTRAST Routine 03/13/2024 12:23 PM FARM OPERATOR Multiple myeloma FREE KAPPA/FREE LAMBDA RATIO Routine 03/13/2024 9:30 AM FARM OPERATOR Multiple myeloma URINE TOTAL PROTEIN 24 HOUR Routine 03/13/2024 9:30 AM FARM OPERATOR Multiple myeloma IMMUNOFIXATION ELECTROPHORESIS URINE Routine 03/13/2024 9:30 AM FARM OPERATOR Multiple myeloma PROTEIN ELECTROPHORESIS URINE Routine 03/13/2024 9:30 AM FARM OPERATOR Multiple myeloma SPEP TOTAL PROTEIN Routine 03/13/2024 9: 30 AM FARM OPERATOR Multiple myeloma IMMUNOFIXATION ELECTROPHORESIS Routine 03/13/2024 9:30 AM FARM OPERATOR Multiple myeloma PROTEIN ELECTROPHORESIS Routine 03/13/19 9:30 AM FARM OPERATOR Multiple myeloma .CBC Routine 03/13/2024 9:30 AM FARM OPERATOR Multiple myeloma PROTEIN ELECTROPHORESIS URINE WITH JUAN Routine 03/13/2024 9:30 AM FARM OPERATOR Multiple myeloma LACTATE DEHYDROGENASE Routine 03/13/2024 9:30 AM FARM OPERATOR Multiple myeloma BETA 2 MICROGLOBULIN Routine 03/13/2024 9:30 AM FARM OPERATOR Multiple myeloma SERUM PROTEIN ELECTROPHORESIS WITH JUAN Routine 03/13/2024 9:30 AM FARM OPERATOR Multiple myeloma FREE LAMBDA LIGHT CHAIN Routine 03/13/19 9:30 AM FARM OPERATOR Multiple myeloma FREE KAPPA LIGHT CHAIN Routine 9:30 AM FARM OPERATOR Multiple myeloma IMMUNOGLOBULIN M Routine 03/13/2024 9:30 AM FARM OPERATOR Multiple myeloma IMMUNOGLOBULIN G Routine 03/13/2024 9:30 AM FARM OPERATOR Multiple myeloma IMMUNOGLOBULIN A Routine 03/13/2024 9:30 AM FARM OPERATOR Multiple myeloma FRACTIONATED BILIRUBIN Routine 9:30 AM FARM OPERATOR Multiple myeloma URIC ACID Routine 03/13/2024 9:30 AM FARM OPERATOR Multiple myeloma PHOSPHORUS LEVEL Routine 03/13/2024 9:30 AM FARM OPERATOR Multiple myeloma MAGNESIUM LEVEL Routine 03/13/2024 9:30 AM FARM OPERATOR Multiple myeloma COMPREHENSIVE METABOLIC PANEL Routine 03/13/2024 9:30 AM FARM OPERATOR Multiple myeloma COMPLETE BLOOD COUNT W/ DIFFERENTIAL Routine 03/13/2024 9:30 AM FARM OPERATOR Multiple myeloma TOTAL PROTEIN Routine 01/22/2024 11:21 AM FARM OPERATOR Multiple myeloma FREE KAPPA/FREE LAMBDA RATIO Routine 01/22/2024 11:21 AM FARM OPERATOR Multiple myeloma IMMUNOFIXATION ELECTROPHORESIS Routine 01/22/2024 11:21 AM FARM OPERATOR Multiple myeloma PROTEIN ELECTROPHORESIS Routine 01/22/20 11:21 AM FARM OPERATOR Multiple myeloma .CBC Routine 01/22/2024 11:21 AM FARM OPERATOR Multiple myeloma LACTATE DEHYDROGENASE Routine 01/22/2024 11:21 AM FARM OPERATOR Multiple myeloma BETA 2 MICROGLOBULIN Routine 01/22/2024 11:21 AM FARM OPERATOR Multiple myeloma SERUM PROTEIN ELECTROPHORESIS WITH JUAN Routine 01/22/2024 11:21 AM FARM OPERATOR Multiple myeloma FREE LAMBDA LIGHT CHAIN Routine 01/22/20 11:21 AM FARM OPERATOR Multiple myeloma FREE KAPPA LIGHT CHAIN Routine 11:21 AM FARM OPERATOR Multiple myeloma IMMUNOGLOBULIN M Routine 01/22/2024 11:2 1 AM FARM OPERATOR Multiple myeloma IMMUNOGLOBULIN G Routine 01/22/2024 11:2 1 AM FARM OPERATOR Multiple myeloma IMMUNOGLOBULIN A Routine 01/22/2024 11:2 1 AM FARM OPERATOR Multiple myeloma FRACTIONATED BILIRUBIN Routine 11:21 AM FARM OPERATOR Multiple myeloma URIC ACID Routine 01/22/2024 11:21 AM FARM OPERATOR Multiple myeloma PHOSPHORUS LEVEL Routine 01/22/2024 11:2 1 AM FARM OPERATOR Multiple myeloma MAGNESIUM LEVEL Routine 01/22/2024 11:21 AM FARM OPERATOR Multiple myeloma COMPREHENSIVE METABOLIC PANEL Routine 01/22/2024 11:21 AM FARM OPERATOR Multiple myeloma COMPLETE BLOOD COUNT W/ DIFFERENTIAL Routine 01/22/2024 11:21 AM FARM OPERATOR Multiple myeloma XR HIP 2 OR 3 VW W PELVIS LEFT Routine 01/22/2024 9:21 AM FARM OPERATOR Multiple myeloma FREE KAPPA/FREE LAMBDA RATIO Routine 12/24/2023 9:47 AM FARM OPERATOR Multiple myeloma IMMUNOFIXATION ELECTROPHORESIS Routine 12/24/2023 9:47 AM FARM OPERATOR Multiple myeloma PROTEIN ELECTROPHORESIS Routine 12/24/19 9:47 AM FARM OPERATOR Multiple myeloma .CBC Routine 12/24/2023 9:47 AM FARM OPERATOR Multiple myeloma LACTATE DEHYDROGENASE Routine 12/24/2023 9:47 AM FARM OPERATOR Multiple myeloma BETA 2 MICROGLOBULIN Routine 12/24/2023 9:47 AM FARM OPERATOR Multiple myeloma SERUM PROTEIN ELECTROPHORESIS WITH JUAN Routine 12/24/2023 9:47 AM FARM OPERATOR Multiple myeloma FREE LAMBDA LIGHT CHAIN Routine 12/24/19 9:47 AM FARM OPERATOR Multiple myeloma FREE KAPPA LIGHT CHAIN Routine 9:47 AM FARM OPERATOR Multiple myeloma IMMUNOGLOBULIN M Routine 12/24/2023 9:47 AM FARM OPERATOR Multiple myeloma IMMUNOGLOBULIN G Routine 12/24/2023 9:47 AM FARM OPERATOR Multiple myeloma IMMUNOGLOBULIN A Routine 12/24/2023 9:47 AM FARM OPERATOR Multiple myeloma FRACTIONATED BILIRUBIN Routine 9:47 AM FARM OPERATOR Multiple myeloma URIC ACID Routine 12/24/2023 9:47 AM FARM OPERATOR Multiple myeloma PHOSPHORUS LEVEL Routine 12/24/2023 9:47 AM FARM OPERATOR Multiple myeloma MAGNESIUM LEVEL Routine 12/24/2023 9:47 AM FARM OPERATOR Multiple myeloma COMPREHENSIVE METABOLIC PANEL Routine 12/24/2023 9:47 AM FARM OPERATOR Multiple myeloma COMPLETE BLOOD COUNT W/ DIFFERENTIAL Routine 12/24/2023 9:47 AM FARM OPERATOR Multiple myeloma FREE KAPPA/FREE LAMBDA RATIO Routine 2023 9:20 AM CDT Multiple myeloma IMMUNOFIXATION ELECTROPHORESIS Routine 2023 9:20 AM CDT Multiple myeloma PROTEIN ELECTROPHORESIS Routine 11/26/19 9:20 AM CDT Multiple myeloma .CBC Routine 2023 9:20 AM CDT Multiple myeloma LACTATE DEHYDROGENASE Routine 2023 9:20 AM CDT Multiple myeloma BETA 2 MICROGLOBULIN Routine 2023 9:20 AM CDT Multiple myeloma SERUM PROTEIN ELECTROPHORESIS WITH JUAN Routine 2023 9:20 AM CDT Multiple myeloma FREE LAMBDA LIGHT CHAIN Routine 11/26/19 9:20 AM CDT Multiple myeloma FREE KAPPA LIGHT CHAIN Routine 9:20 AM CDT Multiple myeloma IMMUNOGLOBULIN M Routine 2023 9:20 AM CDT Multiple myeloma IMMUNOGLOBULIN G Routine 2023 9:20 AM CDT Multiple myeloma IMMUNOGLOBULIN A Routine 2023 9:20 AM CDT Multiple myeloma FRACTIONATED BILIRUBIN Routine 9:20 AM CDT Multiple myeloma URIC ACID Routine 2023 9:20 AM CDT Multiple myeloma PHOSPHORUS LEVEL Routine 2023 9:20 AM CDT Multiple myeloma MAGNESIUM LEVEL Routine 2023 9:20 AM CDT Multiple myeloma COMPREHENSIVE METABOLIC PANEL Routine 2023 9:20 AM CDT Multiple myeloma COMPLETE BLOOD COUNT W/ DIFFERENTIAL Routine 2023 9:20 AM CDT Multiple myeloma FREE KAPPA/FREE LAMBDA RATIO Routine 10/29/2023 10:54 AM CDT Multiple myeloma URINE TOTAL PROTEIN 24 HOUR Routine 10/29/2023 10:54 AM CDT Multiple myeloma IMMUNOFIXATION ELECTROPHORESIS URINE Routine 10/29/2023 10:54 AM CDT Multiple myeloma PROTEIN ELECTROPHORESIS URINE Routine 10/29/2023 10:54 AM CDT Multiple myeloma IMMUNOFIXATION ELECTROPHORESIS Routine 10/29/2023 10:54 AM CDT Multiple myeloma PROTEIN ELECTROPHORESIS Routine 10/29/19 10:54 AM CDT Multiple myeloma .CBC Routine 10/29/2023 10:54 AM CDT Multiple myeloma PROTEIN ELECTROPHORESIS URINE WITH JUAN Routine 10/29/2023 10:54 AM CDT Multiple myeloma LACTATE DEHYDROGENASE Routine 10/29/2023 10:54 AM CDT Multiple myeloma BETA 2 MICROGLOBULIN Routine 10/29/2023 10:54 AM CDT Multiple myeloma SERUM PROTEIN ELECTROPHORESIS WITH JUAN Routine 10/29/2023 10:54 AM CDT Multiple myeloma FREE LAMBDA LIGHT CHAIN Routine 10/29/19 10:54 AM CDT Multiple myeloma FREE KAPPA LIGHT CHAIN Routine 10:54 AM CDT Multiple myeloma IMMUNOGLOBULIN M Routine 10/29/2023 10:5 4 AM CDT Multiple myeloma IMMUNOGLOBULIN G Routine 10/29/2023 10:5 4 AM CDT Multiple myeloma IMMUNOGLOBULIN A Routine 10/29/2023 10:5 4 AM CDT Multiple myeloma FRACTIONATED BILIRUBIN Routine 10:54 AM CDT Multiple myeloma URIC ACID Routine 10/29/2023 10:54 AM CDT Multiple myeloma PHOSPHORUS LEVEL Routine 10/29/2023 10:5 4 AM CDT Multiple myeloma MAGNESIUM LEVEL Routine 10/29/2023 10:54 AM CDT Multiple myeloma COMPREHENSIVE METABOLIC PANEL Routine 10/29/2023 10:54 AM CDT Multiple myeloma COMPLETE BLOOD COUNT W/ DIFFERENTIAL Routine 10/29/2023 10:54 AM CDT Multiple myeloma FREE KAPPA/FREE LAMBDA RATIO Routine 10/01/2023 9:56 AM CDT Multiple myeloma IMMUNOFIXATION ELECTROPHORESIS Routine 10/01/2023 9:56 AM CDT Multiple myeloma PROTEIN ELECTROPHORESIS Routine 10/01/19 9:56 AM CDT Multiple myeloma .CBC Routine 10/01/2023 9:56 AM CDT Multiple myeloma VITAMIN D 25 HYDROXY LEVEL Routine 10/01/2023 9:56 AM CDT Multiple myeloma LACTATE DEHYDROGENASE Routine 10/01/2023 9:56 AM CDT Multiple myeloma BETA 2 MICROGLOBULIN Routine 10/01/2023 9:56 AM CDT Multiple myeloma SERUM PROTEIN ELECTROPHORESIS WITH JUAN Routine 10/01/2023 9:56 AM CDT Multiple myeloma FREE LAMBDA LIGHT CHAIN Routine 10/01/19 24 9:56 AM CDT Multiple myeloma FREE KAPPA LIGHT CHAIN Routine 9:56 AM CDT Multiple myeloma IMMUNOGLOBULIN M Routine 10/01/2023 9:56 AM CDT Multiple myeloma IMMUNOGLOBULIN G Routine 10/01/2023 9:56 AM CDT Multiple myeloma IMMUNOGLOBULIN A Routine 10/01/2023 9:56 AM CDT Multiple myeloma FRACTIONATED BILIRUBIN Routine 9:56 AM CDT Multiple myeloma URIC ACID Routine 10/01/2023 9:56 AM CDT Multiple myeloma PHOSPHORUS LEVEL Routine 10/01/2023 9:56 AM CDT Multiple myeloma MAGNESIUM LEVEL Routine 10/01/2023 9:56 AM CDT Multiple myeloma COMPREHENSIVE METABOLIC PANEL Routine 10/01/2023 9:56 AM CDT Multiple myeloma COMPLETE BLOOD COUNT W/ DIFFERENTIAL Routine 10/01/2023 9:56 AM CDT Multiple myeloma FREE KAPPA/FREE LAMBDA RATIO Routine 09/04/2023 9:59 AM CDT Multiple myeloma IMMUNOFIXATION ELECTROPHORESIS Routine 09/04/2023 9:59 AM CDT Multiple myeloma PROTEIN ELECTROPHORESIS Routine 09/04/19 9:59 AM CDT Multiple myeloma .CBC Routine 09/04/2023 9:59 AM CDT Multiple myeloma LACTATE DEHYDROGENASE Routine 09/04/2023 9:59 AM CDT Multiple myeloma BETA 2 MICROGLOBULIN Routine 09/04/2023 9:59 AM CDT Multiple myeloma SERUM PROTEIN ELECTROPHORESIS WITH JUAN Routine 09/04/2023 9:59 AM CDT Multiple myeloma FREE LAMBDA LIGHT CHAIN Routine 09/04/19 9:59 AM CDT Multiple myeloma FREE KAPPA LIGHT CHAIN Routine 9:59 AM CDT Multiple myeloma IMMUNOGLOBULIN M Routine 09/04/2023 9:59 AM CDT Multiple myeloma IMMUNOGLOBULIN G Routine 09/04/2023 9:59 AM CDT Multiple myeloma IMMUNOGLOBULIN A Routine 09/04/2023 9:59 AM CDT Multiple myeloma FRACTIONATED BILIRUBIN Routine 9:59 AM CDT Multiple myeloma URIC ACID Routine 09/04/2023 9:59 AM CDT Multiple myeloma PHOSPHORUS LEVEL Routine 09/04/2023 9:59 AM CDT Multiple myeloma MAGNESIUM LEVEL Routine 09/04/2023 9:59 AM CDT Multiple myeloma COMPREHENSIVE METABOLIC PANEL Routine 09/04/2023 9:59 AM CDT Multiple myeloma COMPLETE BLOOD COUNT W/ DIFFERENTIAL Routine 09/04/2023 9:59 AM CDT Multiple myeloma XR HIP 2 OR 3 VW W PELVIS LEFT Routine 07/31/2023 12:06 PM CDT Multiple myeloma FREE KAPPA/FREE LAMBDA RATIO Routine 07/31/2023 10:30 AM CDT Multiple myeloma .CBC Routine 07/31/2023 10:30 AM CDT Multiple myeloma LACTATE DEHYDROGENASE Routine 07/31/2023 10:30 AM CDT Multiple myeloma BETA 2 MICROGLOBULIN Routine 07/31/2023 10:30 AM CDT Multiple myeloma FREE LAMBDA LIGHT CHAIN Routine 07/31/19 10:30 AM CDT Multiple myeloma FREE KAPPA LIGHT CHAIN Routine 10:30 AM CDT Multiple myeloma IMMUNOGLOBULIN M Routine 07/31/2023 10:3 0 AM CDT Multiple myeloma IMMUNOGLOBULIN G Routine 07/31/2023 10:3 0 AM CDT Multiple myeloma IMMUNOGLOBULIN A Routine 07/31/2023 10:3 0 AM CDT Multiple myeloma FRACTIONATED BILIRUBIN Routine 10:30 AM CDT Multiple myeloma URIC ACID Routine 07/31/2023 10:30 AM CDT Multiple myeloma PHOSPHORUS LEVEL Routine 07/31/2023 10:3 0 AM CDT Multiple myeloma MAGNESIUM LEVEL Routine 07/31/2023 10:30 AM CDT Multiple myeloma COMPREHENSIVE METABOLIC PANEL Routine 07/31/2023 10:30 AM CDT Multiple myeloma COMPLETE BLOOD COUNT W/ DIFFERENTIAL Routine 07/31/2023 10:30 AM CDT Multiple myeloma QUEST MISC TEST Routine 07/31/2023 10:26 AM CDT Multiple myeloma QUEST MISC TEST Routine 07/31/2023 10:26 AM CDT Multiple myeloma URINE TOTAL PROTEIN 24 HOUR Routine 06/25/2023 12:08 PM CDT Multiple myeloma IMMUNOFIXATION ELECTROPHORESIS URINE Routine 06/25/2023 12:08 PM CDT Multiple myeloma PROTEIN ELECTROPHORESIS URINE Routine 06/25/2023 12:08 PM CDT Multiple myeloma PROTEIN ELECTROPHORESIS URINE WITH JUAN Routine 06/25/2023 12:08 PM CDT Multiple myeloma FREE KAPPA/FREE LAMBDA RATIO Routine 06/25/2023 12:02 PM CDT Multiple myeloma IMMUNOFIXATION ELECTROPHORESIS Routine 06/25/2023 12:02 PM CDT Multiple myeloma PROTEIN ELECTROPHORESIS Routine 06/25/19 12:02 PM CDT Multiple myeloma .CBC Routine 06/25/2023 12:02 PM CDT Multiple myeloma LACTATE DEHYDROGENASE Routine 06/25/2023 12:02 PM CDT Multiple myeloma BETA 2 MICROGLOBULIN Routine 06/25/2023 12:02 PM CDT Multiple myeloma SERUM PROTEIN ELECTROPHORESIS WITH JUAN Routine 06/25/2023 12:02 PM CDT Multiple myeloma FREE LAMBDA LIGHT CHAIN Routine 06/25/19 12:02 PM CDT Multiple myeloma FREE KAPPA LIGHT CHAIN Routine 12:02 PM CDT Multiple myeloma IMMUNOGLOBULIN M Routine 06/25/2023 12:0 2 PM CDT Multiple myeloma IMMUNOGLOBULIN G Routine 06/25/2023 12:0 2 PM CDT Multiple myeloma IMMUNOGLOBULIN A Routine 06/25/2023 12:0 2 PM CDT Multiple myeloma FRACTIONATED BILIRUBIN Routine 12:02 PM CDT Multiple myeloma URIC ACID Routine 06/25/2023 12:02 PM CDT Multiple myeloma PHOSPHORUS LEVEL Routine 06/25/2023 12:0 2 PM CDT Multiple myeloma MAGNESIUM LEVEL Routine 06/25/2023 12:02 PM CDT Multiple myeloma COMPREHENSIVE METABOLIC PANEL Routine 06/25/2023 12:02 PM CDT Multiple myeloma COMPLETE BLOOD COUNT W/ DIFFERENTIAL Routine 06/25/2023 12:02 PM CDT Multiple myeloma FREE KAPPA/FREE LAMBDA RATIO Routine 05/28/2023 10:50 AM CDT Multiple myeloma IMMUNOFIXATION ELECTROPHORESIS Routine 05/28/2023 10:50 AM CDT Multiple myeloma PROTEIN ELECTROPHORESIS Routine 05/28/19 24 10:50 AM CDT Multiple myeloma .CBC Routine 05/28/2023 10:50 AM CDT Multiple myeloma LACTATE DEHYDROGENASE Routine 05/28/2023 10:50 AM CDT Multiple myeloma BETA 2 MICROGLOBULIN Routine 05/28/2023 10:50 AM CDT Multiple myeloma SERUM PROTEIN ELECTROPHORESIS WITH JUAN Routine 05/28/2023 10:50 AM CDT Multiple myeloma FREE LAMBDA LIGHT CHAIN Routine 05/28/19 10:50 AM CDT Multiple myeloma FREE KAPPA LIGHT CHAIN Routine 10:50 AM CDT Multiple myeloma IMMUNOGLOBULIN M Routine 05/28/2023 10:5 0 AM CDT Multiple myeloma IMMUNOGLOBULIN G Routine 05/28/2023 10:5 0 AM CDT Multiple myeloma IMMUNOGLOBULIN A Routine 05/28/2023 10:5 0 AM CDT Multiple myeloma FRACTIONATED BILIRUBIN Routine 10:50 AM CDT Multiple myeloma URIC ACID Routine 05/28/2023 10:50 AM CDT Multiple myeloma PHOSPHORUS LEVEL Routine 05/28/2023 10:5 0 AM CDT Multiple myeloma MAGNESIUM LEVEL Routine 05/28/2023 10:50 AM CDT Multiple myeloma COMPREHENSIVE METABOLIC PANEL Routine 05/28/2023 10:50 AM CDT Multiple myeloma COMPLETE BLOOD COUNT W/ DIFFERENTIAL Routine 05/28/2023 10:50 AM CDT Multiple myeloma after 05/16/2023 Results * CT Chest Pulmonary Embolism with Contrast (05/12/2024 10:57 AM CDT) Anatomical Region Laterality Modality Chest Computed Tomogra phy 05/12/2024 11:1 2 AM CDT Impressions 05/12/2024 11:27 AM CDT * No acute pulmonary embolism. No other acute intrathoracic abnormality. ACTIONABLE ITEMS/RECOMMENDATIONS*: None. *An Actionable Finding is a finding that may be unrelated to the original reason for imaging but potentially actionable, meaning further investigation may be necessary. The Actionable Findings Vigilance Unit (AFVU) assists medical providers with responding to additional radiologic findings that are unexpected and potentially actionable. Narrative 05/12/2024 11:27 AM CDT FULL RESULT: Examination: CT CHEST PULMONARY EMBOLISM W CONTRAST on 05/12/2024 10:57 AM. Clinical History: Multiple myeloma Indication: Chest pain, pleuritic, R/O PE Comparison: PET/CT 03/13/2024. Technique: CT of the chest is performed using intravenous contrast. Findings: Cardiovascular: Adequate opacification of the pulmonary arteries is obtained. No acute pulmonary embolism. Heart size is normal. No pericardial effusion. Mild coronary artery calcifications. Lungs/Airways/Pleura: No consolidation. Small peribronchial opacities/cavitary nodule in the right upper lobe is stable at least from 2022 and consistent with benign etiology. Stable nodule in the middle lobe, image 80. No new suspicious lung nodules. The central airways are patent. Trace left pleural effusion. Neck/Mediastinum/Nodes: No intrathoracic lymphadenopathy. Upper abdomen: Gallbladder is surgically absent. Stable left adrenal nodular thickening, likely benign. Small hiatal hernia. Bones/Soft Tissues: Degenerative disease of the spine. Generalized osseous demineralization. No acute fracture is seen. Procedure Note Jesus Carrillo MD - 05/12/2024 FULL RESULT: Examination: CT CHEST PULMONARY EMBOLISM W CONTRAST on 05/12/2024 10:57AM. Clinical History: Multiple myeloma Indication: Chest pain, pleuritic, R/O PE Comparison: PET/CT 03/13/2024. Technique: CT of the chest is performed using intravenous contrast. Findings: Cardiovascular: Adequate opacification of the pulmonary arteries isobtained. No acute pulmonary embolism. Heart size is normal. Nopericardial effusion. Mild coronary artery calcifications. Lungs/Airways/Pleura: No consolidation. Small peribronchialopacities/cavitary nodule in the right upper lobe is stable at least [id number] and consistent with benign etiology. Stable nodule in the middlelobe, image 80. No new suspicious lung nodules. The central airways arepatent. Trace left pleural effusion. Neck/Mediastinum/Nodes: No intrathoracic lymphadenopathy. Upper abdomen: Gallbladder is surgically absent. Stable left adrenalnodular thickening, likely benign. Small hiatal hernia. Bones/Soft Tissues: Degenerative disease of the spine. Generalized osseousdemineralization. No acute fracture is seen. IMPRESSION: * No acute pulmonary embolism. No other acute intrathoracicabnormality. ACTIONABLE ITEMS/RECOMMENDATIONS*: None. *An Actionable Finding is a finding that may be unrelated to the originalreason for imaging but potentially actionable, meaning furtherinvestigation may be necessary. The Actionable Findings Vigilance Unit(AFVU) assists medical providers with responding to additional radiologicfindings that are unexpected and potentially actionable. Nicole SUMMERS [place] CT ORDERABLES Final Result * US Leg Venous Doppler Left (05/08/2024 2:30 PM CDT) Anatomical Region Laterality Modality Leg, Extremity Ultrasound 05/08/2024 2:58 PM CDT Impressions 05/08/2024 3:10 PM CDT No definitive deep venous thrombosis in the left lower extremity. ACTIONABLE ITEMS/RECOMMENDATIONS*: None. *An Actionable Finding is a finding that may be unrelated to the original reason for imaging but potentially actionable, meaning further investigation may be necessary. The Actionable Findings Vigilance Unit (AFVU) assists medical providers with responding to additional radiologic findings that are unexpected and potentially actionable. Narrative 05/08/2024 3:10 PM CDT Examination: US LEG VENOUS DOPPLER LEFT on 05/08/2024 2:30 PM. Clinical History: Multiple myeloma. Indication: Left calf pain. Comparison: PET/CT 03/13/2024. TECHNIQUE: Sonographic evaluation of the deep veins of the left lower extremity was performed assessing grayscale appearance, color and spectral Doppler flow, and compressibility. FINDINGS: Suboptimal evaluation due to pain in the left hip/groin/upper thigh regions. In the left lower extremity, the common femoral, saphenofemoral junction, proximal femoral, and proximal deep femoral veins demonstrate color/spectral Doppler flow. The mid to distal femoral and popliteal veins demonstrate color/spectral Doppler flow and compressibility. The visualized left peroneal, anterior tibial and posterior tibial veins demonstrate color/spectral Doppler flow. Procedure Note Josesito Gale MD - 05/08/2024 Examination: US LEG VENOUS DOPPLER LEFT on 05/08/2024 2:30 PM. Clinical History: Multiple myeloma. Indication: Left calf pain. Comparison: PET/CT 03/13/2024. TECHNIQUE: Sonographic evaluation of the deep veins of the left lowerextremity was performed assessing grayscale appearance, color and spectralDoppler flow, and compressibility. FINDINGS: Suboptimal evaluation due to pain in the left hip/groin/upper thighregions. In the left lower extremity, the common femoral, saphenofemoral junction,proximal femoral, and proximal deep femoral veins demonstratecolor/spectral Doppler flow. The mid to distal femoral and popliteal veinsdemonstrate color/spectral Doppler flow and compressibility. The visualized left peroneal, anterior tibial and posterior tibial veinsdemonstrate color/spectral Doppler flow. IMPRESSION: No definitive deep venous thrombosis in the left lower extremity. ACTIONABLE ITEMS/RECOMMENDATIONS*: None. *An Actionable Finding is a finding that may be unrelated to the originalreason for imaging but potentially actionable, meaning furtherinvestigation may be necessary. The Actionable Findings Vigilance Unit(AFVU) assists medical providers with responding to additional radiologicfindings that are unexpected and potentially actionable. us Nicole SLADE US ORDERABLES Final Result * (ABNORMAL) SPEP Total Protein (05/08/2024 8:48 AM CDT) Only the most recent of3 resultswithin the time period is included. SPEP Total Protein 5.8(L) 6.4 - 8.3 gm/dL 05/08/2024 9:43 AM CDT [facility] Blood Peripheral blood specimen / Unknown Venipuncture / Unknown 05/08/2024 8:48 AM CDT 05/08/2024 8:49 AM CDT Narrative [facility] - 05/08/2024 9:43 AM CDT Reference range established based on adult population Shelli Henderson APRN LAB BLOOD ORDERABLES Fi nal Result [facility] Unless otherwise noted, all lab tests performed by: Division of Pathology and Laboratory Medicine [address] [place] [id number] * JUAN (05/08/2024 8:48 AM CDT) Only the most recent of11 resultswithin the time period is included. Pathologist [facility] [place] Serum Immunofixation No M-protein 05/11/2024 6:15 PM CDT [facility] JUAN Path Interp The follow-up serum protein immunofixation electrophoretic patterns obtained with the use of antisera against IgG, IgA, IgM, bound kappa and free kappa light chains do not show definite evidence of a monoclonal gammopathy. 05/11/2024 6:15 PM CDT [facility] Pathologist Signature . 05/11/2024 6:15 PM CDT [facility] Blood Peripheral blood specimen / Unknown Venipuncture / Unknown 05/08/2024 8:48 AM CDT 05/08/2024 8:49 AM CDT Shelli Henderson APRN LAB BLOOD ORDERABLES Fi nal Result [facility] Unless otherwise noted, all lab tests performed by: Division of Pathology and Laboratory Medicine [facility] [place] [address] * (ABNORMAL) Serum Protein Electrophoresis (05/08/2024 8:48 AM CDT) Only the most recent of11 resultswithin the time period is included. 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 If light chain diseases or other types of paraproteinemia are suspected clinically, serum free light chain studies, serum protein JUAN studies, serum immunoglobulin quantitation and urine Bence-Fields protein studies are recommended. 05/11/2024 6:17 PM CDT [facility] Pathologist Signature . 05/11/2024 6:17 PM CDT [facility] SPEP Total Protein 5.8(L) 6.4 - 8.3 gm/dL 05/11/2024 6:17 PM CDT [facility] Blood Peripheral blood specimen / Unknown Venipuncture / Unknown 05/08/2024 8:48 AM CDT 05/08/2024 8:49 AM CDT Shelli Henderson APRN LAB BLOOD ORDERABLES Fi nal Result [facility] Unless otherwise noted, all lab tests performed by: Division of Pathology and Laboratory Medicine [facility] [place] [address] * (ABNORMAL) .CBC (05/08/2024 8:48 AM CDT) Only the most recent of12 resultswithin the time period is included. White Blood Cell 3.0(L) 4.1 - 10.5 K/uL 05/08/2024 9:09 AM CDT [facility] Red Blood Cell 2.76(L) 3.99 - 5.46 M/uL 05/08/2024 9:09 AM CDT [facility] Hemoglobin 9.6(L) 12.2 - 15.3 g/dL 05/08/2024 9:09 AM CDT [facility] Hematocrit 28.2(L) 36.4 - 46.8 % 05/08/2024 9:09 AM CDT [facility] Mean Cell Volume 102(H) 82 - 99 fL 05/08/2024 9:09 AM CDT [facility] Mean Cell Hemoglobin 34.8(H) 26.6 - 33.2 pg 05/08/2024 9:09 AM CDT [facility] Mean Cell Hemoglobin Concentration 34.0 31.1 - 35.2 g/dL 05/08/2024 9:09 AM CDT [facility] RDW-SD 51.8(H) 37.5 - 49.7 fL 05/08/2024 9:09 AM CDT [facility] Red Cell Diameter Width 14.0 11.6 - 15.5 % 05/08/2024 9:09 AM CDT [facility] Platelet 101(L) 160 - 397 K/uL 05/08/2024 9:09 AM CDT [facility] Mean Platelet Volume 9.9 9.1 - 12.6 fL 05/08/2024 9:09 AM CDT [facility] INRBC 0.0 0.0 - 0.1 /100 WBC 05/08/2024 9:09 AM CDT [facility] Comment: The INRBC (instrument NRBC) value reflects the enumeration of nucleated red blood cells contained in a 200uL sample of whole blood analyzed by the instrument. This value may differ from the NRBC value reported in a manual differential, which is based on a 100 cell differential. Neutrophil % 67.2 43.2 - 72.7 % 05/08/2024 9:09 AM CDT [facility] Lymphocyte % 17.3 16.8 - 46.2 % 05/08/2024 9:09 AM CDT [facility] Monocyte % 9.8 5.1 - 12.5 % 05/08/2024 9:09 AM CDT [facility] Eosinophil % 5.1 0.4 - 6.3 % 05/08/2024 9:09 AM CDT [facility] Basophil % 0.3 0.2 - 1.4 % 05/08/2024 9:09 AM CDT [facility] IGRE % 0.3 0.1 - 1.5 % 05/08/2024 9:09 AM CDT [facility] Comment:The IGRE% includes M etamyelocytes, Myelocytes and Promyelocytes. Neutrophil Abs 1.98 1.95 - 7.25 K/uL 05/08/2024 9:09 AM CDT [facility] Lymphocyte Abs 0.51(L) 1.01 - 3.24 K/uL 05/08/2024 9:09 AM CDT [facility] Monocyte Abs 0.29 0.24 - 0.85 K/uL 05/08/2024 9:09 AM CDT [facility] Eosinophil Abs 0.15 0.02 - 0.50 K/uL 05/08/2024 9:09 AM CDT [facility] Basophil Abs 0.01(L) 0.02 - 0.09 K/uL 05/08/2024 9:09 AM CDT [facility] IG Abs 0.01 0.01 - 0.12 K/uL 05/08/2024 9:09 AM CDT [facility] Blood Peripheral blood specimen / Unknown Venipuncture / Unknown 05/08/2024 8:48 AM CDT 05/08/2024 8:49 AM CDT Shelli Bao Beatriz MEDRANON LAB BLOOD ORDERABLES Fi nal Result Performing Organization Address City/[facility] Co de Phone Number [facility] Unless otherwise noted, all lab tests performed by: Division of Pathology and Laboratory Medicine [address] [place] [id number] * (ABNORMAL) Free [place]/Free Lambda Ratio (05/08/2024 8:48 AM CDT) Only the most recent of12 resultswithin the time period is included. [facility] Free [place]/ Free Lambda Ratio 24.49(H) 0.26 - 1.65 05/08/2024 12:36 PM CDT [facility] Blood Peripheral blood specimen / Unknown Venipuncture / Unknown 05/08/2024 8:48 AM CDT 05/08/2024 8:49 AM CDT Shelliselin Henderson [employer]IST LAB BLOOD ORDERABLES Fi nal Result Performing Organization Address City/[facility] de Phone Number [facility] Unless otherwise noted, all lab tests performed by: Division of Pathology and Laboratory Medicine [address] [place] [id number] * Fractionated Bilirubin (05/08/2024 8:48 AM CDT) Only the most recent of12 resultswithin the time period is included. Pathologist [facility] [place] Bilirubin Direct 05/09/19 9:48 AM CDT [facility] Comment: Direct and indirect bilirubin will not be reported when Total bilirubin result is <0.3 mg/dL Indocyanine Green (ICG) may cause falsely elevated bilirubin results. Total and direct bilirubin must not be measured from samples containing indocyanine green. Bilirubin Indirect 2024 9:48 AM CDT [facility] Comment:Direct and indirect bilirubin will not be reported when Total bilirubin result is <0.3 mg/dL Bilirubin Total <0.3 0.0 - 1.2 mg/dL 05/08/2024 9:48 AM CDT [facility] Comment: Direct and indirect bilirubin will not be reported when Total bilirubin result is <0.3 mg/dL Indocyanine Green (ICG) may cause falsely elevated bilirubin results. Total and direct bilirubin must not be measured from samples containing indocyanine green. False elevation of total bilirubin can be seen in patients with IgG concentrations above 28 g/L. Indocyanine Green (ICG) may cause falsely elevated bilirubin results. Total and direct bilirubin must not be measured from samples containing indocyanine green. False elevation of total bilirubin can be seen in patients with IgG concentrations above 28 g/L. Blood Peripheral blood specimen / Unknown Venipuncture / Unknown 05/08/2024 8:48 AM CDT 05/08/2024 8:49 AM CDT Shelli Henderson APRN LAB BLOOD ORDERABLES Fi nal Result [facility] Unless otherwise noted, all lab tests performed by: Division of Pathology and Laboratory Medicine [address] [place] [phone] * (ABNORMAL) Comprehensive Metabolic Panel (05/08/2024 8:48 AM CDT) Only the most recent of12 resultswithin the time period is included. Bilirubin Total <0.3 0.0 - 1.2 mg/dL 05/08/2024 9:48 AM CDT [facility] Comment: Direct and indirect bilirubin will not be reported when Total bilirubin result is <0.3 mg/dL Indocyanine Green (ICG) may cause falsely elevated bilirubin results. Total and direct bilirubin must not be measured from samples containing indocyanine green. False elevation of total bilirubin can be seen in patients with IgG concentrations above 28 g/L. eGFR 72 >=60 mL/min/1. 73 sq. m 05/08/2024 9:48 AM CDT [facility] Comment: The eGFRcr is calculated with the 2020 CKD-EPI creatinine equation using creatinine, patient's age, and sex for adults 18 years of age and older. Other factors, especially muscle mass, may affect accuracy and need to be considered. According to the Kidney Disease: Improving Global Outcomes (KDIGO) CKD Work Group 2012 Clinical Practice Guideline, chronic kidney disease (CKD) is defined as the abnormalities of kidney structure or function, present for more than 3 months, with implications for health. CKD should be classified by cause, GFR category, and albuminuria category. KDIGO guidelines provide the following GFR categories. Stage / Description / GFR mL/min/1.73 m2: G1* / Normal or high / >= 90 G2* / Mildly decreased / 60-89 G3a / Mildly to moderately decreased / 45-59 G3b / Moderately to severely decreased / 30-44 G4 / Severely decreased / 15-29 G5 / Kidney failure / <15 *In the absence of evidence of kidney damage, neither G1 nor G2 fulfill criteria for CKD. Tot Protein 6.2(L) 6.4 - 8.3 gm/dL 05/08/2024 9:48 AM CDT [facility] Calcium Level Total 9.6 8.2 - 10.2 mg/dL 05/08/2024 9:48 AM CDT [facility] Alkaline Phosphatase 73 35 - 104 U/L 05/08/2024 9:48 AM CDT [facility] Albumin Level 4.3 3.5 - 5.2 gm/dL 05/08/2024 9:48 AM CDT [facility] AST 12 <=32 U/L 05/08/2024 9:48 AM CDT [facility] ALT 6 <=33 U/L 05/08/2024 9:48 AM CDT [facility] Sodium Level 138 136 - 145 mmol/L 05/08/2024 9:48 AM CDT [facility] Potassium Level 4.4 3.4 - 4.5 mmol/L 05/08/2024 9:48 AM T [facility] Chloride 101 98 - 107 mmol/L 05/08/2024 9:48 AM CDT [facility] CO2 29 22 - 29 mmol/L 05/08/2024 9:48 AM T [facility] Anion Gap 8 4 - 14 mmol/L 05/08/2024 9:48 AM CDT [facility] Creatinine 0.84 0.51 - 0.95 mg/dL 05/08/2024 9:48 AM CDT [facility] BUN 12 6 - 23 mg/dL 05/08/2024 9:48 AM T [facility] Glucose Level 122(H) 70 - 99 mg/dL 05/08/2024 9:48 AM CDT [facility] Comment: Effective 09/14/15, the glucose reference intervals have been updated based on [place] [employer] guidelines (Standards of Medical Care in Diabetes 2016. Diabetes Care 2016; 39: S13-S22). Fasting blood glucose: Normal: 70-99 mg/dL Impaired fasting glucose (increased risk for diabetes or pre-diabetes): 100-125 mg/dL Diabetes mellitus: >/=126 mg/dL Random blood glucose: Normal: 70-199 mg/dL Note: Random glucose >100 mg/dL is associated with increased risk for diabetes. Blood Peripheral blood specimen / Unknown Venipuncture / Unknown 05/08/2024 8:48 AM CDT 05/08/2024 8:49 AM CDT Shelli Henderson [facility] LAB BLOOD ORDERABLES Fi nal Result Performing Organization Address City/[facility] de Phone Number [facility] Unless otherwise noted, all lab tests performed by: Division of Pathology and Laboratory Medicine [address] [place] [id number] * Free Lambda Light Chain (05/08/2024 8:48 AM CDT) Only the most recent of12 resultswithin the time period is included. [facility] Free Lambda Light chain 6.01 5.71 - 26.30 mg/L 05/08/2024 12:36 PM CDT [facility] Blood Peripheral blood specimen / Unknown Venipuncture / Unknown 05/08/2024 8:48 AM CDT 05/08/2024 8:49 AM CDT Shelli Henderson [facility] LAB BLOOD ORDERABLES Fi nal Result Performing Organization Address City/[facility] Co de Phone Number [facility] Unless otherwise noted, all lab tests performed by: Division of Pathology and Laboratory Medicine [address] [place] [id number] * (ABNORMAL) Free [place] Light Chain (05/08/2024 8:48 AM CDT) Only the most recent of12 resultswithin the time period is included. [facility] Free [place] Light 147.16(H) 3.30 - 19.40 mg/L 05/08/2024 12:36 PM CDT [facility] Blood Peripheral blood specimen / Unknown Venipuncture / Unknown 05/08/2024 8:48 AM CDT 05/08/2024 8:49 AM CDT Shelli Henderson APRN LAB BLOOD ORDERABLES Fi nal Result Performing Organization Address City/[facility] Co de Phone Number [facility] Unless otherwise noted, all lab tests performed by: Division of Pathology and Laboratory Medicine [address] [place] [phone] * Uric Acid (05/08/2024 8:48 AM CDT) Only the most recent of12 resultswithin the time period is included. Uric Acid 4.0 2.4 - 5.7 mg/dL 05/08/2024 9:48 AM CDT [facility] Blood Peripheral blood specimen / Unknown Venipuncture / Unknown 05/08/2024 8:48 AM CDT 05/08/2024 8:49 AM CDT Shelli Henderson APRN LAB BLOOD ORDERABLES Fi nal Result Performing Organization Address City/[facility] de Phone Number [facility] Unless otherwise noted, all lab tests performed by: Division of Pathology and Laboratory Medicine [address] [place] [phone] * (ABNORMAL) Phosphorus Level (05/08/2024 8:48 AM CDT) Only the most recent of12 resultswithin the time period is included. Phosphorus Level 4.7(H) 2.5 - 4.5 mg/dL 05/08/2024 9:48 AM CDT [facility] Blood Peripheral blood specimen / Unknown Venipuncture / Unknown 05/08/2024 8:48 AM CDT 05/08/2024 8:49 AM CDT Shelli L Henderson [employer]IST LAB BLOOD ORDERABLES Fi nal Result [facility] Unless otherwise noted, all lab tests performed by: Division of Pathology and Laboratory Medicine [address] [place] [phone] * Magnesium Level (05/08/2024 8:48 AM CDT) Only the most recent of12 resultswithin the time period is included. Magnesium Level 2.2 1.6 - 2.6 mg/dL 05/08/2024 9:48 AM CDT [facility] Blood Peripheral blood specimen / Unknown Venipuncture / Unknown 05/08/2024 8:48 AM CDT 05/08/2024 8:49 AM CDT Shelli L Henderson [employer] LAB BLOOD ORDERABLES Fi nal Result Performing Organization Address [place] [facility] de Phone Number [facility] Unless otherwise noted, all lab tests performed by: Division of Pathology and Laboratory Medicine [address] [place] [address] [id number] * LDH (05/08/2024 8:48 AM CDT) Only the most recent of12 resultswithin the time period is included. [facility] LDH 145 135 - 214 U/L 05/08/2024 9:48 AM CDT [facility] Blood Peripheral blood specimen / Unknown Venipuncture / Unknown 05/08/2024 8:48 AM CDT 05/08/2024 8:49 AM CDT Narrative [facility] - 05/08/2024 9:48 AM CDT Results greater than 1651 U/L may not be reliable due to matrix effect with extended dilution as it exceeds the wholesaler's recommended limit. Caution should be exercised when interpreting such values and done in conjunction with clinical context. Shelli L Henderson FAMILY DINNER SERVICE SPECIALIST LAB BLOOD ORDERABLES Fi nal Result Performing Organization Address City/[facility] Co de Phone Number [facility] Unless otherwise noted, all lab tests performed by: Division of Pathology and Laboratory Medicine [address] [place] [address] [phone] * (ABNORMAL) IgA (05/08/2024 8:48 AM CDT) Only the most recent of12 resultswithin the time period is included. Pathologist [facility] [place] IgA 23(L) 85 - 499 mg/dL 05/08/2024 12:36 PM CDT [facility] Blood Peripheral blood specimen / Unknown Venipuncture / Unknown 05/08/2024 8:48 AM CDT 05/08/2024 8:49 AM CDT Shelli Henderson APRN LAB BLOOD ORDERABLES Fi nal Result Performing Organization Address City/[facility]/ZIP Co de Phone Number [facility] Unless otherwise noted, all lab tests performed by: Division of Pathology and Laboratory Medicine [address] [place] [address] [phone] * (ABNORMAL) IgM (05/08/2024 8:48 AM CDT) Only the most recent of12 resultswithin the time period is included. Pathologist [facility] [place] IgM 19(L) 35 - 242 mg/dL 05/08/2024 12:36 PM CDT [facility] Blood Peripheral blood specimen / Unknown Venipuncture / Unknown 05/08/2024 8:48 AM CDT 05/08/2024 8:49 AM CDT Shelli Henderson APRN LAB BLOOD ORDERABLES Fi nal Result [facility] Unless otherwise noted, all lab tests performed by: Division of Pathology and Laboratory Medicine [address] [place] [address] [phone] * (ABNORMAL) IgG (05/08/2024 8:48 AM CDT) Only the most recent of12 resultswithin the time period is included. Pathologist [facility] [place] IgG 320(L) 610 - 1,616 mg/dL 05/08/2024 12:36 PM CDT [facility] Blood Peripheral blood specimen / Unknown Venipuncture / Unknown 05/08/2024 8:48 AM CDT 05/08/2024 8:49 AM CDT [facility] BLOOD ORDERABLES Fi nal Result Performing Organization Address [facility] de Phone Number [facility] Unless otherwise noted, all lab tests performed by: Division of Pathology and Laboratory Medicine [address] [place] [address] [id number] * (ABNORMAL) Beta 2 Microglobulin (05/08/2024 8:48 AM CDT) Only the most recent of12 resultswithin the time period is included. Pathologist [facility] [place] Beta 2 Microglobulin 3.50(H) 0.80 - 2.30 mg/L 05/08/2024 12:36 PM CDT [facility] Blood Peripheral blood specimen / Unknown Venipuncture / Unknown 05/08/2024 8:48 AM CDT 05/08/2024 8:49 AM CDT Narrative [facility] - 05/08/2024 12:36 PM CDT This test is measured by turbidimetric methodology on [facility] Optilite analyzer. Results obtained in different methods are not interchangeable. Shelliselin Henderson [facility] LAB BLOOD ORDERABLES Fi nal Result Performing Organization Address [facility] de Phone Number [facility] Unless otherwise noted, all lab tests performed by: Division of Pathology and Laboratory Medicine [address] [place] [address] [phone] * Transferrin with TIBC (04/07/2024 9:14 AM FARM OPERATOR) Transferrin 209 200 - 360 mg/dL 04/09/2024 9:28 AM FARM OPERATOR [facility] Total Iron Binding Capacity 293 250 - 450 mcg/dL 04/09/2024 9:28 AM FARM OPERATOR [facility] Blood Peripheral blood specimen / Unknown Venipuncture / Unknown 04/07/2024 9:14 AM FARM OPERATOR 04/07/2024 9:15 AM FARM OPERATOR Tila López PA-C LAB BLOOD ORDERABLES Final Resul t Performing Organization Address City/[facility] Co de Phone Number [facility] Unless otherwise noted, all lab tests performed by: Division of Pathology and Laboratory Medicine [address] [place] [address] [phone] * Iron Level (04/07/2024 9:14 AM FARM OPERATOR) Iron Level 57 37 - 145 mcg/dL 04/09/2024 9:28 AM FARM OPERATOR [facility] Is patient fasting? 04/09/2024 9:28 AM FARM OPERATOR [facility] Blood Peripheral blood specimen / Unknown Venipuncture / Unknown 04/07/2024 9:14 AM FARM OPERATOR 04/07/2024 9:15 AM FARM OPERATOR Tila López PA-C LAB BLOOD ORDERABLES Final Resul t Performing Organization Address [facility] de Phone Number [facility] Unless otherwise noted, all lab tests performed by: Division of Pathology and Laboratory Medicine [address] [place] [address] [phone] * (ABNORMAL) Ferritin Level (04/07/2024 9:14 AM FARM OPERATOR) Ferritin Level 174(H) 13 - 150 ng/mL 04/09/2024 9:28 AM FARM OPERATOR [facility] Blood Peripheral blood specimen / Unknown Venipuncture / Unknown 04/07/2024 9:14 AM FARM OPERATOR 04/07/2024 9:15 AM FARM OPERATOR Narrative [facility] - 04/09/2024 9:28 AM FARM OPERATOR Reference range established for age 17 - 60 years Tila López PA-C LAB BLOOD ORDERABLES Final Resul t Performing Organization Address City/[facility] Co de Phone Number [facility] Unless otherwise noted, all lab tests performed by: Division of Pathology and Laboratory Medicine [address] [place] [address] [id number] * Vitamin B12 Level (04/07/2024 9:14 AM FARM OPERATOR) Vitamin B12 Level 368 232 - 1,245 pg/mL 04/09/2024 9:46 AM FARM OPERATOR [facility] Is patient fasting? 04/09/2024 9:46 AM FARM OPERATOR [facility] Blood Peripheral blood specimen / Unknown Venipuncture / Unknown 04/07/2024 9:14 AM FARM OPERATOR 04/07/2024 9:15 AM FARM OPERATOR Narrative [facility] - 04/09/2024 9:46 AM FARM OPERATOR Reference range established based on adult population. us Tila López PA-C LAB BLOOD ORDERABLES Final Resul t [facility] Unless otherwise noted, all lab tests performed by: Division of Pathology and Laboratory Medicine [address] [place] [address] [id number] * PETCT Whole Body F18 FDG (Fluorodeoxyglucose) without contrast (03/13/2024 12:23 PM FARM OPERATOR) Anatomical Region Laterality Modality Whole Body Positron Emissio n Tomography (PET) 03/13/2024 1:01 PM FARM OPERATOR Impressions 03/13/2024 1:40 PM FARM OPERATOR Heterogenous background marrow activity is within normal physiologic limits. No new hypermetabolic osseous lesions. No extramedullary sites of disease. No definite PET/CT evidence for active myeloma ACTIONABLE ITEMS/RECOMMENDATIONS*: None. *An Actionable Finding is a finding that may be unrelated to the original reason for imaging but potentially actionable, meaning further investigation may be necessary. The Actionable Findings Vigilance Unit (AFVU) assists medical providers with responding to additional radiologic findings that are unexpected and potentially actionable. Narrative 03/13/2024 1:40 PM FARM OPERATOR FULL RESULT: Examination: 18F-FDG-PET/CT without contrast, 03/13/2024 12:23 PM Clinical History: Multiple myeloma Indication: Restaging study for subsequent treatment strategy. Comparison: CT 04/02/2023. Technique: F-18 fluorodeoxyglucose 7.1 mCi was administered intravenously via LAC. To allow for distribution and uptake of radiotracer, the patient was asked to rest quietly for approximately 60-90 minutes. PET/CT imaging was performed from the vertex to toes. CT scanning was done for attenuation correction, image registration, and diagnosis with scan parameters optimized to minimize radiation exposure to the patient. SUV measurements are reported as maximum SUV based on body weight unless otherwise specified. Findings: HEENT: Symmetric metabolic activity is demonstrated throughout the brain parenchyma without focal anatomic abnormality. The orbits are normal. The paranasal sinuses and mastoid air cells are clear. Atrophy of the thyroid gland. No cervical adenopathy by PET or size criteria. Chest: No consolidation, pleural effusion, or concerning pulmonary nodules demonstrated. There is no mediastinal, hilar, or axillary adenopathy present. The heart is normal in size. No pericardial effusion present. Abdomen and pelvis: The liver, adrenals, kidneys, spleen, and pancreas are unremarkable. No abnormal bowel wall thickening or dilatation. The urinary bladder is unremarkable. No bladder is surgically removed. Sigmoid diverticular disease without evidence for diverticulitis. No adenopathy by PET or size criteria. Scattered atherosclerotic calcification of the large abdominal vessels without aneurysmal dilation of the abdominal aorta. Musculoskeletal: Multilevel degenerative changes to the spine are present. No new concerning lytic or blastic osseous lesions are demonstrated. 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 Unchanged diffuse permeative appearance of the axial and appendicular skeleton. Postsurgical changes related to the right frontal calvarium. ACDF. Left hip hardware. Post radiation changes related to the lumbar vertebra. Dermal and subcutaneous: No concerning metabolic activity is demonstrated in the dermal and subcutaneous soft tissues. Procedure Note Kate Smith MD - 03/13/2024 FULL RESULT: Examination: 18F-FDG-PET/CT without contrast, 03/13/2024 12:23 PM Clinical History: Multiple myeloma Indication: Restaging study for subsequent treatment strategy. Comparison: CT 04/02/2023. Technique: F-18 fluorodeoxyglucose 7.1 mCi was administered intravenously via LAC. Toallow for distribution and uptake of radiotracer, the patient was asked torest quietly for approximately 60-90 minutes. PET/CT imaging was performedfrom the vertex to toes. CT scanning was done for attenuation correction,image registration, and diagnosis with scan parameters optimized tominimize radiation exposure to the patient. SUV measurements are reportedas maximum SUV based on body weight unless otherwise specified. Findings: HEENT: Symmetric metabolic activity is demonstrated throughout the brainparenchyma without focal anatomic abnormality. The orbits are normal. Theparanasal sinuses and mastoid air cells are clear. Atrophy of the thyroidgland. No cervical adenopathy by PET or size criteria. Chest: No consolidation, pleural effusion, or concerning pulmonary nodulesdemonstrated. There is no mediastinal, hilar, or axillary adenopathypresent. The heart is normal in size. No pericardial effusion present. Abdomen and pelvis: The liver, adrenals, kidneys, spleen, and pancreas are unremarkable. Noabnormal bowel wall thickening or dilatation. The urinary bladder isunremarkable. No bladder is surgically removed. Sigmoid diverticulardisease without evidence for diverticulitis. No adenopathy by PET or size criteria. Scattered atheroscleroticcalcification of the large abdominal vessels without aneurysmal dilationof the abdominal aorta. Musculoskeletal: Multilevel degenerative changes to the spine are present. 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 Postsurgical changes related to the right frontal calvarium.ACDF. Left hip hardware. Post radiation changes related to the lumbarvertebra. Dermal and subcutaneous: No concerning metabolic activity is demonstrated in the dermal andsubcutaneous soft tissues. IMPRESSION: Heterogenous background marrow activity is within normal physiologiclimits. No new hypermetabolic osseous lesions. No extramedullary sites ofdisease. No definite PET/CT evidence for active myeloma ACTIONABLE ITEMS/RECOMMENDATIONS*: None. *An Actionable Finding is a finding that may be unrelated to the originalreason for imaging but potentially actionable, meaning furtherinvestigation may be necessary. The Actionable Findings Vigilance Unit(AFVU) assists medical providers with responding to additional radiologicfindings that are unexpected and potentially actionable. us Shelli Henderson APRN IM PETCT ORDERABLES Fi nal Result * JUAN Urine (03/13/2024 9:30 AM FARM OPERATOR) Only the most recent of3 resultswithin the time period is included. Urine Immunofixation [place] 03/16/2024 3:13 PM FARM OPERATOR [facility] UIFE Path Interp The urine protein immunofixation electrophoretic patterns obtained with the use of antisera against IgG, IgA, IgM, bound kappa and bound lambda light chains, free kappa and free lambda light chain proteins are positive for a kappa Bence-Fields proteinuria. 03/16/2024 3:13 PM FARM OPERATOR [facility] Pathologist Signature . 03/16/2024 3:13 PM [facility] Urine 24 Hr Voided urine specimen / Unknown Non-blood Collection / Unknown 03/13/2024 9:30 AM FARM OPERATOR 03/13/2024 11:07 AM FARM OPERATOR Shelli Henderson FAMILY DINNER SERVICE SPECIALIST URINE ORDERABLES Final Result [facility] Unless otherwise noted, all lab tests performed by: Division of Pathology and Laboratory Medicine [address] [place] [address] [phone] * (ABNORMAL) Protein Electrophoresis Urine (03/13/2024 9:30 AM FARM OPERATOR) Only the most recent of3 resultswithin the time period is included. Urine Albumin % 19.4 % 03/16/2024 3:12 PM [facility] U Globulin % 47.2 % 03/16/2024 3:12 PM [facility] Urine Bence Fields Protein 33.4(H) 0.0 - 0.0 % 03/16/2024 3:12 PM [facility] U BJP/TV 99(H) 0 - 0 03/16/2024 3:12 PM [facility] U ProE Path Interp The urine protein electrophoretic pattern shows that the current Bence-Fields protein excretion is 99 mg/day. This represents an increase when compared to the previous value reported on 10/29/2023. 03/16/2024 3:12 PM FARM OPERATOR [facility] Pathologist Signature . 03/16/2024 3:12 PM [facility] Urine 24 Hr Voided urine specimen / Unknown Non-blood Collection / Unknown 03/13/2024 9:30 AM FARM OPERATOR 03/13/2024 11:07 AM FARM OPERATOR Shelli Henderson FAMILY DINNER SERVICE SPECIALIST URINE ORDERABLES Final Result [facility] Unless otherwise noted, all lab tests performed by: Division of Pathology and Laboratory Medicine [address] [place] [address] [phone] * (ABNORMAL) 24hr Urine Total Protein (03/13/2024 9:30 AM [facility]) Only the most recent of3 resultswithin the time period is included. Urine Total Protein 22 mg/dL 03/13/2024 12:28 PM [facility] Comment:Caution is advised w hen interpreting values greater than 555 mg/dL. Results requiring extended dilution beyond the wholesaler's recommended limit may not dilute linearly due to potential matrix effect. Correlation with clinical context is recommended. Urine Total Pro per Total volume 297(H) <=149 mg/24hr 03/13/2024 12:28 PM [facility] Total Volume 1,350 mL/24hr 03/13/2024 12:28 PM [facility] Hours Collected 24 hr 12:28 PM [facility] Start Date 03/12/2024 03/13/2024 12:28 PM [facility] Start Time 7:00 AM 03/13/2024 12:28 PM [facility] End Date 03/13/2024 03/13/2024 12:28 PM [facility] End Time 7:00 AM 03/13/2024 12:28 PM [facility] How many jugs collected? 1 03/13/2024 12:28 PM [facility] Urine 24 Hr Voided urine specimen / Unknown Non-blood Collection / Unknown 03/13/2024 9:30 AM FARM OPERATOR 03/13/2024 11:07 AM FARM OPERATOR us Shelli Henderson FAMILY DINNER SERVICE SPECIALIST URINE ORDERABLES Final Result [facility] Unless otherwise noted, all lab tests performed by: Division of Pathology and Laboratory Medicine [address] [place] [address] [id number] * Total Protein (01/22/2024 11:21 AM FARM OPERATOR) Tot Protein 6.4 6.4 - 8.3 gm/dL 01/22/2024 1:44 PM FARM OPERATOR [facility] Blood Peripheral blood specimen / Unknown Venipuncture / Unknown 01/22/2024 11:21 AM FARM OPERATOR 01/22/2024 11:50 AM FARM OPERATOR Narrative [facility] - 01/22/2024 1:44 PM FARM OPERATOR Reference range established based on adult population Shelli Henderson APRN LAB BLOOD ORDERABLES Fi nal Result Performing Organization Address City/[facility] Co de Phone Number [facility] Unless otherwise noted, all lab tests performed by: Division of Pathology and Laboratory Medicine [address] [place] [address] [phone] * XR Hip 2 or 3 Views w Pelvis Left (01/22/2024 9:21 AM FARM OPERATOR) Only the most recent of2 resultswithin the time period is included. Anatomical Region Laterality Modality Hip, Extremity Digital Radiogra phy 01/22/2024 9:42 AM FARM OPERATOR Impressions 01/22/2024 9:50 AM FARM OPERATOR 1. Stable unremarkable left total hip prosthesis without hardware failure, loosening or periprosthetic fracture. 2. Stable old left ischial myelomatous lesion with nondisplaced pathologic fracture. 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 Stable old healed fracture deformity of left inferior pubic ramus. ACTIONABLE ITEMS/RECOMMENDATIONS*: None. *An Actionable Finding is a finding that may be unrelated to the original reason for imaging but potentially actionable, meaning further investigation may be necessary. The Actionable Findings Vigilance Unit (AFVU) assists medical providers with responding to additional radiologic findings that are unexpected and potentially actionable. Narrative 01/22/2024 9:50 AM FARM OPERATOR FULL RESULT: Examination: XR HIP 2 OR 3 VW W PELVIS LEFT, 01/22/2024 9:21 AM. Clinical History: Multiple myeloma. 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 On maintenance therapy. Left hip hemiarthroplasty 04/09/2022. Indication: Assessment of hardware; history of multiple myeloma Comparison: Pelvis and left hip x-ray 04/17/2023 and 07/31/2023. Technique: XR HIP 2 OR 3 VW W PELVIS LEFT. Findings: Stable unremarkable left total hip prosthesis without hardware failure, loosening or periprosthetic fracture. Stable old left ischial myelomatous lesion with nondisplaced pathologic fracture. 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 Stable old healed fracture deformity of left inferior pubic ramus. Pubic symphysis, right hip, and bilateral SI joints are well-preserved. Degenerative change of partially imaged lower lumbar spine. Procedure Note All Higgins MD - 01/22/2024 FULL RESULT: Examination: XR HIP 2 OR 3 VW W PELVIS LEFT, 01/22/2024 9:21 AM. Clinical History: Multiple myeloma. Radiation therapy to the plasmacytomain the left pelvis in June 2019 and left hip in April 2020. On maintenancetherapy. Left hip hemiarthroplasty 04/09/2022. Indication: Assessment of hardware; history of multiple myeloma Comparison: Pelvis and left hip x-ray 04/17/2023 and 07/31/2023. Technique: XR HIP 2 OR 3 VW W PELVIS LEFT. Findings: Stable unremarkable left total hip prosthesis without hardware failure,loosening or periprosthetic fracture. Stable old left ischial myelomatous lesion with nondisplaced pathologicfracture. 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 Stableold healed fracture deformity of left inferior pubic ramus. Pubic symphysis, right hip, and bilateral SI joints are well-preserved. Degenerative change of partially imaged lower lumbar spine. IMPRESSION: 1. Stable unremarkable left total hip prosthesis without hardware failure,loosening or periprosthetic fracture. 2. Stable old left ischial myelomatous lesion with nondisplaced pathologicfracture. 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 Stableold healed fracture deformity of left inferior pubic ramus. ACTIONABLE ITEMS/RECOMMENDATIONS*: None. *An Actionable Finding is a finding that may be unrelated to the originalreason for imaging but potentially actionable, meaning furtherinvestigation may be necessary. The Actionable Findings Vigilance Unit(AFVU) assists medical providers with responding to additional radiologicfindings that are unexpected and potentially actionable. Francy SUMMERS IMG DIAGNOSTIC IMAGING ORD ERABLES Final Result * Vitamin D 25OH (10/01/2023 9:56 AM CDT) [facility] Vitamin D 25 OH 39 30 - 100 ng/mL 10/01/2023 11:18 AM CDT [facility] Blood Peripheral blood specimen / Unknown Venipuncture / Unknown 10/01/2023 9:56 AM CDT 10/01/2023 10:00 AM CDT Narrative [facility] - 10/01/2023 11:18 AM CDT Reference Range: Deficiency: <=20 ng/mL Insufficiency: 21-29 ng/mL Sufficiency: 30-100 ng/mL Potential toxicity: >100 ng/mL Shelli Henderson APRN LAB BLOOD ORDERABLES Fi nal Result [facility] Unless otherwise noted, all lab tests performed by: Division of Pathology and Laboratory Medicine [address] [place] [address] [phone] * QUEST MISCELLENOUS TEST (07/31/2023 10:26 AM CDT) Only the most recent of2 resultswithin the time period is included. Pathologist [facility] Quest Misc Test Result See Note 08/03/2023 7:35 PM CDT MATTY (EVY) Comment: IMMUNOFIXATION, SERUM TEST NAME RESULT FLAG UNITS REF RANGE ========= ====== ==== ===== ========= Interpretation SerPl JUAN-Imp Normal pattern. No monoclonal proteins detected. Test Performed at: [facility] [address] [place] [address] [address] Garfield Ortiz Other (Other) Non-blood Collection / Unknown 07/31/2023 10:26 AM CDT 07/31/2023 1:07 PM CDT Narrative MATTY (EVY) - 08/03/2023 7:35 PM CDT Performing Organization Information: [facility] [address] [place] [address] [address] Garfield Ortiz Shelli Henderson FAMILY DINNER SERVICE SPECIALIST LAB BLOOD ORDERABLES Fi nal Result MATTY MINOR) after 05/16/[address] [place] [address] MEDICARE ADVANTAGE [facility] MEDICARE [place] [address] [id number] [facility] MEDICARE ADVANTAGE Advance Directives Documents on File Type Date Recorded Patient Information Systems Manager Expl anation Advance Directives: Medical Power of Rolling Machine Operator 12/31/2021 Medical Power of Att orney Advance Directives: Medical Power of Rolling Machine Operator 08/07/2019 Medical Power of Att orney * Full Code (Latest Code Status on File) Date Activated Date Inactivated Comments 04/09/2022 4:39 PM 04/20/2022 10:13 AM * Full Code Date Activated Date Inactivated Comments 04/03/2022 9:06 PM 04/04/2022 4:21 PM * Full Code Date Activated Date Inactivated Comments 05/06/2020 9:37 PM 05/11/2020 6:40 PM Care Teams [facility] Relationship Specialty Start Date End Date Grover Fernandes MD [address] [place] [id number] PCP - External Referring Orthopedic Surgery 05/07/19 Norberto Gregory MD [address] [place] [id number] [email or web address] PCP - General Lymphoma and Myeloma 04/03/22 Lokesh Quinteros DDS [address] [place] [id number] [email or web address] Consulting Physician Dental Oncology 07/03/19 Terrence Arce MD [address] [place] [id number] [email or web address] Consulting Physician Internal Medicine 04/05/22 Nancy Busby MD [address] [place] [phone] [email or web address] Consulting Physician Radiation Oncology 07/03/19 Dat Polo MD [address] [place] [phone] [email or web address] Consulting Physician Stem Cell Transplant 07/02/19 Neli Zafar MD [address] [place] [phone] [email or web address] Consulting Physician Cardiology 08/28/22 Selena Douglas MD [address] [place] [id number] Family Practice 03/05/23
--- NOTE | 2024-05-15 22:33 | RAD REPORT ---
EXAMINATION: Shoulder Right 2+ Views CLINICAL INDICATION: Female, 73 years old. PAIN RIGHT COMPARISON: No prior exam. FINDINGS: No acute fracture. No malalignment/dislocation. Mild right glenohumeral joint degenerative changes. Mild right AC joint degenerative changes. Other: n/a IMPRESSION: No acute osseous abnormality.
--- NOTE | 2024-05-15 22:33 | RAD REPORT ---
EXAM: Chest Single View HISTORY: 73 years Female COUGH COMPARISON: 12/02/2023 FINDINGS: LUNGS/PLEURA: The lungs are clear. No pleural effusions or pneumothorax. No pulmonary edema. CARDIAC/MEDIASTINUM: Stable size and configuration. UPPER ABDOMEN: No significant abnormality. BONES: No acute abnormality. LINES/TUBES/OTHER: N/A IMPRESSION: No evidence of acute cardiopulmonary disease.
--- NOTE | 2024-05-15 22:44 | RAD REPORT ---
EXAMINATION: Head C Spine Mpr Wo Con CLINICAL INDICATION: Female, 73 years old. PAIN TECHNIQUE: Axial CT images from the skull base to the vertex without intravenous contrast. Axial CT i mages through the cervical spine were obtained without intravenous contrast. Sagittal and coronal reformatted images were created from the data set. Coronal and sagittal reformatted images were creat ed from the data set. One or more of the following dose reduction techniques were used: Automated exposure control, adjustment of the mA and/or kV according to patient size, and/or iterative reconstr uction. Unless otherwise specified, incidental findings do not require dedicated imaging follow-up. [id number]. COMPARISON: 05/07/2024 FINDINGS: Head: INTRACRANIAL: No acute intracranial hemorrhage. No hydrocephalus. No mass effect or midline shift. No significant white matter disease. VASCULATURE: No visualized abnormalities in the arteries or dural venous sinuses. SCALP/SKULL: Lytic lesion in the right frontal calvarium measuring 17 mm. No significant soft tissue component. The patient has a history of multiple myeloma. No acute soft tissue abnormality. SINUSES: The visualized paranasal sinuses are mostly clear. No significant mastoid fluid. Cervical spine: ALIGNMENT: Loss of the normal cervical lordosis. BONE: Status post C3-4 ACDF. Incomplete osseous fusion across the disc. Prior fused C4-C7. DEGENERATIVE: No significant focal degenerative changes. SOFT TISSUE: No significant abnormalities in the soft tissue of the neck. The visualized lung apices are clear. IMPRESSION: No acute intracranial abnormality. No acute fracture or traumatic malalignment of the cervical spine. New lytic right frontal calvarial lesion presumably the patient's known multiple myeloma.
--- NOTE | 2024-05-15 22:53 | RAD REPORT ---
EXAM: Chest Abd Pelvis Wo Con CLINICAL INDICATION: Female, 73 years old PAIN; FALL TECHNIQUE: CT chest, abdomen and pelvis was performed, without IV contrast, as per department protoco l. Axial, sagittal and coronal reconstructions were obtained. One or more of the following dose reduction techniques were used: Automated exposure control, adjustment of the mA and/or kV according to the patient size, and/or iterative reconstruction. Unless otherwise specified, incidental findings do not require dedicated imaging follow-up. [id number]. COMPARISON: 03/04/2018 FINDINGS: The lack of intravenous contrast limits the sensitivity of this exam for evaluation of solid visceral organs, vascular structures, and retroperitoneum. ---THORAX--- LOWER NECK AND CHEST WALL: Visualized thyroid gland and soft tissues are normal. LUNGS AND AIRWAYS: Airways are clear. No evidence of airspace or interstitial process.No suspicious a nd/or stable pulmonary nodules. PLEURA: No pleural effusion. No pneumothorax. MEDIASTINUM AND LYMPH NODES: No mediastinal mass or fluid collection. Normal size mediastinal, hilar, and axillary lymph nodes. THORACIC AORTA: No thoracic aortic aneurysm. Atherosclerotic changes are present. PULMONARY ARTERIES: Caliber is within normal limits. HEART: Normal heart size. Mild coronary artery calcifications.No significant pericardial effusion. Ao rtic valve calcifications. ---ABDOMEN/PELVIS--- UPPER GI: No significant abnormality. LIVER: Cirrhotic liver morphology. No focal masses. GALLBLADDER/BILE DUCTS: Cholecystectomy. Mild extra-hepatic biliary ductal dilatation is likely relat ed to the post-cholecystectomy state. Consider correlating with LFT's.? PANCREAS: Atrophy, but otherwise unremarkable. SPLEEN: Unremarkable. ADRENALS: Adrenal thickening without discrete mass. KIDNEYS AND URETERS: No hydronephrosis.Low density and/or too small to characterize renal lesions whi ch are statistically benign.No renal calculi. ABDOMINAL AORTA AND OTHER VESSELS: Moderate atherosclerotic changes without aortic aneurysm. PERITONEUM: No abnormal free fluid. No free air. LYMPH NODES: No pathologic lymphadenopathy. ABDOMINAL WALL: Unremarkable SMALL BOWEL/COLON: Small bowel has normal course and caliber. No colonic wall thickening or pericolon ic inflammatory changes.Nonvisualized appendix but no secondary signs of acute appendicitis. Moderate diverticulosis without diverticulitis. Moderate formed stool burden. URINARY BLADDER: Underdistended but grossly unremarkable. REPRODUCTIVE ORGANS: Uterus surgically absent. No adnexal abnormality. ---COMBINED--- MUSCULOSKELETAL: Left hip arthroplasty. Osteopenia. Abnormal appearance of the left ischium which may be from underlying lesion and nondisplaced pathologic fracture. Remote left inferior obturator ring fracture. Osteopenia. Acute minimally displaced right middle clavicle fracture with possible und erlying lytic lesion. Small lytic lesion identified in the left 11th rib. Nondisplaced fracture of the left anterior sixth rib with underlying lesion. Degenerative changes in the spine. Lytic lesion i n the right proximal humerus. Postoperative changes from decompression in the lumbar spine. ADDITIONAL FINDINGS: None. IMPRESSION: Slightly displaced right mid clavicle fracture. This may be pathologic as there is probably an underl ede lytic lesion. Pathologic nondisplaced fracture of the left anterior sixth rib and left ischium. The patient has a history of multiple myeloma which is presumably the etiology of the lytic lesions. No evidence of solid organ injury or spinal fractures.
[2024-05-15 23:28] LABS: PT Prothrombin Time 13.3 SECONDS (10-13.0); Protime INR 1.18
[2024-05-15] MEDS ORDERED: ONDANSETRON 4 MG/2 ML VIAL ONE (23:28)
[2024-05-15] MEDS ORDERED: FENTANYL CITR 100 MCG/2 ML ONE (23:28)
[2024-05-15 23:29] LABS: Absolute Eosinophils 0.1 K/uL (0-0.5); Absolute Lymphocytes (CBC) 0.7 K/uL (0.7-4.9); Absolute Monocytes 0.3 K/uL (0.1-1.3); Eosinophils % 4.3 % (0-4.4); Hematocrit 27.7 % (36.0-45.0); Hemoglobin 9.5 g/dL (12.0-15.0); Lymphocytes % 21.9 % (15.3-44.8); MCH 35.8 pg (27.0-35.0); MCHC 34.4 g/dL (32.0-36.0); MCV 104.1 fL (80-100); MPV 8.5 fL (7.6-11.3); Monocytes % 9.9 % (3.3-12.3); Neutrophils % 62.9 % (41.7-73.7); Platelets 124 thou/uL (152-406); RBC Red Blood Cell Count 2.66 M/uL (3.86-4.86); Red Cell Distribution Width 15.5 % (12.1-15.2)
[2024-05-15] MEDS ORDERED: NA CHLORIDE 0.9% 1,000 ML ONE (23:29)
--- NOTE | 2024-05-15 23:35 | EDPHYS ---
Physician Documentation [facility] Name: Sunni Tripathi Age: 73 yrs Sex: Female : 1950 Arrival Date: 05/15/2024 Time: 21:49 Bed 26 Private MD: ED Physician Geovani Tolbert HPI: 05/15 22:40 This 73 yrs old Female presents to ER via EMS with complaints of Fall Injury, pablo Shoulder Injury. 22:40 Details of fall: The patient fell from an upright position, while standing. Onset: The pablo symptoms/episode began/occurred just prior to arrival. Associated injuries: The patient sustained anterior aspect of right shoulder and posterior aspect of right shoulder, contusion, decreased range of motion, painful injury, swelling. Severity of symptoms: At their worst the symptoms were moderate, in the emergency department the symptoms are unchanged. The patient has not experienced similar symptoms in the past. Historical: - Allergies: 21:54 anesthesia gases; cp4 21:54 Morphine; cp4 21:54 Gammagard S/D; cp4 - Immunization history:: Adult Immunizations up to date. - Immunization history: Last tetanus immunization: - up to date. - Infectious Disease History:: Denies. - Social history:: Smoking status: Patient denies any tobacco usage or history of. ROS: 22:41 Constitutional: Negative for fever, chills, and weight loss, Eyes: Negative for injury, pablo pain, redness, and discharge, ENT: Negative for injury, pain, and discharge, Neck: Negative for injury, pain, and swelling, Cardiovascular: Negative for chest pain, palpitations, and edema, Respiratory: Negative for shortness of breath, cough, wheezing, and pleuritic chest pain, Abdomen/GI: Negative for abdominal pain, nausea, vomiting, diarrhea, and constipation, Back: Negative for injury and pain, : Negative for injury, bleeding, discharge, and swelling, Skin: Negative for injury, rash, and discoloration, Psych: Negative for depression, anxiety, suicide ideation, homicidal ideation, and hallucinations, Allergy/Immunology: Negative for hives, rash, and allergies, Endocrine: Negative for neck swelling, polydipsia, polyuria, polyphagia, and marked weight changes, Hematologic/Lymphatic: Negative for swollen nodes, abnormal bleeding, and unusual bruising, 22:41 MS/extremity: Positive for injury or acute deformity, decreased range of motion, pain, tenderness, of the anterior aspect of right shoulder and posterior aspect of right shoulder, Exam: 22:41 Constitutional: This is a well developed, well nourished patient who is awake, alert, pablo and in no acute distress. Head/Face: Normocephalic, atraumatic. Eyes: Pupils equal round and reactive to light, extra-ocular motions intact. Lids and lashes normal. Conjunctiva and sclera are non-icteric and not injected. Cornea within normal limits. Periorbital areas with no swelling, redness, or edema. ENT: Nares patent. No nasal discharge, no septal abnormalities noted. Tympanic membranes are normal and external auditory canals are clear. Oropharynx with no redness, swelling, or masses, exudates, or evidence of obstruction, uvula midline. Mucous membranes moist. Neck: Trachea midline, no thyromegaly or masses palpated, and no cervical lymphadenopathy. Supple, full range of motion without nuchal rigidity, or vertebral point tenderness. No Meningismus. Cardiovascular: Regular rate and rhythm with a normal S1 and S2. No gallops, murmurs, or rubs. Normal PMI, no JVD. No pulse deficits. Respiratory: Lungs have equal breath sounds bilaterally, clear to auscultation and percussion. No rales, rhonchi or wheezes noted. No increased work of breathing, no retractions or nasal flaring. Abdomen/GI: Soft, non-tender, with normal bowel sounds. No distension or tympany. No guarding or rebound. No evidence of tenderness throughout. Back: No spinal tenderness. No costovertebral tenderness. Full range of motion. Female : Normal external genitalia. Skin: Warm, dry with normal turgor. Normal color with no rashes, no lesions, and no evidence of cellulitis. MS/ Extremity: Pulses equal, no cyanosis. Neurovascular intact. Full, normal range of motion., bilateral aka Psych: Awake, alert, with orientation to person, place and time. Behavior, mood, and affect are within normal limits. 22:41 Chest/axilla: Inspection: normal, no acute changes, Palpation: tenderness, that is moderate, of the right supraclavicular area, right clavicle and anterior aspect of right upper chest, Axilla: are normal, no acute changes, Breasts: are normal, Lymph nodes: lymphadenopathy is not appreciated, 22:41 ECG was reviewed by the Attending Physician. 23:35 ECG was reviewed by the Attending Physician. [facility] Vital Signs: 21:51 BP 121 / 60; Pulse 66; Resp 16; Temp 97.2(O); Pulse Ox 93% on R/A; Weight 80.74 kg; jb4 Height 5 ft. 7 in. (R); Pain 9/10; 23:00 BP 118 / 62; Pulse 68; Resp 16; Pulse Ox 93% on R/A; jb4 05/16 01:59 BP 103 / 52; Pulse 75; Resp 18; Temp 97.2; Pulse Ox 98% on 2 lpm NC; Pain 4/10; bm8 05/15 21:51 Body Mass Index 27.88 (80.74 kg, 170.18 cm) [facility] 05/15 21:51 Pain Scale: Adult 4 05/16 01:59 Pain Scale: Adult bm8 [place] Coma Score: 05/15 21:51 Eye Response: spontaneous(4). Motor Response: obeys commands(6). Verbal Response: jb4 oriented(5). Total: 15. 23:00 Eye Response: spontaneous(4). Motor Response: obeys commands(6). Verbal Response: jb4 oriented(5). Total: 15. 05/16 01:59 Eye Response: spontaneous(4). Motor Response: obeys commands(6). Verbal Response: bm8 oriented(5). Total: 15. Trauma Score (Adult): 05/15 21:51 Eye Response: spontaneous(1); Verbal Response: oriented(1); Motor Response: obeys jb4 commands(2); Systolic BP: > 89 mm Hg(4); Respiratory Rate: 10 to 29 per min(4); Bernie Score: 15; Trauma Score: 12 23:00 Eye Response: spontaneous(1); Verbal Response: oriented(1); Motor Response: obeys jb4 commands(2); Systolic BP: > 89 mm Hg(4); Respiratory Rate: 10 to 29 per min(4); Bernie Score: 15; Trauma Score: 12 MDM: 21:55 Medical Screening Exam initiated [facility] 21:57 Medical Screening Exam initiated [facility] 22:43 Differential diagnosis: closed head injury, contusion, fracture, multiple trauma, pablo sprain, strain. Data reviewed: vital signs, nurses notes, EMS record, lab test result(s), EKG, radiologic studies, CT scan, plain films. Consideration of Admission/Observation Escalation of care including admission/observation considered. I considered the following discharge prescriptions or medication management in the emergency department Medications were administered in the Emergency Department. See MAR. Independent interpretation of the following test(s) in the Emergency Department X-Ray: My interpretation is right shoulder . CT Scan: My interpretation is ct trauma. Test considered but Not performed: Ultrasound no fast. Historians other than the Patient: pt well informed. 05/15 22:09 Order name: Basic Metabolic Panel; Complete Time: 23:58 [facility] 05/15 22:09 Order name: CBC with Diff; Complete Time: 23:58 [facility] 05/15 22:09 Order name: LFT's; Complete Time: 23:58 [facility] 05/15 22:09 Order name: Magnesium; Complete Time: 23:58 [facility] 05/15 22:09 Order name: NT PRO-BNP; Complete Time: 23:58 [facility] 05/15 22:09 Order name: PT-INR; Complete Time: 23:58 [facility] 05/15 22:09 Order name: Troponin HS; Complete Time: 23:58 [facility] 05/15 22:09 Order name: Lipase; Complete Time: 23:58 [facility] 05/15 22:09 Order name: Urinalysis w/ reflexes [facility] 05/16 00:55 Order name: Magnesium [facility] 05/16 00:55 Order name: Phosphorus [facility] 05/16 00:55 Order name: Basic Metabolic Panel [facility] 05/16 00:55 Order name: Basic Metabolic Panel [facility] 05/16 00:55 Order name: Urinalysis w/ reflexes [facility] 05/16 00:56 Order name: CBC with Automated Diff [facility] 05/16 00:56 Order name: CBC with Automated Diff [facility] 05/16 00:56 Order name: Lipid Profile [facility] 05/16 00:56 Order name: Lipid Profile [facility] 05/15 22:09 Order name: XRAY Chest (1 view); Complete Time: 22:38 [facility] 05/15 22:09 Order name: Shoulder Right (2 View) XRAY; Complete Time: 22:38 [facility] 05/15 22:15 Order name: Head C Spine Mpr Wo Con; Complete Time: 23:25 [facility] 05/15 22:16 Order name: Chest Abd Pelvis Wo Con; Complete Time: 23:25 [facility] 05/16 01:02 Order name: Echo with Doppler [facility] 05/16 01:03 Order name: ERT ORTHOSTATIC V/S [facility] 05/16 04:39 Order name: CT [facility] 05/16 01:04 Order name: Occupational Therapy Consult [facility] 05/16 01:04 Order name: Physical Therapy Consult [facility] 05/15 22:09 Order name: Cardiac monitoring; Complete Time: 23:17 [facility] 05/15 22:09 Order name: EKG - Nurse/Tech; Complete Time: 02:07 [facility] 05/15 22:09 Order name: IV Saline Lock; Complete Time: 23:17 [facility] 05/15 22:09 Order name: Labs collected and sent; Complete Time: 23:17 [facility] 05/15 22:09 Order name: O2 Per Protocol; Complete Time: 23:17 [facility] 05/15 22:09 Order name: O2 Sat Monitoring; Complete Time: 23:17 [facility] 05/15 22:40 Order name: Sling; Complete Time: 00:35 [facility] 05/15 22:40 Order name: Ice pack; Complete Time: 00:35 [facility] EC:35 Rate is 73 beats/min. Rhythm is regular. QRS Savage is Normal. ID interval is normal. QRS pablo interval is normal. QT interval is normal. No Q waves. T waves are Normal. No ST changes noted. Clinical impression: NSR w/ Non-specific ST/T Changes and No evidence of ischemia. Interpreted by me. Reviewed by me. Administered Medications: 23:38 Drug: Ondansetron IVP 4 mg IVP once; over 2 minutes Route: IVP; Site: left hand; [facility] 05/16 00:00 Follow up: Response: No adverse reaction; Marked relief of symptoms [facility] 05/15 23:39 Drug: NS 0.9% IV 1000 ml IV at 1000 ml once; to be given as a bolus over 60 minutes [facility] Route: IV; Rate: 1000 ml; Site: left hand; 05/16 02:02 Follow up: Response: No adverse reaction; IV Status: Completed infusion 8 05/15 23:39 Drug: fentaNYL (PF) IVP 25 mcg IVP once Route: IVP; Site: left hand; [facility] 05/16 00:00 Follow up: Response: No adverse reaction; Marked relief of symptoms 4 05/15 23:39 Drug: fentaNYL (PF) IVP 25 mcg IVP once Route: IVP; Site: left hand; 4 05/16 00:32 Follow up: Response: No adverse reaction; Marked relief of symptoms jb4 Disposition Summary: 05/15/24 23:35 Hospitalization Ordered Notes: Hospitalization Status: Observation pablo Provider: Prince pablo Cochran Condition: Stable pablo Problem: new pablo Symptoms: have improved pablo Bed/Room Type: Standard pablo Location: Telemetry/MedSurg (Inpatient)(05/16/24 13:24) sp Room Assignment: 208(05/16/24 13:24) sp Diagnosis - Fall on same level, unspecified pablo - Syncope Near pablo - Multiple myeloma not having achieved remission pablo - Displaced fracture of shaft of right clavicle pablo - Abnormal findings on diagnostic imaging of other specified body structures - left pablo anterior rib #6 fx, left ischium - Antineoplastic chemotherapy induced pancytopenia pablo Forms: - Medication Reconciliation Form pablo - SBAR form pablo - Leadership Thank You Letter pablo Signatures: Dispatcher [employer] EDMS Geovani Tolbert MD MD cha Pinkerton, Shawna sp Garcia, Cindy, RN RN cg Bryson, James, RN RN jb4 Frieda Delgado cp4 Jayden Lopez RN bm8 Corrections: (The following items were deleted from the chart) 05/15 22:10 22:10 BASIC METABOLIC PANEL+C.LAB.BRZ ordered. EDMS EDMS 22:10 22:10 CBC+H.LAB.BRZ ordered. EDMS EDMS 22:10 22:10 HEPATIC FUNCTION+C.LAB.BRZ ordered. EDMS EDMS 22:10 22:10 MAGNESIUM+C.LAB.BRZ ordered. EDMS EDMS 22:10 22:10 PROBNP+C.LAB.BRZ ordered. EDMS EDMS 22:10 22:10 PROTIME (+INR)+COAG.LAB.BRZ ordered. EDMS EDMS 22:10 22:10 Troponin High Sensitivity+C.LAB.BRZ ordered. EDMS EDMS 22:10 22:10 LIPASE+C.LAB.BRZ ordered. EDMS EDMS 22:10 22:10 Urinalysis+U.LAB.BRZ ordered. EDMS EDMS 22:10 22:10 Chest Single View+RAD.RAD.BRZ ordered. EDMS EDMS 22:10 22:10 Head C Spine Cap Wo Con+CT.RAD.BRZ ordered. EDMS EDMS 22:10 22:10 Shoulder Right 2 View+RAD.RAD.BRZ ordered. EDMS EDMS 05/16 00:01 00:01 Chest For PE Angio+CT.RAD.BRZ ordered. EDMS EDMS 03:05/15 23:35 Telemetry/MedSurg (Inpatient) [facility] 05/16 03:23 05/15 23:35 [facility] 05/16 13:24 03:23 BR ER HOLD cg sp 13:24 03:23 ERHOLD- cg sp
--- NOTE | 2024-05-15 23:35 | ER ---
Nurse's Notes [facility] Name: Sunni Tripathi Age: 73 yrs Sex: Female : 1950 Arrival Date: 05/15/2024 Time: 21:49 Bed 26 Private MD: Diagnosis: Fall on same level, unspecified;Syncope Near;Multiple myeloma not having achieved remission;Displaced fracture of shaft of right clavicle;Abnormal findings on diagnostic imaging of other specified body structures-left anterior rib #6 fx, left ischium;Antineoplastic chemotherapy induced pancytopenia Presentation: 05/15 21:51 Mechanism of Injury: Fall from standing position. Trauma event details: Injury occurred jb4 in the [facility]. 21:51 Chief complaint: EMS states: syncopal episode with a fall from standing. Reports right cp4 clavicle pain. Care prior to arrival: None. Mechanism of Injury: Fall from standing position. Trauma event details: Injury occurred in the [facility]. 21:51 Acuity: SIM 3 cp4 21:51 Method Of Arrival: EMS: [facility] cp4 22:00 Coronavirus screen: At this time, the client does not indicate any symptoms associated jb4 with coronavirus-19. Ebola Screen: No symptoms or risks identified at this time. Initial Sepsis Screen: Does the patient meet any 2 criteria? No. Patient's initial sepsis screen is negative. Does the patient have a suspected source of infection? No. Patient's initial sepsis screen is negative. Risk Assessment: Do you want to hurt yourself or someone else? Patient reports no desire to harm self or others. Onset of symptoms was May 16, 2024. Trauma Activation: Not Applicable Physician: ED Physician; Name: ; Notified At: ; Arrived At: Physician: General Surgeon; Name: ; Notified At: ; Arrived At: Physician: Radiology; Name: ; Notified At: ; Arrived At: Physician: Respiratory; Name: ; Notified At: ; Arrived At: Physician: Lab; Name: ; Notified At: ; Arrived At: Historical: - Allergies: 21:54 anesthesia gases; cp4 21:54 Morphine; cp4 21:54 Gammagard S/D; cp4 - Immunization history:: Adult Immunizations up to date. - Immunization history: Last tetanus immunization: - up to date. - Infectious Disease History:: Denies. - Social history:: Smoking status: Patient denies any tobacco usage or history of. Screenin:55 Abuse screen: Denies threats or abuse. Nutritional screening: No deficits noted. jb4 Tuberculosis screening: No symptoms or risk factors identified. Fall risk At risk due to injury, prior history of falls. 22:00 [facility] ED Fall Risk Assessment (Adult) History of falling in the last 3 months, jb4 including since admission Yes- single mechanical fall (1 pt) Confusion or Disorientation No (0 pts) Intoxicated or Sedated No (0 pts) Impaired Gait Yes (1 pt) Mobility Assist Device Used No (0 pt) Altered Elimination No (0 pt) Score/Fall Risk Level 0 - 2 = Low Risk Oriented to surroundings, Maintained a safe environment. Primary Survey: 21:51 NO uncontrolled hemorrhage observed. A: The client is awake and alert. The airway is jb4 patent. Breathing/Chest: Spontaneous respiratory effort, equal unlabored respirations, breath sounds clear bilaterally, regular pattern, symmetrical chest rise and fall. Circulation: No external hemorrhage present. Regular and strong central pulse, skin warm/dry/normal color. Disability Pupils are equal, round, reactive to light and accommodation. Exposure/Environment: All clothing and personal items were removed. Forensic evidence collection is not deemed to be indicated at this time. Items placed in patient belonging bag. 23:00 Reassessment Alertness and Airway: Awake and alert. The airway is patent. Breathing: jb4 Spontaneous respiratory effort, equal unlabored respirations, breath sounds clear bilaterally, regular pattern with symmetrical chest rise and fall. Circulation: No external hemorrhage noted. Regular and strong central pulse, skin warm/dry/normal color. Disability: Pupils Pupils are equal, round, reactive to light and accomodation. Secondary Survey: 21:51 HEENT: No deficits noted. Gastrointestinal: No deficits noted. : No deficits noted. jb4 Musculoskeletal: Range of motion: limited in right shoulder Reports pain in right shoulder. Assessment: 21:51 General: Appears in no apparent distress. comfortable, Behavior is calm, cooperative, jb4 appropriate for age. Pain: Complains of pain in right shoulder. Neuro: Level of Consciousness is awake, alert, obeys commands, Oriented to person, place, time, situation. Cardiovascular: Patient's skin is warm and dry. Respiratory: Airway is patent Respiratory effort is even, unlabored, Respiratory pattern is regular, symmetrical. Derm: Skin is intact, Skin is pink, warm \T\ dry. Musculoskeletal: Circulation, motion, and sensation intact. Range of motion: intact in all extremities. 23:00 Reassessment: Patient appears in no apparent distress at this time. Patient and/or jb4 family updated on plan of care and expected duration. Pain level reassessed. Patient is alert, oriented x 3, equal unlabored respirations, skin warm/dry/pink. 05/16 00:00 Reassessment: Patient appears in no apparent distress at this time. Patient and/or jb4 family updated on plan of care and expected duration. Pain level reassessed. Patient is alert, oriented x 3, equal unlabored respirations, skin warm/dry/pink. Report given to CHANI Carpenter. 01:59 Reassessment: Patient appears in no apparent distress at this time. Patient and/or bm8 family updated on plan of care and expected duration. Pain level reassessed. Patient is alert, oriented x 3, equal unlabored respirations, skin warm/dry/pink. Patient states feeling better. Patient states symptoms have improved. Vital Signs: 05/15 21:51 BP 121 / 60; Pulse 66; Resp 16; Temp 97.2(O); Pulse Ox 93% on R/A; Weight 80.74 kg; jb4 Height 5 ft. 7 in. (R); Pain 9/10; 23:00 BP 118 / 62; Pulse 68; Resp 16; Pulse Ox 93% on R/A; 4 05/16 01:59 BP 103 / 52; Pulse 75; Resp 18; Temp 97.2; Pulse Ox 98% on 2 lpm NC; Pain 4/10; bm8 05/15 21:51 Body Mass Index 27.88 (80.74 kg, 170.18 cm) [facility] 05/15 21:51 Pain Scale: Adult 4 05/16 01:59 Pain Scale: Adult 8 Bernie Coma Score: 05/15 21:51 Eye Response: spontaneous(4). Motor Response: obeys commands(6). Verbal Response: jb4 oriented(5). Total: 15. 23:00 Eye Response: spontaneous(4). Motor Response: obeys commands(6). Verbal Response: jb4 oriented(5). Total: 15. 05/16 01:59 Eye Response: spontaneous(4). Motor Response: obeys commands(6). Verbal Response: bm8 oriented(5). Total: 15. Trauma Score (Adult): 05/15 21:51 Eye Response: spontaneous(1); Verbal Response: oriented(1); Motor Response: obeys jb4 commands(2); Systolic BP: > 89 mm Hg(4); Respiratory Rate: 10 to 29 per min(4); Bernie Score: 15; Trauma Score: 12 23:00 Eye Response: spontaneous(1); Verbal Response: oriented(1); Motor Response: obeys jb4 commands(2); Systolic BP: > 89 mm Hg(4); Respiratory Rate: 10 to 29 per min(4); [place] Score: 15; Trauma Score: 12 ED Course: 21:50 Patient arrived in ED. jj6 21:52 Triage completed. cp4 21:55 Patient has correct armband on for positive identification. Bed in low position. Call jb4 light in reach. Side rails up X 1. 21:56 [facility]ov[facility] MD is Attending Physician. [facility] 22:00 Provided Education on: plan of care. jb4 22:00 No provider procedures requiring assistance completed. Maintain EMS IV. Dressing jb4 intact. Good blood return noted. Site clean \T\ dry. Gauge \T\ site: 22 L hand. Flushed with 10 mL NS. 22:27 XRAY Chest (1 view) In Process Unspecified. EDMS 22:27 Shoulder Right (2 View) XRAY In Process Unspecified. EDMS 22:33 Head C Spine Mpr Wo Con In Process Unspecified. EDMS 22:33 Chest Abd Pelvis Wo Con In Process Unspecified. EDMS 23:28 Prince Cochran MD is Hospitalizing Provider. [facility] 05/16 00:30 Patient admitted, IV remains in place. jb4 00:30 Patient maintains SpO2 saturation greater than 95% on room air. Thermoregulation: warm jb4 blanket given to patient. 01:35 Jayden Lopez, RN is Primary Nurse. bm8 01:35 Inserted saline lock: 20 gauge in left forearm, using aseptic technique. Flushed with bm8 10 mL NS. 01:59 Client placed on continuous cardiac and pulse oximetry monitoring. NIBP monitoring bm8 applied. 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 Pulse ox on. NIBP on. 02:11 Arm band placed on right wrist. bm8 Administered Medications: 05/15 23:38 Drug: Ondansetron IVP 4 mg IVP once; over 2 minutes Route: IVP; Site: left hand; jb4 05/16 00:00 Follow up: Response: No adverse reaction; Marked relief of symptoms jb4 05/15 23:39 Drug: NS 0.9% IV 1000 ml IV at 1000 ml once; to be given as a bolus over 60 minutes jb4 Route: IV; Rate: 1000 ml; Site: left hand; 05/16 02:02 Follow up: Response: No adverse reaction; IV Status: Completed infusion bm8 05/15 23:39 Drug: fentaNYL (PF) IVP 25 mcg IVP once Route: IVP; Site: left hand; jb4 05/16 00:00 Follow up: Response: No adverse reaction; Marked relief of symptoms jb4 05/15 23:39 Drug: fentaNYL (PF) IVP 25 mcg IVP once Route: IVP; Site: left hand; jb4 05/16 00:32 Follow up: Response: No adverse reaction; Marked relief of symptoms jb4 Medication: 00:00 VIS not applicable for this client. jb4 Intake: 01:36 IV: 1000ml; Total: 1000ml. bm8 Outcome: 05/15 23:35 Decision to Hospitalize by Provider. pablo 05/16 00:29 Admitted to ER Hold. Please see [facility] for further documentation. jb4 Condition: stable Discharge instructions given to patient, Instructed on the need for admit, Demonstrated understanding of instructions, 00:29 Patient's length of stay in the Emergency Department was greater than 2 hours. jb4 Patient's length of stay was extended due to staffing issues within the emergency department. 14:27 Patient left the ED. aa5 Signatures: Dispatcher [employer] EDMS Geovani Tolbert MD MD cha Calderon, Audri, RN RN aa5 Ancelmo Lemus, RN RN jb4 Aysha Prince Christina 4 Jayden Lopez, RN RN bm8
[2024-05-15 23:43] LABS: AST/SGOT 13 U/L (15-37); Albumin 3.4 g/dL (3.4-5.0); Albumin/Globulin Ratio 1.2 (1.1-1.8); Alkaline Phosphatase 69 U/L (45-117); Anion Gap 9.8 mEq/L (5.0-15.0); BUN Blood Urea Nitrogen 15 mg/dL (7-18); Bicarbonate 28 mEq/L (21-32); Bilirubin Direct 0.2 mg/dL (0-0.2); Bilirubin Indirect, Calculated 0.4 mg/dL (0.2-0.8); Bilirubin Total 0.6 mg/dL (0.2-1.0); Globulin 2.8 g/dL (2.3-3.5); Glomerular Filtration Rate 62 ml/min (=/>90); Glucose Level 120 mg/dL (74-106); Lipase 47 U/L (13-75); NT PRO-BNP 818 pg/mL (<450); Potassium 3.8 mEq/L (3.5-5.1); Protein, Total 6.2 g/dL (6.4-8.2); Sodium Level 137 mEq/L (136-145); Troponin High Sensitivity 5.1 pg/mL (<58.9)
[2024-05-15 23:51] LABS: ALT/SGPT < 14 U/L (13-56)
[2024-05-16] MEDS: NA CHLORIDE 0.9% 1,000 ML IV SCH (01:00)
--- NOTE | 2024-05-16 01:00 | P.HP ---
Certification for Inpatient Patient admitted to: Observation With expected LOS: <2 Midnights Practitioner: I am a practitioner with admitting privileges, knowledge of patient current condition, hospital course, and medical plan of care. Services: Services provided to patient in accordance with Admission requirements found in Title 42 Section 412.3 of the Code of Federal Regulations Patient History Date of Service: 05/16/24 Reason for admission: syncope History of Present Illness: Patient is a 73-year-old female who is being admitted after she presented with syncope. She has a history of multiple sclerosis and multiple myeloma. She was ambulating last evening from her kitchen to the living room when she suddenly felt diaphoretic and lightheaded. She passed out and eventually regained consciousness. This was not a witnessed event as patient lives alone. She called EMS. Workup in the ER has been largely unremarkable except for right clavicular fracture captured on trauma workup. During my evaluation is awake and responded appropriately to questions. Basic labs are significant for pancytopenia. Allergies glucose [From Gammagard S/D] Allergy (Verified 12/02/23 08:02) Flatlined glycine [From Gammagard S/D] Allergy (Verified 12/02/23 08:02) Flatlined IgA less than or equal to 50 mcg/mL [From Gammagard S/D] Allergy (Verified 12/02/23 08:02) Flatlined immune globulin,gamma (IgG) human [From Gammagard S/D] Allergy (Verified 12/02/23 08:02) Flatlined morphine Allergy (Verified 12/02/23 08:02) MS episode ether Adverse Reaction (Verified 12/02/23 08:02) Coma episode other Allergy (Uncoded 12/02/23 08:02) NO GAS SEDATION Home Medications: Albuterol Inhaler [Ventolin Inhaler*] 2 puff IH Q6HP PRN 11/14/20 Carvedilol Phosphate [Coreg Cr] 6.25 mg PO DAILY 11/14/20 Dimethyl Fumarate 240 mg PO BID 11/14/20 Gabapentin 1,200 mg PO Q12H 11/14/20 Pantoprazole [Protonix Tab*] 40 mg PO DAILY 11/14/20 Topiramate 50 mg PO BEDTIME 11/14/20 Levothyroxine Sodium 150 mcg PO DAILY 05/31/21 Benzonatate [Tessalon Perle*] 100 mg PO Q8HP PRN 04/20/22 Diclofenac Sodium [Voltaren] 4 gm TOP QID 04/20/22 Polyethyl Gly 3350 [Glycolax*] 17 gm PO DAILY PRN 04/20/22 Potassium Chloride [Klor-Con M10] 10 meq PO DAILY 04/20/22 Sennosides/Docusate Sodium [Senna-S 8.6-50 mg Tablet] 1 - 2 tab PO BID PRN 04/20/22 Tamsulosin [Flomax*] 0.4 mg PO DAILY MDD 14 04/20/22 Tiotropium Br/Olodaterol HCl [Stiolto Respimat Inhaler (60)] 2 puff IH DAILY PRN 04/20/22 methocarbamoL [Methocarbamol] 500 mg PO Q8H 04/20/22 Apixaban [Eliquis] 2.5 mg PO BID #60 tablet 04/26/22 - Past Medical/Surgical History Diabetic: No -: MS -: Rheumatoid Arthritis -: spinal meningitis -: Multiple myeloma status post stem cell transplant on chemo -: Atrial fibrillation not on chronic anticoagulation -: 3 major spine surgeries (steel plates in neck area) -: complete hysterectomy -: cholecystectomy -: appendectomy -: Autologous stem cell transplant Psychosocial/ Personal History: Retired, lives alone - Family History Mother -: Diabetes, Stroke, Other (see notes) Notes: MS Father -: Heart disease, Diabetes, Cancer - Social History Alcohol use: No CD- Drugs: No Caffeine use: No Physical Examination - Physical Exam General: Alert HEENT: Atraumatic, Normocephalic Respiratory: Clear to auscultation bilaterally, Normal air movement Cardiovascular: No edema, Normal pulses, Regular rate/rhythm, Normal S1 S2 Neurological: Normal speech - Studies Laboratory Data (last 24 hrs) 05/15/24 05/15/24 05/15/24 22:51 22:51 22:51 WBC 3.30 L Hgb 9.5 L Hct 27.7 L Plt Count 124 L PT 13.3 H INR 1.18 Sodium 137 Potassium 3.8 BUN 15 Creatinine 0.96 Glucose 120 H Magnesium 2.0 Total Bilirubin 0.6 AST 13 L ALT < 14 Alkaline Phosphatase 69 Lipase 47 Assessment and Plan - Problems (Diagnosis) (1) Closed right clavicular fracture Current Visit: Yes Status: Acute (2) Syncope Current Visit: No Status: Acute Qualifiers: - Plan Assessment This is a 73-year-old female admitted for syncope workup assess for right clavicular following her fall. Syncope Multiple myeloma Multiple sclerosis Right clavicular fracture Plan: Will admit under observation with telemetry Check orthostatic vitals Obtain a 2D echo PT/OT before discharge Consult to trauma for right clavicular fracture Pain control Follow-up chest CT ordered by ER - Advance Directives Does patient have a Living Will: No Does patient have a Durable POA for Healthcare: No
[2024-05-16] MEDS ORDERED: NA CHLORIDE 0.9% 1,000 ML ONE (01:44)
[2024-05-16 02:21] VITALS: BMI 27.8
[2024-05-16] MEDS: HYDROMORPHONE HCL 1 MG/ML INJ IV PRN (02:22)
[2024-05-16] MEDS ORDERED: HYDROMORPHONE HCL 1 MG/ML INJ ONE ×2 (02:24→08:11)
--- NOTE | 2024-05-16 04:39 | RAD REPORT ---
CLINICAL HISTORY: PE. COMPARISON: CT Chest Abdomen Pelvis 05/15/2024. TECHNIQUE: CT CHEST ANGIOGRAPHY WITH IV CONTRAST on 05/16/2024 12:00 AM CDT. MIPS reconstructions were generated. This exam was performed according to our departmental dose-optimization program, which includes autom ated exposure control, adjustment of the mA and/or kV according to patient size and/or use of iterative reconstruction technique. MIP images were generated. FINDINGS: Thoracic aorta is normal in course and caliber without aneurysm or dissection. Pulmonary arteries are adequately opacified without acute or chronic filling defects. The heart is normal in size. There is no pericardial effusion. Intrathoracic lymph nodes are not enla rged. There is no pleural effusion, pleural thickening or pneumothorax. Central airways are patent. Lungs a re clear with no consolidation, mass or interstitial lung disease. There are no acute abnormalities within the limited images of the upper abdomen. There are no acute osseous findings. No suspicious bony lesions. IMPRESSION: No aortic dissection or aneurysm. No pulmonary embolus. No pneumonia. Electronically signed by: Erasto Quiñones MD 05/16/2024 04:24 AM CDT RP Due to temporary technical issues with the PACS/[employer] reporting system, reports are being rudy d by the in-house radiologist without review as a courtesy to ensure prompt reporting the interpreting radiologist is fully responsible for the content of the report. Transcribed Date/Time: 05/16/2024 4:38 AM
[2024-05-16] MEDS ORDERED: ONDANSETRON 4 MG/2 ML VIAL ONE (08:10)
[2024-05-16] MEDS: ONDANSETRON 4 MG/2 ML VIAL IV PRN (08:20)
--- NOTE | 2024-05-16 14:42 | P.PN ---
Date of Service: 05/16/24 Subjective: Persistent pain to right clavicular area No other acute events overnight ROS: 10 point ROS as noted above, otherwise negative Physical exam GEN: Alert, oriented, NAD HEENT: Normal conjunctiva, sclera anicteric CV: Regular rate and rhythm, no edema Pulm: Nonlabored respirations on nasal cannula ABD: Soft, nontender, nondistended MSK: No joint tenderness Integumentary: No rashes Neuro: Normal speech, normal affect Vitals reviewed Assessment: Syncope/fall Right clavicular fracture-likely underlying lytic lesion Nondisplaced fracture of the left anterior sixth rib with underlying lesion Left ischium fracture-likely pathological Multiple myeloma Multiple sclerosis RA Atrial fibrillation not on chronic anticoagulation Pancytopenia Plan: Syncope/fall Right clavicular fracture-likely underlying lytic lesion Nondisplaced fracture of the left anterior sixth rib with underlying lesion Left ischium fracture-likely pathological Multiple myeloma Multiple sclerosis Monitor on telemetry, trend troponins Echocardiogram ordered PT, PRN pain meds and incentive spirometry Orthostatic vitals RA Atrial fibrillation not on chronic anticoagulation Pancytopenia Monitor with daily labs Continue home meds DVT PPX:Lovenox Code status:Service Director Spent Managing Pts Care (In Minutes): 35
[2024-05-16] MEDS ORDERED: HOME MED 1 EA UNK (Oxycodone Hcl/Acetaminophen [Oxycodone-Acetaminophn 7.5-325] Tablet) PO PRN (16:11)
[2024-05-16] MEDS ORDERED: STIOLTO RESPIMAT IH PRN (16:11)
[2024-05-16] MEDS ORDERED: IPRATROPIUM NAS PRN (16:11)
[2024-05-16] MEDS: methocarbamoL 500 MG TAB PO SCH (17:48)
[2024-05-16] MEDS: carBAMazepine 200 MG TAB PO SCH (21:11)
[2024-05-16] MEDS: TOPIRAMATE 25 MG TAB PO SCH (21:11)
[2024-05-16] MEDS: POTASSIUM CL SA 10 MEQ TAB PO SCH (21:11)
[2024-05-16] MEDS: GABAPENTIN 400 MG CAP PO SCH (21:11)
[2024-05-16] MEDS: BACLOFEN 10 MG TAB PO SCH (21:11)
[2024-05-16] MEDS: HYDROCODONE/APAP 7.5/325 MG TAB PO PRN (21:18)
[2024-05-17] MEDS: NALOXONE 0.4 MG/ML VIAL ONE (03:41)
[2024-05-17] MEDS: NALOXONE 0.4 MG/ML VIAL IV ONE ×3 (04:00→09:49)
[2024-05-17] MEDS ORDERED: ACETAMINOPHEN 325 MG TABLET PO PRN (04:05)
[2024-05-17] MEDS: KETOROLAC 30 MG/ML INJ IV PRN (04:12)
[2024-05-17 05:19] LABS: Specific Gravity > 1.030 (1.005-1.030); Sqamous Epithelial <5 /HPF (None Seen); Urine Bacteria None Seen /HPF (<20); Urine Bilirubin NEGATIVE (Negative); Urine Blood 2+ (Negative); Urine Clarity Turbid (Clear); Urine Color Light-Yellow (Yellow); Urine Culture Reflex Order NOT NEEDED; Urine Glucose NEGATIVE (Negative); Urine Granular Casts >20 /LPF (None Seen); Urine Ketones NEGATIVE (Negative); Urine Microscopic Reflex YN ORDER UMIC; Urine Mucus Slight /HPF (None Seen); Urine Nitrite NEGATIVE (Negative); Urine Protein 1+ (Negative); Urine Urobilinogen Normal (Normal); Urine WBC <5 /HPF (<5); Urine pH 5.5 (5.0-7.0)
[2024-05-17 06:22] LABS: Absolute Lymphocytes (CBC) 0.5 K/uL (0.7-4.9); Absolute Monocytes 0.5 K/uL (0.1-1.3); Absolute Neutrophil 2.5 K/uL (1.8-8.0); Basophils % 0.5 % (0-1.3); Eosinophils % 0.8 % (0-4.4); Hematocrit 28.1 % (36.0-45.0); Hemoglobin 9.5 g/dL (12.0-15.0); MCH 35.7 pg (27.0-35.0); MCHC 33.7 g/dL (32.0-36.0); MCV 105.9 fL (80-100); MPV 8.4 fL (7.6-11.3); Monocytes % 13.2 % (3.3-12.3); Neutrophils % 70.5 % (41.7-73.7); Nucleated Red Blood Cells % 0.1 % (0-0); Platelets 110 thou/uL (152-406); RBC Red Blood Cell Count 2.65 M/uL (3.86-4.86); Red Cell Distribution Width 15.8 % (12.1-15.2)
[2024-05-17] MEDS: LEVOTHYROXINE SOD 0.075 MG TAB PO SCH (06:30)
[2024-05-17 06:34] LABS: Anion Gap 4.3 mEq/L (5.0-15.0); Magnesium 2.3 mg/dL (1.6-2.4); Phosphorus 4.5 mg/dL (2.5-4.9); Potassium 4.3 mEq/L (3.5-5.1)
[2024-05-17 06:47] LABS: Troponin High Sensitivity 193.4 pg/mL (<58.9)
--- NOTE | 2024-05-17 07:05 | RAD REPORT ---
EXAM: XR Chest, 1 View CLINICAL HISTORY: The patient is 73 years old and is Female; decreased respirations, hypoxia TECHNIQUE: Single view of the chest. COMPARISON: CT angiography chest May 16, 2024. FINDINGS: Lungs: No pulmonary vascular congestion or consolidation. Pleural space: Unremarkable. No pneumothorax. Heart: Unremarkable. No cardiomegaly. Mediastinum: Unremarkable. Bones/joints: Mild scoliosis. No acute rib fracture. Upper abdomen: No free air in the visualized upper abdomen. IMPRESSION: No acute cardiopulmonary process identified. Electronically signed by: Loretta Bruner MD 05/17/2024 06:30 AM CDT RP V2 Due to temporary technical issues with the PACS/[employer] reporting system, reports are being rudy d by the in-house radiologist without review as a courtesy to ensure prompt reporting the interpreting radiologist is fully responsible for the content of the report. Transcribed Date/Time: 05/17/2024 7:05 AM
[2024-05-17] MEDS: PANTOPRAZOLE 40MG TABLET PO SCH (07:30)
[2024-05-17] MEDS: VALACYCLOVIR 500 MG TAB PO SCH (09:00)
[2024-05-17] MEDS: ASPIRIN EC 81 MG TAB PO SCH (09:00)
[2024-05-17 09:19] LABS: Platelet Estimate DECR; Toxic Granulation 1+; White Blood Cell Scan OK (OK)
[2024-05-17 09:20] LABS: Blood Morphology Comment NOTED (NOT SEEN); Macrocytosis 1+
--- NOTE | 2024-05-17 11:16 | P.PN ---
This note is an attestation to the BAKERY HELPER note. Subjective: Looks comfortable in the bed, lethargic, opens eyes to voice once in a while. Objective: General appearance: lethargic and comfortable CVS: Normal S1 and S2 Lungs: Clear to auscultation bilaterally Abdomen: Soft, bowel sounds present, no tenderness Extremities: No lower extremity edema 73-year-old patient with rib and clavicular fractures, DCpain medications for now, incentive spirometry. Has multiple myeloma, follows up at [facility]. Cirrhosis of liver on imaging, follow-up with PCP. She has right clavicle fracture, left-sided rib fractures and left ischial fracture on imaging. Will give narcan to reverse narcotics, resume pain meds at low dose. Elevated Troponin, getting echo and cardiology consult. Plan discussed with the patient on 05/16, DC home soon once pain is controlled. She is not interested in rehab.
--- NOTE | 2024-05-17 13:31 | P.PN ---
Date of Service: 05/17/24 Subjective: Drowsy/Sedated this morning Given dose of narcan Became more responsive shortly after ROS: 10 point ROS as noted above, otherwise negative Physical exam GEN: Drowsy, oriented, NAD HEENT: Normal conjunctiva, sclera anicteric CV: Regular rate and rhythm, no edema Pulm: Nonlabored respirations on nasal cannula ABD: Soft, nontender, nondistended MSK: No joint tenderness Integumentary: No rashes Neuro: Normal speech, normal affect Vitals reviewed Assessment: Syncope/fall Right clavicular fracture-likely underlying lytic lesion Nondisplaced fracture of the left anterior sixth rib with underlying lesion Left ischium fracture-likely pathological Multiple myeloma Multiple sclerosis RA Atrial fibrillation not on chronic anticoagulation Pancytopenia Plan: Syncope/fall Right clavicular fracture-likely underlying lytic lesion Nondisplaced fracture of the left anterior sixth rib with underlying lesion Left ischium fracture-likely pathological Multiple myeloma Multiple sclerosis Monitor on telemetry, trend troponins- mildly elevated so far Echocardiogram ordered-pending Cardiology consult PT, PRN pain meds and incentive spirometry Orthostatic vitals RA Atrial fibrillation not on chronic anticoagulation Pancytopenia Monitor with daily labs Continue home meds DVT PPX:Lovenox Code status:Operations Advisor Spent Managing Pts Care (In Minutes): 35
[2024-05-17] MEDS: LIDOCAINE 4% PATCH TOP SCH (14:57)
[2024-05-17] MEDS: ACETAMINOPHEN 325 MG TABLET PO SCH (15:00)
--- NOTE | 2024-05-17 15:01 | CON ---
Date of Consultation: 05/17/2024 Reason For Consultation: Syncope and elevated troponin. History Of Present Illness: 73-year-old female, history of MS, rheumatoid arthritis, multiple myelom a, atrial fibrillation, presented after syncopal episode. She was ambulating the night of admission from her kitchen to the living room, suddenly felt diaphoretic and lightheaded and passed out. Regai elliot consciousness immediately. Denied having any chest pain. No cardiac history, but the daughter s aid that her blood pressure drops frequently. Past Medical History: As above. Medications: Refer to reconciliation sheet for detailed list. Medications were reviewed. Allergies: NO KNOWN DRUG ALLERGIES. SHE IS ALLERGIC TO . Family History: No premature coronary artery disease or cancer. Social History: She does not smoke or drink. Does not use any drugs. Review of Systems: All systems reviewed and they were negative except as mentioned in the HPI. Physical Examination: Vital Signs: Reviewed and they were stable. Head and Neck: Pupils are equal, reactive to light. Intact eye movements. No JVD. No cervical lym phadenopathy. Neck is supple. Thyroid is not enlarged. Lungs: Clear to auscultation bilaterally. No rhonchi, wheezing, or crackles. No accessory muscle u se. Heart: Regular rate and rhythm. No extra sounds. Abdomen: Soft, nontender. Bowel sounds are positive. No organomegaly. No masses or hernia. No ri gidity or rebound. Extremities: No edema, clubbing, or cyanosis. Intact pulses. Skin: No rash. No nodules. Neurologic: Alert, awake, and oriented x3. No acute focal deficits appreciated. Investigations: Troponin 193. BUN 8, creatinine 0.79, and NT-proBNP is 818, and hemoglobin is 9.5. Assessment And Recommendations: 1. Syncopal episode. Appears to be a drop in blood pressure. There are no palpitations or chest reagan n. Troponin slightly elevated. Keep on school lunch monitor and obtain an echocardiogram and recommend Lexiscan nuclear stress test. See below. 2. Elevated troponin with syncopal episode. We will obtain a Lexiscan nuclear stress test and an ech o to further evaluate this issue and trend the troponins, only 2 sets were checked, repeat 1 now to e valuate the delta and plan accordingly. SR/MODL Voice ID: [id number] Report ID: [id number]
[2024-05-18] MEDS: DICYCLOMINE HCL 10 MG CAP PO PRN (03:22)
[2024-05-18] MEDS ORDERED: REGADENOSON 0.4 MG/5 ML SYR IV ONE (10:17)
--- NOTE | 2024-05-18 10:18 | P.PN ---
Subjective Date of Service: 05/18/24 Chief Complaint: syncope Subjective: No new changes, No C/O voiced, Tolerating diet, Ambulating, Improving Review of Systems 10-point ROS is otherwise unremarkable Physical Examination - Vital Signs Temperature: 98.3 F Blood Pressure: 147/68 Pulse: 78 Respirations: 24 Pulse Ox (%): 94 - Physical Exam General: Alert, In no apparent distress HEENT: Atraumatic, PERRLA, EOMI Neck: Supple, JVD not distended Respiratory: Clear to auscultation bilaterally, Normal air movement Cardiovascular: Regular rate/rhythm, Normal S1 S2 Gastrointestinal: Normal bowel sounds, No tenderness Musculoskeletal: No tenderness Integumentary: No rashes Neurological: Normal speech, Normal tone, Normal affect Lymphatics: No axilla or inguinal lymphadenopathy - Studies Medications List Reviewed: Yes Assessment And Plan - Current Problems (Diagnosis) (1) NSTEMI (non-ST elevated myocardial infarction) Current Visit: Yes Status: Acute Plan: patient enzymes are mild elevated, no significant delta though she got risk factors for CAD pending stress test and echo ASA 81 mg daily Lipitor 40 mg daily (2) Syncope Current Visit: No Status: Acute Plan: tele shows sinus rhythm, most likely vagal, continue to monitor on tele and follow up on echo Qualifiers:
--- NOTE | 2024-05-18 11:25 | EKG ---
Test Date: 2024-05-15 Test Time: 23:31:07 [employer] Lead: AF MEASUREMENT RESULTS: Intervals: Rate: 73 RI: 200 QRSD: 86 QT: 408 QTc: 449 [place]: P: 67 RI: 200 QRS: 54 T: 69 INTERPRETIVE STATEMENTS: Normal sinus rhythm Normal ECG Compared to ECG 12/02/2023 08:19:16 Myocardial infarct finding no longer present Electronically Signed On 05-18-24 11:20:40 CDT by Dustin Mcclure
--- NOTE | 2024-05-18 11:29 | RAD REPORT ---
EXAM :Rest Stress Cardiac Imaging CLINICAL HISTORY: Elevated troponin TECHNIQUE: Rest images: 10.3 mCi technetium 99m sestamibi administered intravenously. Stress images: 30.1 mCi of technetium 99m sestamibi administered intravenously. Cardiac SPECT images obtained COMPARISON: None. FINDINGS: Moderate area of diminished radiotracer activity involves the inferior left ventricular myocardium on rest and stress sequences. Left ventricular ejection fraction equals 70% IMPRESSION: Moderate apparent fixed perfusion defect involving the inferior left ventricular myocardium. This cou ld represent an infarct or attenuation from the diaphragm There is no evidence of stress-induced ischemia
--- NOTE | 2024-05-18 12:20 | TREADPHA ---
DX: ELEVATED TROPONIN Date of Study: 05/18/2024 Ht: 5' 7 " Wt: 177 lb 14.609 oz Consulting Physician: KIKI MEDICATIONS: TYLENOL, ASPIRIN, TEGRETOL, BENTYL, NEURONTIN, SYNTHROID, ROBAXIN, ZOFRAN, PROTONIX, KLOR-CON, TOPAMAX, ULTRAM, VALTREX HISTORY: 73 YEAR OLD FEMALE WITH COMPLAINTS FO FALLING AT HOME. PHYSICIAL EXAMINATION: RESTING B.P.: 150/69 RESTING H.R.: 77 RESTING EKG: SINUS RHYTHM PROTOCOL: PHARMACLOGIC EXERCISE TIME: 3:30 B.P. AT [place] STRESS: 139/62 IMPRESSION: LEXISCAN INJECTED. CARDIOLITE INJECTED - SEE NUCLEAR MEDICINE REPORT. NO CHEST PAIN. NO VENTRICULAR TACHYCARDIA, NO ARRHYTHMIA, NO SUPRAVENTRICULAR TACHYCARDIA, COFFEE PROVIDED. COMPLAINTS OF HEADACHE.
--- NOTE | 2024-05-18 13:14 | P.PN ---
Date of Service: 05/18/24 Subjective: Much more alert Feeling better today Stress test and PT eval today ROS: 10 point ROS as noted above, otherwise negative Physical exam GEN: Drowsy, oriented, NAD HEENT: Normal conjunctiva, sclera anicteric CV: Regular rate and rhythm, no edema Pulm: Nonlabored respirations on nasal cannula ABD: Soft, nontender, nondistended MSK: No joint tenderness Integumentary: No rashes Neuro: Normal speech, normal affect Vitals reviewed Assessment: Syncope/fall Right clavicular fracture-likely underlying lytic lesion Nondisplaced fracture of the left anterior sixth rib with underlying lesion Left ischium fracture-likely pathological Multiple myeloma Multiple sclerosis RA Atrial fibrillation not on chronic anticoagulation Pancytopenia Plan: Syncope/fall Right clavicular fracture-likely underlying lytic lesion Nondisplaced fracture of the left anterior sixth rib with underlying lesion Left ischium fracture-likely pathological Multiple myeloma Multiple sclerosis Monitor on telemetry, troponins mildly elevated but trended flat Echocardiogram ordered-pending Cardiology consult Recommended stress test which shows no reversible ischemia-fixed defect noted PT, PRN pain meds and incentive spirometry PT consult to determine needs at DC Await cardiology recs/PT eval then poss DC RA Atrial fibrillation not on chronic anticoagulation Pancytopenia Monitor with daily labs Continue home meds DVT PPX:Lovenox Code status:Early Childhood Aide Classroom Spent Managing Pts Care (In Minutes): 35 <Colt Bauman - Last Filed: 05/18/24 13:11> Patient was seen and examined. Events of the last 24 hours have been noted. Spoke with with ALLAN regarding patient's clinical picture after evaluating and examining the patient independently. I performed a substantial part of the MDM during this patient's care today. I personally made or approved the documented management plan and acknowledge its risk of complications. I agree with the findings and documentation provided in the ALLAN's notes. <Lazaro Neff - Last Filed: 05/28/24 14:03>
[2024-05-18] MEDS: TRAMADOL HCL 50 MG TAB PO PRN (18:31)
--- NOTE | 2024-05-19 02:58 | P.PN ---
Subjective Date of Service: 05/19/24 Chief Complaint: syncope Pain control as needed analgesics, plan to work with physical therapy <Kiersten Lou - Last Filed: 05/20/24 00:48> Date of Service: 05/19/24 <Lazaro Neff - Last Filed: 05/28/24 14:04> Review of Systems 10-point ROS is otherwise unremarkable <Kiersten Lou - Last Filed: 05/20/24 00:48> Physical Examination - Vital Signs Temperature: 98.3 F Blood Pressure: 149/67 Pulse: 78 Respirations: 17 Pulse Ox (%): 96 - Physical Exam General: Alert, In no apparent distress HEENT: Atraumatic, Normocephalic Neck: Supple, 2+ carotid pulse no bruit Respiratory: Normal air movement Cardiovascular: Irregular heart rate/rhythm Gastrointestinal: Normal bowel sounds, Soft and benign Musculoskeletal: Other (Right clavicular fracture, Left non discplaced rib fx, pain with ROM, ) Integumentary: No breakdown, No significant lesion Neurological: Normal speech, Normal strength at 5/5 x4 extr - Studies Medications List Reviewed: Yes <Kiersten Lou - Last Filed: 05/20/24 00:48> Assessment And Plan - Plan Assessment/Plan: Syncope/fall Cardiology consult Telemetry Fall precaution Echo ordered Right clavicular fracture-likely underlying lytic lesion Nondisplaced fracture of the left anterior sixth rib with underlying lesion Left ischium fracture-likely pathological PRN pain meds incentive spirometry PT/OT/speech Pancytopenia Multiple myeloma Multiple sclerosis RA trend/ replace elect prn Follow-up with rheumatology, oncology after discharge Monitor with daily labs Continue home meds NSTEMI Atrial fibrillation not on chronic anticoagulation Echocardiogram ordered-pending Cardiology consult stress test which shows no reversible ischemia-fixed defect noted Monitor on telemetry, troponins mildly elevated but trended flat Echocardiogram ordered-pending DVT PPX:Lovenox Code status:Remote Broadcast Technician Spent Managing Pts Care (In Minutes): 35 Critical Care: No Time Spent Managing PTS Care (In Minutes): 35 <Kiersten Lou - Last Filed: 05/20/24 00:48> Date of Service: 05/19/24 Patient was seen and examined. Events of the last 24 hours have been noted. Spoke with with ALLAN regarding patient's clinical picture after evaluating and examining the patient independently. I performed a substantial part of the MDM during this patient's care today. I personally made or approved the documented management plan and acknowledge its risk of complications. I agree with the findings and documentation provided in the ALLAN's notes. <Lazaro Neff - Last Filed: 05/28/24 14:04>
[2024-05-19 04:50] LABS: Absolute Eosinophils 0.1 K/uL (0-0.5); Absolute Lymphocytes (CBC) 0.4 K/uL (0.7-4.9); Absolute Monocytes 0.4 K/uL (0.1-1.3); Absolute Neutrophil 2.7 K/uL (1.8-8.0); Basophils % 0.6 % (0-1.3); Eosinophils % 2.8 % (0-4.4); Hematocrit 27.3 % (36.0-45.0); Hemoglobin 9.4 g/dL (12.0-15.0); Lymphocytes % 11.4 % (15.3-44.8); MCH 35.7 pg (27.0-35.0); MCHC 34.4 g/dL (32.0-36.0); MCV 103.6 fL (80-100); MPV 8.2 fL (7.6-11.3); Monocytes % 11.8 % (3.3-12.3); Neutrophils % 73.4 % (41.7-73.7); Nucleated Red Blood Cells % 0.1 % (0-0); Platelets 119 thou/uL (152-406); RBC Red Blood Cell Count 2.64 M/uL (3.86-4.86); Red Cell Distribution Width 15.2 % (12.1-15.2)
[2024-05-19 05:10] LABS: Albumin 3.2 g/dL (3.4-5.0); Albumin/Globulin Ratio 1.1 (1.1-1.8); Alkaline Phosphatase 63 U/L (45-117); BUN Blood Urea Nitrogen 7 mg/dL (7-18); Bicarbonate 32 mEq/L (21-32); Bilirubin Total 0.4 mg/dL (0.2-1.0); Globulin 2.9 g/dL (2.3-3.5); Glomerular Filtration Rate 75 ml/min (=/>90); Glucose Level 124 mg/dL (74-106); Magnesium 2.1 mg/dL (1.6-2.4); Phosphorus 2.5 mg/dL (2.5-4.9); Protein, Total 6.1 g/dL (6.4-8.2); Sodium Level 140 mEq/L (136-145)
[2024-05-19 05:13] LABS: ALT/SGPT < 14 U/L (13-56); AST/SGOT < 10 U/L (15-37)
[2024-05-19] MEDS: POTASS/SODIUM PHOSPHATE 1 PKT POWD.PACK PO SCH (08:07)
--- NOTE | 2024-05-19 10:41 | P.PN ---
Subjective Date of Service: 05/19/24 Chief Complaint: syncope Subjective: No new changes, No C/O voiced, Tolerating diet, Ambulating, Improving Review of Systems 10-point ROS is otherwise unremarkable Physical Examination - Vital Signs Temperature: 97.5 F Blood Pressure: 163/76 Pulse: 72 Respirations: 20 Pulse Ox (%): 97 - Physical Exam General: Alert, In no apparent distress HEENT: Atraumatic, PERRLA, EOMI Neck: Supple, JVD not distended Respiratory: Clear to auscultation bilaterally, Normal air movement Cardiovascular: Regular rate/rhythm, Normal S1 S2 Gastrointestinal: Normal bowel sounds, No tenderness Musculoskeletal: No tenderness Integumentary: No rashes Neurological: Normal speech, Normal tone, Normal affect Lymphatics: No axilla or inguinal lymphadenopathy - Studies Medications List Reviewed: Yes Assessment And Plan - Current Problems (Diagnosis) (1) NSTEMI (non-ST elevated myocardial infarction) Current Visit: Yes Status: Acute Plan: patient enzymes are mild elevated, no significant delta though she got risk factors for CAD Stress test shows fixed inferior wall defect, most likely artifact ASA 81 mg daily Lipitor 40 mg daily No further cardiac work up needed. (2) Syncope Current Visit: No Status: Acute Plan: tele shows sinus rhythm, most likely vagal, continue to monitor on tele. outpatient follow up with cardiology for event monitor and Echo Cardiology will sign off, please call with any questions. Qualifiers:
[2024-05-19] MEDS: DIMETHYL FUMARATE 240 MG PO SCH (16:53)
[2024-05-20 05:03] LABS: Absolute Eosinophils 0.1 K/uL (0-0.5); Absolute Lymphocytes (CBC) 0.6 K/uL (0.7-4.9); Absolute Monocytes 0.4 K/uL (0.1-1.3); Absolute Neutrophil 1.4 K/uL (1.8-8.0); Basophils % 1.2 % (0-1.3); Eosinophils % 5.4 % (0-4.4); Hematocrit 28.4 % (36.0-45.0); Hemoglobin 9.8 g/dL (12.0-15.0); Lymphocytes % 21.8 % (15.3-44.8); MCH 35.8 pg (27.0-35.0); MCHC 34.5 g/dL (32.0-36.0); MCV 103.7 fL (80-100); MPV 7.9 fL (7.6-11.3); Monocytes % 16.1 % (3.3-12.3); Neutrophils % 55.5 % (41.7-73.7); Nucleated Red Blood Cells % 0.3 % (0-0); Platelets 106 thou/uL (152-406); RBC Red Blood Cell Count 2.74 M/uL (3.86-4.86); Red Cell Distribution Width 15.6 % (12.1-15.2)
[2024-05-20 05:17] LABS: Albumin 3.1 g/dL (3.4-5.0); Alkaline Phosphatase 67 U/L (45-117); BUN Blood Urea Nitrogen 9 mg/dL (7-18); Bicarbonate 31 mEq/L (21-32); Bilirubin Total 0.4 mg/dL (0.2-1.0); Glomerular Filtration Rate 76 ml/min (=/>90); Glucose Level 100 mg/dL (74-106); Phosphorus 3.2 mg/dL (2.5-4.9); Protein, Total 6.1 g/dL (6.4-8.2); Sodium Level 140 mEq/L (136-145)
[2024-05-20 05:23] LABS: ALT/SGPT < 14 U/L (13-56); AST/SGOT < 10 U/L (15-37)
[2024-05-20 05:29] LABS: Blood Morphology Comment NOTED (NOT SEEN); Ovalocytes 2+; Platelet Estimate ADEQ; White Blood Cell Scan OK (OK)
--- NOTE | 2024-05-20 07:09 | P.PN ---
Date of Service: 05/20/24 Subjective Chief Complaint: syncope Pain control as needed analgesics, plan to work with physical therapy Pending long-term facility for discharge Review of Systems 10-point ROS is otherwise unremarkable Physical Examination - Vital Signs Reviewed - Physical Exam General: Alert, awake, afebrile HEENT: Atraumatic, Normocephalic Neck: Supple, 2+ carotid pulse no bruit Respiratory: Normal air movement, unlabored Cardiovascular: Regular heart rate/rhythm Gastrointestinal: Normal bowel sounds, nontender Musculoskeletal: Other (Right clavicular fracture, Left non discplaced rib fx, pain with ROM, ) Integumentary: No breakdown, No significant lesion Neurological: Normal speech, Normal strength at 5/5 x4 extr - Studies Medications List Reviewed: Yes Assessment And Plan - Plan Assessment/Plan: Syncope/fall Cardiology consult Telemetry Fall precaution Echo ordered Right clavicular fracture-likely underlying lytic lesion Nondisplaced fracture of the left anterior sixth rib with underlying lesion Left ischium fracture-likely pathological PRN pain meds incentive spirometry PT/OT/speech Pancytopenia Multiple myeloma Multiple sclerosis RA trend/ replace elect prn Follow-up with rheumatology, oncology after discharge Monitor with daily labs Continue home meds NSTEMI Atrial fibrillation not on chronic anticoagulation Echocardiogram ordered-pending Cardiology consult stress test which shows no reversible ischemia-fixed defect noted Monitor on telemetry, troponins mildly elevated but trended flat Echocardiogram ordered-pending DVT PPX:Lovenox Code status:Counter Waitress/Waiter Spent Managing Pts Care (In Minutes): 35 <Kiersten Lou - Last Filed: 05/21/24 01:54> Patient was seen and examined. Events of the last 24 hours have been noted. Spoke with with ALLAN regarding patient's clinical picture after evaluating and examining the patient independently. I performed a substantial part of the MDM during this patient's care today. I personally made or approved the documented management plan and acknowledge its risk of complications. I agree with the findings and documentation provided in the ALLAN's notes. <Lazaro Neff - Last Filed: 05/28/24 14:04>
[2024-05-21 05:02] LABS: Absolute Eosinophils 0.1 K/uL (0-0.5); Absolute Lymphocytes (CBC) 0.7 K/uL (0.7-4.9); Absolute Monocytes 0.5 K/uL (0.1-1.3); Absolute Neutrophil 1.9 K/uL (1.8-8.0); Basophils % 0.8 % (0-1.3); Hematocrit 29.6 % (36.0-45.0); Hemoglobin 10.2 g/dL (12.0-15.0); Lymphocytes % 20.5 % (15.3-44.8); MCHC 34.6 g/dL (32.0-36.0); MCV 104.2 fL (80-100); MPV 8.1 fL (7.6-11.3); Monocytes % 14.8 % (3.3-12.3); Neutrophils % 59.9 % (41.7-73.7); Nucleated Red Blood Cells % 0.1 % (0-0); Platelets 145 thou/uL (152-406); RBC Red Blood Cell Count 2.84 M/uL (3.86-4.86); Red Cell Distribution Width 15.6 % (12.1-15.2)
[2024-05-21 05:08] LABS: Magnesium 2.1 mg/dL (1.6-2.4); Phosphorus 3.6 mg/dL (2.5-4.9)
--- NOTE | 2024-05-21 06:07 | P.PN ---
Date of Service: 05/21/24 Subjective Chief Complaint: syncope Pending intermediate facility for discharge Review of Systems 10-point ROS is otherwise unremarkable Physical Examination - Vital Signs Reviewed - Physical Exam General: Alert, awake, HEENT: Atraumatic, Normocephalic Respiratory: Normal air movement, unlabored Cardiovascular: Regular heart rate/rhythm Gastrointestinal: nontender Musculoskeletal: Other (Right clavicular fracture, Left non discplaced rib fx, pain with ROM, ) Integumentary: No breakdown, No significant lesion Neurological: Normal speech, Normal strength at 5/5 x4 extr - Studies Medications List Reviewed: Yes Assessment And Plan - Plan Assessment/Plan: Syncope/fall Cardiology consult-likely secondary to vagal response Telemetry Fall precaution Discharge medications aspirin 81 mg daily Lipitor 40 mg daily EKG sinus rhythm Right clavicular fracture-likely underlying lytic lesion Nondisplaced fracture of the left anterior sixth rib with underlying lesion Left ischium fracture-likely pathological PRN pain meds incentive spirometry PT/OT/speech Pancytopenia Multiple myeloma Multiple sclerosis RA trend/ replace elect prn Follow-up with rheumatology, oncology after discharge Monitor with daily labs Continue home meds NSTEMI Atrial fibrillation not on chronic anticoagulation Echocardiogram ordered-pending Cardiology consult stress test which shows no reversible ischemia-fixed defect noted Monitor on telemetry, troponins mildly elevated but trended flat Echocardiogram ordered-pending DVT PPX:Lovenox Code status:Head Of Research & Insights Spent Managing Pts Care (In Minutes): 25 <Kiersten Lou - Last Filed: 05/22/24 11:14> Patient was seen and examined. Events of the last 24 hours have been noted. Spoke with with ALLAN regarding patient's clinical picture after evaluating and examining the patient independently. I performed a substantial part of the MDM during this patient's care today. I personally made or approved the documented management plan and acknowledge its risk of complications. I agree with the findings and documentation provided in the ALLAN's notes. <Lazaro Neff - Last Filed: 05/28/24 14:04>
--- NOTE | 2024-05-21 06:11 | P.DS ---
Admission Date: 05/16/24 Discharge Date: 05/22/24 Disposition: TRANSFER TO LONGTERM Discharge Condition: GOOD Reason for Admission: syncope Brief History of Present Illness: Patient is a 73-year-old female who is being admitted after she presented with syncope. She has a history of multiple sclerosis and multiple myeloma. She was ambulating last evening from her kitchen to the living room when she suddenly felt diaphoretic and lightheaded. She passed out and eventually regained consciousness. This was not a witnessed event as patient lives alone. She called EMS. Workup in the ER has been largely unremarkable except for right clavicular fracture captured on trauma workup. During my evaluation is awake and responded appropriately to questions. Basic labs are significant for pancytopenia. - Physical Exam General: Alert, awake, afebrile HEENT: Atraumatic, Normocephalic Neck: Supple, 2+ carotid pulse no bruit Respiratory: Normal air movement, unlabored Cardiovascular: Regular heart rate/rhythm Gastrointestinal: Normal bowel sounds, nontender Musculoskeletal: Other (Right clavicular fracture, Left non discplaced rib fx, pain with ROM, ) Integumentary: No breakdown, No significant lesion Neurological: Normal speech, Normal strength at 5/5 x4 extr Hospital Course: Patient is a 73-year-old female who is being admitted after she presented with syncope. She has a history of multiple sclerosis and multiple myeloma. She was ambulating last evening from her kitchen to the living room when she suddenly felt diaphoretic and lightheaded. She passed out and eventually regained consciousness. This was not a witnessed event as patient lives alone. She called EMS. Workup in the ER has been largely unremarkable except for right clavicular fracture captured on trauma workup. She was seen by cardiology for syncopal episode. Syncopal episode likely secondary to vagal response, patient was seen by physical therapy, she is stable to discharge to [facility] facility for rehab. Follow-up with cardiology after discharge Discharge medication Discharge medications aspirin 81 mg daily Lipitor 40 mg daily EKG sinus rhythm Assessment Syncopal episode likely secondary to vagal response Fall, was seen by PT OT while inpatient Right clavicle fracture with lytic lesion Nondisplaced ischium fracture likely pathological Pancytopenia likely secondary to multiple myeloma Multiple sclerosis Rheumatoid arthritis, follow-up with rheumatoid after discharge NSTEMI-was seen by cardiology while inpatient stress test which shows no reversible ischemia-fixed defect noted Continue home medicines as previously prescribed GOAL: Clear understanding of disease process INSTRUCTIONS: Physician Discharge Instructions: -Follow-up with cardiology after discharge -Follow-up with PCP in 1 to 2 weeks -Please call Dr. Neff at [phone] if any questions regarding hospital stay -Please call nursing station at [phone] if any nursing or medication questions -Return to the emergency room if symptoms worsen Diet: ADA, low sodium Activity: Fall precautions Vital Signs/Physical Exam: Temp Pulse Resp BP Pulse Ox 97.7 F 76 18 137/66 96 05/21/24 04:00 05/21/24 04:00 05/21/24 04:00 05/21/24 04:00 05/21/24 04:00 Laboratory Data at Discharge: WBC 3.20 thou/uL (4.3-10.9) L 05/21/24 04:35 Hgb 10.2 g/dL (12.0-15.0) L 05/21/24 04:35 Hct 29.6 % (36.0-45.0) L 05/21/24 04:35 Plt Count 145 thou/uL (152-406) L D 05/21/24 04:35 PT 13.3 SECONDS (10-13.0) H 05/15/24 22:51 INR 1.18 05/15/24 22:51 Sodium 140 mEq/L (136-145) 05/20/24 04:51 Potassium 4.0 mEq/L (3.5-5.1) 05/20/24 04:51 BUN 9 mg/dL (7-18) 05/20/24 04:51 Creatinine 0.81 mg/dL (0.55-1.02) 05/20/24 04:51 Glucose 100 mg/dL (74-106) 05/20/24 04:51 Phosphorus 3.6 mg/dL (2.5-4.9) 05/21/24 04:35 Magnesium 2.1 mg/dL (1.6-2.4) 05/21/24 04:35 Total Bilirubin 0.4 mg/dL (0.2-1.0) 05/20/24 04:51 AST < 10 U/L (15-37) L 05/20/24 04:51 ALT < 14 U/L (13-56) 05/20/24 04:51 Alkaline Phosphatase 67 U/L (45-117) 05/20/24 04:51 Lipase 47 U/L (13-75) 05/15/24 22:51 Home Medications: Carvedilol Phosphate [Coreg Cr] 12.5 mg PO DAILY 11/14/20 Dimethyl Fumarate 240 mg PO BID 11/14/20 Gabapentin 1,200 mg PO Q12H 11/14/20 Pantoprazole [Protonix Tab*] 40 mg PO DAILY 11/14/20 Topiramate 50 mg PO BEDTIME 11/14/20 Levothyroxine Sodium 150 mcg PO DAILY 05/31/21 Potassium Chloride [Klor-Con M10] 10 meq PO BID 04/20/22 methocarbamoL [Methocarbamol] 500 mg PO Q8H 04/20/22 Aspirin [Adult Aspirin Regimen] 81 mg PO DAILY 05/16/24 Baclofen 10 mg PO BID 05/16/24 Ipratropium [Atrovent 0.03% (21MCG)/Kirk Nasal] 2 sprays JOE PRN PRN 05/16/24 Lenalidomide [Revlimid] 1 cap PO DAILY 05/16/24 Oxycodone HCl/Acetaminophen [Oxycodone-Acetaminophn 7.5-325] 1 each PO PRN PRN 05/16/24 Tiotropium Br/Olodaterol HCl [Stiolto Respimat Inhaler (10)] 2 puff IH PRN PRN 05/16/24 Valacyclovir HCl [Valacyclovir] 1,000 mg PO DAILY 05/16/24 carBAMazepine [Carbamazepine] 200 mg PO BEDTIME 05/16/24 Physician Discharge Instructions: [facility] Worker: JIMMIE Lundy. [phone]. Expect a call within 1-2 business days from discharge. Call with questions or concerns. Alternate: JIMMIE Soto [phone]. Followup: NONE,NONE [Primary Care Provider] - Dustin Mcclure MD [ACTIVE - CAN ADMIT] - Time spent managing pt's care (in minutes): 45
[2024-05-21] MEDS: ZOLPIDEM TARTRATE 5 MG TABLET PO PRN (20:17)
[2024-05-22 09:32] VITALS: O2SAT 97
[2024-05-22 11:52] LABS: Absolute Eosinophils 0.1 K/uL (0-0.5); Absolute Lymphocytes (CBC) 0.6 K/uL (0.7-4.9); Absolute Monocytes 0.6 K/uL (0.1-1.3); Absolute Neutrophil 1.9 K/uL (1.8-8.0); Basophils % 0.9 % (0-1.3); Eosinophils % 3.5 % (0-4.4); Hematocrit 29.2 % (36.0-45.0); Hemoglobin 10.2 g/dL (12.0-15.0); Lymphocytes % 18.7 % (15.3-44.8); MCHC 34.9 g/dL (32.0-36.0); MCV 103.1 fL (80-100); MPV 7.7 fL (7.6-11.3); Monocytes % 18.3 % (3.3-12.3); Neutrophils % 58.6 % (41.7-73.7); Nucleated Red Blood Cells % 0.1 % (0-0); Platelets 143 thou/uL (152-406); RBC Red Blood Cell Count 2.83 M/uL (3.86-4.86); Red Cell Distribution Width 15.4 % (12.1-15.2)
[2024-05-22 12:05] LABS: Magnesium 1.9 mg/dL (1.6-2.4); Phosphorus 3.2 mg/dL (2.5-4.9)
--- NOTE | 2024-05-22 13:39 | P.DS ---
Admission Date: 05/16/24 Discharge Date: 05/22/24 Reason for Admission: syncope Brief History of Present Illness: Diagnosis Syncopal episode likely secondary to vagal response Fall Right clavicle fracture with lytic lesion Nondisplaced ischium fracture likely pathological Pancytopenia likely secondary to multiple myeloma Multiple sclerosis Rheumatoid arthritis NSTEMI HPI 05/16/24 Patient is a 73-year-old female who is being admitted after she presented with syncope. She has a history of multiple sclerosis and multiple myeloma. She was ambulating last evening from her kitchen to the living room when she suddenly felt diaphoretic and lightheaded. She passed out and eventually regained consciousness. This was not a witnessed event as patient lives alone. She called EMS. Workup in the ER has been largely unremarkable except for right clavicular fracture captured on trauma workup. During my evaluation is awake and responded appropriately to questions. Basic labs are significant for pancytopenia. Hospital Course: Patient is a 73-year-old female who is being admitted after she presented with syncope. She has a history of multiple sclerosis and multiple myeloma. She was ambulating last evening from her kitchen to the living room when she suddenly felt diaphoretic and lightheaded. She passed out and eventually regained consciousness. This was not a witnessed event as patient lives alone. She called EMS. Workup in the ER has been largely unremarkable except for right clavicular fracture captured on trauma workup. She was seen by cardiology for syncopal episode. Syncopal episode likely secondary to vagal response, patient was seen by physical therapy, she is stable to discharge to [facility]. Follow-up with cardiology after discharge Assessment Syncopal episode likely secondary to vagal response Fall, was seen by PT OT while inpatient Right clavicle fracture with lytic lesion Nondisplaced ischium fracture likely pathological Pancytopenia likely secondary to multiple myeloma Multiple sclerosis Rheumatoid arthritis, follow-up with rheumatoid after discharge NSTEMI-was seen by cardiology while inpatient stress test which shows no reversible ischemia-fixed defect noted Continue home medicines as previously prescribed GOAL: Clear understanding of disease process Discharge medication Discharge medications aspirin 81 mg daily Lipitor 40 mg daily EKG sinus rhythm - Physical Exam General: Awake and alert, afebrile HEENT: Atraumatic, Normocephalic Neck: Supple, 2+ carotid pulse no bruit Respiratory: Normal air movement, unlabored Cardiovascular: RRR, S1 S2 present Gastrointestinal: Normal bowel sounds, and nontender on palpation Musculoskeletal: Other (Right clavicular fracture, Left non discplaced rib fx, pain with ROM, ) Integumentary: No breakdown, No significant lesion Neurological: Normal speech, Normal strength at 5/5 x4 extr <Luly Urban - Last Filed: 05/24/24 19:44> Admission Date: 05/16/24 Discharge Date: 05/22/24 Hospital Course: Patient was seen and examined. Events of the last 24 hours have been noted. Spoke with with ALLAN regarding patient's clinical picture after evaluating and examining the patient independently. I performed a substantial part of the MDM during this patient's care today. I personally made or approved the documented management plan and acknowledge its risk of complications. I agree with the findings and documentation provided in the ALLAN's notes. <Lazaro Neff - Last Filed: 05/28/24 14:05> Disposition: TRANSFER TO [facility] Discharge Condition: GOOD Vital Signs/Physical Exam: Temp Pulse Resp BP Pulse Ox 98.5 F 84 16 116/59 L 98 05/22/24 12:00 05/22/24 12:00 05/22/24 12:00 05/22/24 12:00 05/22/24 12:00 Laboratory Data at Discharge: WBC 3.30 thou/uL (4.3-10.9) L 05/22/24 11:38 Hgb 10.2 g/dL (12.0-15.0) L 05/22/24 11:38 Hct 29.2 % (36.0-45.0) L 05/22/24 11:38 Plt Count 143 thou/uL (152-406) L 05/22/24 11:38 PT 13.3 SECONDS (10-13.0) H 05/15/24 22:51 INR 1.18 05/15/24 22:51 Sodium 140 mEq/L (136-145) 05/20/24 04:51 Potassium 4.0 mEq/L (3.5-5.1) 05/20/24 04:51 BUN 9 mg/dL (7-18) 05/20/24 04:51 Creatinine 0.81 mg/dL (0.55-1.02) 05/20/24 04:51 Glucose 100 mg/dL (74-106) 05/20/24 04:51 Phosphorus 3.2 mg/dL (2.5-4.9) 05/22/24 11:38 Magnesium 1.9 mg/dL (1.6-2.4) 05/22/24 11:38 Total Bilirubin 0.4 mg/dL (0.2-1.0) 05/20/24 04:51 AST < 10 U/L (15-37) L 05/20/24 04:51 ALT < 14 U/L (13-56) 05/20/24 04:51 Alkaline Phosphatase 67 U/L (45-117) 05/20/24 04:51 Lipase 47 U/L (13-75) 05/15/24 22:51 <Luly Urban - Last Filed: 05/24/24 19:44> Vital Signs/Physical Exam: Temp Pulse Resp BP Pulse Ox 98.5 F 84 16 116/59 L 98 05/22/24 12:00 05/22/24 12:00 05/22/24 12:00 05/22/24 12:00 05/22/24 12:00 Laboratory Data at Discharge: WBC 3.30 thou/uL (4.3-10.9) L 05/22/24 11:38 Hgb 10.2 g/dL (12.0-15.0) L 05/22/24 11:38 Hct 29.2 % (36.0-45.0) L 05/22/24 11:38 Plt Count 143 thou/uL (152-406) L 05/22/24 11:38 PT 13.3 SECONDS (10-13.0) H 05/15/24 22:51 INR 1.18 05/15/24 22:51 Sodium 140 mEq/L (136-145) 05/20/24 04:51 Potassium 4.0 mEq/L (3.5-5.1) 05/20/24 04:51 BUN 9 mg/dL (7-18) 05/20/24 04:51 Creatinine 0.81 mg/dL (0.55-1.02) 05/20/24 04:51 Glucose 100 mg/dL (74-106) 05/20/24 04:51 Phosphorus 3.2 mg/dL (2.5-4.9) 05/22/24 11:38 Magnesium 1.9 mg/dL (1.6-2.4) 05/22/24 11:38 Total Bilirubin 0.4 mg/dL (0.2-1.0) 05/20/24 04:51 AST < 10 U/L (15-37) L 05/20/24 04:51 ALT < 14 U/L (13-56) 05/20/24 04:51 Alkaline Phosphatase 67 U/L (45-117) 05/20/24 04:51 Lipase 47 U/L (13-75) 05/15/24 22:51 <Lazaro Neff - Last Filed: 05/28/24 14:05> Diet: AHA Activity: Fall precautions <Luly Urban - Last Filed: 05/24/24 19:44> <Lazaro Neff - Last Filed: 05/28/24 14:05> Home Medications: Carvedilol Phosphate [Coreg Cr] 12.5 mg PO DAILY 11/14/20 Dimethyl Fumarate 240 mg PO BID 11/14/20 Gabapentin 1,200 mg PO Q12H 11/14/20 Pantoprazole [Protonix Tab*] 40 mg PO DAILY 11/14/20 Topiramate 50 mg PO BEDTIME 11/14/20 Levothyroxine Sodium 150 mcg PO DAILY 05/31/21 Potassium Chloride [Klor-Con M10] 10 meq PO BID 04/20/22 methocarbamoL [Methocarbamol] 500 mg PO Q8H 04/20/22 Aspirin [Adult Aspirin Regimen] 81 mg PO DAILY 05/16/24 Baclofen 10 mg PO BID 05/16/24 Ipratropium [Atrovent 0.03% (21MCG)/[place] Nasal*] 2 sprays JOE PRN PRN 05/16/24 Lenalidomide [Revlimid] 1 cap PO DAILY 05/16/24 Oxycodone HCl/Acetaminophen [Oxycodone-Acetaminophn 7.5-325] 1 each PO PRN PRN 05/16/24 Tiotropium Br/Olodaterol HCl [Stiolto Respimat Inhaler (10)] 2 puff IH PRN PRN 05/16/24 Valacyclovir HCl [Valacyclovir] 1,000 mg PO DAILY 05/16/24 carBAMazepine [Carbamazepine] 200 mg PO BEDTIME 05/16/24 Physician Discharge Instructions: INSTRUCTIONS: Physician Discharge Instructions: -Follow-up with cardiology after discharge for ECHO and continued management -Follow-up with PCP in 1 to 2 weeks -Please call Dr. Neff at [phone] if any questions regarding hospital stay -Please call nursing station at [phone] if any nursing or medication questions -Return to the emergency room if symptoms worsen JOHN [employer] Analyst: JIMMIE Lundy. [phone]. Expect a call within 1-2 business days from discharge. Call with questions or concerns. Alternate: JIMMIE Soto [phone]. Followup: Dustin Mcclure MD [ACTIVE - CAN ADMIT] - 1-2 Weeks NONE,NONE [Primary Care Provider] -
[2024-05-22 14:23] VITALS: BP 116/59; TEMP 98.5
== END 2024-05-22 15:47 | DRG 562 ==
LOC: ER 21:49 → ERHOLD 05-16 00:51 → 2ND 05-16 14:02 → OBSVTOIN 05-16 16:15
PROVIDERS: ADMIT Internal Medicine; ATTEND Hospitalist
DX: S42.021A Displaced fracture of shaft of right clavicle, initial encounter for closed fracture (principal); D61.810 Antineoplastic chemotherapy induced pancytopenia; I21.4 Non-ST elevation (NSTEMI) myocardial infarction; S22.32XA Fracture of one rib, left side, initial encounter for closed fracture; C90.00 Multiple myeloma not having achieved remission; M84.454A Pathological fracture, pelvis, initial encounter for fracture; R55 Syncope and collapse; K74.60 Unspecified cirrhosis of liver; G35 Multiple sclerosis; M06.9 Rheumatoid arthritis, unspecified; T45.1X5A Adverse effect of antineoplastic and immunosuppressive drugs, initial encounter; Z60.2 Problems related to living alone; Z88.4 Allergy status to anesthetic agent; Z88.5 Allergy status to narcotic agent; Z88.8 Allergy status to other drugs, medicaments and biological substances; Z79.01 Long term (current) use of anticoagulants; Z90.49 Acquired absence of other specified parts of digestive tract; Z79.899 Other long term (current) drug therapy; Z90.710 Acquired absence of both cervix and uterus; Z79.890 Hormone replacement therapy; W18.30XA Fall on same level, unspecified, initial encounter; Y93.01 Activity, walking, marching and hiking; Y92.010 Kitchen of single-family (private) house as the place of occurrence of the external cause; Y99.9 Unspecified external cause status
CPT/HCPCS: 36415; 70450; 71045; 71250; 71275; 72125; 74176; 78452; 80048; 80053; 80076; 81001; 82947; 83690; 83735; 83880; 84100; 84484; 85025; 85610; 93005; 93017; 94010; 96361; 96374; 96375; 97110; 97116; 97161; 97165; 97530; 99285; A9500; G0378; J1171; J2003; J2310; J2405; J2785; J3010; J7030; Q9967